=== PATIENT | female | born 1970 | race Caucasian/White ===

== ENCOUNTER 2024-07-13 14:17 | Outpatient (AMB) | payer OTHER, SELFPAY ==
--- OUTSIDE RECORDS SUMMARY | 2024-07-13 14:26 | XMS_ITS | Continuity of Care Document ---
Author Organization [facility] Address [address] [place], [place] [address] [place], [place] Phone [phone] Care Team Providers Care Sustainable Design Coordinator Name Role Phone Gabby Conde MD Care Team Information Receiv er Unavailable YAKOV LATIF M.D. Care Team Information Rec eiver Unavailable Gabby Conde MD Primary Care Physician Unava ilable Social History Type Date Description Comments Sex Unknown
--- NOTE | 2024-07-13 14:37 | A.OFFPC_ITS ---
Vital Signs 07/13/24 14:49 Height 5 ft 7 in Weight 143 lb 2 oz BMI 22.4 BP 138/76 Blood Pressure Location Rt brachial Position Sitting Respiration 13 Pulse 68 Pulse Source Pulse Oximeter Pulse Oximetry (%) 97 Oxygen Delivery Method Room Air Intake Visit Reasons: est/diabetes Intake Note: new patient to establish care, also patient is diabetic Manager Visual Required: No Allergies No Known Allergies Allergy (Verified 07/13/24 14:38) Medication List - Last Reconciled 07/13/24 by Vanessa Banuelos PA-C blood-glucose sensor (Dexcom G6 Sensor device) As directed Tobacco use date assessed: 07/13/24 Dental Screening Dental Screen Date: 07/13/24 Did you have a dental visit in the last 12 months?: Yes Did you have a dental problem in the last 6 months where you did not have access to dental care?: No Was dental information given to patient?: Patient has dentist HPI est/diabetes HPI Details Patient is a 54-year-old female presents today to establish care. She is transferring from [facility]. She states that her PCP's office started to do on awake counselor Medicine. She has a hx of t1dm, anxiety with depression, hx of cold sores. Endo: She follows with [facility] for management for t1dm- she is on a pump. She has had dm for 30 years (dx around 20s). Her a1c today is 7.9. She states this is good for her. She states it was previously 8.1. She has all back up supplies at home. She understands how to treat hypoglycemia. [facility], states no complications does not follow with podiatry- states she gets her own pedicures. Psych: She has a long standing history of anxiety and depression and states that she is very well controlled on 75 mg with sertraline. No SI/HI. She has never been hospitalized before for this. Mammo-overdue Colonoscopy- completed it in 2020 and states she was told it was normal and due to fam hx is due again this year. she is booked for this year at [facility]. 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 -5 years Bone density: never had Tobacco use: 1 ppd x 30 years- maternal aunt and uncle have lung cancer [facility] Medical History (Updated 07/13/24 @ 15:13 by Vanessa Banuelos PA-C) Arthritis Anxiety and depression Diabetes Surgical History (Updated 07/13/24 @ 14:48 by Rick Miranda MA) History of appendectomy Previous section Family History (Updated 07/13/24 @ 14:48 by Rick Miranda MA) Paternal Grandfather Substance abuse Maternal Grandfather Substance abuse Cancer Maternal Grandmother Substance abuse Hypertension High cholesterol Thyroid disorder Brother Hypertension Mother Thyroid disorder Paternal Grandmother Cardiovascular disease Father Cardiovascular disease Agent orange exposure Social History (Updated 07/13/24 @ 14:45 by Rick Miranda MA) Household Members: None Both parents involved: No Caregiver staying overnight: No Housing: Condominium Are you a primary director of healthcare systems to a significant other at home: No Do you presently have visiting nurse or other home services: No 75 years or older and lives alone: No Alcohol intake: current Alcohol intake frequency: a few times a month Patient Tobacco Use Status: Current everyday Tobacco user Tobacco use type: Cigarette Cigarette Packs Per Day: 1 Cigarettes Per Day: 10 Years Smoked: 30 e-Cigarette/Vaping Use: Never Used Second Hand Smoke Exposure: No 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al 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 1. Little interest or pleasure in doing things: not at all 2. Feeling down, depressed, or hopeless: several days 3. Trouble falling or staying asleep, or sleeping too much: several days 4. Feeling tired or having little energy: several days 5. Poor appetite or overeating: not at all 6. Feeling bad about yourself - or that you are a failure or have let yourself or your family down: several days 7. Trouble concentrating on things, such as reading the newspaper or watching television: not at all 8. Moving or speaking so slowly that other people could have noticed. Or the opposite - being so fidgety or restless that you have been moving around a lot more than usual: not at all 9. Thoughts that you would be better off or of hurting yourself in some way: not at all Total score: 4 Depression Screening Interpretation: Positive Depression Screening Follow-up: Existing condition and In treatment Depression Screening Done: Yes 17517 - PHQ-9 Billing: Yes Source: Developed by Drs. Josh Mejia, Rachel Hanks, Enmanuel Crawford and colleagues, with an educational fifi from [employer]. Thrive Questionnaire Date Thrive assessed: 07/13/24 I am a: Patient What is your living situation today?: I have a steady place to live Within the past 12 months, did the food you bought not last and you didn't have the money to get more?: I choose not to answer this question Within the past 12 months, did you worry whether your food would run out before you got money to buy more?: I choose not to answer this question Do you have trouble paying for medicines?: Yes Do you have trouble getting transportation to medical appointments?: No Do you have trouble paying your heating and electricity bill?: Yes Do you have trouble taking care of your child, family member or friend?: I choose not to answer this question Do you have trouble with day-to-day activities such as bathing, preparing meals, shopping, managing finances, etc.?: I choose not to answer this question Are you currently unemployed and looking for a job?: No Are you interested in more education?: I choose not to answer this question Please select the resources that you would like help with: None Currently or been in a relationship where the following occur: I choose not to answer THRIVE Score: 1 AUDIT C Alcohol Use Questionnaire (AUDIT-C) 1. How often do you have a drink containing alcohol?: 2-4 times a month 2. How many drinks containing alcohol do you have on a typical day when you are drinking?: 3 or 4 3. How often do you have six or more drinks on one occasion?: Monthly Total Score: 5 Score Reviewed/Action Taken: Yes ELVIN-7 AMB Questionnaire ELVIN-7 Date ELVIN - 7 assessed: 07/13/24 Feeling nervous, anxious, or on edge: 2 = More than half the days Not being able to stop or control worryin = Several days Worrying too much about different things: 1 = Several days Trouble relaxin = Several days Being so restless that it is hard to sit still: 1 = Several days Becoming easily annoyed or irritable: 1 = Several days Feeling afraid as if something awful might happen: 1 = Several days Total ELVIN-7 score (0-4 normal; 5-9 mild; 10-14 moderate; 15-21 severe): 8 Source: Developed by Drs. Josh Mejia, Rachel Hanks, Enmanuel Crawford and colleagues, with an educational fifi from [employer]. ELVIN-7 Assessment Billing ELVIN-7 Assessment Tool: ELVIN-7 Assessment 10869 Physical exam (Primary Care) Vital Signs: Last Vital Signs Pulse 68 07/13/24 14:49 Resp 13 07/13/24 14:49 BP 138/76 07/13/24 14:49 Pulse Ox 97 07/13/24 14:49 Oxygen Delivery Method Room Air 07/13/24 14:49 BMI result Body Mass Index 22.4 Tobacco/Smoking Status: Tobacco use Status Tobacco use date assessed 07/13/24 07/13/24 14:51 Patient Tobacco Use Status Current everyday Tobacco 07/13/24 14:51 Tobacco use type Cigarette 07/13/24 14:51 e-Cigarette/Vaping Use Never Used 07/13/24 14:51 PHQ-9: PHQ-9 Score PHQ-9: Total score 4 07/13/24 14:51 Depression Screening Interpretation: Positive Depression Screening Follow-up: Existing condition and In treatment Thrive Assessment: Date of Thrive Assessment Date Thrive assessed 07/13/24 07/13/24 14:51 Currently or been in a relationship where the following occur: I choose not to answer Const Orientation/consciousness: patient oriented x3 HENMT Ears: hearing grossly normal bilaterally Neck Thyroid: Thyroid normal Lymphatic: no lymphadenopathy noted Resp Auscultation: clear to auscultation bilaterally Cardio Rate: regular rate Rhythm: regular rhythm Heart sounds: S1 normal heart sound present and S2 normal heart sound present GI Inspection: Yes normal to inspection Palpation (GI): Soft to palpation and Other GI palpation findings present (nontender, no cva tenderness) Auscultation: normoactive bowel sounds Rectal Exam - Female: deferred Skin General skin exam: no rashes or lesions noted Neuro General: patient oriented x3, gait normal and no focal motor deficits Results AMB Hemoglobin A1c AMB Hemoglobin A1c 7.9 % Last Edit by Rick Miranda MA on 07/13/24 15:03 Coding Level of Care Code New Pt Level 4 (21233) Complex EM visit Add On G2211 Diagnoses Anxiety with depression F41.8 Uncontrolled type 1 diabetes mellitus with hyperglycemia, with long-term current use of insulin E10.[address] Z96.41 Additional Codes ELVIN-7 Assessment Billing - ELVIN-7 Assessment Tool: ELVIN-7 Assessment 45207 ([id number]) PHQ-9 - 84301 - PHQ-9 Billing: Yes ([id number]) Assessment & Plan Assessment & Plan (1) Anxiety with depression: Code(s): F41.8 - Other specified anxiety disorders Category: Medical Plan: Currently feels very well managed with the sertraline 75 mg. Continue current regimen. (2) Uncontrolled type 1 diabetes mellitus with hyperglycemia, with long-term current use of insulin: Code(s): E10.65 - Type 1 diabetes mellitus with hyperglycemia Category: Medical Plan: Following with endocrinology. We did discuss that her A1c is not at goal. She reports not having a urine checked in a few years. Microalbumin urine ordered (3) Insulin pump in place: Code(s): Z96.41 - Presence of insulin pump (external) (internal) Category: Medical Plan: As above. Has backup insulin at home along with CGM and additional testing supplies. Understands how to correct hypoglycemic events. Has glucose tabs and nasal spray Advised to continue following up with endocrinology. Plan DEXA ordered. Mammogram ordered. Bone density ordered. She is going to book her own colonoscopy. Referral to thoracic surgery for lung cancer screening. Offered her smoking cessation tips but she does not want to do this. Orders: Orders Complete Blood Count Auto Diff Today E10.65 - Type 1 diabetes mellitus with hyperglycemia, F41.8 - Other specified anxiety disorders, Z96.41 - Presence of insulin pump (external) (internal) Lipid Panel Today E10.65 - Type 1 diabetes mellitus with hyperglycemia, F41.8 - Other specified anxiety disorders, Z96.41 - Presence of insulin pump (external) (internal) Microalbumin, Random (w Creat) Today E10.65 - Type 1 diabetes mellitus with hyperglycemia, F41.8 - Other specified anxiety disorders, Z96.41 - Presence of insulin pump (external) (internal) AMB Hemoglobin A1c Today Z13.9 - Encounter for screening, unspecified XR DEXA axial skeleton Today F41.8 - Other specified anxiety disorders, N95.1 - Menopausal and female climacteric states, Z13.820 - Encounter for screening for osteoporosis Comprehensive [place]. Panel Fast Today E10.65 - Type 1 diabetes mellitus with hyperglycemia, F41.8 - Other specified anxiety disorders, Z96.41 - Presence of insulin pump (external) (internal) TSH reflex Free T4 Today E10.65 - Type 1 diabetes mellitus with hyperglycemia, F41.8 - Other specified anxiety disorders, Z96.41 - Presence of insulin pump (external) (internal) Referrals COAL CONVEYOR OPERATOR Referral Z01.419 - Encounter for gynecological examination (general) (routine) without abnormal findings Thoracic/General Surgery Referral F17.200 - Nicotine dependence, unspecified, uncomplicated Medications: New valacyclovir (Valtrex) 2,000 mg (2 x 1 gram) PO Q12H 1 day PRN 30 tabs 0RF outbreak MDD 4 g sertraline 75 mg (1.5 x 50 mg) PO DAILY 90 days 135 tabs 2RF
[2024-07-13 14:49] VITALS: BP 138/76; PULSE 68; RESP 13; O2SAT 97; BMI 22.4
== END 2024-07-13 15:23 | disposition home or self-care (01) ==
PROVIDERS: PCP Physician Assistant; Visit Provider Physician Assistant
DX: F41.8 Other specified anxiety disorders (principal); E10.65 Type 1 diabetes mellitus with hyperglycemia; Z96.41 Presence of insulin pump (external) (internal); Z13.9 Encounter for screening, unspecified

== ENCOUNTER → 2024-07-13 14:17 | Outpatient (BNVA) | payer OTHER, SELFPAY | PROVIDERS: PCP Physician Assistant; Visit Provider Physician Assistant | DX: F41.8 Other specified anxiety disorders (principal); E10.65 Type 1 diabetes mellitus with hyperglycemia; Z79.899 Other long term (current) drug therapy; Z96.41 Presence of insulin pump (external) (internal) | CPT/HCPCS: 83036; 96127 ==

== ENCOUNTER 2024-09-02 10:05 | Outpatient (AMB) | payer OTHER, SELFPAY ==
--- NOTE | 2024-09-02 07:51 | MHC.OFFVIS ---
Intake Visit Reasons: Current Smoker Allergies No Known Allergies Allergy (Verified 07/13/24 14:38) HPI HPI Current Smoker: Details: Initial visit for this 54yo smoker with a 30PYH. Patient started smoking at age 15 for 39 years at 1/2-1ppd. . Denies marijuana use. Denies second hand smoke exposure. Denies exposure to chemicals or substances like asbestos. . Denies known family history of lung cancer. Maternal aunt and maternal half uncle had lung cancer. Denies personal history of cancers. Denies chest CT in last year. . Denies recent travel outside the [place]. Denies recent respiratory illness or recent hospitalization for respiratory issues. Reports testing positive for COVID. Admits receiving COVID Vaccine. . Denies fever, chills, new/worsening cough, hemoptysis, hoarseness or dysphagia. Denies significant chest pain, significant dyspnea or unintentional weight loss. Patient Lung Cancer Screening Questionnaire reviewed with patient by provider. . Shared Decision Making Completed. Patient meets criteria. Discussed in detail with patient, the risk vs benefit of LDCT screening. Patient consents to proceed with scan. Discussed smoking cessation. [facility] Medical History (Updated 09/02/24 @ 10:28 by Juliane Mann PA-C) Nicotine dependence, cigarettes, uncomplicated Insulin pump in place Uncontrolled type 1 diabetes mellitus with hyperglycemia, with long-term current use of insulin Arthritis Anxiety and depression Surgical History (Updated 08/04/24 @ 14:35 by Juliane Mann PA-C) History of section History of appendectomy Family History (Updated 08/04/24 @ 14:39 by Juliane Mann PA-C) Paternal Grandfather Substance abuse Maternal Grandfather Substance abuse Cancer Maternal Grandmother Substance abuse Hypertension High cholesterol Thyroid disorder Brother Hypertension Mother Thyroid disorder Paternal Grandmother Cardiovascular disease Father Cardiovascular disease Agent orange exposure Maternal Aunt Lung cancer Maternal Uncle Lung cancer Social History (Updated 09/02/24 @ 10:29 by Juliane Mann PA-C) Household Members: None Housing: Condominium Are you a primary critical care paramedic to a significant other at home: No Do you presently have visiting nurse or other home services: No Alcohol intake: current Alcohol intake frequency: a few times a month Patient Tobacco Use Status: Current everyday Tobacco user Tobacco use type: Cigarette Cigarettes Per Day: 10 Years Smoked: (onset 15yo, 1/2-1ppd x 39yrs, 30pyh) e-Cigarette/Vaping Use: Never Used Second Hand Smoke Exposure: No 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 - Patient meets criteria for LDCT for lung cancer screening purposes and is asymptomatic. - Smoking cessation counseling offered. Patients can always call [phone]. - Will arrange for a LDCT scan of the chest for screening purposes at [facility]. - Risks, benefits, and alternatives were discussed in detail and the patient agrees to proceed. - Risks discussed include but are not limited to: radiation exposure, anxiety during testing and while awaiting results, false negatives, false positives and possibility of additional intervention such as further imaging or surgical procedures for benign disease. - Benefits are obviously detection of lung cancer at an early stage which can lead to improved outcomes. - Discussed the importance of screening program compliance with adherence to yearly LDCT scan as scheduled - or sooner interval scans for personalized screening regimen. - Discussed follow up plan. Our office will send a letter discussing results and if needed set up phone call and office visit based on CT findings. - Patient educated on results categorization and the management decisions for suspicious findings potentially found on the screening LDCT scan. Any patient with a Lung RADS score of 3 or 4 will be reviewed by a multidisciplinary team at [facility] to form a plan of action in regards to scan findings. - If further work up is warranted for a suspicious lung finding this will be followed by the Lung Cancer Screening program in conjunction with the Thoracic Surgery Department at [facility]. - A copy of the office note and LDCT will be sent to the patient's PCP - as well as documentation on any associated further plans of care. - Incidental findings on LDCT are the PCP's responsibility. These findings are indicated with an S finding on the LDCT Assessment. A note discussing the findings will be sent to the PCP who is then responsible for further management. - All questions answered.? Coding Level of Care Code Lung Cancer Screening G0296 Diagnoses Nicotine dependence, cigarettes, uncomplicated F17.210
--- OUTSIDE RECORDS SUMMARY | 2024-09-02 11:11 | XMS_ITS | Continuity of Care Document ---
Author Organization [facility] Address [address] [place], [place] [address] [place], [place] Phone [phone] Care Team Providers Care Glaze Handler Name Role Phone Gabby Conde MD Care Team Information Receiv er Unavailable YAKOV LATIF M.D. Care Team Information Rec eiver Unavailable Gabby Conde MD Primary Care Physician Unava ilable Social History Type Date Description Comments Sex Unknown
== END 2024-09-02 10:42 | disposition home or self-care (01) ==
PROVIDERS: PCP Physician Assistant; Visit Provider Physician Assistant Medical
DX: F17.210 Nicotine dependence, cigarettes, uncomplicated (principal)
CPT/HCPCS: G0296

== ENCOUNTER 2024-09-02 10:24 | Outpatient (REF) | payer OTHER, SELFPAY ==
--- NOTE | ~2024-09-02 | CT_ITS ---
CLINICAL HISTORY: F17.210 - Nicotine dependence, cigarettes, uncomplicated CT lung cancer screening (LDCT) Comparison: None Technique: Axial CT images of the chest using low-dose technique. Referring provider counseled the patient on shared decision-making for LDCT screening. Additional counseling was provided on smoking cessation. Effective radiation dose total: DLP 25.5 mGycm, CTDIvol 0.8 mGy. Findings: Lung: There is a questionable ill-defined 2.8 x 2.0 cm right hilar mass with right middle lobe linear consolidation, possible subsegmental atelectasis there are no other solid or semi solid lesions. Coronary artery calcifications: none Limited upper abdomen: Unremarkable Other: None Impression: Category 4B: Suspicious, additional diagnostics and/or tissue sampling recommended. Consider contrast-enhanced study if patient can safely receive intravenous contrast Category 1: Normal; continue annual screening Category 2: Benign appearance or behavior, continue annual screening Category 3: Probably benign, [address] recommended Category 4A: Suspicious, [address] recommended; may consider PET/CT Category 4B: Suspicious, Additional diagnostics and/or tissue sampling recommended Category 4X: Suspicious, Additional diagnostics and/or tissue sampling recommended Category 0: Recalls (incomplete screen due to Incomplete coverage, Noise, Respiratory motion, Expiration, Obscured by acute abnormality) This document has been electronically signed by: Gustavo Montesinos MD on 09/02/2024 17:25:41
--- OUTSIDE RECORDS SUMMARY | 2024-09-02 11:44 | XMS_ITS | Continuity of Care Document ---
Author Organization [facility] Address [address] [place], [place] [address] [place], [place] Phone [phone] Care Team Providers Care Porcelain Enameling Supervisor Name Role Phone Gabby Conde MD Care Team Information Receiv er Unavailable YAKOV LATIF M.D. Care Team Information Rec eiver Unavailable Gabby Conde MD Primary Care Physician Unava ilable Social History Type Date Description Comments Sex Unknown
== END 2024-09-02 10:25 | disposition home or self-care (01) ==
LOC: HO.CT 10:24
PROVIDERS: PCP Physician Assistant; Visit Provider Physician Assistant Medical
DX: Z12.2 Encounter for screening for malignant neoplasm of respiratory organs (principal); F17.210 Nicotine dependence, cigarettes, uncomplicated
CPT/HCPCS: 71271

== ENCOUNTER → 2024-09-02 10:26 | Outpatient (BNV) | payer OTHER, SELFPAY | PROVIDERS: PCP Physician Assistant; Visit Provider Specialist | DX: F17.210 Nicotine dependence, cigarettes, uncomplicated (principal) | CPT/HCPCS: 71271 ==

== ENCOUNTER 2024-09-13 09:37 | Outpatient (AMB) | payer OTHER, SELFPAY ==
--- NOTE | 2024-09-13 09:51 | MHC.OFFVIS ---
Vital Signs 09/13/24 09:52 Height 5 ft 7 in Weight 142 lb 3.17 oz BMI 22.3 BP 124/66 Blood Pressure Location Rt brachial Position Sitting Pulse 67 Pulse Source Pulse Oximeter Pulse Oximetry (%) 99 Oxygen Delivery Method Room Air Intake Visit Reasons: Lung Mass Allergies No Known Allergies Allergy (Verified 09/13/24 09:56) HPI Comments Details: The patient is here for pulmonary evaluation. The patient is a 54-year-old woman who is an active smoker who apparently he has been noticing some increased cough shortness of breath and weight loss. She did follow-up with her primary care doctor who referred her to the lung cancer screening program. She did have her 1st CT scan through the lung cancer screening program which is considered a rods 4. We did personally reviewed together in the room. She has a masslike density in the infrahilar area. It is surrounded by airways. We talked about the concerns that this is likely a malignant process and needs to have a biopsy. The patient will benefit from endobronchial ultrasound bronchoscopy with transbronchial needle aspiration. Also request pulmonary function studies. The patient also needs to quit smoking altogether. She is currently not using any inhalers will hold off at this time. Follow-up with PFTs. [facility] Medical History (Updated 09/09/24 @ 10:26 by Juliane Mann PA-C) Nicotine dependence, cigarettes, uncomplicated Insulin pump in place Uncontrolled type 1 diabetes mellitus with hyperglycemia, with long-term current use of insulin Arthritis Anxiety and depression Surgical History (Updated 08/04/24 @ 14:35 by Juliane Mann PA-C) History of section History of appendectomy Family History (Updated 08/04/24 @ 14:39 by Juliane Mann PA-C) Paternal Grandfather Substance abuse Maternal Grandfather Substance abuse Cancer Maternal Grandmother Substance abuse Hypertension High cholesterol Thyroid disorder Brother Hypertension Mother Thyroid disorder Paternal Grandmother Cardiovascular disease Father Cardiovascular disease Agent orange exposure Maternal Aunt Lung cancer Maternal Uncle Lung cancer Social History (Updated 09/13/24 @ 09:56 by Dania Shell CMA) Household Members: None Housing: Condominium Are you a primary date night caregiver to a significant other at home: No Do you presently have visiting nurse or other home services: No Alcohol intake: current Alcohol intake frequency: a few times a month Patient Tobacco Use Status: Current everyday Tobacco user Tobacco use type: Cigarette Cigarette Packs Per Day: 0.75 Cigarettes Per Day: 15 Years Smoked: (onset 15yo, 1/2-1ppd x 39yrs, 30pyh) e-Cigarette/Vaping Use: Never Used Second Hand Smoke Exposure: No 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al 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 needs: No Hearing needs: No Vision needs: Yes (wear glasses) Review of Systems Const Reports fatigue, Reports poor appetite and Reports weight loss Eyes Reports no additional complaints ENT Reports no additional complaints and Denies dysphagia Card Denies chest pain Resp Reports chest congestion and Reports cough GI Denies dysphagia Musc Reports no additional complaints Skin/Breast Denies rash Neuro Reports no additional complaints Endo Reports fatigue Physical Exam Vital Signs: Last Vital Signs Pulse 67 09/13/24 09:52 BP 124/66 09/13/24 09:52 Pulse Ox 99 09/13/24 09:52 Oxygen Delivery Method Room Air 09/13/24 09:52 BMI result Body Mass Index 22.3 Const General: comfortable HEENT Head: Yes normal to inspection Neck Neck: Yes supple Chest Chest palpation & inspection: normal inspection of the chest Resp Effort & Inspection: normal respiratory effort Auscultation: clear to auscultation bilaterally, no rales, no rhonchi and no wheezes Cardio Rhythm: regular rhythm Heart sounds: S1 normal heart sound present and S2 normal heart sound present GI Palpation (GI): Soft to palpation Skin General skin exam: no rashes or lesions noted Assessment & Plan Assessment & Plan (1) Mass of right lung: Comment: 09/02/24 LDCT = ill-defined 2.8 x 2.0 cm right hilar mass with RML linear consolidation - plan PET/PFTs/EBUS) Code(s): R91.8 - Other nonspecific abnormal finding of lung field Category: Medical (2) Nicotine dependence, cigarettes, uncomplicated: Comment: (onset 15yo, 1/2-1ppd x 39yrs, 30pyh) Code(s): F17.210 - Nicotine dependence, cigarettes, uncomplicated Category: Medical (3) Insulin pump in place: Code(s): Z96.41 - Presence of insulin pump (external) (internal) Category: Medical Plan Plan for EBUS after she is back from [place] in 2 weeks PFTs this week Will need to have PET scan Tobacco cessation F/U 3-4 weeks Coding Level of Care Code New Pt Level 5 (68628) Diagnoses Mass of right lung R91.8 Nicotine dependence, cigarettes, uncomplicated F17.[address] Z96.41 Time Spent (min) 60
[2024-09-13 09:52] VITALS: BP 124/66; PULSE 67; O2SAT 99; BMI 22.3
--- OUTSIDE RECORDS SUMMARY | 2024-09-13 10:51 | XMS_ITS | Continuity of Care Document ---
Author Organization [facility] Address [address] [place], [place] [address] [place], [place] Phone [phone] Care Team Providers Care Daytime Babysitter Name Role Phone Gabby Conde MD Care Team Information Receiv er Unavailable YAKOV LATIF M.D. Care Team Information Rec eiver Unavailable Gabby Conde MD Primary Care Physician Unava ilable Social History Type Date Description Comments Sex Unknown
== END 2024-09-13 10:28 | disposition home or self-care (01) ==
LOC: HO.HPS 09:37
PROVIDERS: PCP Physician Assistant; Referring Provider Physician Assistant Medical; Visit Provider Hospitalist
DX: R91.8 Other nonspecific abnormal finding of lung field (principal); F17.210 Nicotine dependence, cigarettes, uncomplicated; E10.65 Type 1 diabetes mellitus with hyperglycemia; Z96.41 Presence of insulin pump (external) (internal)
CPT/HCPCS: 99205

== ENCOUNTER → 2024-09-13 09:37 | Outpatient (BNVA) | payer OTHER, SELFPAY | PROVIDERS: PCP Physician Assistant; Referring Provider Physician Assistant Medical; Visit Provider Hospitalist ==

== ENCOUNTER 2024-09-14 08:51 | Outpatient (REF) | payer OTHER, SELFPAY ==
--- NOTE | 2024-09-14 08:58 | PFT_ITS ---
Flows: FEV1: 86 % of predicted at 2.49 L FVC: 100 % of predicted at 3.68 L FEV1/FVC: 68 % Bronchodilator response: Absent Volumes: Total lung capacity: 89 % of predicted at 5.11 L Residual volume: 84 % of predicted at 1.50 L Slow vital capacity: 92 % of predicted at 3.61 L Expiratory reserve volume: 95 % of predicted at 1.02 L Diffusion capacity: Normal Impression: Mild obstructive ventilatory defect with no bronchodilator response. MTDD
--- OUTSIDE RECORDS SUMMARY | 2024-09-14 09:25 | XMS_ITS | Continuity of Care Document ---
Author Organization [facility] Address [address] [place], [place] [address] [place], [place] Phone [phone] Care Team Providers Care Postal Sorting Officer Name Role Phone Gabby Conde MD Care Team Information Receiv er Unavailable YAKOV LATIF M.D. Care Team Information Rec eiver Unavailable Gabby Conde MD Primary Care Physician Unava ilable Social History Type Date Description Comments Sex Unknown
[2024-09-14 09:43] VITALS: PULSE 66
== END 2024-09-14 08:52 | disposition home or self-care (01) ==
LOC: HO.RESP 08:51
PROVIDERS: PCP Physician Assistant; Visit Provider Hospitalist
DX: R91.8 Other nonspecific abnormal finding of lung field (principal); F17.210 Nicotine dependence, cigarettes, uncomplicated
CPT/HCPCS: 94010; 94640; 94727; 94729

== ENCOUNTER → 2024-09-14 08:58 | Outpatient (BNV) | payer OTHER, SELFPAY | PROVIDERS: PCP Physician Assistant; Visit Provider Internal Medicine Pulmonary Disease | DX: R91.8 Other nonspecific abnormal finding of lung field (principal); F17.210 Nicotine dependence, cigarettes, uncomplicated | CPT/HCPCS: 94060; 94727; 94729 ==

== ENCOUNTER 2024-09-27 07:41 | Outpatient (REF) | payer OTHER, SELFPAY ==
[2024-09-27 11:22] LABS: MANUAL DIFF FLAG NO
[2024-09-27 11:30] LABS: Basophils Absolute Auto 0.1 X10*3/uL (0.0-0.2); Basophils Percent Auto 0.8 % (0-2); Eosinophils Absolute Auto 0.2 X10*3/uL (0.0-0.4); Eosinophils Percent Auto 2.2 % (0-4); Hematocrit 37.8 % (37.0-47.0); Hemoglobin 12.5 g/dl (12.0-16.0); Imm Gran Abs Auto 0.01 X10*3/uL (0.00-0.03); Imm Gran Pct Auto 0.1 % (0.0-0.4); Lymphocytes Absolute Auto 2.9 X10*3/uL (1.2-4.9); Lymphocytes Percent Auto 37.5 % (20-40); Mean Corpuscular HGB Conc 33.1 g/dl (31.0-35.0); Mean Corpuscular Volume 90.9 fL (80.0-98.0); Mean Platelet Volume 8.6 fL (9.4-12.3); Monocytes Absolute Auto 0.6 X10*3/uL (0.1-1.2); Monocytes Percent Auto 7.6 % (2-11); Neutrophils Absolute Auto 4.1 x10*3/uL (2.0-8.3); Neutrophils Percent Auto 51.8 % (45-73); Platelet Count 433 X10*3/uL (160-400); Red Blood Count 4.16 X10*6/uL (4.20-5.50); Red Cell Distribution Width 13.8 % (11.0-16.0); White Blood Count 7.9 X10*3/uL (4.8-10.8)
[2024-09-27 12:16] LABS: Creatinine Urine 46.43 mg/dL; Microalbumin Urine < 5.0 mg/L
[2024-09-27 12:20] LABS: Alanine Aminotransferase 20 U/L (0-31); Albumin Level 3.8 g/dL (3.5-5.0); Alkaline Phosphatase 130 U/L (39-117); Anion Gap 10 (12-20); Aspartate Amino Transferase 25 U/L (5-31); Bilirubin Total 0.3 mg/dL (0.0-1.0); Blood Urea Nitrogen 10 mg/dL (9-16); Calcium 9.2 mg/dL (8.4-10.2); Carbon Dioxide 27 mmol/L (22-29); Chloride 107 mmol/L (96-108); Cholesterol 181 mg/dL (<200); Estimated Glomerular Filt Rate > 60; Glucose Fasting 146 mg/dL (60-99); HDL Cholesterol 54 mg/dL (>40); LDL Cholesterol Calculated 110 mg/dL (<100); Potassium 4.4 mmol/L (3.3-5.1); Sodium 140 mmol/L (135-145); TSH reflex Free T4 2.84 uIU/mL (0.32-4.0); Total Protein 6.8 g/dL (6.5-8.0); Triglycerides 86 mg/dL (<150)
== END 2024-09-27 07:42 | disposition home or self-care (01) ==
LOC: HO.WFDLDS 07:41
PROVIDERS: Visit Provider Physician Assistant
DX: E10.65 Type 1 diabetes mellitus with hyperglycemia (principal); F41.8 Other specified anxiety disorders; Z96.41 Presence of insulin pump (external) (internal)
CPT/HCPCS: 36415; 80053; 80061; 82043; 82570; 84443; 85025

== ENCOUNTER 2024-09-28 10:34 | Outpatient (AMB) | payer OTHER, SELFPAY ==
--- NOTE | 2024-09-28 09:59 | A.OFFPC_ITS ---
Intake Visit Reasons: Discuss nodule Intake Note: Discuss Ct of lungs. Pesticide Use Medical Coordinator Required: No Allergies No Known Allergies Allergy (Verified 09/28/24 10:25) Medication List - Last Reconciled 09/28/24 by Vanessa Banuelos PA-C blood-glucose sensor (Dexcom G6 Sensor device) As directed insulin aspart U-100 (Novolog FlexPen U-100 Insulin aspart) 1 sliding scale dose subcut USEASDIRECTD loratadine (Claritin) 10 mg PO DAILY multivitamin 1 tab PO DAILY sertraline 75 mg (1.5 x 50 mg) PO DAILY 90 days valacyclovir (Valtrex) 2,000 mg (2 x 1 gram) PO Q12H PRN 1 day MDD 4 g [vitamin e daily] Tobacco use date assessed: 07/13/24 Dental Screening Dental Screen Date: 07/13/24 HPI Discuss nodule HPI Details Patient is a 54-year-old female presents today for a follow up. She has a hx of t1dm, anxiety with depression, hx of cold sores and recent diagnosis of right lung mass PULM: Recently went for a low-dose CT scan screen given her smoking history and family history of lung cancer and found to have a right lung mass. She has followed up with pulmonology and recently had PFTs which showed mild COPD. She is scheduled for a biopsy in 2 days but this is stressing her out. She states that she would just like the mass completely removed. She says that she plans to contact the surgeon today. She has a PET scan scheduled for October. She is still smoking but has cut back. In the past patches have worked well for her. Psych: She has a long standing history of anxiety and depression and states that she she was recently very well-controlled however given her recent lung mass finding she has had an increase in anxiety. She is tearful throughout the day. She says that she is struggling and having some intermittent panic attacks and interrupted sleep. No SI/HI. She does have a good support system of friends in [place] however, most of her family lives in [place]. She states that they are supportive through the phone. She does not want to meet with anyone just yet. Endo: She follows with [facility] for management for t1dm- she is on a pump. She has had dm for 30 years (dx around 20s). Her a1c today is 7.9. She states this is good for her. . She has all back up supplies at home. She understands how to treat hypoglycemia. follows with [facility]-no retinopathy, states no complications does not follow with podiatry- states she gets her own pedicures. [facility] Medical History (Updated 09/28/24 @ 10:52 by Vanessa Banuelos PA-C) Nicotine dependence, cigarettes, uncomplicated Insulin pump in place Uncontrolled type 1 diabetes mellitus with hyperglycemia, with long-term current use of insulin Arthritis Anxiety and depression Surgical History History of section History of appendectomy Family History Paternal Grandfather Substance abuse Maternal Grandfather Substance abuse Cancer Maternal Grandmother Substance abuse Hypertension High cholesterol Thyroid disorder Brother Hypertension Mother Thyroid disorder Paternal Grandmother Cardiovascular disease Father Cardiovascular disease Agent orange exposure Maternal Aunt Lung cancer Maternal Uncle Lung cancer Social History (Updated 09/28/24 @ 10:34 by Francesca Ballesteros CMA) Household Members: None Both parents involved: No Caregiver staying overnight: No Housing: Condominium Are you a primary primary care nurse to a significant other at home: No Do you presently have visiting nurse or other home services: No 75 years or older and lives alone: No Alcohol intake: current Alcohol intake frequency: a few times a month Patient Tobacco Use Status: Current everyday Tobacco user Tobacco use type: Cigarette Cigarette Packs Per Day: 0.75 Cigarettes Per Day: 15 Years Smoked: (onset 15yo, 1/2-1ppd x 39yrs, 30pyh) e-Cigarette/Vaping Use: Never Used Second Hand Smoke Exposure: No Substance Use Type: Marijuana 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al 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 needs: No Hearing needs: No Vision needs: Yes (wear glasses) Questionnaire Thrive Questionnaire Date Thrive assessed: 07/12/24 I am a: Patient What is your living situation today?: I have a steady place to live Within the past 12 months, did the food you bought not last and you didn't have the money to get more?: I choose not to answer this question Within the past 12 months, did you worry whether your food would run out before you got money to buy more?: I choose not to answer this question Do you have trouble paying for medicines?: Yes Do you have trouble getting transportation to medical appointments?: No Do you have trouble paying your heating and electricity bill?: Yes Do you have trouble taking care of your child, family member or friend?: I choose not to answer this question Do you have trouble with day-to-day activities such as bathing, preparing meals, shopping, managing finances, etc.?: I choose not to answer this question Are you currently unemployed and looking for a job?: No Are you interested in more education?: I choose not to answer this question Please select the resources that you would like help with: None Currently or been in a relationship where the following occur: I choose not to answer THRIVE Score: 1 ELVIN-7 AMB Questionnaire ELVIN-7 Date ELVIN - 7 assessed: 07/13/24 Source: Developed by Drs. Josh Mejia, Rachel Hanks, Enmanuel Crawford and colleagues, with an educational fifi from [employer]. Physical exam (Primary Care) Tobacco/Smoking Status: Tobacco use Status Tobacco use date assessed 07/13/24 09/28/24 09:59 Patient Tobacco Use Status Current everyday Tobacco 09/28/24 10:34 Tobacco use type Cigarette 09/28/24 10:34 e-Cigarette/Vaping Use Never Used 09/28/24 10:34 Thrive Assessment: Date of Thrive Assessment Date Thrive assessed 07/12/24 09/28/24 09:59 Currently or been in a relationship where the following occur: I choose not to answer Telehealth Telehealth Telehealth Platform: Telephone Location of provider rendering services: practice address Location of patient: address on file Patient Identification confirmed using: Name, : Yes Telehealth method: voice only Patient verbally consented to treatment: Yes Patient verbally consented to billing insurance company: Yes Patient informed of any privacy concerns related to visit: Yes Minutes spent on Phone/Video with Pt.: 22 Results Reviewed Results Reviewed: Laboratory Tests 09/27/24 07:43 WBC 7.9 RBC 4.16 L Hgb 12.5 Hct 37.8 MCV 90.9 MCH 30.0 MCHC 33.1 RDW 13.8 Plt Count 433 H Sodium 140 Potassium 4.4 Chloride 107 Carbon Dioxide 27 Anion Gap 10 L BUN 10 Creatinine 0.72 Estimated GFR > 60 Fasting Glucose 146 H Calcium 9.2 Total Bilirubin 0.3 AST 25 ALT 20 Alkaline Phosphatase 130 H Total Protein 6.8 Albumin 3.8 Triglycerides 86 Cholesterol 181 LDL Cholesterol, Calc 110 H HDL Cholesterol 54 TSH 2.84 Coding Level of Care Code Tele Est Pt Level 4 (36767) Diagnoses Anxiety with depression F41.8 Panic attacks F41.0 Mass of right lung R91.8 Nicotine dependence, cigarettes, uncomplicated F17.210 Elevated alkaline phosphatase level R74.8 Assessment & Plan Assessment & Plan (1) Anxiety with depression: Code(s): F41.8 - Other specified anxiety disorders Category: Medical Plan: Increase Zoloft to 100 mg. (2) Panic attacks: Code(s): F41.0 - Panic disorder [episodic paroxysmal anxiety] Category: Medical Plan: We will start lorazepam. Discussed risks and benefits and adverse effects of this medication. Advised to use sparingly and only if needed for panic attacks. We did discuss that this medication can be sedating and addicting. (3) Mass of right lung: Comment: 09/02/24 LDCT = ill-defined 2.8 x 2.0 cm right hilar mass with RML linear consolidation - plan PET/PFTs/EBUS) Code(s): R91.8 - Other nonspecific abnormal finding of lung field Category: Medical Plan: Has biopsy scheduled. (4) Nicotine dependence, cigarettes, uncomplicated: Comment: (onset 15yo, 1/2-1ppd x 39yrs, 30pyh) Code(s): F17.210 - Nicotine dependence, cigarettes, uncomplicated Category: Medical Plan: We will start Nicoderm patches (5) Elevated alkaline phosphatase level: Code(s): R74.8 - Abnormal levels of other serum enzymes Plan: Labs ordered. We will follow up pending test results. Orders: Orders Vitamin D 25-OH Total Today R74.8 - Abnormal levels of other serum enzymes Liver Panel Today R74.8 - Abnormal levels of other serum enzymes Alkaline Phosphatase Bone Today R74.8 - Abnormal levels of other serum enzymes Parathyroid Hormone Intact Today R74.8 - Abnormal levels of other serum enzymes Medications: New nicotine (Nicoderm CQ) 1 patch transdermal Q24H 28 ea 0RF lorazepam 0.5 mg PO BID 30 days PRN 30 tabs 0RF anxiety sertraline 100 mg PO DAILY 90 tabs 0RF Discontinued sertraline Discontinued Reason: Doctor's Order 75 mg (1.5 x 50 mg) PO DAILY 90 days 135 tabs 2RF
== END 2024-09-28 15:22 | disposition home or self-care (01) ==
LOC: HO.HMCFM 10:34
PROVIDERS: PCP Physician Assistant; Visit Provider Physician Assistant
DX: F41.8 Other specified anxiety disorders (principal); F41.0 Panic disorder [episodic paroxysmal anxiety]; R91.8 Other nonspecific abnormal finding of lung field; F17.210 Nicotine dependence, cigarettes, uncomplicated; R74.8 Abnormal levels of other serum enzymes

== ENCOUNTER → 2024-09-28 10:34 | Outpatient (BNVA) | payer OTHER, SELFPAY | PROVIDERS: PCP Physician Assistant; Visit Provider Physician Assistant ==

== ENCOUNTER 2024-09-30 12:05 | Day surgery (SDC) | payer OTHER, SELFPAY ==
--- OUTSIDE RECORDS SUMMARY | 2024-09-13 13:02 | XMS_ITS | Continuity of Care Document ---
Author Organization [facility] Address [address] [place], [place] [address] [place], [place] Phone [phone] Care Team Providers Care Structural Technician Name Role Phone Gabby Conde MD Care Team Information Receiv er Unavailable YAKOV LATIF M.D. Care Team Information Rec eiver Unavailable Gabby Conde MD Primary Care Physician Unava ilable Social History Type Date Description Comments Sex Unknown
--- NOTE | 2024-09-29 10:14 | P.CONAN_ITS ---
Documented by User: Natalie Guerra NP 09/29/24 10:15 HPI - Anesthesia Eval Consult details Narrative: 54yo F for ?Endoscopic Bronchial Ultrasound PMFSH Active Problems Active Problems: All Active Problems Panic attacks (Acute) Mass of right lung (Acute) Nicotine dependence, cigarettes, uncomplicated (Acute) Insulin pump in place (Acute) Uncontrolled type 1 diabetes mellitus with hyperglycemia, with long-term current use of insulin (Acute) Anxiety with depression (Acute) Past Medical History Medical History (Updated 09/30/24 @ 12:29 by Leelee Soler RN) Sleep apnea Nicotine dependence, cigarettes, uncomplicated Insulin pump in place Uncontrolled type 1 diabetes mellitus with hyperglycemia, with long-term current use of insulin Arthritis Anxiety and depression Family History Family History Paternal Grandfather Substance abuse Maternal Grandfather Substance abuse Cancer Maternal Grandmother Substance abuse Hypertension High cholesterol Thyroid disorder Brother Hypertension Mother Thyroid disorder Paternal Grandmother Cardiovascular disease Father Cardiovascular disease Agent orange exposure Maternal Aunt Lung cancer Maternal Uncle Lung cancer Surgical History Surgical History History of section History of appendectomy Social History Social History (Updated 09/28/24 @ 10:34 by Francesca Ballesteros CMA) Household Members: None Housing: Condominium Are you a primary healthcare associate to a significant other at home: No Do you presently have visiting nurse or other home services: No Alcohol intake: current Alcohol intake frequency: a few times a month Patient Tobacco Use Status: Current everyday Tobacco user Tobacco use type: Cigarette Cigarette Packs Per Day: 0.75 Cigarettes Per Day: 20 Years Smoked: (onset 15yo, 1/2-1ppd x 39yrs, 30pyh) e-Cigarette/Vaping Use: Never Used Second Hand Smoke Exposure: No Use of substances other than those prescribed or required for medical reasons: Yes Substance Use Type: Marijuana Substance Use Type Other:: edible to sleep Are you DNR?: No Advance Directives: No Advance Directives Information Provided: Yes 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al 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 needs: No Hearing needs: No Vision needs: Yes (wear glasses) Meds Allergies Allergy/AdvReac Type Severity Reaction Status Date / Time No Known Allergies Allergy Verified 09/28/24 10:25 Home Medications ?Medication ?Instructions ?Recorded ?Confirmed ?Last Taken ?Type blood-glucose sensor (Dexcom G6 07/13/24 09/28/24 Unknown History Sensor device) insulin aspart U-100 100 unit/mL 1 sliding scale dose subcut 09/28/24 09/28/24 Unknown History (3 mL) subcutaneous pen (Novolog USEASDIRECTD FlexPen U-100 Insulin aspart) loratadine 10 mg tablet (Claritin) 10 mg PO DAILY 09/28/24 09/28/24 Unknown History multivitamin 1 tab PO DAILY 09/28/24 09/28/24 Unknown History vitamin e .Route 09/28/24 09/28/24 Unknown History Exam Pertinent Lab Results Pertinent Lab Results: Laboratory Tests 09/27/24 07:43 WBC 7.9 Hgb 12.5 Hct 37.8 Plt Count 433 H Sodium 140 Potassium 4.4 Chloride 107 Carbon Dioxide 27 BUN 10 Creatinine 0.72 Assessment and Plan Assessment Anesthesia Assessment: Chart Reviewed Documented by User: Francisco Javier Green MD 09/30/24 12:59 [facility] Past Medical History Medical History (Updated 09/30/24 @ 12:29 by Leelee Soler, RN) Sleep apnea Nicotine dependence, cigarettes, uncomplicated Insulin pump in place Uncontrolled type 1 diabetes mellitus with hyperglycemia, with long-term current use of insulin Arthritis Anxiety and depression Family History Family History Paternal Grandfather Substance abuse Maternal Grandfather Substance abuse Cancer Maternal Grandmother Substance abuse Hypertension High cholesterol Thyroid disorder Brother Hypertension Mother Thyroid disorder Paternal Grandmother Cardiovascular disease Father Cardiovascular disease Agent orange exposure Maternal Aunt Lung cancer Maternal Uncle Lung cancer Family history of problems with anesthesia: No Surgical History Surgical History History of section History of appendectomy History of Problems with Anesthesia: No Social History Social History (Updated 09/28/24 @ 10:34 by Francesca Ballesteros CMA) Household Members: None [facility] Are you a primary healthcare associate to a significant other at home: No Do you presently have visiting nurse or other home services: No Alcohol intake: current Alcohol intake frequency: a few times a month Patient Tobacco Use Status: Current everyday Tobacco user Tobacco use type: Cigarette Cigarette Packs Per Day: 0.75 Cigarettes Per Day: 20 Years Smoked: (onset 15yo, 1/2-1ppd x 39yrs, 30pyh) e-Cigarette/Vaping Use: Never Used Second Hand Smoke Exposure: No Use of substances other than those prescribed or required for medical reasons: Yes Substance Use Type: Marijuana Substance Use Type Other:: edible to sleep Are you DNR?: No Advance Directives: No Advance Directives Information Provided: Yes 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al 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 needs: No Hearing needs: No Vision needs: Yes (wear glasses) Meds Allergies Allergy/AdvReac Type Severity Reaction Status Date / Time No Known Allergies Allergy Verified 09/28/24 10:25 Home Medications ?Medication ?Instructions ?Recorded ?Confirmed ?Last Taken ?Type blood-glucose sensor (Dexcom G6 07/13/24 09/28/24 Unknown History Sensor device) insulin aspart U-100 100 unit/mL 1 sliding scale dose subcut 09/28/24 09/28/24 Unknown History (3 mL) subcutaneous pen (Novolog USEASDIRECTD FlexPen U-100 Insulin aspart) loratadine 10 mg tablet (Claritin) 10 mg PO DAILY 09/28/24 09/28/24 Unknown History multivitamin 1 tab PO DAILY 09/28/24 09/28/24 Unknown History vitamin e .Route 09/28/24 09/28/24 Unknown History Exam Airway Mallampati Class: II TM Dist: >3cm Neck ROM: Full Assessment and Plan Assessment Anesthesia Assessment: Anesthesia Plan Discussed Final Anesthetic Review Family History of Problems with Anesthesia: No History of Problems with Anesthesia: No NPO: Yes ASA Class: III Final Preanesthetic Review: No Changes in Pt Med Stat, Meds/Allgs Chart Reviewed, Consent Obtained/Reviewed and Anes Risks/Benef Reviewed Patient Risk: Intermediate Procedure Risk: Low Anesthetic Plan Anesthetic Plan: GA Disposition: Standard PACU
--- NOTE | ~2024-09-30 | XR_ITS ---
EXAMINATION: XR CHEST 1 VIEW HISTORY: right lung biopsy COMPARISON: Correlation is made with a low-dose chest CT dated 09/02/2024. FINDINGS: A single PA view of the chest is submitted. The lungs are expanded and clear. There is fullness of the right infrahilar region, suspicious for a mass, as noted on CT. There is no pleural effusion, pneumothorax, or pulmonary vascular congestion. The heart is normal in size. The bones are intact. XR/XR chest 1V IMPRESSION: Right infrahilar mass as noted on CT. Electronically signed by: Josh Santana MD 10/03/2024 06:59 AM EDT
[2024-09-30 12:30] VITALS: BMI 20.8
[2024-09-30 12:43] VITALS: BP 101/65; PULSE 78; RESP 15; TEMP 36.6; O2SAT 96
[2024-09-30] MEDS: Lactated Ringers 1,000 ML 100 ML IVCONT (12:53)
--- NOTE | 2024-09-30 12:54 | MHC.SHP ---
Pre-Procedural Eval Section A - 24 Hr Update-Section A only Date of Service: 09/30/24 The patient is an INPATIENT: No Changes since office visit: No Cold of Flu in the past 2 weeks, No New Medical Problems, No Changes in Medication and No Patient answered all questions The patient has been examined within 24 hours of the surgical procedure. The History & Physical has been completed within 30 days and I have reviewed it.: Yes Section B - Complete if H&P > 30 days Chief Complaint: Solitary pulmonary nodule Allergies: Allergies Allergy/AdvReac Type Severity Reaction Status Date / Time No Known Allergies Allergy Verified 09/28/24 10:25 Plan I have reviewed the history and physical and performed a pertinent physical examination on my patient. No changes have occurred unless specified. Time Spent With Patient Time: Total time managing care of this patient today ____ minutes.
[2024-09-30 15:08] VITALS: BP 117/63; PULSE 92; RESP 18; TEMP 36.5; O2SAT 100
[2024-09-30 15:13] VITALS: BP 122/69; PULSE 78; RESP 17; O2SAT 100
[2024-09-30 15:18] VITALS: BP 131/69; PULSE 81; RESP 18; O2SAT 100
[2024-09-30 15:23] VITALS: BP 122/63; PULSE 81; RESP 17; O2SAT 96
[2024-09-30 15:44] VITALS: BP 110/62; PULSE 79; RESP 18; TEMP 36.6; O2SAT 95
--- NOTE | 2024-09-30 16:32 | P.BOP_ITS ---
Brief Operative Note Date of Service: 09/30/24 Pre-op diagnosis: lung mass Post-op diagnosis: same Procedure: EBUS with TBNA station 4R,7,and RLL mass and bronchoscopy with brushings and washings Surgeon: Clifford Franco MD Anesthesia: GETA Was an Field Logistics Coordinator used for this Procedure?: No Estimated blood loss (mL): 0 Pathology: none sent (TBNA station 4R,7,RLL mass) Condition: stable Disposition: same day
--- NOTE | 2024-10-01 02:33 | OP_ITS ---
DATE OF SERVICE: 09/30/2024 SURGEON: Clifford Franco MD PREOPERATIVE DIAGNOSIS: Lung mass. POSTOPERATIVE DIAGNOSIS: Lung mass. PROCEDURE PERFORMED: ESTIMATED BLOOD LOSS: COMPLICATIONS: ANESTHESIA: General endotracheal anesthesia. ASSISTANTS: SPECIMENS: PROCEDURES PERFORMED: Endobronchial ultrasound bronchoscopy with transbronchial needle aspirations of station 4R, 7, and right lower lobe mass. DESCRIPTION OF PROCEDURE: After the patient was adequately sedated and intubated, the flexible digital bronchoscope with endobronchial ultrasound bronchoscopy (EBUS) was introduced into the ET tube to the level of the distal trachea. The tracheal mucosa appeared normal. The main gonzalo was normal. No endobronchial disease appreciated. Using ultrasound guidance, a 1 cm right paratracheal lymph node was identified. Normal in appearance. In addition to that, had 1.5 cm subcarinal lymph node and then a larger 3 to 4 cm mass that was appreciated on ultrasound in the right lower lobe area. Using ultrasound guidance transbronchial aspirations were collected initially station 4R where lymphocytes were present. No malignancy was noted at least from the rapid on-site cytology analysis. Then after that, after 4 passes we went to station 7 where we had 3 additional passes demonstrating lymphocytes and no evidence of any initial cancer. Finally, 5 passes of the right lower lobe mass were provided. Some irregular cells were seen. Also some lymphocytes were also appreciated. The specimen was also sent for flow cytometry. The patient did not have any significant bleeding. Tolerated the procedure well. Regular bronchoscopy was then done and no significant endobronchial disease appreciated. Did have some mucoid secretions mild to moderate, primarily the left lung. Bronchial washings were collected bilaterally, but collected mainly from the right lower lobe. The patient did have some brushings to the right lower lobe. We removed the bronchoscopy. The patient tolerated the procedure well. No evidence of any active bleeding. No complications. Chest x-ray postprocedure was normal. Total endoscopic time approximately an hour. PLASTIC SURGERY MANAGER: None. Clifford Franco MD MR/MODL / [id number] MTDLuis Alberto
== END 2024-09-30 16:06 | disposition home or self-care (01) ==
PROVIDERS: Pathology Anatomic Pathology & Clinical Pathology; PCP Physician Assistant; Visit Provider Hospitalist
PROC: (CPT 31652; principal; 2024-09-30 13:30)
DX: C77.1 Secondary and unspecified malignant neoplasm of intrathoracic lymph nodes (principal); R91.8 Other nonspecific abnormal finding of lung field; E10.65 Type 1 diabetes mellitus with hyperglycemia; Z79.4 Long term (current) use of insulin; Z96.41 Presence of insulin pump (external) (internal); G47.30 Sleep apnea, unspecified; Z79.899 Other long term (current) drug therapy; F17.210 Nicotine dependence, cigarettes, uncomplicated; Z98.890 Other specified postprocedural states
CPT/HCPCS: 31652; 31623; 71045; 87070; 87205; 88112; 88172; 88173; 88177; 88184; 88185; 88305; 88341; 88342; J0171; J1100; J2003; J2250; J2405; J2704; J3010

== ENCOUNTER → 2024-09-30 12:05 | Outpatient (BNV) | payer OTHER, SELFPAY | PROVIDERS: PCP Physician Assistant; Visit Provider Hospitalist | DX: R91.8 Other nonspecific abnormal finding of lung field (principal) | CPT/HCPCS: 31623; 31653 ==

== ENCOUNTER → 2024-09-30 14:57 | Outpatient (BNV) | payer OTHER, SELFPAY | PROVIDERS: PCP Physician Assistant; Visit Provider Radiology Diagnostic Radiology | DX: R91.8 Other nonspecific abnormal finding of lung field (principal) | CPT/HCPCS: 71045 ==

== ENCOUNTER 2024-10-04 14:30 | Outpatient (REF) | payer OTHER, SELFPAY ==
--- OUTSIDE RECORDS SUMMARY | 2024-10-04 17:21 | XMS_ITS | Continuity of Care Document ---
Author Organization [facility] Address [address] [place], [place] [address] [place], [place] Phone [phone] Care Team Providers Care Chassis Driver Name Role Phone Gabby Conde MD Care Team Information Receiv er Unavailable YAKOV LATIF M.D. Care Team Information Rec eiver Unavailable Gabby Conde MD Primary Care Physician Unava ilable Social History Type Date Description Comments Sex Unknown
== END 2024-10-04 14:31 | disposition home or self-care (01) ==
LOC: HO.PET 14:30
PROVIDERS: PCP Physician Assistant; Visit Provider Internal Medicine Pulmonary Disease
DX: Z13.89 Encounter for screening for other disorder (principal)

== ENCOUNTER 2024-10-05 13:41 | Outpatient (AMB) | payer OTHER, SELFPAY ==
--- NOTE | 2024-10-05 13:44 | A.OFFPC_ITS ---
Vital Signs 10/05/24 14:04 Weight 140 lb BP 110/58 L Blood Pressure Location Lt brachial Position Sitting Respiration 12 Pulse 82 Pulse Source Pulse Oximeter Temp 98.4 F Temp Source Oral Pulse Oximetry (%) 98 Oxygen Delivery Method Room Air Intake Visit Reasons: FMLA Intake Note: Discuss [facility] paperwork. Had biopsy 09/30. Archives Technician Required: No Allergies No Known Allergies Allergy (Verified 10/05/24 13:52) Medication List - Last Reconciled 10/05/24 by Vanessa Banuelos PA-C blood-glucose sensor (Dexcom G6 Sensor device) As directed [fish oil .] ibuprofen 200 mg PO Q6H PRN insulin pump cart,auto,BT,G6/7 (Omnipod 5 G6-G7 Pods (Gen 5) subcutaneous cartridge) As directed loratadine (Claritin) 10 mg PO DAILY lorazepam 0.5 mg PO BID PRN 30 days multivitamin 1 tab PO DAILY nicotine (Nicoderm CQ) 1 patch transdermal Q24H sertraline 100 mg PO DAILY valacyclovir (Valtrex) 2,000 mg (2 x 1 gram) PO Q12H PRN 1 day MDD 4 g Tobacco use date assessed: 07/13/24 Dental Screening Dental Screen Date: 10/05/24 Did you have a dental visit in the last 12 months?: Yes Did you have a dental problem in the last 6 months where you did not have access to dental care?: Yes Was dental information given to patient?: Patient has dentist HPI FMLA HPI Details Patient is a 54-year-old female presents today for a follow up. She has a hx of t1dm, anxiety with depression, hx of cold sores and recent diagnosis of right lung mass PULM: Recently went for a low-dose CT scan screen given her smoking history and family history of lung cancer and found to have a right lung mass. She has followed up with pulmonology and recently had PFTs which showed mild COPD. She had a biopsy but does not have the pathology yet. She has a follow up scheduled next week. She was supposed to go for a CT PET however, when she went there her blood sugars were very elevated. She did contact her head bellhop captain and adjusted her insulin. Believes her sugars were elevated due to stress. Still smoking. Has not yet picked up the Nicoderm patches. Psych: She has a long standing history of anxiety and depression and states that she she was recently very well-controlled however given her recent lung mass finding she has had an increase in anxiety. We did increase the sertraline about a week ago and she does feel that this is helpful. She wants to give this more time. No SI/HI. She says that she does have some support from family members and friends. She was also given a prescription of lorazepam which she has not needed to use yet. Toshia: She follows with [facility] for management for t1dm- she is on a pump. She has had dm for 30 years (dx around 20s). Her a1c last A1c was 7.9. She states this is good for her. . She has all back up supplies at home. She understands how to treat hypoglycemia. follows with [facility] retinopathy, states no complications does not follow with podiatry- states she gets her own pedicures. [facility] Medical History (Updated 09/30/24 @ 12:29 by Leelee Soler RN) Sleep apnea Nicotine dependence, cigarettes, uncomplicated Insulin pump in place Uncontrolled type 1 diabetes mellitus with hyperglycemia, with long-term current use of insulin Arthritis Anxiety and depression Surgical History History of lung biopsy History of section History of appendectomy Family History Paternal Grandfather Substance abuse Maternal Grandfather Substance abuse Cancer Maternal Grandmother Substance abuse Hypertension High cholesterol Thyroid disorder Brother Hypertension Mother Thyroid disorder Paternal Grandmother Cardiovascular disease Father Cardiovascular disease Agent orange exposure Maternal Aunt Lung cancer Maternal Uncle Lung cancer Social History (Updated 10/05/24 @ 14:03 by Francesca Ballesteros CMA) Household Members: None Housing: Condominium Are you a primary healthcare consultant to a significant other at home: No Do you presently have visiting nurse or other home services: No Alcohol intake: former Patient Tobacco Use Status: Current everyday Tobacco user Tobacco use type: Cigarette Cigarettes Per Day: 5 Years Smoked: (onset 15yo, 1/2-1ppd x 39yrs, 30pyh) e-Cigarette/Vaping Use: Former Use Second Hand Smoke Exposure: No Substance Use Type: Marijuana service: No 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al status: 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: No Cognitive needs: No Hearing needs: No Vision needs: Yes (wear glasses reading and distance) Questionnaire Thrive Questionnaire Date Thrive assessed: 07/12/24 I am a: Patient What is your living situation today?: I have a steady place to live Within the past 12 months, did the food you bought not last and you didn't have the money to get more?: I choose not to answer this question Within the past 12 months, did you worry whether your food would run out before you got money to buy more?: I choose not to answer this question Do you have trouble paying for medicines?: Yes Do you have trouble getting transportation to medical appointments?: No Do you have trouble paying your heating and electricity bill?: Yes Do you have trouble taking care of your child, family member or friend?: I choose not to answer this question Do you have trouble with day-to-day activities such as bathing, preparing meals, shopping, managing finances, etc.?: I choose not to answer this question Are you currently unemployed and looking for a job?: No Are you interested in more education?: I choose not to answer this question Please select the resources that you would like help with: None Currently or been in a relationship where the following occur: I choose not to answer THRIVE Score: 1 AUDIT C Alcohol Use Questionnaire (AUDIT-C) 1. How often do you have a drink containing alcohol?: Never 3. How often do you have six or more drinks on one occasion?: Never Total Score: 0 ELVIN-7 AMB Questionnaire ELVIN-7 Date ELVIN - 7 assessed: 07/13/24 Source: Developed by Drs. Josh Mejia, Rachel Hanks, Enmanuel Crawford and colleagues, with an educational fifi from [employer]. Physical exam (Primary Care) Vital Signs: Last Vital Signs Temp 98.4 F 10/05/24 14:04 Pulse 82 10/05/24 14:04 Resp 12 10/05/24 14:04 BP 110/58 L 10/05/24 14:04 Pulse Ox 98 10/05/24 14:04 Oxygen Delivery Method Room Air 10/05/24 14:04 Tobacco/Smoking Status: Tobacco use Status Tobacco use date assessed 07/13/24 10/05/24 13:45 Patient Tobacco Use Status Current everyday Tobacco 10/05/24 14:03 Tobacco use type Cigarette 10/05/24 14:03 e-Cigarette/Vaping Use Former Use 10/05/24 14:03 Thrive Assessment: Date of Thrive Assessment Date Thrive assessed 07/12/24 10/05/24 13:45 Currently or been in a relationship where the following occur: I choose not to answer Const Orientation/consciousness: patient oriented x3 HENMT Ears: hearing grossly normal bilaterally Neck Thyroid: Thyroid normal Lymphatic: no lymphadenopathy noted Resp Auscultation: clear to auscultation bilaterally Cardio Rate: regular rate Rhythm: regular rhythm Heart sounds: S1 normal heart sound present and S2 normal heart sound present GI Inspection: Yes normal to inspection Palpation (GI): Soft to palpation and Other GI palpation findings present (nontender, no cva tenderness) Auscultation: normoactive bowel sounds Rectal Exam - Female: deferred Skin General skin exam: no rashes or lesions noted Neuro General: patient oriented x3, gait normal and no focal motor deficits Coding Level of Care Code Est Pt Level 4 (14870) Complex EM visit Add On G2211 Diagnoses Uncontrolled type 1 diabetes mellitus with hyperglycemia, with long-term current use of insulin E10.65 Anxiety with depression F41.8 Mass of right lung R91.8 Assessment & Plan Assessment & Plan (1) Uncontrolled type 1 diabetes mellitus with hyperglycemia, with long-term current use of insulin: Code(s): E10.65 - Type 1 diabetes mellitus with hyperglycemia Category: Medical Plan: Continue following with Endocrine (2) Anxiety with depression: Code(s): F41.8 - Other specified anxiety disorders Category: Medical Plan: Continue with the increased dose of the sertraline. (3) Mass of right lung: Comment: 09/02/24 LDCT = ill-defined 2.8 x 2.0 cm right hilar mass with RML linear consolidation - plan PET/PFTs/EBUS) Code(s): R91.8 - Other nonspecific abnormal finding of lung field Category: Medical Plan: We will fill out [facility] paperwork once available. Advised to continue follow up with pulmonology
[2024-10-05 14:04] VITALS: BP 110/58; PULSE 82; RESP 12; TEMP 36.9; O2SAT 98
--- OUTSIDE RECORDS SUMMARY | 2024-10-05 16:25 | XMS_ITS | Continuity of Care Document ---
Author Organization [facility] Address [address] [place], [place] [address] [place], [place] Phone [phone] Care Team Providers Care Rental Car Deliverer Name Role Phone Gabby Conde MD Care Team Information Receiv er Unavailable YAKOV LATIF M.D. Care Team Information Rec eiver Unavailable Gabby Conde MD Primary Care Physician Unava ilable Social History Type Date Description Comments Sex Unknown
== END 2024-10-05 14:33 | disposition home or self-care (01) ==
LOC: HO.HMCFM 13:42
PROVIDERS: PCP Physician Assistant; Visit Provider Physician Assistant
DX: E10.65 Type 1 diabetes mellitus with hyperglycemia (principal); F41.8 Other specified anxiety disorders; R91.8 Other nonspecific abnormal finding of lung field

== ENCOUNTER 2024-10-05 14:50 | Outpatient (REF) | payer OTHER, SELFPAY ==
--- OUTSIDE RECORDS SUMMARY | 2024-10-05 17:25 | XMS_ITS | Continuity of Care Document ---
Author Organization [facility] Address [address] [place], [place] [address] [place], [place] Phone [phone] Care Team Providers Care Credit Clerk Name Role Phone Gabby Conde MD Care Team Information Receiv er Unavailable YAKOV LATIF M.D. Care Team Information Rec eiver Unavailable Gabby Conde MD Primary Care Physician Unava ilable Social History Type Date Description Comments Sex Unknown
[2024-10-05 18:36] LABS: Parathyroid Hormone Intact 79.9 pg/mL (8.7-77.1)
[2024-10-05 18:40] LABS: Alanine Aminotransferase 19 U/L (0-31); Albumin Level 4.2 g/dL (3.5-5.0); Alkaline Phosphatase 136 U/L (39-117); Aspartate Amino Transferase 18 U/L (5-31); Bilirubin Direct < 0.2 mg/dL (0.0-0.5); Bilirubin Total 0.2 mg/dL (0.0-1.0); Total Protein 7.3 g/dL (6.5-8.0)
[2024-10-05 18:57] LABS: Vitamin D 25-OH Total 29.5 ng/mL (>30)
[2024-10-10 03:39] LABS: Alkaline Phosphatase Bone 13.9 mcg/L (5.6-29.0)
== END 2024-10-05 14:51 | disposition home or self-care (01) ==
LOC: HO.WFDLDS 14:50
PROVIDERS: Visit Provider Physician Assistant
DX: R74.8 Abnormal levels of other serum enzymes (principal)
CPT/HCPCS: 36415; 80076; 82306; 83970; 84075

== ENCOUNTER 2024-10-12 13:02 | Outpatient (AMB) | payer OTHER, SELFPAY ==
--- NOTE | 2024-10-12 12:59 | A.OFFPC_ITS ---
Intake Visit Reasons: Discuss labs Intake Note: Discuss labs Allergies No Known Allergies Allergy (Verified 10/05/24 13:52) Medication List - Last Reconciled 10/12/24 by Vanessa Banuelos PA-C blood-glucose sensor (Dexcom G6 Sensor device) As directed cholecalciferol (vitamin D3) 25 mcg PO DAILY [fish oil .] ibuprofen 200 mg PO Q6H PRN insulin pump cart,auto,BT,G6/7 (Omnipod 5 G6-G7 Pods (Gen 5) subcutaneous cartridge) As directed loratadine (Claritin) 10 mg PO DAILY lorazepam 0.5 mg PO BID PRN 30 days multivitamin 1 tab PO DAILY nicotine (Nicoderm CQ) 1 patch transdermal Q24H sertraline 100 mg PO DAILY valacyclovir (Valtrex) 2,000 mg (2 x 1 gram) PO Q12H PRN 1 day MDD 4 g [Vitamin D and K .] Tobacco use date assessed: 10/12/24 Dental Screening Dental Screen Date: 10/05/24 HPI Discuss labs HPI Details Patient is a 54-year-old female presents today for a follow up. She has a hx of t1dm, anxiety with depression, hx of cold sores and recent diagnosis of lung ca. PULM: Recently went for a low-dose CT scan screen given her smoking history and family history of lung cancer and found to have a right lung mass. She has followed up with pulmonology and recently had PFTs which showed mild COPD. She had a biopsy and states that she just learned the results. Diagnosis A. Lymph node, 7, fine needle aspiration: Negative for malignant cells. B. Lung, right lower lobe mass, fine needle aspiration: Non-small cell carcinoma (see comment). C. Lung, right lower lobe, washing: Negative for malignant cells. D. Lung, right lower lobe, brushing: Negative for malignant cells. E. Lymph node, 4R, fine needle aspiration: Will be addended. COMMENT (B): Although the immunohistochemical stain profile is non-specific, given the clinical history of a lung mass and CK7 immunoreactivity, a lung primary (adenocarcinoma) is favored. Clinical and imaging correlation is advised. She has a follow up scheduled next week. She was supposed to go for a CT PET however, when she went there her blood sugars were very elevated. She did contact her pricing director and states that they did not make in insulin adjustment yet but has an appointment tomorrow with endocrinology.. Believes her sugars were elevated due to stress. Still smoking. Psych: She has a long standing history of anxiety and depression and states that she she was recently very well-controlled however given her recent lung mass finding she has had an increase in anxiety. We did increase the sertraline about 2 weeks ago and she does feel that this is helpful. She wants to give this more time. No SI/HI. She says that she does have some support from family members and friends. She was also given a prescription of lorazepam which she has not needed to use yet. Endo: She follows with [facility] for management for t1dm- she is on a pump. She has had dm for 30 years (dx around 20s). Her a1c last A1c was 7.9. She states this is good for her. . She has all back up supplies at home. She unders tands how to treat hypoglycemia. [facility] Medical History (Updated 10/12/24 @ 13:34 by Vanessa Banuelos PA-C) Sleep apnea Nicotine dependence, cigarettes, uncomplicated Insulin pump in place Uncontrolled type 1 diabetes mellitus with hyperglycemia, with long-term current use of insulin Arthritis Anxiety and depression Surgical History History of lung biopsy History of section History of appendectomy Family History Paternal Grandfather Substance abuse Maternal Grandfather Substance abuse Cancer Maternal Grandmother Substance abuse Hypertension High cholesterol Thyroid disorder Brother Hypertension Mother Thyroid disorder Paternal Grandmother Cardiovascular disease Father Cardiovascular disease Agent orange exposure Maternal Aunt Lung cancer Maternal Uncle Lung cancer Social History (Updated 10/12/24 @ 13:01 by Francesca Ballesteros [facility]) Household Members: None Both parents involved: No Caregiver staying overnight: No Housing: Condominium Are you a primary special needs child caregiver to a significant other at home: No Do you presently have visiting nurse or other home services: No 75 years or older and lives alone: No Alcohol intake: former Patient Tobacco Use Status: Current everyday Tobacco user Tobacco use type: Cigarette Cigarettes Per Day: 5 Years Smoked: (onset 15yo, 1/2-1ppd x 39yrs, 30pyh) e-Cigarette/Vaping Use: Former Use Second Hand Smoke Exposure: No Substance Use Type: Marijuana service: No 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al status: 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: No Cognitive needs: No Hearing needs: No Vision needs: Yes (wear glasses reading and distance) Questionnaire Thrive Questionnaire Date Thrive assessed: 07/12/24 I am a: Patient What is your living situation today?: I have a steady place to live Within the past 12 months, did the food you bought not last and you didn't have the money to get more?: I choose not to answer this question Within the past 12 months, did you worry whether your food would run out before you got money to buy more?: I choose not to answer this question Do you have trouble paying for medicines?: Yes Do you have trouble getting transportation to medical appointments?: No Do you have trouble paying your heating and electricity bill?: Yes Do you have trouble taking care of your child, family member or friend?: I choose not to answer this question Do you have trouble with day-to-day activities such as bathing, preparing meals, shopping, managing finances, etc.?: I choose not to answer this question Are you currently unemployed and looking for a job?: No Are you interested in more education?: I choose not to answer this question Please select the resources that you would like help with: None Currently or been in a relationship where the following occur: I choose not to answer THRIVE Score: 1 ELVIN-7 AMB Questionnaire ELVIN-7 Date ELVIN - 7 assessed: 07/13/24 Source: Developed by Drs. Josh Mejia, Rachel Hanks, Enmanuel Crawford and colleagues, with an educational fifi from [employer]. Physical exam (Primary Care) Tobacco/Smoking Status: Tobacco use Status Tobacco use date assessed 10/12/24 10/12/24 13:01 Patient Tobacco Use Status Current everyday Tobacco 10/12/24 13:01 Tobacco use type Cigarette 10/12/24 13:01 e-Cigarette/Vaping Use Former Use 10/12/24 13:01 Thrive Assessment: Date of Thrive Assessment Date Thrive assessed 07/12/24 10/12/24 13:01 Currently or been in a relationship where the following occur: I choose not to answer Telehealth Telehealth Telehealth Platform: Telephone Location of provider rendering services: practice address Location of patient: address on file Patient Identification confirmed using: Name, : Yes Telehealth method: voice only Patient verbally consented to treatment: Yes Patient verbally consented to billing insurance company: Yes Patient informed of any privacy concerns related to visit: Yes Minutes spent on Phone/Video with Pt.: 15 Coding Level of Care Code Tele Est Pt Level 2 (09703) Diagnoses Uncontrolled type 1 diabetes mellitus with hyperglycemia, with long-term current use of insulin E10.65 Vitamin D deficiency E55.9 Anxiety with depression F41.8 Assessment & Plan Assessment & Plan (1) Uncontrolled type 1 diabetes mellitus with hyperglycemia, with long-term current use of insulin: Code(s): E10.65 - Type 1 diabetes mellitus with hyperglycemia Category: Medical Plan: Following with endocrinology tomorrow. Did discuss that she will need a backup method as she does need the CT PET done. (2) Vitamin D deficiency: Code(s): E55.9 - Vitamin D deficiency, unspecified Category: Medical Plan: Reviewed labs with patient and we will start her on vitamin-D. We will recheck labs in about a month. (3) Anxiety with depression: Code(s): F41.8 - Other specified anxiety disorders Category: Medical Plan: Currently stable. Orders: Orders Liver Panel 10/12/24 E10.65 - Type 1 diabetes mellitus with hyperglycemia, E55.9 - Vitamin D deficiency, unspecified Parathyroid Hormone Intact 10/12/24 E10.65 - Type 1 diabetes mellitus with hyperglycemia, E55.9 - Vitamin D deficiency, unspecified Vitamin D 25-OH Total 10/12/24 E10.65 - Type 1 diabetes mellitus with hyperglycemia, E55.9 - Vitamin D deficiency, unspecified Medications: New cholecalciferol (vitamin D3) 25 mcg PO DAILY 90 tabs 0RF
--- OUTSIDE RECORDS SUMMARY | 2024-10-12 15:07 | XMS_ITS | Continuity of Care Document ---
Author Organization [facility] Address [address] [place], [place] [address] [place], [place] Phone [phone] Care Team Providers Care Closing Manager Name Role Phone Gabby Conde MD Care Team Information Receiv er Unavailable YAKOV LATIF M.D. Care Team Information Rec eiver Unavailable Gabby Conde MD Primary Care Physician Unava ilable Social History Type Date Description Comments Sex Unknown
== END 2024-10-12 17:05 | disposition home or self-care (01) ==
LOC: HO.HMCFM 13:02
PROVIDERS: PCP Physician Assistant; Visit Provider Physician Assistant
DX: E10.65 Type 1 diabetes mellitus with hyperglycemia (principal); E55.9 Vitamin D deficiency, unspecified; F41.8 Other specified anxiety disorders

== ENCOUNTER → 2024-10-12 13:02 | Outpatient (BNVA) | payer OTHER, SELFPAY | PROVIDERS: PCP Physician Assistant; Visit Provider Physician Assistant ==

== ENCOUNTER 2024-10-13 13:27 | Outpatient (AMB) | payer OTHER, SELFPAY ==
[2024-10-13 13:34] VITALS: BP 114/62; PULSE 80; O2SAT 98; BMI 21.8
--- NOTE | 2024-10-13 13:34 | MHC.OFFVIS ---
Vital Signs 10/13/24 13:34 Height 5 ft 7 in Weight 138 lb 14.259 oz BMI 21.8 BP 114/62 Blood Pressure Location Rt brachial Position Sitting Pulse 80 Pulse Source Pulse Oximeter Pulse Oximetry (%) 98 Oxygen Delivery Method Room Air Intake Visit Reasons: Lung Mass/EBUS Follow Up Allergies No Known Allergies Allergy (Verified 10/13/24 13:38) HPI Comments Details: The patient is a 54-year-old woman who is an active smoker who apparently he has been noticing some increased cough shortness of breath and weight loss. She did follow-up with her primary care doctor who referred her to the lung cancer screening program. She did have her 1st CT scan through the lung cancer screening program which is considered a rods 4. We did personally reviewed together in the room. She has a masslike density in the infrahilar area. It is surrounded by airways. We talked about the concerns that this is likely a malignant process and needs to have a biopsy. The patient will benefit from endobronchial ultrasound bronchoscopy with transbronchial needle aspiration. Also request pulmonary function studies. The patient also needs to quit smoking altogether. She is currently not using any inhalers will hold off at this time. Follow-up with PFTs. 10/13/2024 the patient is here for pulmonary follow-up visit. She does have a friend virtually connected. The patient is status post endobronchial ultrasound bronchoscopy. We did sample her 4R station 7 lymph nodes which were negative for any malignancy. 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 Awaiting molecular markers status. The patient did not have any endobronchial disease therefore biopsies were not available. Therefore, we less material to provide. The patient also has type 1 diabetes therefore when she went for her PET scan her triggers were too high and she was rescheduled. Her sugars continued to be elevated above 300 even with an insulin pump making difficult to schedule her PET scan. 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 We did review the images closely. The patient understands that even if the PET scan only shows activity at the site of the mass to require a very life surgery potentially pneumonectomy to remove the mask completely. Definitely involving the minor fissure in very close to the major fissure. It is reassuring that the mediastinal lymph nodes were negative for malignancy. The patient did undergo pulmonary function studies. She appears to have mild COPD. Her lung volumes and diffusing capacity are within normal limits so in theory she should be able to tolerate a pneumonectomy if needed. She continues with the nicotine patch. Will go ahead and refer her to Oncology at this time. She may need tertiary evaluation based on the size and the extent of this mass along with her younger age. [facility] Medical History (Updated 10/13/24 @ 21:11 by Clifford Franco MD) Lung cancer Sleep apnea Nicotine dependence, cigarettes, uncomplicated Insulin pump in place Uncontrolled type 1 diabetes mellitus with hyperglycemia, with long-term current use of insulin Arthritis Anxiety and depression Surgical History History of lung biopsy History of section History of appendectomy Family History Paternal Grandfather Substance abuse Maternal Grandfather Substance abuse Cancer Maternal Grandmother Substance abuse Hypertension High cholesterol Thyroid disorder Brother Hypertension Mother Thyroid disorder Paternal Grandmother Cardiovascular disease Father Cardiovascular disease Agent orange exposure Maternal Aunt Lung cancer Maternal Uncle Lung cancer Social History Household Members: None Both parents involved: No Caregiver staying overnight: No Housing: Condominium Are you a primary direct care specialist to a significant other at home: No Do you presently have visiting nurse or other home services: No 75 years or older and lives alone: No Alcohol intake: former Patient Tobacco Use Status: Current everyday Tobacco user Tobacco use type: Cigarette Cigarettes Per Day: 5 Years Smoked: (onset 15yo, 1/2-1ppd x 39yrs, 30pyh) e-Cigarette/Vaping Use: Former Use Second Hand Smoke Exposure: No Substance Use Type: Marijuana service: No 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al status: 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: No Cognitive needs: No Hearing needs: No Vision needs: Yes (wear glasses reading and distance) Review of Systems Const Reports fatigue, Reports poor appetite and Reports weight loss Eyes Reports no additional complaints ENT Reports no additional complaints and Denies dysphagia Card Denies chest pain Resp Reports chest congestion and Reports cough GI Denies dysphagia Musc Reports no additional complaints Skin/Breast Denies rash Neuro Reports no additional complaints Endo Reports fatigue Physical Exam Vital Signs: Last Vital Signs Pulse 80 10/13/24 13:34 BP 114/62 10/13/24 13:34 Pulse Ox 98 10/13/24 13:34 Oxygen Delivery Method Room Air 10/13/24 13:34 BMI result Body Mass Index 21.8 Const General: comfortable HEENT Head: Yes normal to inspection Neck Neck: Yes supple Chest Chest palpation & inspection: normal inspection of the chest Resp Effort & Inspection: normal respiratory effort Auscultation: clear to auscultation bilaterally, no rales, no rhonchi and no wheezes Cardio Rhythm: regular rhythm Heart sounds: S1 normal heart sound present and S2 normal heart sound present GI Palpation (GI): Soft to palpation Skin General skin exam: no rashes or lesions noted Results Reviewed Results Reviewed: Assessment & Plan Assessment & Plan (1) Mass of right lung: Comment: 09/02/24 LDCT = ill-defined 2.8 x 2.0 cm right hilar mass with RML linear consolidation Code(s): R91.8 - Other nonspecific abnormal finding of lung field Category: Medical (2) Nicotine dependence, cigarettes, uncomplicated: Comment: (onset 15yo, 1/2-1ppd x 39yrs, 30pyh) Code(s): F17.210 - Nicotine dependence, cigarettes, uncomplicated Category: Medical (3) Insulin pump in place: Code(s): Z96.41 - Presence of insulin pump (external) (internal) Category: Medical (4) Lung cancer: Code(s): C34.90 - Malignant neoplasm of unspecified part of unspecified bronchus or lung Category: Medical Qualifiers: Laterality: right Lung location: hilum of lung Qualified Code(s): C34.01 - Malignant neoplasm of right main bronchus Plan The patient has bx proven AdenoCA of the right hilum. Mediastinal LN (station 4R and &) are negative. No endobronchial disease noted on bronchscopy. PET has been delayed due to uncontrolled diabetes. A surgical resection would be complicated based on the location. It is on the minor fissue and possibly involving the major fissure. PFTs suggest that she can handle a larger surgery,although, she is still struggleling with her smoking. I did reach out to pathology to see if they were able to send for molecular markers. Ultimately, based on her age and the aggressive looking cancer will benefit from tertiary center. Will need to have PET scan soon (once BS are below 200) Tobacco cessation Oncology referral Will review case during with Multidisciplinary team F/U 6-8 weeks Coding Level of Care Code New Pt Level 5 (89230) Diagnoses Mass of right lung R91.8 Nicotine dependence, cigarettes, uncomplicated F17.[address] Z96.41 Malignant neoplasm of hilus of right lung C34.01 Laterality: right Lung location: hilum of lung Time Spent (min) 60
--- OUTSIDE RECORDS SUMMARY | 2024-10-13 16:14 | XMS_ITS | Continuity of Care Document ---
Author Organization [facility] Address [address] [place], [place] [address] [place], [place] Phone [phone] Care Team Providers Care Web Press Roll Tender Name Role Phone Gabby Conde MD Care Team Information Receiv er Unavailable YAKOV LATIF M.D. Care Team Information Rec eiver Unavailable Gabby Conde MD Primary Care Physician Unava ilable Social History Type Date Description Comments Sex Unknown
== END 2024-10-13 14:11 | disposition home or self-care (01) ==
LOC: HO.HPS 13:28
PROVIDERS: PCP Physician Assistant; Visit Provider Hospitalist
DX: C34.01 Malignant neoplasm of right main bronchus (principal); R91.8 Other nonspecific abnormal finding of lung field; F17.210 Nicotine dependence, cigarettes, uncomplicated; Z96.41 Presence of insulin pump (external) (internal)
CPT/HCPCS: 99215

== ENCOUNTER → 2024-10-13 13:27 | Outpatient (BNVA) | payer OTHER, SELFPAY | PROVIDERS: PCP Physician Assistant; Visit Provider Hospitalist ==

== ENCOUNTER 2024-11-10 08:21 | Outpatient (AMB) | payer OTHER, SELFPAY ==
--- NOTE | 2024-11-10 08:29 | A.OFFPC_ITS ---
Vital Signs 11/10/24 08:34 Height 5 ft 7 in Weight 135 lb BMI 21.1 BP 102/56 L Blood Pressure Location Lt brachial Position Sitting Respiration 12 Pulse 76 Pulse Source Pulse Oximeter Pulse Oximetry (%) 99 Intake Visit Reasons: 1 mos f/u Intake Note: One month follow. Is going ot [facility] for lung cancer. A1c was 7.[address] Supriya Mckee Area Mechanic Required: No Allergies No Known Allergies Allergy (Verified 11/10/24 08:30) Medication List - Last Reconciled 11/10/24 by Vanessa Banuelos PA-C blood-glucose sensor (Dexcom G6 Sensor device) As directed cholecalciferol (vitamin D3) 25 mcg PO DAILY [fish oil .] ibuprofen 200 mg PO Q6H PRN insulin pump cart,auto,BT,G6/7 (Omnipod 5 G6-G7 Pods (Gen 5) subcutaneous cartridge) As directed loratadine (Claritin) 10 mg PO DAILY lorazepam 0.5 mg PO BID PRN 30 days magnesium gluconate 2,000 mg PO DAILY multivitamin 1 tab PO DAILY nicotine (Nicoderm CQ) 1 patch transdermal Q24H sertraline 100 mg PO DAILY valacyclovir (Valtrex) 2,000 mg (2 x 1 gram) PO Q12H PRN 1 day MDD 4 g Tobacco use date assessed: 11/10/24 Dental Screening Dental Screen Date: 11/10/24 Did you have a dental visit in the last 12 months?: Yes Did you have a dental problem in the last 6 months where you did not have access to dental care?: No Was dental information given to patient?: Patient has dentist HPI 1 mos f/u HPI Details Patient is a 54-year-old female presents today for a follow up. She has a hx of t1dm, anxiety with depression, hx of cold sores and recent diagnosis of lung ca. PULM: Recently went for a low-dose CT scan screen given her smoking history and family history of lung cancer and found to have a right lung mass. She has followed up with pulmonology and recently had PFTs which showed mild COPD. She had a biopsy and states that she just learned the results a lung primary (adenocarcinoma). Had CTPET and has follow up in [place]. -Team: Miguel Maguire- thoracic surgeon Beth Beckford-oncology, has f/u appointment 11/11 to discuss findings of MRI and ct meeting with radiation onc 11.14.24 Plan: Right hilar lung nodule that biopsy-proven adenocarcinoma. The tumor size of the proximally 2.8 cm. The pulmonary function test results were fat satisfa ctory. The standard treatment approach for this condition as surgical resection, which can typically be performed in minimally invasive procedure. However, the final decision on surgical approach will be contingent on the location of the tumor as determined on the CT scan with contrast and discussion of induction of our medical oncology colleagues. A CT scan of the chest with contrast will be ordered to provide more detailed information with the tumors location and any potential lymph node in involvement which. An MRI of the brain will also be ordered to confirm the absence of metastasis. Given the family history of heart disease a stress echo we will be conducted instead of a regular echocardiogram. If the lymph nodes are found to be free of cancer no further treatment will be necessary in surveillance of the CT scan every 4 months will be initiated gradually increasing in by annular scans and eventually annual scans for the rest of life. CV: stress test booked 12/08/24 then will be proceeding with surgery Psych: She has a long standing history of anxiety and depression and states that she she was recently very well-controlled however given her recent lung cancer has had an increase in anxiety. We did increase the sertraline which she finds helpful. Using ativan prn for procedures. No SI/HI. She says that she does have some support from family members and friends. Her MARTHA is going to appointments in [place] wit [facility]. Endo: She follows with [facility]iano for management for t1dm- she is on a pump. She has had dm for 30 years (dx around 20s). Her a1c last A1c was 7.9. She states this is good for her. . She has all back up supplies at home. She understands how to treat hypoglycemia. [facility] Medical History (Updated 10/13/24 @ 21:11 by Clifford Franco MD) Lung cancer Sleep apnea Nicotine dependence, cigarettes, uncomplicated Insulin pump in place Uncontrolled type 1 diabetes mellitus with hyperglycemia, with long-term current use of insulin Arthritis Anxiety and depression Surgical History History of lung biopsy History of section History of appendectomy Family History Paternal Grandfather Substance abuse Maternal Grandfather Substance abuse Cancer Maternal Grandmother Substance abuse Hypertension High cholesterol Thyroid disorder Brother Hypertension Mother Thyroid disorder Paternal Grandmother Cardiovascular disease Father Cardiovascular disease Agent orange exposure Maternal Aunt Lung cancer Maternal Uncle Lung cancer Social History Household Members: None Both parents involved: No Caregiver staying overnight: No Housing: Condominium Are you a primary post acute care nurse to a significant other at home: No Do you presently have visiting nurse or other home services: No 75 years or older and lives alone: No Alcohol intake: former Patient Tobacco Use Status: Current everyday Tobacco user Tobacco use type: Cigarette Cigarettes Per Day: 10 (between 5 and 10) Years Smoked: (onset 15yo, 1/2-1ppd x 39yrs, 30pyh) e-Cigarette/Vaping Use: Former Use Second Hand Smoke Exposure: No Substance Use Type: Marijuana service: No 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al 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: 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: No Cognitive needs: No Hearing needs: No Vision needs: Yes (wear glasses reading and distance) Questionnaire Thrive Questionnaire Date Thrive assessed: 07/12/24 I am a: Patient What is your living situation today?: I have a steady place to live Within the past 12 months, did the food you bought not last and you didn't have the money to get more?: I choose not to answer this question Within the past 12 months, did you worry whether your food would run out before you got money to buy more?: I choose not to answer this question Do you have trouble paying for medicines?: Yes Do you have trouble getting transportation to medical appointments?: No Do you have trouble paying your heating and electricity bill?: Yes Do you have trouble taking care of your child, family member or friend?: I choose not to answer this question Do you have trouble with day-to-day activities such as bathing, preparing meals, shopping, managing finances, etc.?: I choose not to answer this question Are you currently unemployed and looking for a job?: No Are you interested in more education?: I choose not to answer this question Please select the resources that you would like help with: None Currently or been in a relationship where the following occur: I choose not to answer THRIVE Score: 1 AUDIT C Alcohol Use Questionnaire (AUDIT-C) 1. How often do you have a drink containing alcohol?: 2-3 times a week (On weekends) 2. How many drinks containing alcohol do you have on a typical day when you are drinking?: 3 or 4 3. How often do you have six or more drinks on one occasion?: Never Total Score: 4 ELVIN-7 AMB Questionnaire ELVIN-7 Date ELVIN - 7 assessed: 07/13/24 Source: Developed by Drs. Josh Mejia, Rachel Hanks, Enmanuel Crawford and colleagues, with an educational fifi from [employer]. Physical exam (Primary Care) Vital Signs: Last Vital Signs Pulse 76 11/10/24 08:34 Resp 12 11/10/24 08:34 BP 102/56 L 11/10/24 08:34 Pulse Ox 99 11/10/24 08:34 BMI result Body Mass Index 21.1 Tobacco/Smoking Status: Tobacco use Status Tobacco use date assessed 11/10/24 11/10/24 08:36 Patient Tobacco Use Status Current everyday Tobacco 11/10/24 08:31 Tobacco use type Cigarette 11/10/24 08:31 e-Cigarette/Vaping Use Former Use 11/10/24 08:31 Thrive Assessment: Date of Thrive Assessment Date Thrive assessed 07/12/24 11/10/24 08:31 Currently or been in a relationship where the following occur: I choose not to answer Const Orientation/consciousness: patient oriented x3 HENMT Ears: hearing grossly normal bilaterally Neck Thyroid: Thyroid normal Lymphatic: no lymphadenopathy noted Resp Auscultation: clear to auscultation bilaterally Cardio Rate: regular rate Rhythm: regular rhythm Heart sounds: S1 normal heart sound present and S2 normal heart sound present GI Inspection: Yes normal to inspection Palpation (GI): Soft to palpation and Other GI palpation findings present (nontender, no cva tenderness) Auscultation: normoactive bowel sounds Rectal Exam - Female: deferred Skin General skin exam: no rashes or lesions noted Neuro General: patient oriented x3, gait normal and no focal motor deficits Coding Level of Care Code Est Pt Level 4 (55454) Complex EM visit Add On G2211 Diagnoses Malignant neoplasm of hilus of right lung C34.01 Laterality: right Lung location: hilum of lung Anxiety with depression F41.8 Uncontrolled type 1 diabetes mellitus with hyperglycemia, with long-term current use of insulin E10.65 Assessment & Plan Assessment & Plan (1) Lung cancer: Code(s): C34.90 - Malignant neoplasm of unspecified part of unspecified bronchus or lung Category: Medical Qualifiers: Laterality: right Lung location: hilum of lung Qualified Code(s): C34.01 - Malignant neoplasm of right main bronchus Plan: Following with a multidisciplinary approach at [facility] Plan is still to be determined. We will trial Chantix as she is still smoking. We discussed risks and benefits and adverse effects of this medication. (2) Anxiety with depression: Code(s): F41.8 - Other specified anxiety disorders Category: Medical Plan: Stable (3) Uncontrolled type 1 diabetes mellitus with hyperglycemia, with long-term current use of insulin: Code(s): E10.65 - Type 1 diabetes mellitus with hyperglycemia Category: Medical Plan: Currently being managed by endocrinology Medications: New varenicline tartrate (Chantix Starting Month Box) PO PER PKG DIR 53 ea 0RF
[2024-11-10 08:34] VITALS: BP 102/56; PULSE 76; RESP 12; O2SAT 99; BMI 21.1
--- OUTSIDE RECORDS SUMMARY | 2024-11-10 08:39 | XMS_ITS ---
Continuity of Care Document (CCD) Created on: November 10, 2024 Jailene Eid External Reference #: [id number] : [id number] Sex: Female Author Organization [facility] Address [address] [place], [place] [address] [place], [place] Phone [phone] Care Team Providers Care Field Hauler Name Role Phone Gabby Conde MD Care Team Information Receiv er Unavailable YAKOV LATIF M.D. Care Team Information Rec eiver Unavailable Gabby Conde MD Primary Care Physician Unava ilable Social History Type Date Description Comments Sex Unknown
--- OUTSIDE RECORDS SUMMARY | 2024-11-10 08:39 | XMS_ITS | Clinical Summary ---
Author Organization [facility] Address [address] [place] [address] Phone Care Team Providers Care Stagecraft Teacher Name Role Phone Unavailable Primary Care Provider Unavailabl e Encounters Date Type Department Care Team Description 10/21/2024 7:30 AM EDT - 10/21/2024 11:59 PM EDT Hospital Encounter [facility] PET Scan [address] [place] [address] Other nonspecific abnormal finding of lung field Discharge Disposition: Home or Self Care from Last 3 Months Social History Tobacco Use Types Packs/Day Years Used Date Smoking Tobacco: Never Assessed Comments Unknown Sex and Gender Information Value Date Recorded Sex Assigned at Not on file Legal Sex Female 11:30 AM EDT Gender Identity Not on file Sexual Orientation Not on file Plan of Treatment Health Maintenance Due Date Last Done Comments Diabetes: Annual Foot Exam 01/12/1980 Diabetes: Annual Retina Eye Exam 01/12/1980 Cervical Cancer Screening: Pap Smear 1991 Pneumococcal Vaccine: 50+ Years (1 of 1 - PCV) 01/12/2020 Zoster Vaccines (1 of 2) 01/12/2020 COVID-19 Vaccine ( season) 2024 06/26/2021, 09/06/2020, 08/09/2020 Colorectal Cancer Screening: Colonoscopy 10/20/2024 Depression Screening 10/20/2024 HIV Screening 10/20/2024 Lung Cancer Screening (Low Dose CT) 10/20/2024 Social Influencers of Health Screening 10/20/2024 Diabetes: Annual GFR (Glomerular Filtration Rate) 12/10/2024 12/11/2023, 11/17/2022, 10/12/2021, Additional history exists Diabetes: Annual Urine Albumin-Creatinine Ratio (uACR) 12/13/2024 12/14/2023, 11/18/2022, 10/15/2021, Additional history exists Breast Cancer Screening 12/16/2024 12/16/2022 Influenza Vaccine (Season Ended) 2025 07/31/2022, 06/18/2020 Diabetes: Blood Sugar Control Test (HGBA1C) 04/15/2025 10/14/2024 Cholesterol Screening (Lipid Panel) 12/10/2028 12/11/2023 DTaP,Tdap,and Td Vaccines (2 - Td or Tdap) 09/11/2029 09/12/2019 Hepatitis C Screening Completed 09/13/2018 Hepatitis B Vaccines Completed 09/24/2022, 08/27/19 23 MMR Vaccines Aged Out 09/24/2022, 08/27/2022 No lo nger eligible based on patient's age to complete this topic HIB Vaccines Aged Out No longer eligi ble based on patient's age to complete this topic HPV Vaccines Aged Out No longer eligi ble based on patient's age to complete this topic Hepatitis A Vaccines Aged Out No long er eligible based on patient's age to complete this topic IPV Vaccines Aged Out No longer eligi ble based on patient's age to complete this topic Meningococcal ACWY Vaccine Aged Out N o longer eligible based on patient's age to complete this topic Meningococcal B Vaccine Aged Out No l onger eligible based on patient's age to complete this topic Pneumococcal Vaccine: Pediatrics (0 to 5 Years) and At-Risk Patients (6 to 64 Years) Aged Out No longer eligible based on patient's age to complete this topic RSV Immunization Patients Under 20 months Aged Out No longer eligible based on patient's age to complete this topic Varicella Vaccines Aged Out No longer eligible based on patient's age to complete this topic Procedures Procedure Name Priority Date/Time Associated Diagnosis Comments PET CT SKULL TO MID THIGH INITIAL Routine 10/21/2024 9:45 AM EDT Other nonspecific abnormal finding of lung field from Last 3 Months Results * PET CT Skull to Mid Thigh Initial (10/21/2024 9:45 AM EDT) Anatomical Region Laterality Modality Body Radiographic Marcia ging 10/21/2024 10:3 6 AM EDT Impressions 10/21/2024 10:59 AM EDT FDG avid right hilar mass suspicious for underlying malignancy. ??Mediastinal lymph nodes without significant FDG activity in comparison to background. Please note: The CT was acquired at a low radiation dose settings. ??The images are of nondiagnostic quality and used solely for purposes of attenuation correction and slice localization for the PET scan. ??If a diagnostic CT study is desired it must be ordered separately. -------- FINAL REPORT -------- Dictated By: Lavern Culver Dictated Date: 10/21/2024 10:36 ET Assigned Physician: Lavern Culver Reviewed and Electronically Signed By: Lavern Culver Signed Date: 10/21/2024 10:59 ET Workstation ID: [id number] Transcribed By: Self Edit Transcribed Date: 10/21/2024 10:36 ET Narrative 10/21/2024 10:59 AM EDT INDICATION: PULMONARY NODULE TECHNIQUE: FDG PET-CT imaging was performed from the skull bases through the thighs in a single acquisition with data set reconstructed in axial, coronal, and sagittal planes at the computer workstation with fused data from both the PET imaging study and attenuation correction CT. The CT portion of the examination was done strictly for attenuation correction and is not a true diagnostic CT examination. DLP: ??408 mGy-cm Radiopharmaceutical: 12.0 mCi of F-18 FDG IV. Blood glucose: 139 mg/dl. COMPARISON: Prior chest CT August 2024 FINDINGS: HEAD AND NECK: No abnormal FDG activity. THORAX: FDG avid right hilar mass SUV max 6.2. ??Few tree-in-bud opacities in the right middle lobe SUV max 0.4 likely postinfectious or postinflammatory in etiology with linear atelectasis SUV max 1.1. Precarinal lymph node SUV max 1.9. ??Right paratracheal lymph nodes SUV max 1.1. ??AP window SUV Max 1.3. ??Mediastinal blood pool SUV Max 2.2. No significant uptake within nonenlarged bilateral axillary lymph nodes SUV max 1. ABDOMEN/PELVIS: No abnormal FDG activity. MUSCULOSKELETAL: No abnormal FDG activity. ??Asymmetric activity in the right scalene muscle likely physiologic. Procedure Note Lavern Culver MD - 10/21/2024 INDICATION: PULMONARY NODULE TECHNIQUE: FDG PET-CT imaging was performed from the skull bases throughthe thighs in a single acquisition with data set reconstructed in axial,coronal, and sagittal planes at the computer workstation with fused datafrom both the PET imaging study and attenuation correction CT. The CTportion of the examination was done strictly for attenuation correctionand is not a true diagnostic CT examination. DLP: 408 mGy-cm Radiopharmaceutical: 12.0 mCi of F-18 FDG IV. Blood glucose: 139 mg/dl. COMPARISON: Prior chest CT August 2024 FINDINGS: HEAD AND NECK: No abnormal FDG activity. THORAX: FDG avid right hilar mass SUV max 6.2. Few tree-in-bud opacitiesin the right middle lobe SUV max 0.4 likely postinfectious orpostinflammatory in etiology with linear atelectasis SUV max 1.1. Precarinal lymph node SUV max 1.9. Right paratracheal lymph nodes SUV max1.1. AP window SUV Max 1.3. Mediastinal blood pool SUV Max 2.2. No significant uptake within nonenlarged bilateral axillary lymph nodesSUV max 1. ABDOMEN/PELVIS: No abnormal FDG activity. MUSCULOSKELETAL: No abnormal FDG activity. Asymmetric activity in theright scalene muscle likely physiologic. IMPRESSION: FDG avid right hilar mass suspicious for underlying malignancy.Mediastinal lymph nodes without significant FDG activity in comparison tobackground. Please note: The CT was acquired at a low radiation dose settings. The images are ofnondiagnostic quality and used solely for purposes of attenuationcorrection and slice localization for the PET scan. If a diagnostic CTstudy is desired it must be ordered separately. -------- FINAL REPORT -------- Dictated By: Lavern Culver Dictated Date: 10/21/2024 10:36 ET Assigned Physician: Lavern Culver Reviewed and Electronically Signed By: Lavern Culver Signed Date: 10/21/2024 10:59 ET Workstation ID: [id number] Transcribed By: Self Edit Transcribed Date: 10/21/2024 10:36 ET Clifford Franco MD IM NM PROCEDURES Final Re sult from Last 3 Months Insurance [facility]
== END 2024-11-10 08:57 | disposition home or self-care (01) ==
LOC: HO.HMCFM 08:21
PROVIDERS: PCP Physician Assistant; Visit Provider Physician Assistant
DX: C34.01 Malignant neoplasm of right main bronchus (principal); F41.8 Other specified anxiety disorders; E10.65 Type 1 diabetes mellitus with hyperglycemia

== ENCOUNTER → 2024-11-10 08:21 | Outpatient (BNVA) | payer OTHER, SELFPAY | PROVIDERS: PCP Physician Assistant; Visit Provider Physician Assistant | DX: Z13.89 Encounter for screening for other disorder (principal) ==

== ENCOUNTER 2024-12-01 09:31 | Outpatient (AMB) | payer OTHER, SELFPAY ==
--- NOTE | 2024-12-01 09:34 | MHC.OFFVIS ---
Vital Signs 12/01/24 09:35 Height 5 ft 7 in Weight 138 lb 14.259 oz BMI 21.8 BP 100/58 L Blood Pressure Location Lt brachial Position Sitting Pulse 88 Pulse Source Pulse Oximeter Pulse Oximetry (%) 97 Oxygen Delivery Method Room Air Intake Visit Reasons: Lung Mass/PET Scan follow-up Market Development Manager Required: No Accompanied by: Self / Same As Patient Allergies No Known Allergies Allergy (Verified 12/01/24 09:38) HPI Comments Details: The patient is a 54-year-old woman who is an active smoker who apparently he has been noticing some increased cough shortness of breath and weight loss. She did follow-up with her primary care doctor who referred her to the lung cancer screening program. She did have her 1st CT scan through the lung cancer screening program which is considered a rods 4. We did personally reviewed together in the room. She has a masslike density in the infrahilar area. It is surrounded by airways. We talked about the concerns that this is likely a malignant process and needs to have a biopsy. The patient will benefit from endobronchial ultrasound bronchoscopy with transbronchial needle aspiration. Also request pulmonary function studies. The patient also needs to quit smoking altogether. She is currently not using any inhalers will hold off at this time. Follow-up with PFTs. 10/13/2024 the patient is here for pulmonary follow-up visit. She does have a friend virtually connected. The patient is status post endobronchial ultrasound bronchoscopy. We did sample her 4R station 7 lymph nodes which were negative for any malignancy. 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 Awaiting molecular markers status. The patient did not have any endobronchial disease therefore biopsies were not available. Therefore, we less material to provide. The patient also has type 1 diabetes therefore when she went for her PET scan her triggers were too high and she was rescheduled. Her sugars continued to be elevated above 300 even with an insulin pump making difficult to schedule her PET scan. 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 We did review the images closely. The patient understands that even if the PET scan only shows activity at the site of the mass to require a very life surgery potentially pneumonectomy to remove the mask completely. Definitely involving the minor fissure in very close to the major fissure. It is reassuring that the mediastinal lymph nodes were negative for malignancy. The patient did undergo pulmonary function studies. She appears to have mild COPD. Her lung volumes and diffusing capacity are within normal limits so in theory she should be able to tolerate a pneumonectomy if needed. She continues with the nicotine patch. Will go ahead and refer her to Oncology at this time. She may need tertiary evaluation based on the size and the extent of this mass along with her younger age. 12/01/2024 the patient is here for a pulmonary follow-up visit. Overall the patient has been doing okay. She did follow-up with [facility] and they are considering either surgery versus neoadjuvant therapy. She is going to find out today. Based on her PET scan demonstrating no significant FDG activity of the mediastinum I do believe surgery per the best option for her. Either way she will be okay. She does have a mild degree of obstruction her PFTs. She does have chronic bronchitis. In view in the setting of surgery soon will go ahead and start her on inhaler to provide her some anti-inflammatory effect in improvement of her chronic bronchitis. She continues on the Chantix. She has been cutting down on the smoking significantly and she is reassured that she is cutting down will be able to quit. Otherwise patient is doing well she will follow-up in 4 months. If she has any issues prior to that she will call for an earlier assessment. [facility] Medical History (Updated 10/13/24 @ 21:11 by Clifford Franco MD) Lung cancer Sleep apnea Nicotine dependence, cigarettes, uncomplicated Insulin pump in place Uncontrolled type 1 diabetes mellitus with hyperglycemia, with long-term current use of insulin Arthritis Anxiety and depression Surgical History History of lung biopsy History of section History of appendectomy Family History Paternal Grandfather Substance abuse Maternal Grandfather Substance abuse Cancer Maternal Grandmother Substance abuse Hypertension High cholesterol Thyroid disorder Brother Hypertension Mother Thyroid disorder Paternal Grandmother Cardiovascular disease Father Cardiovascular disease Agent orange exposure Maternal Aunt Lung cancer Maternal Uncle Lung cancer Social History Household Members: None Both parents involved: No Caregiver staying overnight: No Housing: Condominium Are you a primary zoo caretaker to a significant other at home: No Do you presently have visiting nurse or other home services: No 75 years or older and lives alone: No Alcohol intake: former Patient Tobacco Use Status: Current everyday Tobacco user Tobacco use type: Cigarette Cigarettes Per Day: 10 (between 5 and 10) Years Smoked: (onset 15yo, 1/2-1ppd x 39yrs, 30pyh) e-Cigarette/Vaping Use: Former Use Second Hand Smoke Exposure: No Substance Use Type: Marijuana service: No 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al status: 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: No Cognitive needs: No Hearing needs: No Vision needs: Yes (wear glasses reading and distance) Review of Systems Eyes Reports no additional complaints ENT Reports no additional complaints and Denies dysphagia Card Denies chest pain Resp Reports chest congestion and Reports cough GI Denies dysphagia Musc Reports no additional complaints Skin/Breast Denies rash Neuro Reports no additional complaints Physical Exam Vital Signs: Last Vital Signs Pulse 88 12/01/24 09:35 BP 100/58 L 12/01/24 09:35 Pulse Ox 97 12/01/24 09:35 Oxygen Delivery Method Room Air 12/01/24 09:35 BMI result Body Mass Index 21.8 Const General: comfortable HEENT Head: Yes normal to inspection Neck Neck: Yes supple Chest Chest palpation & inspection: normal inspection of the chest Resp Effort & Inspection: normal respiratory effort Auscultation: clear to auscultation bilaterally, no rales, no rhonchi and no wheezes Cardio Rhythm: regular rhythm Heart sounds: S1 normal heart sound present and S2 normal heart sound present GI Palpation (GI): Soft to palpation Skin General skin exam: no rashes or lesions noted Assessment & Plan Assessment & Plan (1) Mass of right lung: Comment: 09/02/24 LDCT = ill-defined 2.8 x 2.0 cm right hilar mass with RML linear consolidation Code(s): R91.8 - Other nonspecific abnormal finding of lung field Category: Medical (2) Nicotine dependence, cigarettes, uncomplicated: Comment: (onset 15yo, 1/2-1ppd x 39yrs, 30pyh) Code(s): F17.210 - Nicotine dependence, cigarettes, uncomplicated Category: Medical (3) Insulin pump in place: Code(s): Z96.41 - Presence of insulin pump (external) (internal) Category: Medical (4) Lung cancer: Code(s): C34.90 - Malignant neoplasm of unspecified part of unspecified bronchus or lung Category: Medical Qualifiers: Laterality: right Lung location: hilum of lung Qualified Code(s): C34.01 - Malignant neoplasm of right main bronchus Plan Tobacco cessation Oncology, [facility] Potential surgery soon start [place] F/U 3-4 months Medications: New fluticasone propion-salmeterol 250-50 mcg/dose ([place] Inhub) 1 inh inhalation Q12H 60 ea 11RF 30 days Coding Level of Care Code Est Pt Level 4 (71927) Diagnoses Mass of right lung R91.8 Nicotine dependence, cigarettes, uncomplicated F17.[address] Z96.41 Malignant neoplasm of hilus of right lung C34.01 Laterality: right Lung location: hilum of lung Time Spent (min) 17
[2024-12-01 09:35] VITALS: BP 100/58; PULSE 88; O2SAT 97; BMI 21.8
--- OUTSIDE RECORDS SUMMARY | 2024-12-01 09:49 | XMS_ITS | Continuity of Care Document ---
Author Organization [facility] Address [address] [place], [place] [address] [place], [place] Phone [phone] Care Team Providers Care Wood Handler Name Role Phone Gabby Conde MD Care Team Information Receiv er Unavailable YAKOV LATIF M.D. Care Team Information Rec eiver Unavailable Gabby Conde MD Primary Care Physician Unava ilable Social History Type Date Description Comments Sex Unknown
== END 2024-12-01 10:00 | disposition home or self-care (01) ==
LOC: HO.HPS 09:32
PROVIDERS: PCP Physician Assistant; Visit Provider Hospitalist
DX: R91.8 Other nonspecific abnormal finding of lung field (principal); F17.210 Nicotine dependence, cigarettes, uncomplicated; Z96.41 Presence of insulin pump (external) (internal); C34.01 Malignant neoplasm of right main bronchus
CPT/HCPCS: 99214

== ENCOUNTER → 2024-12-01 09:31 | Outpatient (BNVA) | payer OTHER, SELFPAY | PROVIDERS: PCP Physician Assistant; Visit Provider Hospitalist ==

== ENCOUNTER 2025-04-19 14:59 | Outpatient (AMB) | payer OTHER, SELFPAY ==
--- NOTE | 2025-04-19 15:13 | A.OFFPC_ITS ---
Vital Signs 04/19/25 15:17 Height 5 ft 7 in Weight 121 lb 2 oz BMI 19.0 BP 124/82 Blood Pressure Location Lt brachial Position Sitting Respiration 16 Pulse 131 H Pulse Source Pulse Oximeter Temp 98.1 F Temp Source Oral Pulse Oximetry (%) 94 Oxygen Delivery Method Room Air Intake Visit Reasons: Follow up with Cancer diagnosis Intake Note: Follow after partial lung removal. side effects of chemo drugs. requesting xray of lung. 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 She has a hx of t1dm, anxiety with depression, hx of cold sores and recent diagnosis of lung ca. -when I did walk into the room today wit h her she does appear to be sick. She is uncomfortable and pale. She does have an elevated heart rate and does sound short of breath but does not look in distress. She tells me that she vomited prior to getting here because she tried to have some coffee and it upset her stomach with the chemo that she takes. She says that the chemo is really taking a lot out of her. She had a bilobectomy in January and then needed to have another surgery in February and then ended up with pneumonia. She states that she was hospitalized for over a month. She has lost about 20 lb since I last saw her. She lives alone but does have a support system of family and friends. She is tearful today because she just does not feel well right fully so. She does not have any lower leg pain or swelling. When she walks short distances she feels very winded and generally weak and unwell. She says that she has spoken with her cancer team. She thinks that it is related to the tube she has a in the right lateral chest wall which has been there since February. She says that she just wants it out because she feels discomfort around this area. Her incisions appear to be well healed. She denies any draining from anything. No fevers or chills but sometimes feels hot. She says she can not tell what is related to her chemo or if she is sick. She wonders if she ever got over the pneumonia. She has had a productive cough. Her friend is going to drive her to the ER today. She is going to [facility] as her cancer team we will be able to review the notes easily. PULM: Recently went for a low-dose CT scan screen given her smoking history and family history of lung cancer and found to have a right lung mass. She has followed up with pulmonology and recently had PFTs which showed mild COPD. She has lung primary (adenocarcinoma) and states that the mass was larger than anticipated so she had a right bilobectomy and has been on chemo. She tells me today that she is just not feeling well.. -Team: Miguel Maguire- thoracic surgeon Beth Beckford-oncology, has f/u appointment CV: Blood pressure today in the office is 124/82. She is tachycardic at 01:31. Psych: She is on sertraline 100 mg daily and lorazepam as needed. Endo: She follows with [facility] soriano for management for t1dm- she is on a pump. She has had dm for 30 years (dx around 20s). She has all back up supplies at home. She understands how to treat hypoglycemia [facility] Medical History (Updated 04/20/25 @ 12:37 by Vanessa Banuelos PA-C) Lung cancer Sleep apnea Nicotine dependence, cigarettes, uncomplicated Insulin pump in place Uncontrolled type 1 diabetes mellitus with hyperglycemia, with long-term current use of insulin Arthritis Anxiety and depression Surgical History (Updated 04/19/25 @ 15:21 by Francesca Ballesteros CMA) History of lung surgery History of lung biopsy History of section History of appendectomy Family History Paternal Grandfather Substance abuse Maternal Grandfather Substance abuse Cancer Maternal Grandmother Substance abuse Hypertension High cholesterol Thyroid disorder Brother Hypertension Mother Thyroid disorder Paternal Grandmother Cardiovascular disease Father Cardiovascular disease Agent orange exposure Maternal Aunt Lung cancer Maternal Uncle Lung cancer Social History (Updated 04/19/25 @ 15:22 by Francesca Ballesteros CMA) Household Members: None Both parents involved: No Caregiver staying overnight: No Housing: Condominium Are you a primary director of critical care to a significant other at home: No Do you presently have visiting nurse or other home services: No 75 years or older and lives alone: No Alcohol intake: former Patient Tobacco Use Status: Former Tobacco user (quit 6 months) Tobacco use type: Cigarette Cigarettes Per Day: 10 (between 5 and 10) Years Smoked: (onset 15yo, 1/2-1ppd x 39yrs, 30pyh) e-Cigarette/Vaping Use: Former Use Second Hand Smoke Exposure: No Substance Use Type: Marijuana service: No 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al status: 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: No Cognitive needs: No Hearing needs: No Vision needs: Yes (wear glasses reading and distance) Questionnaire Thrive Questionnaire Date Thrive assessed: 07/12/24 I am a: Patient What is your living situation today?: I have a steady place to live Within the past 12 months, did the food you bought not last and you didn't have the money to get more?: I choose not to answer this question Within the past 12 months, did you worry whether your food would run out before you got money to buy more?: I choose not to answer this question Do you have trouble paying for medicines?: Yes Do you have trouble getting transportation to medical appointments?: No Do you have trouble paying your heating and electricity bill?: Yes Do you have trouble taking care of your child, family member or friend?: I choose not to answer this question Do you have trouble with day-to-day activities such as bathing, preparing meals, shopping, managing finances, etc.?: I choose not to answer this question Are you currently unemployed and looking for a job?: No Are you interested in more education?: I choose not to answer this question Please select the resources that you would like help with: None Currently or been in a relationship where the following occur: I choose not to answer THRIVE Score: 1 ELVIN-7 AMB Questionnaire ELVIN-7 Date ELVIN - 7 assessed: 07/13/24 Source: Developed by Drs. Josh Mejia, Rachel Hanks, Enmanuel Crawford and colleagues, with an educational fifi from Screen. Physical exam (Primary Care) Vital Signs: Last Vital Signs Temp 98.1 F 04/19/25 15:17 Pulse 131 H 04/19/25 15:17 Resp 16 04/19/25 15:17 BP 124/82 04/19/25 15:17 Pulse Ox 94 04/19/25 15:17 Oxygen Delivery Method Room Air 04/19/25 15:17 BMI result Body Mass Index 19.0 Tobacco/Smoking Status: Tobacco use Status Tobacco use date assessed 11/10/24 04/19/25 15:22 Patient Tobacco Use Status Former Tobacco user (quit 6 04/19/25 15:22 months) Tobacco use type Cigarette 04/19/25 15:22 e-Cigarette/Vaping Use Former Use 04/19/25 15:22 Thrive Assessment: Date of Thrive Assessment Date Thrive assessed 07/12/24 04/19/25 15:22 Currently or been in a relationship where the following occur: I choose not to answer Const Orientation/consciousness: patient oriented x3 HENMT Other: Oral mucosa dry Ears: hearing grossly normal bilaterally Face and sinus: Yes sinuses nontender Neck Thyroid: Thyroid normal Lymphatic: no lymphadenopathy noted Resp Other: Does need to take frequent pauses mid sentence for breathing. Cardio Rate: tachycardic GI Inspection: Yes normal to inspection Palpation (GI): Soft to palpation and Other GI palpation findings present (nontender, no cva tenderness) Auscultation: normoactive bowel sounds Rectal Exam - Female: deferred Skin General skin exam: no rashes or lesions noted Neuro General: patient oriented x3, gait normal and no focal motor deficits Extrem General: Yes normal to inspection and Yes capillary refill normal Office Procedures EKG Details: EKG today in the office is sinus tachycardia at a rate of 103 beats per minute with STT wave abnormalities. EKG interpreted myself and Dr. Luo. Patient was sent to the emergency room. Declines ambulance. Prefers to go by private car [id number], Complete Coding Level of Care Code Est Pt Level 4 (27662) Complex EM visit Add On G2211 Diagnoses SINCLAIR (dyspnea on exertion) R06.09 Malignant neoplasm of hilus of right lung C34.01 Laterality: right Lung location: hilum of lung Anxiety with depression F41.8 CPT Codes EKG - CPT: 43639-Eurdhthzrjmayjopt, Complete ([id number]) Assessment & Plan Assessment & Plan (1) SINCLAIR (dyspnea on exertion): Code(s): R06.09 - Other forms of dyspnea Category: Medical Plan: I did discuss with patient today that given her chest pain, tachycardia and persistent shortness on breath with exertion I am concerned that she could have a PE. We did discuss that she has an increased risk of this given her underlying malignancy. I have advised her to go to the emergency room for rule out of this. We also discuss other possibilities such as pneumonia as she does look ill or dehydration etc.. She we will go by private vehicle. She does not want an ambulance. Her friend is going to drive her. (2) Lung cancer: Code(s): C34.90 - Malignant neoplasm of unspecified part of unspecified bronchus or lung Category: Medical Qualifiers: Laterality: right Lung location: hilum of lung Qualified Code(s): C34.01 - Malignant neoplasm of right main bronchus Plan: As above. (3) Anxiety with depression: Code(s): F41.8 - Other specified anxiety disorders Category: Medical Plan: We will continue current regimen
[2025-04-19 15:17] VITALS: BP 124/82; PULSE 131; RESP 16; TEMP 36.7; O2SAT 94; BMI 19.0
--- OUTSIDE RECORDS SUMMARY | 2025-04-19 17:24 | XMS_ITS | Encounter Summary ---
Author Organization [facility] Address [address] [place] [address] [place] [phone] Phone Care Team Providers Care Folder Taper Operator Name Role Phone Amira Faust Unavailable [phone] Smiley Mckee MD Unavailable Vanessa Banuelos Primary Care Provider [phone] Vanessa Banuelos Unavailable Sharmila Miranda GRAVITY MANAGER Unavailable Vanesas Banuelos Unavailable Rebecca Villalta GRAVITY MANAGER Unavailable Reason for Visit * Reason Comments Shortness of Breath Encounter Details Date Type Department Care Team ([facility] st Contact Info) Description 04/19/2025 5:24 PM EDT - Present Emergency [facility] [address] [place], [place] [id number] Tab Landeros MD [address] [place] [address] [email or web address] Social History Tobacco Use Types Packs/Day Years Used Date Smoking Tobacco: Every Day Cigarettes 1 39.4 Started: 07/06/1985; Last attempted to quit: 12/02/2024 Passive Smoke Exposure: Past Smokeless Tobacco: Never Comments:I v e been wearing the patch daily . I have been smoking on amd off . Alcohol Use Standard Drinks/Week Comments Yes 4 (1 standard drink = 0.6 oz pur e alcohol) 3-5 Vodka Spritzers 1x/week Child or Family Care Answer Date Record ed Do you have problems with on e of the following making it difficult for you to work, study, or receive health care? No 10/25/2024 Education Answer Date Recorded Are you interested in help w ith more adult education (for example, completing high school, GED, job training, learning the Occitan language, technical skills, or developing parenting skills)? No 10/25/2024 Are you concerned about learning? Not on file 10/25/2024 No 10/25/2024 Yes 10/25/2024 Food Answer Date Recorded Within the past 6 months we worried whether our food would run out before we got money to buy more. Never True 01/27/2025 Within the past 6 months the food we bought just didn't last and we didn't have enough money to get more. Never True Residential Stability Answer Date Recor ded What is your housing situation today? I have max taylor 01/27/2025 How many times have you move d in the past 12 months? Zero (I did not move) 01/27/2025 Paying for Meds Answer Date Recorded Do you have trouble paying for medicines? No 01/27/2025 Paying Utility Bills Answer Date Record ed Do you have trouble paying your heating or elect ricity bill? No 01/27/2025 Transportation Answer Date Recorded Has the lack of transportati on kept you from medical appointments or from getting medications? No 01/27/2025 Digital Access Answer Date Recorded No 01/27/2025 Yes 01/27/2025 Do you have reliable internet access at home? Ye s 01/27/2025 Do you have a device (e.g., phone, tablet, computer) with a working camera? Yes 01/27/2025 Intimate Partner Violence Answer Date R ecorded Are you denied basic needs s uch as food, clothing, or medical care? No 04/11/2025 In the past 12 months have y ou been in a relationship with a person who hurts, threatens, or tries to control you? No 04/11/2025 Are you denied basic needs s uch as food, clothing, or medical care? No 04/11/2025 In the past 12 months have y ou been in a relationship with a person who hurts, threatens, or tries to control you? No 04/11/2025 Comments No Sex and Gender Information Value Date Recorded Sex Assigned at Female 07/20/2021 6:24 PM EST Legal Sex Female 7:04 PM EST Gender Identity Female 07/20/2021 6:24 PM EST Sexual Orientation Straight 03/16/2025 2: 26 PM EDT documented as of this encounter Last Filed Vital Signs Vital Sign Reading Time Taken Comments Blood Pressure 170/120 04/19/2025 4:41 PM EDT Pulse 136 04/19/2025 4:41 PM EDT Temperature 36.7 C (98.1 F) 04/19/2025 4:41 PM EDT Respiratory Rate 40 04/19/2025 4:41 PM EDT Oxygen Saturation 99% 04/19/2025 4:41 PM EDT Inhaled Oxygen Concentration - - Weight 54.9 kg (121 lb) 04/19/2025 4:41 PM EDT Height 167.6 cm (5' 6 ) 04/19/2025 4:41 PM EDT Body Mass Index 19.53 04/19/2025 4:41 PM EDT documented in this encounter Functional Status * Calculated C-SSRS Risk Score (Lifetime/Recent) Answer Date of Assessment Author No Risk Indicated 04/19/2025 4:43 PM EDT Annalisa Bustillo RN * [place] Suicide Severity Rating Scale (Screener/Recent Self-Report) Question Answer Date of Assessment Author 1. Wish to be (Past 1 Month) No 04/19/2025 4:43 PM EDT Annalisa Bustillo RN 2. Non-Specific Active Suicidal Thoughts (Past 1 Month) No 04/19/2025 4:43 PM EDT Annalisa Bustillo, ALLAN 6. Suicidal Behavior (Lifetime) No 04/19/2025 4:43 PM EDT Annalisa Bustillo RN documented as of this encounter ED Notes * Annalisa Bustillo RN - 04/19/2025 4:44 PM EDT Patient presents reporting shortness of breath, has lung cancer history, drain to right lung that occasionally gets drained, was at PCP office today and pcp was concerned about HR blood clot in lungsand shortness of breath told her to come here. Patient is awake, alert and oriented, speaking in shortened sentences, breathing is rapid and shallow, tachycardic in triage, tearful, reports lots of pain to back and area where drain is. documented in this encounter Plan of Treatment Upcoming Encounters Date Type Department Care Team (Late st Contact Info) Description 04/21/2025 3:00 PM EDT Telemedicine - audio only [facility], [facility] Cancer [address] [place] [address] Addie Michaud PA-C [address] [place] [phone] [email or web address] Beth Beckford MD [address] [place] [phone] [email or web address] 05/01/2025 8:30 AM EDT Office Visit [facility] Hematology [address] [place] [address] Edwardo Jose MD [address] [place] [address] and [facility] [place] [address] [email or web address] 05/05/2025 9:40 AM EDT Office Visit [facility] Diabetes Center [address] [place] [phone] Smiley Mckee MD [address] [place] [address], [address] [place] [phone] 07/11/2025 1:15 PM EST Office Visit [facility] Lung Center-Thoracic Surgical [facility]ties [address] [place] [phone] Miguel Maguire MD, MPH [address] [place] [phone] 08/16/2025 3:00 PM EST Nutrition [facility] Diabetes [address] [address] Tayler Bingham LDN [address] [place] [address], [address] [place] [phone] Pending Results Name Type Priority Associated Diagnoses Date /Time Basic metabolic panel Lab STAT 6:04 PM EDT LFTs (hepatic panel) Lab STAT 04/05 6:04 PM EDT Magnesium Lab STAT 04/19/2025 6:0 4 PM EDT NT-proBNP Lab STAT 04/19/2025 6:0 4 PM EDT Scheduled Orders Name Type Priority Associated Diagnoses Orde r Schedule CT Chest Pulmonary Angiogram Imaging Routine One time imaging One time imaging for 1 Occurrences starting 04/19/2025 until 04/19/2025 Basic metabolic panel Lab STAT Onc e for 1 Occurrences starting 04/19/2025 until 04/19/2025 LFTs (hepatic panel) Lab STAT Once for 1 Occurrences starting 04/19/2025 until 04/19/2025 Magnesium Lab STAT Once for 1 Occ urrences starting 04/19/2025 until 04/19/2025 NT-proBNP Lab STAT Once for 1 Occ urrences starting 04/19/2025 until 04/19/2025 COVID Pandemic Respiratory Viral Order (PRO) Lab STAT Once for 1 Occur rences starting 04/19/2025 until 04/19/2025 Troponin Lab STAT Once for 1 Occ urrences starting 04/19/2025 until 04/19/2025 documented as of this encounter Procedures * The patient is currently admitted. The information in this section might not be complete until the patient is discharged. Procedure Name Priority Date/Time Associated Diagnosis Comments CBC AND DIFFERENTIAL STAT 04/19/2025 6:04 PM EDT TROPONIN STAT 04/19/2025 6:04 PM EDT documented in this encounter Results * (ABNORMAL) Troponin (04/19/2025 6:04 PM EDT) [facility] Troponin-T, HS Gen5 16(H) 0 - 9 ng/L [facility] Blood 04/19/2025 6:04 PM EDT 04/19/2025 6:06 PM EDT us Tab Landeros MD LAB BLOOD ORDERABLES Fin al Result [address] [address] * (ABNORMAL) CBC and differential (04/19/2025 6:04 PM EDT) Pathologist [facility] WBC 5.05 4.00 - 11.00 K/uL [facility] RBC 3.84(L) 4.00 - 5.20 M/uL [facility] HGB 9.8(L) 12.0 - 16.0 g/dL [facility] HCT 31.9(L) 36.0 - 46.0 % [facility] PLT 383 150 - 450 K/uL [facility] MCV 83.1 80.0 - 100.0 fL [facility] MCH 25.5(L) 27.0 - 31.0 pg [facility] MCHC 30.7(L) 32.0 - 36.0 g/dL [facility] RDW 15.5(H) 11.5 - 14.5 % [facility] MPV 7.8(L) 8.4 - 12.0 fL [facility] NRBC 0.00 0.00 /100 WBCs [facility] ABSOLUTE NRBC 0.00 0.00 K/uL [facility] DIFF METHOD Auto [facility] NEUTS 54.6 48.0 - 76.0 % [facility] LYMPHS 32.9 18.0 - 41.0 % [facility] MONOS 9.3 4.0 - 11.0 % [facility] EOS 2.6 0.0 - 5.0 % [facility] BASOS 0.4 0.0 - 1.5 % [facility] Granulocytes, immature (%) 0.2 0.0 - 0.9 % [facility] ABSOLUTE NEUTS 2.76 1.92 - 7.60 K/uL [facility] ABSOLUTE LYMPHS 1.66 0.72 - 4.10 K/uL [facility] ABSOLUTE MONOS 0.47 0.16 - 1.10 K/uL [facility] ABSOLUTE EOS 0.13 0.00 - 0.50 K/uL [facility] ABSOLUTE BASOS 0.02 0.00 - 0.15 K/uL [facility] Granulocytes, immature 0.01 0.00 - 0.09 K/uL [facility] Blood 04/19/2025 6:04 PM EDT 04/19/2025 6:06 PM EDT us Tab Landeros MD LAB BLOOD ORDERABLES Fin al Result Performing Organization Address City/State/[facility] Co de Phone Number [facility] [address] [place] [address] documented in this encounter Visit Diagnoses Not on filedocumented in this encounter Administered Medications Active Administered Medications - up to 3 most recent administrations Medication Order MAR Action Action Date Dose Rate Site HYDROmorphone (PF) (DILAUDID) injection 1 mg 1 mg, Intravenous, Every 30 min PRN, severe pain or 7-10 (on a general 0-10 scale), Starting on Thu04/19/25 at 1755, For 3 doses Inactive Administered Medications - up to 3 most recent administrations Medication Order MAR Action Action Date Dose Rate Site lactated ringers IV Bolus 1,000 mL 1,000 mL, Intravenous, Administer over 30 Minutes, Once, On Thu04/19/25 at 1800, For 1 dose New Bag 04/19/2025 6:38 PM EDT 1,000 mL 2000 mL/hr ondansetron (PF) (ZOFRAN) injection 4 mg 4 mg, Intravenous, Once, On Thu04/19/25 at 1800, For 1 dose Given 04/19/2025 6:39 PM EDT 4 mg documented in this encounter Active and Recently Administered Medications Times are shown in EDT. Scheduled Medication Order 04/17/2025 04/18/2025 04/19/2025 lactated ringers IV Bolus 1,000 mL 1,000 mL, Intravenous, Administer over 30 Minutes, Once, On Thu04/19/25 at 1800, For 1 dose 183 (New Bag - Prov ider: Yojana Ureña RN) ondansetron (PF) (ZOFRAN) injection 4 mg (COMPLETED) 4 mg, Intravenous, Once, On Thu04/19/25 at 1800, For 1 dose 183 (Given - Provid er: Yojana Ureña RN) PRN Medication Order 04/17/2025 04/18/2025 04/19/2025 HYDROmorphone (PF) (DILAUDID) injection 1 mg 1 mg, Intravenous, Every 30 min PRN, severe pain or 7-10 (on a general 0-10 scale), Starting on Thu04/19/25 at 1755, For 3 doses documented in this encounter Additional Health Concerns Infection Onset Date Last Indicated Resolved Time CoV-Risk 04/19/2025 04/19/2025 Assessment Noted Time PHQ-2 Depression Total Score: 0 03/14/20 12:52 PM EDT documented as of this encounter Care Teams Folder Taper Operator Relationship Specialty Start Date End Date Vanessa Banuelos PA [address] [place] [phone] PCP - General Physician Block Saw Operator 10/14/24 Amira Faust PA [address] [place] [address] [email or web address] Historical LMR Provider 04/26/17 Smiley Mckee MD [address] [facility], 1st [place] [address] Historical LMR Provider 04/26/17 Vanessa Banuelos PA [address] [place] [address] Referring Physician Physician Block Saw Operator 10/14/24 Sharmila Miranda, [facility] [address] [place] [address] [email or web address] Heel Coverer Machine Operator Oncology 11/10/24 Vanessa Banuelos PA [address] [place] [address] Referring Physician Physician Block Saw Operator 03/16/25 Rebecca Villalta, [facility] [address] [place] [address] [email or web address] Heel Coverer Machine Operator Oncology 04/05/25 documented as of this encounter Additional Source Comments The information contained in this document represents components of the legal health record. It is not the complete legal health record.[facility]
--- OUTSIDE RECORDS SUMMARY | 2025-04-19 18:40 | XMS_ITS | Encounter Summary ---
Author Organization [facility] Address [address] [place] [address] [address] [place] [address] Phone Care Team Providers Care Machine Filler Shredder Name Role Phone Amira Faust Unavailable [phone] Smiley Mckee MD Unavailable [phone] Vanessa Banuelos Primary Care Provider [phone] Vanessa Banuelos Unavailable Sharmila Miranda ASSISTANT CORPORATE SECRETARY Unavailable Vanessa Banuelos Unavailable Rebecca Villalta ASSISTANT CORPORATE SECRETARY Unavailable [phone] Encounter Details Date Type Department Care Team (Late st Contact Info) Description 03/27/2025 Orders Only [facility] Thoracic Surgery 15 [facility] PP[facility] [address] [place] [address] Blake Winter PA-C, MPH 75 [place] [address] [email or web address] Social History Tobacco Use Types Packs/Day Years Used Date Smoking Tobacco: Former Cigarettes 1 39.4 0 07/06/1985 - 12/02/2024 Passive Smoke Exposure: Past Smokeless Tobacco: Never Comments:Currently smoking 5 cigarettes a day, smoked 1/2-1 ppd x 39 years. Alcohol Use Standard Drinks/Week Comments Yes 0 (1 standard drink = 0.6 oz pur [...] high school, GED, job training, learning the Croatian language, technical skills, or developing parenting skills)? [...] your housing situation today? I have max sing 01/27/2025 How many times have you move [...] as food, clothing, or medical care? No 03/30/2025 In the past 12 months have y ou been in a relationship with a person who hurts, threatens, or tries to control you? No 03/30/2025 Are you denied basic needs s uch as food, clothing, or medical care? No 03/30/2025 In the past 12 months have y ou been in a relationship with a person who hurts, threatens, or tries to control you? No 03/30/2025 Comments No Sex and Gender Information Value Date Recorded Sex Assigned at Female 07/20/2021 6:24 PM EST Legal Sex Female 7:04 PM EST Gender Identity Female 07/20/2021 6:24 PM EST Sexual Orientation Straight 03/16/2025 2: 26 PM EDT documented as of this encounter Functional Status * Calculated C-SSRS Risk Score (Lifetime/Recent) Answer Date of Assessment Author No Risk Indicated 03/30/2025 11:31 AM EDT Abi Chopra RN * [place] Suicide Severity Rating Scale (Screener/Recent Self-Report) Question Answer Date of Assessment Author 1. Wish to be (Past 1 Month) No 025 11:31 AM Abi Sarabia RN 2. Non-Specific Active Suici tania Thoughts (Past 1 Month) No 03/30/2025 11:31 AM JAMILT Lidia Pearce RN 6. Suicidal Behavior (Lifetime) No 11:31 AM JAMILT Abi Pearce RN documented as of this encounter Plan of Treatment Upcoming Encounters Date Type Department Care Team (Late st Contact Info) Description 04/21/2025 3:00 PM EDT Telemedicine - audio only [facility], [facility] Cancer [address], 9th [place] [address] Addie Michaud PA-C [address] [place] [address] [email or web address] Beth Beckford MD [address] [place] [address] Cancer [place] [facility] [address] [place] [address] [email or web address] 05/01/2025 8:30 AM EDT Office Visit [facility] Hematology 70 [place] [address] Edwardo Jose MD 75 [facility] and [facility] - Division [place] [address] [email or web address] 05/05/2025 9:40 AM EDT Office Visit [facility] [address] [place] [address] Smiley Mckee MD [address] [place] [address] 07/11/2025 1:15 PM EST Office Visit [facility] Lung Center-Thoracic Surgical Specialties 15 [place] [address] Miguel Maguire MD, MPH [address] [place] [address] 08/16/2025 3:00 PM EST Nutrition [facility] [address] [place] [address] Tayler Bingham LDN [address] [place] [address] documented as of this encounter Visit Diagnoses Not on filedocumented in this encounter Additional Health Concerns Infection Onset Date Last Indicated Resolved Time CoV-Risk 04/19/2025 04/19/2025 Assessment Noted Time PHQ-2 Depression Total Score: 0 09/09/20 25 12:52 PM EDT documented as of this encounter Care Teams Machine Filler Shredder Relationship Specialty Start Date End Date Vanessa Banuelos PA [address] [place] [address] PCP - General Physician Spinner Hand 10/14/24 Amira Faust PA [address] [place] [address] Historical LMR Provider 04/26/17 Smiley Mckee MD 22 [facility], 1st [place] [address] Historical LMR Provider 04/26/17 Vanessa Banuelos PA [address] [place] [address] Referring Physician Physician Spinner Hand 10/14/24 Sharmila Miranda, [facility] 35 [place] [address] [email or web address] General Matcher Oncology 11/10/24 Vanessa Banuelos PA [address] [place] [address] Referring Physician Physician Spinner Hand 03/16/25 Rebecca Villalta, [facility] [address] [place] [address] [email or web address] General Matcher Oncology 04/05/25 documented as of this encounter Additional Source Comments The information contained in this document represents components of the legal health record. It is not the complete legal health record.[facility]
--- OUTSIDE RECORDS SUMMARY | 2025-04-19 18:40 | XMS_ITS | Encounter Summary ---
Author Organization [facility] Address [address] [place] [address] [address] [place] [address] Phone Care Team Providers Care Service Officer Name Role Phone Amira Faust Unavailable Smiley Mckee MD Unavailable [phone] Vanessa Banuelos Primary Care Provider [phone] Vanessa Banuelos Unavailable hSarmila Miranda BITE BLOCK MAKER Unavailable Vanessa Banuelos Unavailable Rebecca Villalta BITE BLOCK MAKER Unavailable Encounter Details Date Type Department Care Team (Late st Contact Info) Description 02/13/2025 Procedure Pass [facility] Periop [address] [place] [address] Social History Tobacco Use Types Packs/Day Years [...] high school, GED, job training, learning the Turkmen language, technical skills, or developing parenting skills)? [...] as food, clothing, or medical care? No 01/25/2025 In the past 12 months have y ou been in a relationship with a person who hurts, threatens, or tries to control you? No 01/25/2025 Are you denied basic needs s uch as food, clothing, or medical care? No 01/25/2025 In the past 12 months have y ou been in a relationship with a person who hurts, threatens, or tries to control you? No 01/25/2025 Comments No Sex and Gender Information Value Date Recorded Sex Assigned at Female 07/20/2021 6:24 PM EST Legal Sex Female 7:04 PM EST Gender Identity Female 07/20/2021 6:24 PM EST Sexual Orientation Straight 03/16/2025 2: 26 PM EDT documented as of this encounter Plan of Treatment Upcoming Encounters Date Type Department Care Team (Late st Contact Info) Description 04/21/2025 3:00 PM EDT Telemedicine - audio only [facility] for [facility] On[facility], [address], 9th [place] [address] Addie Michaud PA-C [address] [place] [address] [email or web address] Beth Beckford MD [address] [place] [address] [email or web address] 05/01/2025 8:30 AM EDT Office Visit [facility] Hematology [address] [place] [address] Edwardo Jose MD 75 [facility] [place] [address] [email or web address] 05/05/2025 9:40 AM EDT Office Visit [facility] [address] [place] [address] Smiley Mckee MD [address] [place] [address] 07/11/2025 1:15 PM EST Office Visit [facility] Lung Center-Thoracic Surgical Specialties [address] [place] [address] Miguel Maguire MD, MPH 75 [place] [address] 08/16/2025 3:00 PM EST Nutrition [facility] [address] [place] [address] Tayler Bingham LDN [address] [place] [address] documented as of this encounter Visit Diagnoses Not on filedocumented in this encounter Additional Health Concerns Infection Onset Date Last Indicated Resolved Time TB-Risk Comment:Resolved from TB-Risk Infection Status Resolution Note 02/15/2025 02/15/2025 025 10:41 AM EDT CoV-Risk 04/19/2025 04/19/2025 Assessment Noted Time PHQ-2 Depression Total Score: 4 11/02/19 25 2:29 PM EDT documented as of this encounter Care Teams Service Officer Relationship Specialty Start Date End Date Vanessa Banuelos PA [address] [place] [address] PCP - General Physician Clinic Business Manager 10/14/24 Amira Faust PA [address] [place] [address] [email or web address] Historical LMR Provider 04/26/17 Smiley Mckee MD [address] [address] Historical LMR Provider 04/26/17 Vanessa Banuelos PA 140 [place] [address] Referring Physician Physician Clinic Business Manager 10/14/24 Sharmila Miranda, [facility] 35 [place] [address] [email or web address] [employer] Carpets Oncology 11/10/24 Vanessa Banuelos PA 140 [place] [address] Referring Physician Physician Clinic Business Manager 03/16/25 Rebecca Villalta, [facility] [address] [place] [address] [email or web address] Oncology 04/05/25 documented as of this encounter Additional Source Comments The information contained in this document represents components of the legal health record. It is not the complete legal health record.[facility]
--- OUTSIDE RECORDS SUMMARY | 2025-04-19 18:40 | XMS_ITS | Encounter Summary ---
Author Organization [facility] Address [address] [place] [address] [place] [address] Phone Care Team Providers Care Lavatory Attendant Name Role Phone Amira Faust Unavailable [phone] Abi Loya CNM Unavailable [phone] Natalie Hart TERMINAL MAKE UP OPERATOR Unavailable [phone] Tayler Holbrook TERMINAL MAKE UP OPERATOR Unavailable Unavailable Archie Graham MD Unavailable Yulia Luong TERMINAL MAKE UP OPERATOR Unavailable Smiley Mckee MD Unavailable [phone] Maxime Sierra MD Unavailable Marsha De León MD Unavailable [phone] Dona Barrios MD Unavailable Amira Faust Primary Care Provider Vanessa Banuelos Primary Care Provider [phone] Vanessa Banuelos Unavailable [phone] Sharmila Miranda POURER CRANE LADLE Unavailable [phone] Vanessa Banuelos Unavailable [phone] Rebecca Villalta POURER CRANE LADLE Unavailable [phone] Encounter Details Date Type Department Care Team (Late st Contact Info) Description 09/23/2019 Procedure Pass [facility] Endoscopy Admitting Dept Virtual Department [address] [place] [address] Social History Tobacco Use Types Packs/Day Years Used Date Smoking Tobacco: Every Day Cigarettes 1 39.8 Started: 1985 Smokeless Tobacco: Never Alcohol Use Standard Drinks/Week Comments Yes 0 (1 standard drink = 0.6 oz pur e alcohol) socially Comments No Sex and Gender Information Value [...] 3:00 PM EDT Telemedicine - audio only [facility] for Thoracic Oncology, [address], 9th [place] [address] Addie Michaud PA-C [address] [place] [address] [email or web address] Beth Beckford MD [address] [place] [address] [email or web address] 05/01/2025 8:30 AM EDT Office Visit [facility] Hematology [address] [place] [address] Edwardo Jose MD [address] [place] [address] and [facility] - [place] [address] [email or web address] 05/05/2025 9:40 AM EDT Office Visit [facility] [address] [place] [address] Smiley Mckee MD [address] [place] [address] 07/11/2025 1:15 PM EST Office Visit [facility] Lung [place]-[facility] Surgical Specialties [address] [place] [address] Miguel Maguire MD, MPH [address] [place] [address] 08/16/2025 3:00 PM EST Nutrition [facility] Diabetes [address] [address] Tayler Bingham LDN [address] [place] [address] documented as of this encounter Visit Diagnoses Not on filedocumented in this encounter Additional Health Concerns Infection Onset Date Last Indicated Resolved Time CDiff-Risk 02/09/2025 02/09/2025 02/09/2025 8:05 PM EDT CDiff-Risk 02/10/2025 02/11/2025 02/11/2025 10:0 6 AM EDT TB-Risk Comment:Resolved from TB-Risk Infection Status Resolution Note 02/15/2025 02/15/2025 025 10:41 AM EDT CoV-Risk 04/19/2025 04/19/2025 documented as of this encounter Care Teams Lavatory Attendant Relationship Specialty Start Date End Date Amira Faust PA [address] [place] [address] [email or web address] PCP - General Unknown Provider Specialty 05/27/17 10/13/24 Vanessa Banuelos PA [address] [place] [address] PCP - General Physician Location Man 10/14/24 Amira Faust PA [address] [place] [address] [email or web address] Historical LMR Provider 04/26/17 Abi Loya CNM [address] [place] [address] Historical LMR Provider 04/26/17 07/13/21 Natalie Hart NP [address] [place] [address] Historical LMR Provider 04/26/17 2 Tayler Holbrook TERMINAL MAKE UP OPERATOR [address] [place] [address] Historical LMR Provider 04/26/1707/13 Archie Graham MD [address] [place] [address], [address] [address] Historical LMR Provider 04/26/17 07/13/21 Yulia Luong, BATSHEVA [address] [place] [address] Historical LMR Provider 04/26/17 Smiley Mckee MD [address] [place] [address], 1st [place] [address] Historical LMR Provider 04/26/17 Maxime Sierra MD 22 [facility], [address] [place] [address] Historical LMR Provider 04/26/17 07/13/21 Marsha De León MD [address] [place] [phone] Historical LMR Provider 04/26/17 2 Dona Barrios MD [address] [place] [address] Orthopedics & Sports Medicine, [place] [address] [email or web address] Historical LMR Provider 04/26/17 Vanessa Banuelos PA [address] [place] [address] Referring Physician Physician Location Man 10/14/24 Sharmila Miranda, [facility] 35 [place] [address] [email or web address] Fishing Instructor Oncology 11/10/24 Vanessa Banuelos PA [address] [place], [place] [phone] Referring Physician Physician Location Man 03/16/25 Rebecca Villalta, [facility] [address] [place] [address] [email or web address] Fishing Instructor Oncology 04/05/25 documented as of this encounter Additional Source Comments The information contained in this document represents components of the legal health record. It is not the complete legal health record.[facility]
--- OUTSIDE RECORDS SUMMARY | 2025-04-19 18:40 | XMS_ITS | Encounter Summary ---
Author Organization [facility] Address [address] [place] [address] [place] [address] Phone Care Team Providers Care Design Lead Name Role Phone Amira Faust Unavailable [phone] Smiley Mckee MD Unavailable [phone] Vanessa Banuelos Primary Care Provider [phone] Vanessa Banuelos Unavailable Sharmila Miranda OIL INSPECTOR Unavailable Vanessa Banuelos Unavailable Rebecca Villalta OIL INSPECTOR Unavailable [phone] Encounter Details Date Type Department Care Team (Late st Contact Info) Description 01/25/2025 Prep for Surgery [facility] [place] [facility] [address] [address] Miguel Maguire MD, MPH [address] [place] [address] 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 [...] is your housing situation today? I have maxnoy taylor 01/27/2025 How many times have you [...] Date of Assessment Author No Risk Indicated 01/25/2025 7:00 PM EDT Margaret Mandujano RN * [place] Suicide Severity Rating Scale (Screener/Recent Self-Report) Question Answer Date of Assessment Author 1. Wish to be (Past 1 Month) No 01/25/2025 7:00 PM EDT Margaret Mandujano, RN 2. Non-Specific Active Suici tania Thoughts (Past 1 Month) No 01/25/2025 7:00 PM EDT Edgard Mandujano RN 6. Suicidal Behavior (Lifetime) No 7:00 PM EDT Margaret Mandujano RN documented as of this encounter Plan of Treatment Upcoming Encounters Date Type Department Care Team (Late st Contact Info) Description 04/21/2025 3:00 PM EDT Telemedicine - audio only [facility] for Thoracic On[facility], [facility] Cancer [address], 9th [place] [address] Addie Michaud PA-C [address] [place] [address] [email or web address] Beth Beckford MD [address] [place] [address]-[place] [facility] [address] [address] [email or web address] 05/01/2025 8:30 AM EDT Office Visit [facility] Hematology [address] [place] [address] Edwardo Jose MD 75 [facility] and [facility] - [place] [address] [email or web address] 05/05/2025 9:40 AM EDT Office Visit [facility] [address] [place] [address] [place] [address] Smiley Mckee MD [address] [place] [address] 07/11/2025 1:15 PM EST Office Visit [facility] Lung Center-Thoracic Surgical Specialties [address] [place] [address] Miguel Maguire MD, MPH 75 [place] [address] 08/16/2025 3:00 PM EST Nutrition [facility] [address] [place] [address] [place] [address] Tayler Bingham LDN [address] [place] [address] documented as of this encounter Visit Diagnoses Diagnosis Mass in chest- Primary Swelling, mass, or lump in chest S/P lobectomy of lung Other postprocedural status documented in this encounter Additional Health Concerns [...] documented as of this encounter Care Teams Design Lead Relationship Specialty Start Date End Date Vanessa Banuelos PA [address] [place] [address] PCP - General Physician Toddler Guide 10/14/24 Amira Faust PA [address] [place] [address] [email or web address] Historical LMR Provider 04/26/17 Smiley Mckee MD [address] [place] [address], [address] [place] [address] Historical LMR Provider 04/26/17 Vanessa Banuelos PA [address] [place] [address] Referring Physician Physician Toddler Guide 10/14/24 Sharmila Miranda, [address] [address] [email or web address] Communications Station Manager Oncology 11/10/24 Vanessa Banuelos PA [address] [place] [address] Referring Physician Physician Toddler Guide 03/16/25 Rebecca Villalta, [facility] [address] [place] [id number] [email or web address] Communications Station Manager Oncology 04/05/25 documented as of this encounter Additional Source Comments The information contained in this document represents components of the legal health record. It is not the complete legal health record.[facility]
--- OUTSIDE RECORDS SUMMARY | 2025-04-19 18:40 | XMS_ITS | Encounter Summary ---
Author Organization [facility] Address [address] [place] [address] [place] [address] Phone Care Team Providers Care Length Control Tester Name Role Phone Amira Faust Unavailable [phone] Abi Loya CNM Unavailable [phone] Natalie Hart UNIX MANAGER Unavailable [phone] Tayler Holbrook UNIX MANAGER Unavailable Unavailable Archie Graham MD Unavailable Yulia Luong UNIX MANAGER Unavailable Smiley Mckee MD Unavailable [phone] Maxime Sierra MD Unavailable Marsha De León MD Unavailable [phone] Dona Barrios MD Unavailable Amira Faust Primary Care Provider Vanessa Banuelos Primary Care Provider [phone] Vanessa Banuelos Unavailable [phone] Sharmila Miranda DEPARTMENT TRAFFIC FREIGHT ROUTER Unavailable [phone] Vanessa Banuelos Unavailable [phone] Rebecca Villalta DEPARTMENT TRAFFIC FREIGHT ROUTER Unavailable Encounter Details Date Type Department Care Team (Late st Contact Info) Description 06/16/2018 Ancillary Orders [facility] [place], X-Ray - [address] [address] Amira Faust PA [address] [place] [address] [email or web address] in both thighs Social History Tobacco Use Types Packs/Day Years Used Date Smoking Tobacco: Every Day Cigarettes 1 39.8 Started: 1985 Smokeless Tobacco: Never Comments Unknown Sex and Gender Information Value [...] 3:00 PM EDT Telemedicine - audio only [facility] Center for Thoracic Oncology, [facility] Cancer [address], 9th [place] [address] Addie Michaud PA-C [address] [place] [address] [email or web address] Beth Beckford MD [address] [place] [address] [email or web address] 05/01/2025 8:30 AM EDT Office Visit [facility] Hematology [address] [place] [address] Edwardo Jose MD [address] [place] [address] and Women's [facility] - [place] [address] [email or web address] 05/05/2025 9:40 AM EDT Office Visit [facility] [address] [place] [address] Smiley Mckee MD [address] [place] [address] 07/11/2025 1:15 PM EST Office Visit [facility] Lung [place]ties [address] [place] [address] Miguel Maguire MD, MPH [address] [place] [address] 08/16/2025 3:00 PM EST Nutrition [address] [address] Tayler Bingham LDN [address] [place] [address] documented as of this encounter Results * XR PELVIS 1 VIEW (06/16/2018 12:12 PM EST) Anatomical Region Laterality Modality Pelvis Radiographic Marcia ging 06/16/2018 12:4 0 PM EST Impressions 06/16/2018 12:40 PM EST No significant bony abnormality. POS [id number] Narrative 06/16/2018 12:40 PM EST A single frontal view reveals no fracture, subluxation, or other significant abnormality involving the visualized regional skeletal structures. No discrete soft tissue mass is apparent. No aberrant soft tissue calcifications are seen in the regions of the greater trochanters. Procedure Note Marlene Parmar MD - 06/16/2018 A single frontal view reveals no fracture, subluxation, or othersignificant abnormality involving the visualized regional skeletalstructures. No discrete soft tissue mass is apparent. No aberrant softtissue calcifications are seen in the regions of the greatertrochanters. IMPRESSION: No significant bony abnormality. POS [id number] Amira STILES IMG XR PELVIS Final Result documented in this encounter Visit Diagnoses Diagnosis Pain in both thighs Pain in both thighs documented in this encounter Additional Health Concerns Infection Onset Date Last Indicated Resolved Time CDiff-Risk 02/09/2025 02/09/2025 02/09/2025 8:05 PM EDT CDiff-Risk 02/10/2025 02/11/2025 02/11/2025 10:0 6 AM EDT TB-Risk Comment:Resolved from TB-Risk Infection Status Resolution Note 02/15/2025 02/15/2025 025 10:41 AM EDT CoV-Risk 04/19/2025 04/19/2025 documented as of this encounter Care Teams Length Control Tester Relationship Specialty Start Date End Date Amira Faust PA [address] [place] [address] [email or web address] PCP - General Unknown Provider Specialty 05/27/17 10/13/24 Vanessa Banuelos PA [address] [place] [address] PCP - General Physician Hole Puncher Strap 10/14/24 Amira Faust PA [address] [place] [address] Historical LMR Provider 04/26/17 Abi Loya CNM [address] [place] [address] Historical LMR Provider 04/26/17 07/13/21 Natalie Hart NP [address] [place] [address] Historical LMR Provider 04/26/17 2 Tayler Holbrook NP [address] [place] [address] Historical LMR Provider 04/26/1707/13 Archie Graham MD [address] [place] [address] Historical LMR Provider 04/26/17 07/13/21 Yulia Luong NP [address] [place] [address] Historical LMR Provider 04/26/17 Smiley Mckee MD [address] [place] [address], 1st [place] [address] Historical LMR Provider 04/26/17 Maxime Sierra MD [address] [place] [address] Historical LMR Provider 04/26/17 07/13/21 Marsha De León MD [address] [place] [phone] Historical LMR Provider 04/26/17 2 Dona Barrios MD [address] [place] [address] Orthopedics [facility] Sports Medicine, [place] [address] [email or web address] Historical LMR Provider 04/26/17 Vanessa Banuelos PA [address] [place] [address] Referring Physician Physician Hole Puncher Strap 10/14/24 Sharmila Miranda, [facility] [address] [place] [address] [email or web address] Vp Product Marketing Oncology 11/10/24 Vanessa Banuelos PA [address] [place] [address] Referring Physician Physician Hole Puncher Strap 03/16/25 Rebecca Villalta, [facility] [address] [place] [address] [email or web address] Vp Product Marketing Oncology 04/05/25 documented as of this encounter Additional Source Comments The information contained in this document represents components of the legal health record. It is not the complete legal health record.[facility]
--- OUTSIDE RECORDS SUMMARY | 2025-04-19 18:40 | XMS_ITS | Encounter Summary ---
Author Organization [facility] Address [address] [place] [address] [place] [address] Phone Care Team Providers Care Gastroenterologist Name Role Phone Amira Faust Unavailable [phone] Smiley Mckee MD Unavailable [phone] Amira Faust Primary Care Provider Vanessa Banuelos Primary Care Provider [phone] Vanessa Banuelos Unavailable Sharmila Miranda GAME ARTIST Unavailable Vanessa Banuelos Unavailable Rebecca Villalta GAME ARTIST Unavailable Encounter Details Date Type Department Care Team (Late st Contact Info) Description 11/26/2022 Procedure Pass [facility], Ct Scan - [address] [address] Social History Tobacco Use Types Packs/Day Years Used Date Smoking Tobacco: Every Day Cigarettes 1 39.8 Started: 1985 Smokeless Tobacco: Never Alcohol Use Standard Drinks/Week Comments Yes 0 (1 standard drink = 0.6 oz pur e alcohol) socially Education Answer Date Recorded Are you interested in more education? Not on kirstie e 10/30/2022 Are you concerned about learning? Not on file 10/30/2022 No 10/30/2022 No 10/30/2022 Digital Access Answer Date Recorded No 11/27/2022 No 11/27/2022 Reliable internet access at home? Not on file 11/27/2022 Device with a working camera? Not on file Intimate Partner Violence Answer Date R ecorded Are you denied basic needs s uch as food, clothing, or medical care? No 11/26/2022 In the past 12 months have y ou been in a relationship with a person who hurts, threatens, or tries to control you? No 11/26/2022 Are you denied basic needs s uch as food, clothing, or medical care? No 11/26/2022 In the past 12 months have y ou been in a relationship with a person who hurts, threatens, or tries to control you? No 11/26/2022 Comments No Sex and Gender Information Value [...] 3:00 PM EDT Telemedicine - audio only [facility] Center for Thoracic Oncology, [address], [address]th [place] [address] Addie Michaud PA-C [address] [place] [address] [email or web address] Beth Beckford MD [address] [place] [address] Cancer [place] - Sarah [address] [place] [address] [email or web address] 05/01/2025 8:30 AM EDT Office Visit [facility] Hematology [address] [place] [address] Edwardo Jose MD 75 [facility] [place] [address] [email or web address] 05/05/2025 9:40 AM EDT Office Visit [facility] Diabetes [address] [address] Smiley Mckee MD [address] [place] [address] 07/11/2025 1:15 PM EST Office Visit [facility] Lung Center-Thoracic Surgical Specialties 15 [place] [address] Miguel Maguire MD, MPH [address] [place] [address] 08/16/2025 3:00 PM EST Nutrition [facility] Diabetes [address] [place] [address] Tayler Bingham LDN [address] [place] [address] documented as of this encounter Visit Diagnoses Not on filedocumented in this encounter Additional Health Concerns Infection Onset Date Last Indicated Resolved Time CDiff-Risk 02/09/2025 02/09/2025 02/09/2025 8:05 PM EDT CDiff-Risk 02/10/2025 02/11/2025 02/11/2025 10:0 6 AM EDT TB-Risk Comment:Resolved from TB-Risk Infection Status Resolution Note 02/15/2025 02/15/2025 025 10:41 AM EDT CoV-Risk 04/19/2025 04/19/2025 documented as of this encounter Care Teams Gastroenterologist Relationship Specialty Start Date End Date Amira Faust PA [address] [place] [address] [email or web address] PCP - General Unknown Provider Specialty 05/27/17 10/13/24 Vanessa Banuelos PA [address] [place] [address] PCP - General Physician Social Insurance Specialist 10/14/24 Amira Faust PA [address] [place] [address] [email or web address] Historical LMR Provider 04/26/17 Smiley Mckee MD 22 [facility], 1st [place] [address] [email or web address] Historical LMR Provider 04/26/17 Vanessa Banuelos PA [address] [place] [address] Referring Physician Physician Social Insurance Specialist 10/14/24 Sharmila Miranda, [facility] [address] [place] [address] [email or web address] Demonstrator Sales Oncology 11/10/24 Vanessa Banuelos PA [address] [place] [address] Referring Physician Physician Social Insurance Specialist 03/16/25 Rebecca Villalta, [facility] [address] [place] [address] [email or web address] Demonstrator Sales Oncology 04/05/25 documented as of this encounter Additional Source Comments The information contained in this document represents components of the legal health record. It is not the complete legal health record.[facility]
--- OUTSIDE RECORDS SUMMARY | 2025-04-19 18:40 | XMS_ITS | Encounter Summary ---
Author Organization [facility] Address [address] [place] [address] [address] [place] [address] Phone Care Team Providers Care Lehr Stripper Name Role Phone Amira Faust Unavailable [phone] Smiley Mckee MD Unavailable [phone] Vanessa Banuelos Primary Care Provider [phone] Vanessa Banuelos Unavailable Sharmila Miranda COREMAKING SUPERVISOR Unavailable Vanessa Banuelos Unavailable Rebecca Villalta COREMAKING SUPERVISOR Unavailable [phone] Encounter Details Date Type Department Care Team (Late st Contact Info) Description 03/30/2025 Procedure Pass [facility], Ct Scan - [address] [id number] Social History Tobacco Use Types Packs/Day Years [...] high school, GED, job training, learning the [place]i language, technical skills, or developing parenting skills)? [...] 11:31 AM EDT Abi Chopra RN * [place] Suicide Severity Rating Scale (Screener/Recent Self-Report) Question Answer Date of Assessment Author 1. Wish to be (Past 1 Month) No 025 11:31 AM EDT Abi Pearce RN 2. Non-Specific Active Suici tania Thoughts (Past 1 Month) No 03/30/2025 11:31 AM EDT Lidia Pearce RN 6. Suicidal Behavior (Lifetime) No 11:31 AM EDT Abi Pearce, RN documented as of this encounter Plan of Treatment Upcoming Encounters Date Type Department Care Team (Late st Contact Info) Description 04/21/2025 3:00 PM EDT Telemedicine - audio only [facility] Center for Thoracic Oncology, [address], 9th [place] [address] Addie Michaud PA-C [address] [place] [address] [email or web address] Beth Beckford MD [address] [place] [address] [email or web address] 05/01/2025 8:30 AM EDT Office Visit [facility] Hematology [address] [place] [address] Edwardo Jose MD [address] [place] [address] and [facility] [place] [address] [email or web address] 05/05/2025 9:40 AM EDT Office Visit [facility] Diabetes [address] [address] Smiley Mckee MD [address] [place] [address] 07/11/2025 1:15 PM EST Office Visit [facility] Lung Center-Thoracic Surgical Specialties [address] [place] [address] Miguel Maguire MD, MPH [address] [place] [address] 08/16/2025 3:00 PM EST Nutrition [address] [address] Tayler Bingham LDN [address] [place] [address] documented as of this encounter Visit Diagnoses Not on filedocumented in this encounter Additional Health Concerns Infection Onset Date Last Indicated Resolved Time CoV-Risk 04/19/2025 04/19/2025 Assessment Noted Time PHQ-2 Depression Total Score: 0 03/14/20 25 12:52 PM EDT documented as of this encounter Care Teams Lehr Stripper Relationship Specialty Start Date End Date Vanessa Banuelos PA [address] [place] [address] PCP - General Physician Tester Operator Helper 10/14/24 Amira Faust PA [address] [place] [address] Historical LMR Provider 04/26/17 Smiley Mckee MD 22 [facility], 1st [place] [address] Historical LMR Provider 04/26/17 Vanessa Banuelos PA [address] [place] [address] Referring Physician Physician Tester Operator Helper 10/14/24 Sharmila Miranda, [facility] [address] [place] [address] [email or web address] Cigar Head Stringer Oncology 11/10/24 Vanessa Banuelos PA [address] [place] [address] Referring Physician Physician Tester Operator Helper 03/16/25 Rebecca Villalta, [facility] [address] [place] [address] [email or web address] Cigar Head Stringer Oncology 04/05/25 documented as of this encounter Additional Source Comments The information contained in this document represents components of the legal health record. It is not the complete legal health record.[facility]
--- OUTSIDE RECORDS SUMMARY | 2025-04-19 18:40 | XMS_ITS | Encounter Summary ---
Author Organization [facility] Address [address] [place] [address] [place] [address] Phone Care Team Providers Care Cupola Repairer Name Role Phone Amira Faust Unavailable [phone] Smiley Mckee MD Unavailable Amira Faust Primary Care Provider Vanessa Banuelos Primary Care Provider [phone] Vanessa Banuelos Unavailable Sharmila Miranda ROPER OPERATOR Unavailable Vanessa Banuelos Unavailable Rebecca Villalta ROPER OPERATOR Unavailable Encounter Details Date Type Department Care Team (Latest Contact Info) Description 09/12/2021 Transcribe Orders [facility] Department [address] [place] [address] Amira Faust PA [address] [place] [address] [email or web address] Bilateral hand pain (Primary Dx); Pain in finger of both hands Social History Tobacco Use Types Packs/Day Years [...] 3:00 PM EDT Telemedicine - audio only [facility] Center for Thoracic Oncology, [address], 9th [place] [address] Addie Michaud PA-C [address] [place] [address] [email or web address] Beth Beckford MD [address] [place] [address] [email or web address] 05/01/2025 8:30 AM EDT Office Visit [facility] Hematology [address] [place] [address] Edwardo Jose MD [facility] - [place] [address] [email or web address] 05/05/2025 9:40 AM EDT Office Visit [facility] [address] [place] [address] Smiley Mckee MD 22 [facility], [address] [place] [address] 07/11/2025 1:15 PM EST Office Visit [facility] [address] [place] [address] Miguel Maguire MD, MPH [address] [place] [address] 08/16/2025 3:00 PM EST Nutrition [facility] Diabetes [address] [place] [address] Tayler Bingham LDN [address] [place] [address], [address] [place] [address] documented as of this encounter Results * XR HAND 3 OR MORE VIEWS (BILATERAL) (11/14/2021 10:55 AM EDT) Anatomical Region Laterality Modality Hand Left Computed Radiogr aphy 11/14/2021 1:58 PM EDT Impressions 11/14/2021 3:05 PM EDT Small localized left third middle phalanx cortical lucency versus erosion which may reflect a degenerative cyst or inflammatory arthritis. Narrative 11/14/2021 3:05 PM EDT COMPARISON: Right hand radiograph 07/20/2021. BILATERAL HAND RADIOGRAPH FINDINGS: 3 images obtained of each hand. Mineralization is within normal limits. No acute fracture or malalignment. Joint spaces are preserved. Small cortical lucency in the lateral left third middle phalanx at the DIP joint. No destructive or suspicious bone lesions. No soft tissue swelling or calcifications. Procedure Note Te Brock MD - 11/14/2021 COMPARISON: Right hand radiograph 07/20/2021. BILATERAL HAND RADIOGRAPH FINDINGS: 3 images obtained of each hand. Mineralization is within normal limits. No acute fracture or malalignment.Joint spaces are preserved. Small cortical lucency in the lateral leftthird middle phalanx at the DIP joint. No destructive or suspicious bonelesions. No soft tissue swelling or calcifications. IMPRESSION: Small localized left third middle phalanx cortical lucency versus erosionwhich may reflect a degenerative cyst or inflammatory arthritis. Amira STILES IMG XR UPPER EXTREMITY Final Re sult documented in this encounter Visit Diagnoses Diagnosis Bilateral hand pain- Primary Pain in finger of both hands Bilateral hand pain Pain in finger of both hands documented in this encounter Additional Health Concerns Infection Onset Date Last Indicated Resolved Time CDiff-Risk 02/09/2025 02/09/2025 02/09/2025 8:05 PM EDT CDiff-Risk 02/10/2025 02/11/2025 02/11/2025 10:0 6 AM EDT TB-Risk Comment:Resolved from TB-Risk Infection Status Resolution Note 02/15/2025 02/15/2025 025 10:41 AM EDT CoV-Risk 04/19/2025 04/19/2025 documented as of this encounter Care Teams Cupola Repairer Relationship Specialty Start Date End Date Amira Faust PA 15 [facility] [place] [address] PCP - General Unknown Provider Specialty 05/27/17 10/13/24 Vanessa Banuelos PA [address] [place] [address] PCP - General Physician Teacher Of The Sight Impaired 10/14/24 Amira Faust PA [address] [place] [address] Historical LMR Provider 04/26/17 Smiley Mckee MD 22 [facility], 1st [place] [address] [email or web address] Historical LMR Provider 04/26/17 Vanessa Banuelos PA [address] [place] [address] Referring Physician Physician Teacher Of The Sight Impaired 10/14/24 Sharmila Miranda, [facility] 35 [place] [address] [email or web address] Sizer Hand Oncology 11/10/24 Vanessa Banuelos PA [address] [place] [address] Referring Physician Physician Teacher Of The Sight Impaired 03/16/25 Rebecca Villalta, [facility] [address] [place] [address] [email or web address] Sizer Hand Oncology 04/05/25 documented as of this encounter Additional Source Comments The information contained in this document represents components of the legal health record. It is not the complete legal health record.[facility]
--- OUTSIDE RECORDS SUMMARY | 2025-04-19 18:40 | XMS_ITS | Encounter Summary ---
Author Organization [facility] Address [address] [place] [address] [place] [address] Phone Care Team Providers Care It Infrastructure Architect Name Role Phone Amira Faust Unavailable Smiley Mckee MD Unavailable [phone] Amira Faust Primary Care Provider Vanessa Banuelos Primary Care Provider [phone] Vanessa Banuelos Unavailable Sharmila Miranda ESCROW PROCESSOR Unavailable Vanessa Banuelos Unavailable Rebecca Villalta ESCROW PROCESSOR Unavailable Encounter Details Date Type Department Care Team (Late st Contact Info) Description 11/24/2022 Procedure Pass [address] [id number] Social History Tobacco Use Types Packs/Day Years Used Date Smoking Tobacco: Every Day Cigarettes 1 39.8 Started: 07/06/1985 Smokeless Tobacco: Never Alcohol Use Standard Drinks/Week [...] 3:00 PM EDT Telemedicine - audio only [facility], [facility] Cancer [address]th [place] [address] Addie Michaud PA-C [address] [place] [address] [email or web address] Beth Beckford MD [address] [place] [address]-[facility] [place] - [address] [place] [address] [email or web address] 05/01/2025 8:30 AM EDT Office Visit [facility] Hematology 70 [place] [address] Edwardo Jose MD 75 [facility] - Division [place] [address] [email or web address] 05/05/2025 9:40 AM EDT Office Visit [facility] Diabetes [address] [address] Smiley Mckee MD [address] [place] [address] 07/11/2025 1:15 PM EST Office Visit [facility] Lung Center-Thoracic Surgical Specialties 15 [place] [address] Miguel Maguire MD, MPH [address] [place] [address] 08/16/2025 3:00 PM EST Nutrition [facility] Diabetes [address] [place] [address] Tayler Bingham LDN [address] [place] [address] documented as of this encounter Visit Diagnoses Not on filedocumented in this encounter Additional Health Concerns Infection Onset Date Last Indicated Resolved Time CDiff-Risk 02/09/2025 02/09/2025 02/09/2025 8:05 PM EDT CDiff-Risk 02/10/2025 02/11/2025 02/11/2025 10:0 6 AM EDT TB-Risk Comment:Resolved from TB-Risk Infection Status Resolution Note 02/15/2025 02/15/2025 025 10:41 AM EDT CoV-Risk 04/19/2025 04/19/2025 documented as of this encounter Care Teams It Infrastructure Architect Relationship Specialty Start Date End Date Amira Faust PA [address] [place] [address] [email or web address] PCP - General Unknown Provider Specialty 05/27/17 10/13/24 Vanessa Banuelos PA 140 [place] [address] PCP - General Physician Control Clerk Subassembly 10/14/24 Amira Faust PA [address] [place] [address] [email or web address] Historical LMR Provider 04/26/17 Smiley Mckee MD 22 [facility], [address] [place] [address] [email or web address] Historical LMR Provider 04/26/17 Vanessa Banuelos PA 140 [place] [address] Referring Physician Physician Control Clerk Subassembly 10/14/24 Sharmila Miranda, [address] [address] [email or web address] Family Consultant Oncology 11/10/24 Vanessa Banuelos PA 140 [place], [place] [id number] Referring Physician Physician Control Clerk Subassembly 03/16/25 Rebecca Villalta, [facility] [address] [place] [address] [email or web address] Family Consultant Oncology 04/05/25 documented as of this encounter Additional Source Comments The information contained in this document represents components of the legal health record. It is not the complete legal health record.[facility]
--- OUTSIDE RECORDS SUMMARY | 2025-04-19 18:40 | XMS_ITS | Encounter Summary ---
Author Organization [facility] Address [address] [place] [address] [address] [place] [address] Phone Care Team Providers Care Knurling Machine Tender Name Role Phone Amira Faust Unavailable [phone] Smiley Mckee MD Unavailable [phone] Vanessa Banuelos Primary Care Provider [phone] Vanessa Banuelos Unavailable Sharmila Miranda MACHINIST OUTSIDE Unavailable Vanessa Banuelos Unavailable Rebecca Villalta MACHINIST OUTSIDE Unavailable Encounter Details Date Type Department Care Team (Late st Contact Info) Description 02/09/2025 Procedure Pass [facility] Periop 75 [place] [address] Social History Tobacco Use Types Packs/Day Years [...] high school, GED, job training, learning the Czech language, technical skills, or developing parenting skills)? [...] EDT Telemedicine - audio only [facility], [address], 9th [place] [address] Addie Michaud PA-C [address] [place] [address] [email or web address] Beth Beckford MD [address] [place] [address] [email or web address] 05/01/2025 8:30 AM EDT Office Visit [facility] Hematology 70 [place] [address] Edwardo Jose MD 75 [facility] [place] [address] [email or web address] 05/05/2025 9:40 AM EDT Office Visit [facility] [address] [place] [address] Smiley Mckee MD [address] [address] 07/11/2025 1:15 PM EST Office Visit [facility] Lung Center-Thoracic Surgical Specialties [address] [place] [address] Miguel Maguire MD, MPH 75 [place] [address] 08/16/2025 3:00 PM EST Nutrition [facility] [address] [place] [address] Tayler Bingham LDN [address] [place] [address] documented as of this encounter Visit Diagnoses [...] documented as of this encounter Care Teams Knurling Machine Tender Relationship Specialty Start Date End Date Vanessa Banuelos PA [address] [place] [address] PCP - General Physician Physical Science Aide 10/14/24 Amira Faust PA [address] [place] [address] [email or web address] Historical LMR Provider 04/26/17 Smiley Mckee MD 22 [facility], 1st [place] [address] [email or web address] Historical LMR Provider 04/26/17 Vanessa Banuelos PA 140 [place] [address] Referring Physician Physician Physical Science Aide 10/14/24 Sharmila Miranda, [facility] 35 [place] [address] [email or web address] Elevator Dispatcher Oncology 11/10/24 Vanessa Banuelos PA 140 [place] [address] Referring Physician Physician Physical Science Aide 03/16/25 Rebecca Villalta, [facility] 300 [place] [address] [email or web address] Elevator Dispatcher Oncology 04/05/25 documented as of this encounter Additional Source Comments The information contained in this document represents components of the legal health record. It is not the complete legal health record.[facility]
--- OUTSIDE RECORDS SUMMARY | 2025-04-19 18:40 | XMS_ITS | Encounter Summary ---
Author Organization [facility] Address [address] [place] [address] [place] [address] Phone Care Team Providers Care Day Care Assistant Name Role Phone Amira Faust Unavailable Abi Loya CNM Unavailable [phone] Natalie Hart BODY DIE MAKER Unavailable [phone] Tayler Holbrook BODY DIE MAKER Unavailable Unavailable Archie Graham MD Unavailable Yulia Luong BODY DIE MAKER Unavailable Smiley Mckee MD Unavailable [phone] Maxime Sierra MD Unavailable Marsha De León MD Unavailable [phone] Dona Barrios MD Unavailable Amira Faust Primary Care Provider Vanessa Banuelos Primary Care Provider [phone] Vanessa Banuelos Unavailable [phone] Sharmila Miranda PROCEDURES ANALYST Unavailable [phone] Vanessa Banuelos Unavailable [phone] Rebecca Villalta PROCEDURES ANALYST Unavailable Encounter Details Date Type Department Care Team (Late Contact Info) Description 05/19/2019 Ancillary Orders Virtual Department 30 [place] [address] Amira Faust PA [address] [place] [address] [email or web address] Breast [email or web address] Social History Tobacco Use Types Packs/Day Years Used Date Smoking Tobacco: Every Day Cigarettes 1 39.8 Started: 1985 Smokeless Tobacco: Never Comments No Sex and Gender Information Value [...] EDT Telemedicine - audio only [facility], [address], 9th [place] [address] Addie Michaud PA-C 44 [place] [address] [email or web address] Beth Beckford MD [address] [place] [address] [email or web address] 05/01/2025 8:30 AM EDT Office Visit [facility] Hematology 70 [place] [address] Edwardo Jose MD 75 [facility] - [place] [address] [email or web address] 05/05/2025 9:40 AM EDT Office Visit [facility] Diabetes [address] [address] Smiley Mckee MD [address] [place] [address], [address] [place] [address] 07/11/2025 1:15 PM EST Office Visit [facility] Lung Center-Thoracic Surgical Specialties 15 [place] [address] Miguel Maguire MD, MPH [address] [place] [address] 08/16/2025 3:00 PM EST Nutrition [address] [address] Tayler Bingham LDN [address] [place] [address], [address] [place] [address] documented as of this encounter Results * BI MAMMOGRAM SCREENING WITH TOMOSYNTHESIS WITH CAD (BILATERAL) (07/14/2019 10:03 AM EST) Anatomical Region Laterality Modality Breast Left, Breast Right, Breast Bilateral Bila teral Mammography 07/14/2019 8:09 PM EST Impressions 07/14/2019 8:09 PM EST RIGHT breast: No mammographic evidence of malignancy. LEFT breast: No mammographic evidence of malignancy. RECOMMENDED FOLLOWUP: Routine screening mammography is recommended, as clinically appropriate. The results will be sent by mail to the patient. BI-RADS CATEGORY: 1 - Negative. BREAST COMPOSITION: There are scattered fibroglandular densities. POS - CDHMAMA Narrative 07/14/2019 8:09 PM EST EXAM: BI MAMMOGRAM SCREENING WITH TOMOSYNTHESIS WITH CAD (BILATERAL) HISTORY: Screening. * Annual Breast screening COMPARISON: Prior mammograms, most recent 07/13/2018 dating back to 2007. TECHNIQUE: Digital breast tomosynthesis was performed in CC and MLO projections. Reconstructed 2-D C-views generated from the tomosynthesis images. Images interpreted in conjunction with R-2 Image Die Casting Machine Maintainer computer-aided detection (CAD). FINDINGS: BREAST COMPOSITION: There are scattered areas of fibroglandular density. RIGHT breast: No suspicious masses, suspicious areas of architectural distortion or suspicious microcalcifications. LEFT breast: No suspicious masses, suspicious areas of architectural distortion or suspicious microcalcifications. Procedure Note Larisa Alejandra MD - 07/15/2019 EXAM: BI MAMMOGRAM SCREENING WITH TOMOSYNTHESIS WITH CAD (BILATERAL) HISTORY: Screening. * Annual Breast screening COMPARISON: Prior mammograms, most recent 07/13/2018 dating back [id number]. TECHNIQUE: Digital breast tomosynthesis was performed in CC and MLOprojections. Reconstructed 2-D C-views generated from the tomosynthesisimages. Images interpreted in conjunction with R-2 Image Checkercomputer-aided detection (CAD). FINDINGS: BREAST COMPOSITION: There are scattered areas of fibroglandular density. RIGHT breast: No suspicious masses, suspicious areas of architecturaldistortion or suspicious microcalcifications. LEFT breast: No suspicious masses, suspicious areas of architecturaldistortion or suspicious microcalcifications. IMPRESSION: RIGHT breast: No mammographic evidence of malignancy. LEFT breast: No mammographic evidence of malignancy. RECOMMENDED FOLLOWUP: Routine screening mammography is recommended, asclinically appropriate. The results will be sent by mail to the patient. BI-RADS CATEGORY: 1 - Negative. BREAST COMPOSITION: There are scattered fibroglandular densities. POS - CDHMAMA Amira STILES IMG MG EXAMS Final Result documented in this encounter Visit Diagnoses Diagnosis Breast screening Breast screening, unspecified Breast screening Breast screening, unspecified documented in this encounter Additional Health Concerns Infection Onset Date Last Indicated Resolved Time CDiff-Risk 02/09/2025 02/09/2025 02/09/2025 8:05 PM EDT CDiff-Risk 02/10/2025 02/11/2025 02/11/2025 10:0 6 AM EDT TB-Risk Comment:Resolved from TB-Risk Infection Status Resolution Note 02/15/2025 02/15/2025 025 10:41 AM EDT CoV-Risk 04/19/2025 04/19/2025 documented as of this encounter Care Teams Day Care Assistant Relationship Specialty Start Date End Date Amira Faust PA [address] [place] [address] [email or web address] PCP - General Unknown Provider Specialty 05/27/17 10/13/24 Vanessa Banuelos PA [address] [place] [address] PCP - General Physician Clinical Team Lead 10/14/24 Amira Faust PA [address] [place] [address] [email or web address] Historical LMR Provider 04/26/17 Abi Loya CNM [address] [place] [address] 102 [place] [address] Historical LMR Provider 04/26/17 07/13/21 Natalie Hart NP [address] [place] [address] Historical LMR Provider 04/26/17 2 Tayler Holbrook BODY DIE MAKER [address] [place] [address] Historical LMR Provider 04/26/1707/13 Archie Graham MD [address] [place] [address] Historical LMR Provider 04/26/17 07/13/21 Yulia Luong NP [address] [place] [address] Historical LMR Provider 04/26/17 Smiley Mckee MD [address] [place] [address], 1st [place] [address] Historical LMR Provider 04/26/17 Maxime Sierra MD [address] [place] [address] Historical LMR Provider 04/26/17 07/13/21 Marsha De León MD [address] [place] [address] Historical LMR Provider 04/26/17 2 Dona Barrios MD [address] [place] [address] [facility] [place] [address] Historical LMR Provider 04/26/17 Vanessa Banuelos PA [address] [place] [address] Referring Physician Physician Clinical Team Lead 10/14/24 Sharmila Miranda, PROCEDURES ANALYST 35 [place] [address] [email or web address] Pump Tester Oncology 11/10/24 Vanessa Banuelos PA [address] [place] [address] Referring Physician Physician Clinical Team Lead 03/16/25 Rebecca Villalta, [facility] [address] [place] [address] [email or web address] Pump Tester Oncology 04/05/25 documented as of this encounter Additional Source Comments The information contained in this document represents components of the legal health record. It is not the complete legal health record.[facility]
--- OUTSIDE RECORDS SUMMARY | 2025-04-19 18:40 | XMS_ITS | Encounter Summary ---
Author Organization [facility] Address [address] [place] [address] [address] [place] [address] Phone Care Team Providers Care Director Of Casework Department Name Role Phone Amira Faust Unavailable [phone] Smiley Mckee MD Unavailable Vanessa Banuelos Primary Care Provider [phone] Vanessa Banuelos Unavailable Sharmila Miranda SALVAGER Unavailable Vanessa Banuelos Unavailable Rebecca Villalta SALVAGER Unavailable Encounter Details Date Type Department Care Team (Late st Contact Info) Description 01/25/2025 Procedure Pass [facility] Periop 75 [place] [address] Social History Tobacco Use Types Packs/Day Years [...] high school, GED, job training, learning the Kiswahili language, technical skills, or developing parenting skills)? [...] 7:00 PM EDT Margaret Mandujano RN * [place] Suicide Severity Rating Scale (Screener/Recent Self-Report) Question Answer Date of Assessment Author 1. Wish to be (Past 1 Month) No 01/25/2025 7:00 PM EDT Margaret Mandujano RN 2. Non-Specific Active Suici tania Thoughts (Past 1 Month) No 01/25/2025 7:00 PM EDT Edgard Mandujano RN 6. Suicidal Behavior (Lifetime) No 7:00 PM EDT Margaret Mandujano RN documented as of this encounter Plan of Treatment Upcoming Encounters Date Type Department Care Team (Late st Contact Info) Description 04/21/2025 3:00 PM EDT Telemedicine - audio only [facility] Center for Thoracic Oncology, [facility] Cancer [address], 9th [place] [address] Addie Michaud PA-C 44 [place] [address] [email or web address] Beth Beckford MD [address] [place] [address] [email or web address] 05/01/2025 8:30 AM EDT Office Visit [facility] Hematology 70 [place] [address] Edwardo Jose MD [address] [place] [address] and Women[facility] - [place] [address] [email or web address] 05/05/2025 9:40 AM EDT Office Visit [facility] [address] [place] [address] Smiley Mckee MD [address] [place] [address] 07/11/2025 1:15 PM EST Office Visit [facility] Lung Center-Thoracic Surgical Specialties 15 [place] [address] Miguel Maguire MD, MPH [address] [place] [address] 08/16/2025 3:00 PM EST Nutrition [address] [address] Tayler Bingham LDN [address] [place] [address] documented as of this encounter Visit Diagnoses Not on filedocumented in this encounter Additional Health Concerns Infection Onset Date Last Indicated Resolved Time CDiff-Risk 02/09/2025 02/09/2025 02/09/2025 8:05 PM EDT CDiff-Risk 02/10/2025 02/11/2025 02/11/2025 10:0 6 AM EDT TB-Risk Comment:Resolved from TB-Risk Infection Status Resolution Note 02/15/2025 02/15/202502/23/2 025 10:41 AM EDT CoV-Risk 04/19/2025 04/19/2025 Assessment Noted Time PHQ-2 Depression Total Score: 4 11/02/19 25 2:29 PM EDT documented as of this encounter Care Teams Director Of Casework Department Relationship Specialty Start Date End Date Vanessa Banuelos PA [address] [place] [address] PCP - General Physician Calender Let Off Helper 10/14/24 Amira Faust PA 15 [place] [address] [email or web address] Historical LMR Provider 04/26/17 Smiley Mckee MD 22 [facility], 1st [place] [address] Historical LMR Provider 04/26/17 Vanessa Banuelos PA 140 [place] [address] Referring Physician Physician Calender Let Off Helper 10/14/24 Sharmila Miranda, [facility] 35 [place] [address] [email or web address] Tar Pot Worker Oncology 11/10/24 Vanessa Banuelos PA [address] [place] [address] Referring Physician Physician Calender Let Off Helper 03/16/25 Rebecca Villalta, [facility] [address] [place] [address] [email or web address] Pot Worker Oncology 04/05/25 documented as of this encounter Additional Source Comments The information contained in this document represents components of the legal health record. It is not the complete legal health record.[facility]
--- OUTSIDE RECORDS SUMMARY | 2025-04-19 18:40 | XMS_ITS | Encounter Summary ---
Author Organization [facility] Address [address] [place] [address] [address] [place] [address] Phone Care Team Providers Care Business Risk Analyst Name Role Phone Amira Faust Unavailable [phone] Smiley Mckee MD Unavailable [phone] Vanessa Banuelos Primary Care Provider [phone] Vanessa Banuelos Unavailable Sharmila Miranda MANAGER DOCUMENT Unavailable Vanessa Banuelos Unavailable Rebecca Villalta MANAGER DOCUMENT Unavailable [phone] Encounter Details Date Type Department Care Team (Late st Contact Info) Description 01/23/2025 Procedure Pass [facility] 75 [place] [address] Social History Tobacco Use Types Packs/Day Years [...] high school, GED, job training, learning the Portuguese language, technical skills, or developing parenting skills)? [...] 7:00 PM EDT Margaret Mandujano RN * [place] Suicide Severity Rating Scale (Screener/Recent Self-Report) Question Answer Date of Assessment Author 1. Wish to be (Past 1 Month) No 01/25/2025 7:00 PM EDT Margaret Mandujano RN 2. Non-Specific Active Suici tania Thoughts (Past 1 Month) No 01/25/2025 7:00 PM EDT Edgard Mandujano RN 6. Suicidal Behavior (Lifetime) No 7:00 PM EDT Margaret Mandujnao RN documented as of this encounter Plan of Treatment Upcoming Encounters Date Type Department Care Team (Late st Contact Info) Description 04/21/2025 3:00 PM EDT Telemedicine - audio only [facility] Center for Thoracic Oncology, [facility] Cancer [address], [address]th [place] [address] Addie Michaud PA-C [address] [place] [address] [email or web address] Beth Beckford MD [address] [place] [address] [email or web address] 05/01/2025 8:30 AM EDT Office Visit [facility] Hematology 70 [place] [address] Edwardo Jose MD [address] [place] [address] and [facility] - [place] [address] [email or web address] 05/05/2025 9:40 AM EDT Office Visit [facility] [address] [place] [address] Smiley Mckee MD [address] [place] [address] 07/11/2025 1:15 PM EST Office Visit [facility] Lung Center-Thoracic Surgical Specialties 15 [place] [address] Miguel Maguire MD, MPH [address] [place] [address] 08/16/2025 3:00 PM EST Nutrition [facility] [address] [place] [address] Tayler Bingham LDN [address] [place] [address] documented as of this encounter Visit Diagnoses [...] documented as of this encounter Care Teams Business Risk Analyst Relationship Specialty Start Date End Date Vanessa Banuelos PA 140 [place] [address] PCP - General Physician Machine Accountant 10/14/24 Amira Faust PA [address] [place] [address] [email or web address] Historical LMR Provider 04/26/17 Smiley Mckee MD 22 [facility] [place], 1st [place] [address] Historical LMR Provider 04/26/17 Vanessa Banuelos PA [address] [place] [address] Referring Physician Physician Machine Accountant 10/14/24 Sharmila Miranda, [facility] 35 [place] [address] [email or web address] Shuttle Repairer Oncology 11/10/24 Vanessa Banuelos PA 140 [place] [address] Referring Physician Physician Machine Accountant 03/16/25 Rebecca Villalta, [facility] [address] [place] [address] [email or web address] Repairer Oncology 04/05/25 documented as of this encounter Additional Source Comments The information contained in this document represents components of the legal health record. It is not the complete legal health record.[facility]
--- OUTSIDE RECORDS SUMMARY | 2025-04-19 18:40 | XMS_ITS | Encounter Summary ---
Author Organization [facility] Address [address] [place] [address] [address] [place] [address] Phone Care Team Providers Care Boat Rental Clerk Name Role Phone Amira Faust Unavailable [phone] Smiley Mckee MD Unavailable [phone] Vanessa Banuelos Primary Care Provider [phone] Vanessa Banuelos Unavailable Sharmila Miranda COMMISSIONER PUBLIC WORKS Unavailable Vanessa Banuelos Unavailable Rebecca Villalta COMMISSIONER PUBLIC WORKS Unavailable Encounter Details Date Type Department Care Team (Late st Contact Info) Description 11/01/2024 Procedure Pass [facility] Cancer [facility] MRI [address] [address] Social History Tobacco Use Types Packs/Day Years Used Date Smoking Tobacco: Every Day Cigarettes 1 39.8 Started: 07/06/1985 Passive Smoke Exposure: Current Smokeless Tobacco: Never Comments:Currently smoking 5 cigarettes a day, smoked 1/2-1 ppd x 39 years. Alcohol Use Standard Drinks/Week Comments Yes 0 (1 standard drink = 0.6 oz pur e alcohol) socially Child or Family Care Answer Date Record ed Do you have problems with on e of the following making it difficult for you to work, study, or receive health care? No 10/25/2024 Education Answer Date Recorded Are you interested in help w ith more adult education (for example, completing high school, GED, job training, learning the Cameroonian language, technical skills, or developing parenting skills)? No 10/25/2024 Are you concerned about learning? Not on file 10/25/2024 No 10/25/2024 Yes 10/25/2024 Food Answer Date Recorded Within the past 6 months we worried whether our food would run out before we got money to buy more. Never True 025 Within the past 6 months the food we bought just didn't last and we didn't have enough money to get more. Sometimes True 10/05 Residential Stability Answer Date Recor ded What is your housing situation today? I have max sing 10/25/2024 How many times have you move d in the past 12 months? Zero (I did not move) 10/25/2024 Paying for Meds Answer Date Recorded Do you have trouble paying for medicines? Yes 10/25/2024 Paying Utility Bills Answer Date Record ed Do you have trouble paying your heating or elect ricity bill? Yes 10/25/2024 Transportation Answer Date Recorded Has the lack of transportati on kept you from medical appointments or from getting medications? Yes 10/25/2024 Digital Access Answer Date Recorded No 11/27/2022 [...] Sign Reading Time Taken Comments Blood Pressure - - Pulse - - Temperature - - Respiratory Rate - - Oxygen Saturation - - Inhaled Oxygen Concentration - - Weight 64.4 kg (142 lb) 11/02/2024 1:42 PM EDT Height - - Body Mass Index 22.92 11/01/2024 2:28 PM EDT documented in this encounter Plan of Treatment Upcoming Encounters Date Type Department Care Team (Late st Contact Info) Description 04/21/2025 3:00 PM EDT Telemedicine - audio only [facility], [address], 9th [place] [address] Addie Michaud PA-C [address] [place] [address] [email or web address] Beth Beckford MD [address] [place] [address] [email or web address] 05/01/2025 8:30 AM EDT Office Visit [facility] Hematology 70 [place] [address] Edwardo Jose MD 75 [facility] - [place] [address] [email or web address] 05/05/2025 9:40 AM EDT Office Visit [facility] Diabetes [address] [place] [address] Smiley Mckee MD 22 [facility], [address] [place] [address] 07/11/2025 1:15 PM EST Office Visit [facility] Lung [facility] Surgical Specialties [address] [place] [address] Miguel Maguire MD, MPH [address] [place] [address] 08/16/2025 3:00 PM EST Nutrition [facility] Diabetes [address] [address] Tayler Bingham LDN 22 [facility], [address] [place] [address] documented as of this encounter Visit Diagnoses [...] documented as of this encounter Care Teams Boat Rental Clerk Relationship Specialty Start Date End Date Vanessa Banuelos PA [address] [place] [address] PCP - General Physician Residential Mental Health Worker 10/14/24 Amira Faust PA 15 [facility] [place] [address] [email or web address] Historical LMR Provider 04/26/17 Smiley Mckee MD 22 [facility], 1st [place] [address] Historical LMR Provider 04/26/17 Vanessa Banuelos PA 140 [place] [address] Referring Physician Physician Residential Mental Health Worker 10/14/24 Sharmila Miranda, [facility] 35 [place] [address] [email or web address] Clinical Laboratory Assistant Oncology 11/10/24 Vanessa Banuelos PA 140 [place] [address] Referring Physician Physician Residential Mental Health Worker 03/16/25 Rebecca Villalta, [facility] 300 [place] [address] [email or web address] Clinical Laboratory Assistant Oncology 04/05/25 documented as of this encounter Additional Source Comments The information contained in this document represents components of the legal health record. It is not the complete legal health record.[facility]
--- OUTSIDE RECORDS SUMMARY | 2025-04-19 18:40 | XMS_ITS | Encounter Summary ---
Author Organization [facility] Address [address] [place] [address] [address] [place] [address] Phone Care Team Providers Care Recycler Forklift Driver Truck Driver Name Role Phone Amira Faust Unavailable [phone] Smiley Mckee MD Unavailable [phone] Vanessa Banuelos Primary Care Provider [phone] Vanessa Banuelos Unavailable Sharmila Miranda SATELLITE TV TECHNICIAN INSTALLER Unavailable Vanessa Banuelos Unavailable Rebecca Villalta SATELLITE TV TECHNICIAN INSTALLER Unavailable [phone] Encounter Details Date Type Department Care Team (Late st Contact Info) Description 11/01/2024 Procedure Pass [facility] [place] [place] [address] [address] Social History Tobacco Use Types [...] high school, GED, job training, learning the Armenian language, technical skills, or developing parenting skills)? [...] 3:00 PM EDT Telemedicine - audio only [facility], [address], 9th [place] [address] Addie Michaud PA-C [address] [place] [address] [email or web address] Beth Beckford MD [address] [place] [address] [email or web address] 05/01/2025 8:30 AM EDT Office Visit [facility] Hematology 70 [place] [address] Edwardo Jose MD [address] [facility] - Division [place] [address] [email or web address] 05/05/2025 9:40 AM EDT Office Visit [facility] Diabetes Center [address] [place] [address] Smiley Mckee MD [address] [place] [address], 1st [place] [address] 07/11/2025 1:15 PM EST Office Visit [facility] Lung [facility] Surgical Specialties 15 [place] [address] Miguel Maguire MD, MPH 75 [place] [address] [email or web address] 08/16/2025 3:00 PM EST Nutrition [facility] Diabetes Center 22 [place] [address] Tayler Bingham LDN 22 [facility], 1st [place] [address] [email or web address] documented as of this encounter Visit Diagnoses [...] documented as of this encounter Care Teams Recycler Forklift Driver Truck Driver Relationship Specialty Start Date End Date Vanessa Banuelos PA 140 [place] [address] PCP - General Physician Child Care Coordinator 10/14/24 Amira Faust PA [address] [place] [address] [email or web address] Historical LMR Provider 04/26/17 Smiley Mckee MD 22 [facility], 1st [place] [address] [email or web address] Historical LMR Provider 04/26/17 Vanessa aBnuelos PA 140 [place] [address] Referring Physician Physician Child Care Coordinator 10/14/24 Sharmila Miranda, [facility] 35 [place] [address] [email or web address] Supervisor Pyrotechnic Loading Oncology 11/10/24 Vanessa Banuelos PA 140 [place] [address] Referring Physician Physician Child Care Coordinator 03/16/25 Rebecca Villalta, [facility] 300 [place] [address] [email or web address] Supervisor Pyrotechnic Loading Oncology 04/05/25 documented as of this encounter Additional Source Comments The information contained in this document represents components of the legal health record. It is not the complete legal health record.[facility]
--- OUTSIDE RECORDS SUMMARY | 2025-04-19 18:40 | XMS_ITS | Encounter Summary ---
Author Organization [facility] Address [address] [place] [address] [place] [address] Phone Care Team Providers Care Knuckle Strap Sewer Name Role Phone Amira Faust Unavailable [phone] Smiley Mckee MD Unavailable Amira Faust Primary Care Provider Vanessa Banuelos Primary Care Provider [phone] Vanessa Banuelos Unavailable Sharmila Miranda BARREL RIFLER Unavailable Vanessa Banuelos Unavailable Rebecca Villalta BARREL RIFLER Unavailable [phone] Encounter Details Date Type Department Care Team (Latest Contact Info) Description 09/12/2021 Transcribe Orders [facility] Department 30 [place] [address] Amira Faust PA [address] [place] [address] [email or web address] Breast screening (Primary Dx) Social History Tobacco Use Types Packs/Day Years [...] 3:00 PM EDT Telemedicine - audio only [facility], [address], 9th [place] [address] Addie Michaud PA-C [address] [place] [address] [email or web address] Beth Beckford MD [address] [place] [address] [email or web address] 05/01/2025 8:30 AM EDT Office Visit [facility] Hematology 70 [place] [address] Edwardo Jose MD 75 [facility] - [facility] [place] [address] [email or web address] 05/05/2025 9:40 AM EDT Office Visit [facility] [address] [place] [address] Smiley Mckee MD 22 [facility], [address] [place] [address] 07/11/2025 1:15 PM EST Office Visit [facility] [address] [place] [address] Miguel Maguire MD, MPH [address] [place] [address] 08/16/2025 3:00 PM EST Nutrition [facility] [address] [place] [address] [place] [address] Tayler Bingham LDN [address] [place] [address], [address] [place] [address] documented as of this encounter Results * BI MAMMOGRAM SCREENING WITH TOMOSYNTHESIS WITH CAD (BILATERAL) (11/14/2021 11:15 AM EDT) Anatomical Region Laterality Modality Breast Left, Breast Right, Breast Bilateral Bila teral Mammography 11/14/2021 12:1 5 PM EDT Impressions 11/14/2021 12:19 PM EDT No findings suspicious for malignancy. In the absence of a worrisome palpable abnormality, annual screening mammography is recommended. BI-RADS CATEGORY: 2 - Benign finding. DENSITY: There are scattered fibroglandular densities. Narrative 11/14/2021 12:19 PM EDT COMPARISON: 10/14/2006 through 07/14/2019. Bilateral 3-D tomosynthesis with 2-D reconstructions in the CC and MLO projection. Computer-aided detection system also utilized. No new mass, asymmetry, architectural distortion or suspicious calcifications have become apparent on either side. Stable 3 x 5 mm circumscribed mass lateral left breast, likely a lymph node. Procedure Note Teodoro Gannon MD - 11/14/2021 COMPARISON: 10/14/2006 through 07/14/2019. Bilateral 3-D tomosynthesis with 2-D reconstructions in the CC and MLOprojection. Computer-aided detection system also utilized. No new mass, asymmetry, architectural distortion or suspiciouscalcifications have become apparent on either side. Stable 3 x 5 mm circumscribed mass lateral left breast, likely a lymphnode. IMPRESSION: No findings suspicious for malignancy. In the absence of a worrisomepalpable abnormality, annual screening mammography is recommended. BI-RADS CATEGORY: 2 - Benign finding. DENSITY: There are scattered fibroglandular densities. Amira STILES IMG MG EXAMS Final Result documented in this encounter Visit Diagnoses Diagnosis Breast screening- Primary Breast screening, unspecified Breast screening Breast screening, unspecified documented in this encounter Additional Health Concerns Infection Onset Date Last Indicated Resolved Time CDiff-Risk 02/09/2025 02/09/2025 02/09/2025 8:05 PM EDT CDiff-Risk 02/10/2025 02/11/2025 02/11/2025 10:0 6 AM EDT TB-Risk Comment:Resolved from TB-Risk Infection Status Resolution Note 02/15/2025 02/15/2025 08/ 025 10:41 AM EDT CoV-Risk 04/19/2025 04/19/2025 documented as of this encounter Care Teams Knuckle Strap Sewer Relationship Specialty Start Date End Date Amira Faust PA [address] [place] [address] PCP - General Unknown Provider Specialty 05/27/17 10/13/24 Vanessa Banuelos PA 140 [place] [address] PCP - General Physician Electrocardiograph Operator 10/14/24 Amira Faust PA [address] [place] [address] [email or web address] Historical LMR Provider 04/26/17 Smiley Mckee MD 22 [facility], 1st [place] [address] Historical LMR Provider 04/26/17 Vanessa Banuelos PA 140 [place] [address] Referring Physician Physician Electrocardiograph Operator 10/14/24 Sharmila Miranda, [facility] 35 [place] [address] [email or web address] Water Softener Servicer And Installer Oncology 11/10/24 Vanessa Banuelos PA 140 [place] [address] Referring Physician Physician Electrocardiograph Operator 03/16/25 Rebecca Villalta, [facility] 300 [place] [address] [email or web address] Water Softener Servicer And Installer Oncology 04/05/25 documented as of this encounter Additional Source Comments The information contained in this document represents components of the legal health record. It is not the complete legal health record.[facility]
--- OUTSIDE RECORDS SUMMARY | 2025-04-19 18:40 | XMS_ITS | Encounter Summary ---
Author Organization [facility] Address [address] [place] [address] [place] [address] Phone Care Team Providers Care Automotive Hardware Engineer Name Role Phone Amira Faust Unavailable [phone] Smiley Mckee MD Unavailable [phone] Vanessa Banuelos Primary Care Provider [phone] Vanessa Banuelos Unavailable Sharmila Miranda DIAMOND MERCHANT Unavailable Vanessa Banuelos Unavailable Rebecca Villalta DIAMOND MERCHANT Unavailable [phone] Encounter Details Date Type Department Care Team (Late st Contact Info) Description 12/05/2024 Prep for Surgery [facility] Thoracic Surgery 15 [facility] 204 [place] [address] Miguel Maguire MD, MPH 75 [place] [address] Primary lung adenocarcinoma, left (Primary Dx) Social History Tobacco Use Types [...] high school, GED, job training, learning the South Sudan[place] language, technical skills, or developing parenting skills)? [...] 3:00 PM EDT Telemedicine - audio only [facility], [address], 9th [place] [address] Addie Michaud PA-C [address] [place] [address] [email or web address] Beth Beckford MD [address] [place] [address] [email or web address] 05/01/2025 8:30 AM EDT Office Visit [facility] Hematology 70 [place] [address] Edwardo Jose MD 75 [facility] [place] [facility] - Division [place] [address] [email or web address] 05/05/2025 9:40 AM EDT Office Visit [facility] Diabetes Center [address] [place] [address] Smiley Mckee MD 22 [facility], [address] [place] [address] 07/11/2025 1:15 PM EST Office Visit [facility] Lung Center-Thoracic Surgical Specialties [address] [place] [address] Miguel Maguire MD, MPH [address] [place] [address] [email or web address] 08/16/2025 3:00 PM EST Nutrition [facility] Diabetes [address] [address] Tayler Bingham LDN [address] [place] [address] [email or web address] documented as of this encounter Visit Diagnoses Diagnosis Primary lung adenocarcinoma, left- Primary documented in this encounter Additional Health Concerns [...] documented as of this encounter Care Teams Automotive Hardware Engineer Relationship Specialty Start Date End Date Vanessa Banuelos PA [address] [place] [address] PCP - General Physician Access Specialist 10/14/24 Amira Faust PA [address] [place] [address] [email or web address] Historical LMR Provider 04/26/17 Smiley Mckee MD 22 [facility], 1st [place] [address] Historical LMR Provider 04/26/17 Vanessa Banuelos PA 140 [place] [address] Referring Physician Physician Access Specialist 10/14/24 Sharmila Miranda, [facility] 35 [place] [address] [email or web address] Insurance Rater Oncology 11/10/24 Vanessa Banuelos PA 140 [place] [address] Referring Physician Physician Access Specialist 03/16/25 Rebecca Villalta, [facility] 300 [place] [address] [email or web address] Insurance Rater Oncology 04/05/25 documented as of this encounter Additional Source Comments The information contained in this document represents components of the legal health record. It is not the complete legal health record.[facility]
--- OUTSIDE RECORDS SUMMARY | 2025-04-19 18:40 | XMS_ITS | Encounter Summary ---
Author Organization [facility] Address [address] [place] [address] [place] [address] Phone Care Team Providers Care Retail Sales Representative Name Role Phone Amira Faust Unavailable [phone] Smiley Mckee MD Unavailable [phone] Amira Faust Primary Care Provider Vanessa Banuelos Primary Care Provider [phone] Vanessa Banuelos Unavailable Sharmila Miranda SKEINER Unavailable Vanessa Banuelos Unavailable Rebecca Villalta SKEINER Unavailable [phone] Encounter Details Date Type Department Care Team (Late st Contact Info) Description 11/27/2022 Procedure Pass OR Admitting Dept - Virtual Department 30 [place], [place] [id number] Social History Tobacco Use Types Packs/Day Years [...] 3:00 PM EDT Telemedicine - audio only [facility] Center for Thoracic Oncology, [facility] Cancer [address], 9th [place] [address] Addie Michaud PA-C [address] [place] [address] [email or web address] Beth Beckford MD [address] [place] [address] - Sarah [address] [place] [address] [email or web address] 05/01/2025 8:30 AM EDT Office Visit [facility] Hematology 70 [place] [address] Edwardo Jose MD 75 [facility] and [facility]'s [facility] - [place] [address] [email or web address] 05/05/2025 9:40 AM EDT Office Visit [facility] Diabetes [address] [address] Smiley Mckee MD [address] [place] [address] 07/11/2025 1:15 PM EST Office Visit [facility] Lung Center-Thor[facility] Surgical Specialties 15 [place] [address] Miguel Maguire MD, MPH [address] [place] [address] 08/16/2025 3:00 PM EST Nutrition [facility] Diabetes [address] [place] [address] Tayler Bingham LDN [address] [place] [address] documented as of this encounter Visit Diagnoses Not on filedocumented in this encounter Additional Health Concerns Infection Onset Date Last Indicated Resolved Time CDiff-Risk 02/09/2025 02/09/2025 02/09/2025 8:05 PM EDT CDiff-Risk 02/10/2025 02/11/2025 02/11/2025 10:0 6 AM EDT TB-Risk Comment:Resolved from TB-Risk Infection Status Resolution Note 02/15/2025 02/15/2025 025 10:41 AM EDT CoV-Risk 04/19/2025 04/19/2025 documented as of this encounter Care Teams Retail Sales Representative Relationship Specialty Start Date End Date Amira Faust PA [address] [place] [address] [email or web address] PCP - General Unknown Provider Specialty 05/27/17 10/13/24 Vanessa Banuelos PA 140 [place] [address] PCP - General Physician Community Resource Officer 10/14/24 Amira Faust PA [address] [place] [address] [email or web address] Historical LMR Provider 04/26/17 Smiley Mckee MD 22 [facility], 1st [place] [address] [email or web address] Historical LMR Provider 04/26/17 Vanessa Banuelos PA 140 [place] [address] Referring Physician Physician Community Resource Officer 10/14/24 Sharmila Miranda, [facility] 35 [place] [address] [email or web address] Baseball Glove Shaper Oncology 11/10/24 Vanessa Banuelos PA 140 [place] [address] Referring Physician Physician Community Resource Officer 03/16/25 Rebecca Villalta, [facility] 300 [place] [address] [email or web address] Baseball Glove Shaper Oncology 04/05/25 documented as of this encounter Additional Source Comments The information contained in this document represents components of the legal health record. It is not the complete legal health record.[facility]
--- OUTSIDE RECORDS SUMMARY | 2025-04-19 18:40 | XMS_ITS ---
Author Organization [facility] Address [address] [place] [address] [place] [id number] Phone Care Team Providers Care Geodetic Advisor Name Role Phone Amira Faust Unavailable [phone] Smiley Mckee MD Unavailable [phone] Vanessa Banuelos Primary Care Provider [phone] Vanessa Banuelos Unavailable Sharmila Miranda COMEDIAN Unavailable Vanessa Banuelos Unavailable Rebecca Villalta COMEDIAN Unavailable Active Problems Problem Noted Date Diagnosed Date Lung mass 01/25/2025 Non-small cell cancer of right lung 11/01/2024 Cancer Staging:Clinical stage from 11/02/2024:Stage IB(cT2a, cN0, cM0) - Unsigned Pathologic stage from 01/25/2025:Stage IIB(pT2b, pN1, cM0) - Signed by Beth Beckford MD on 04/03/2025 S/P laparoscopic appendectomy 12/05/2022 Anxiety disorder 07/31/2020 Assessment & Plan (10/14/2024 11:42 AM EDT): Currently situational exacerbations of anxiety symptoms due to recent cancer diagnosis, advised to use Ativan as prescribed for anxiety and to also dose this prior to upcoming PET scan as it will be likely to reduce stress related rise in glucose prior to the test Ovarian cyst 07/31/2020 Insulin pump fitting or adjustment 08/15/2019 Overview (01/18/2025): Wireless system : Insulin Pump : Omni Pod 5 & CGM: Dexcom 6 Type 1 diabetes mellitus 05/27/2017 Overview (09/04/2017): DIABETES HISTORY Diagnosis - type 1 diabetes, dx December 1989 Treatment history - was tried on oral meds at first, insulin pump since age 25, also uses CGM Assessment & Plan (10/14/2024 11:48 AM EDT): Jailene has had a challenging time due to recent health related stressors, she is reassured that she has been successfully managing her glucose despite this, we reviewed CGM patterns, A1c is stable We discussed no changes to current infusion settings due to the variability in data, advised to continue to monitor glucose patterns and to contact me with any questions or concerns about this Doing well on Omnipod 5, feels it's working well for her Up to date on routine eye exam Jailene will return to meet with Tayler Bingham in 3 months and we will meet again in 3-4 months, she is encouraged to contact us with any questions or concerns as needed Assessment & Plan (02/12/2024 1:33 PM EDT): Jailene has had a challenging time due to some work related stressors, she is reassured that she has been successfully managing her glucose despite this, we reviewed CGM patterns, A1c is improved We discussed no changes to current infusion settings however an adjustment to her correction threshold should help with optimizing control by allowing for correction dose at a lower threshold which is also her glucose target Doing well on Omnipod 5, feels it's working well for her Up to date on routine eye exam Jailene will return to meet with Tayler Bingham in 4 months and we will meet again in 8 months she is encouraged to contact us with any questions or concerns as needed Assessment & Plan (08/07/2023 1:46 PM EST): Jailene has had a challenging time due to dayshift work which has been more stressful, she is more accustomed to being up at night and still tends to when has led to significant fatigue Glucose management has been challenging, we discussed some considerations related to dosing insulin for heaviest meals of the day which tend to be late in the night Despite these challenges, Jailene has been managing glucose reasonably well despite, we did not adjust insulin pump settings Doing well on Omnipod 5, feels it's working well for her Up to date on routine eye exam Jailene will return to meet with Davida Rosas in 3 months and we will meet again in 6 months she is encouraged to contact us with any questions or concerns as needed Assessment & Plan (12/29/2022 4:24 PM EDT): Training provided today on Omnipod 5 with Dexcom G6 Reviewed insulin pump therapy specifics Jailene uses CGM consistently, switched to the Dexcom G6 today Encouraged to stay active and to continue efforts at eating a healthy diet We will follow up in the office in 4 weeks for an insulin pump start follow up CGM Dexcom G6 start Type of Diabetes: Diabetes mellitus Type 1 Assessment/HPI: Jailene is here today for CGM start Procedures: Glucose Monitoring: Type of Sensor: Dexcom G6 Instruction: Patient Instructed on:, Calibrations, When to test BS, Troubleshooting, What to expect with the sensor, Patient instructed to remove sensor if redness, pain or bleeding occurs. . Insertion Site Selected: right thigh Site Prep: Insertion site wiped with alcohol. Insertion: completed, area looks good, no redness, mild bleeding. Assessment & Plan (12/15/2022 11:19 AM EDT): Jailene has had a challenging few weeks with steroid therapy for bursitis followed by a bout of appendicitis requiring appendectomy Jailene has been managing glucose reasonably well despite challenges, we did not adjust insulin pump settings Jailene's usual challenge is that her lifestyle cannot be consistent due to her work schedule however she is out of work currently recovering from surgery and able to self manage her diabetes more consistently We discussed change to Omnipod 5, we will attempt this again as it was denied at time of our last visit Jailene had to miss her appt with Davida Rosas in September due to work issues, she would like to reschedule this now Up to date on routine eye exam and foot exam Jailene will return to meet with Davida Rosas in 3 months and we will meet again in 6 months, she is aware that if her Omnipod 5 and Dexcom G6 devices are covered then she should contact us for training when she receives this, Jailene is encouraged to contact us with any questions or concerns as needed Assessment & Plan (06/09/2022 9:54 PM EST): Jailene continues to have a challenging work schedule, most shifts are overnight, now also longer/double shifts due to continues issues with short staffing Still interested in considering insulin pump options other than Medtronic, we discussed warranty period and options while in warranty, it appears that Omnipod 5 is now covered, prescriptions sent, Jailene will contact us once she receives her supplies so that training can be scheduled Jailene's challenge is that her lifestyle cannot be consistent and therefore she can't take full advantage of the Medtronic algorithm Most recent labs reviewed Up to date on routine eye exam Jailene will return to meet with our perinatal educator staff in 3 months and we will meet again in 6 months, she is encouraged to contact us with any questions or concerns as needed Assessment & Plan (12/10/2021 2:14 PM EDT): Jailene continues to have a challenging work schedule, most shifts are overnight, now also longer/double shifts due to short staffing due to COVID Would like to consider options other than Medtronic, we discussed warranty period and options while in warranty, will look into eligibility for Omnipod 5 We discussed that being consistent with lifestyle is best to fully take advantage of Medtronic algorithm, however recent travel with change in usual routines and now variable work schedule is proving quite difficult in maintaining stability in glucose patterns Most recent labs reviewed Up to date on routine eye exam Jailene will return to meet with our perinatal educator staff in 2 months and we will meet again in 6 months, she is encouraged to contact us with any questions or concerns as needed Assessment & Plan (06/01/2020 2:58 PM EST): Jailene continues to have a challenging work schedule, most shifts are overnight Doing well on new Medtronic insulin pump, upgraded earlier this year, overall control has improved We discussed importance of being consistent with lifestyle to fully take advantage of Medtronic algorithm Encouraged to get back to basics with carb counting, utilizing measuring cups to eventually get better at guesstimating serving sizes and carb counts for foods that do not have nutrition label or homecooked meals Most recent labs reviewed Up to date on routine eye exam Jailene will return to meet with our perinatal educator staff in 3 months and we will meet again in 6 months, she is encouraged to contact us with any questions or concerns as needed Assessment & Plan (04/11/2019 2:26 PM EDT): Continues with challenging work schedule, blood sugar continues to be inconsistent/variable due to varying sleep and eating schedules We discussed importance of consistent blood sugar monitoring Encouraged to continue to eat a healthy balanced diet as consistently as possible and to stay active Isolated right index finger PIP joint swelling tenderness is likely due to injury and reinjury, we discussed ice, NSAIDs, taping as needed, and to follow up with PCP if not improving Up to date on routine eye exam Declined flu vaccine Assessment & Plan (04/15/2018 1:12 PM EDT): Continues with challenging work schedule, blood sugar inconsistencies as a result Control is fair but stable with respect to A1c, glycemic variability is wide but blood sugar date indicates infrequent monitoring Advised to monitor blood sugars more consistently/use CGM to better evaluate blood sugar patterns, this may lead to adjustments in insulin pump settings Encouraged to try to be more consistent with exercise, this should help overall diabetes management as well as stress management and may also improve sleep quality Encouraged to call with any questions or concerns Assessment & Plan (09/04/2017 1:45 PM EST): More variable blood sugars since starting night shifts, having more hypoglycemia than before Erratic and inconsistent meals and sleep are likely playing a role in more variable blood sugars, physically and emotionally stressed which will also affect blood sugar control and overall diabetes self management I recommended to Jailene to speak to her supervisors regarding her work schedule, I'm happy to document my recommendations for them Insulin pump in place 05/27/2017 Overview (10/14/2024): Pump last upgraded to Omnipod 5 in 2022, Dexcom G6 Assessment & Plan (10/14/2024 11:59 AM EDT): Images from the original note were not included. We did not make changes to current insulin pump delivery settings Continues on Omnipod 5 with Dexcom CGMS, she has continued do do well on this despite recent health related stressors We discussed pump/insulin management prior to PET scan, Jailene is advised not to suspend insulin therapy for 4 hours prior to testing as this would put her at risk for DKA, if needed a basal insulin dose can be used for a 24hr period if needs to be off pump therapy prior to PET scan Jailene is advised to continue her management of infusion set placement, she should remain vigilant for areas which may not be absorbing insulin well and change pod when needed We will follow up in 3-4 months, Jailene has appt with Tayler Bingham in 3 months as well Assessment & Plan (02/12/2024 1:25 PM EDT): Current insulin pump setting Time Basal Rates? Time ICR Time ISF Time Target IOB 12am 0.65u/hr 12am 13 12am 60 12am 100mg/dl 4hrs 330am 0.55 7am 0.65 1pm 0.55 7pm 0.55 OR AutoMode We did not make changes to current insulin pump delivery settings except to optimize the glucose correction threshold from 150 to 120, this will allow for more impactful correction Continues on Omnipod 5, she has been doing well on this, we discussed that this pump system does not force her to be in a warranty period so if she would like to trial another insulin pump she can at any time, Jailene is happy with OP5 overall and plans to continue for now We discussed the transition from current pods to G6/G7 pods and Jailene is advised to check with her pharmacy when they will have these available at which time we can change sensor prescription to the G7, otherwise she can get this filled at [facility] Assessment & Plan (08/07/2023 1:57 PM EST): Current insulin pump setting Time Basal Rates? Time ICR Time ISF Time Target IOB 12am 0.65u/hr 12am 13 12am 60 12am 100mg/dl 4hrs 330am 0.55 7am 0.65 1pm 0.55 7pm 0.55 OR AutoMode We did not make changes to current insulin pump settings today, Jailene is doing well in managing her glucose patterns which have been more stable in the very recent We discussed end of warranty on current pump is in 2023 We revisited Omnipod 5, Jailene would like to pursue this again in case coverage has changed, this was denied last June, would like an less complicated integrated system than her current Medtronic system We discussed the new Medtronic 780G which she would still be eligible for next year at end of her Medtronic warranty since she will not be entering into a warranty situation with Omnipod Assessment & Plan (12/29/2022 4:36 PM EDT): Current insulin pump setting Time Basal Rates? Time ICR Time ISF Time Target IOB 12am 0.65u/hr 12am 13 12am 60 12am 120mg/dl 4hrs 330am 0.55 7am 0.65 1pm 0.55 7pm 0.55 TOTAL 14.15 OR AutoMode Reviewed modifications for improved diabetes management. Jailene agrees to the treatment plan outlined below. Please see scanned training checklist for more in depth topics covered during out training today Pump settings were transferred from Medtronic pump Jailene will continue with previous glucose alerts as set on Medtronic pump, these were transferred to [employer] G6 shimon Automated Mode started today, though we reviewed that automated mode will only start after the first pod change and first 48 hours of wear Reviewed differences between automated vs limited vs manual modes Encouraged Jailene to bolus for food before the meal. Reviewed insulin pump troubleshooting and back up plan I will check in with Jailene later this week to follow up on first 48-72 hours of using the pump We will follow up in 4 weeks for review use of Auto basal, pump/CGM, advanced features and glucose control, calling sooner as needed. Assessment & Plan (12/15/2022 11:15 AM EDT): Current insulin pump setting Time Basal Rates? Time ICR Time ISF Time Target IOB 12am 0.65u/hr 12am 13 12am 60 12am 100mg/dl 4hrs 330am 0.55 7am 0.65 1pm 0.55 7pm 0.55 OR AutoMode We did not make changes to current insulin pump settings today, Jailene is doing well in managing her glucose patterns which have been more stable in the very recent We discussed end of warranty on current pump is in 2023 We revisited Omnipod 5, Jailene would like to pursue this again in case coverage has changed, this was denied last June, would like an less complicated integrated system than her current Medtronic system We discussed the new Medtronic 780G which she would still be eligible for next year at end of her Medtronic warranty since she will not be entering into a warranty situation with Omnipod Assessment & Plan (06/09/2022 9:48 PM EST): Current insulin pump setting Time Basal Rates? Time ICR Time ISF Time Target IOB 12am 0.65u/hr 12am 13 12am 60 12am 100mg/dl 4hrs 330am 0.55 7am 0.65 1pm 0.55 7pm 0.55 OR AutoMode No changes made to current insulin pump settings today, much of Jailene's glucose variability stems from her challenging work schedule We discussed end of warranty on current pump is in 2023 We revisited Omnipod 5, no need to be out of warranty if would like to try this system, Jailene would like to pursue this, would like an less complicated integrated system than her current Medtronic system Assessment & Plan (12/10/2021 2:11 PM EDT): Current insulin pump setting Time Basal Rates? Time ICR Time ISF Time Target IOB 12am 0.65u/hr 12am 13 12am 60 12am 100mg/dl 4hrs 330am 0.55 7am 0.65 1pm 0.55 7pm 0.55 OR AutoMode No changes made to current insulin pump settings today We discussed end of warranty on current pump is in 2023 We discussed upcoming AID technology with integrated Omnipod 5 and Dexcom G6, no need to be out of warranty if would like to try this system, Jailene will look into this Assessment & Plan (06/01/2020 2:51 PM EST): Current insulin pump setting Time Basal Rates? Time ICR Time ISF Time Target IOB 12am 0.65u/hr 12am 14 12am 60 12am 100mg/dl 4hrs 330am 0.55 7am 0.65 1pm 0.55 7pm 0.55 OR AutoMode Encouraged to reach out to [employer] to discuss recent sensor issues Encouraged to wear CGM as consistently as possible to increase duration of time spent in Automode, this makes the automode algorithm more useful over time Encouraged to continue to work on accurate carb counts and premeal bolusing as consisntently as possible Assessment & Plan (04/11/2019 2:23 PM EDT): We did not make changes to insulin pump settings today due to variability in readings CGM use would be helpful for evaluating blood sugar patterns day to day and particularly on days following night shifts Due for insulin pump upgrade, current insulin pump has cracked body Assessment & Plan (04/15/2018 1:08 PM EDT): We did not make insulin pump setting adjustments today Advised to return to CGM use, encouraged to call [employer]tr[employer] regarding issues with new transmitter Assessment & Plan (09/04/2017 1:45 PM EST): We did not make any changes in insulin pump settings today, but advised to use temp basal rates during more active shifts to reduce risk of hypoglycemia Advised to contact [employer] regarding Enlite sensor inconsistency, she may need a replacement of this Advised continued rotation of insulin pump infusion sets Hypertensive disorder 07/06/2001 Overview (01/18/2025): pre-eclampsia ( , 2001) No current meds Genital herpes simplex Overview (01/18/2025): oral herpes Pneumonia Depression Overview (01/18/2025): managed with sertraline No SI or HI Sleep apnea Overview (01/18/2025): uses oral appliance - unable to tolerate CPAP Current Treatment and Therapy Plans PEMETREXED/CISPLATIN* Plan Start Date:04/11/2025 Plan Provider:Beth Beckford MD Linked Problems Non-small cell cancer of rig ht lung Treatment Medications Current Day (Day 1 , Cycle 2 - Planned for 05/02/2025) Next Day (Day 1, Cycle 3 - Planned for 05/23/2025) CISplatin (PLATINOL)CISplatin (PLATINOL) IVPB 270 mLPEMEtrexed (ALIMTA)PEMEtrexed (ALIMTA) in NS IVPB CISplatin (PLATINOL) 125 mg in sodium chloride 0.9% 395 mL IVPBPEMEtrexed disodium (ALIMTA) 825 mg in sodium chloride 0.9% 143 mL IVPB CISplatin (PLATINOL) 125 mg in sodium chloride 0.9% 395 mL IVPBPEMEtrexed disodium (ALIMTA) 825 mg in sodium chloride 0.9% 143 mL IVPB VITAMIN B-12 (CYANOCOBALAMIN)* Plan Start Date:04/11/2025 Plan Provider:Addie Michaud PA-C Linked Problems Non-small cell cancer of rig ht lung Treatment Medications No medications scheduled. Past Treatment and Therapy Plans TREATMENT PLAN Plan Name Start Date Discontinue Date Treatment Medications Discontinue Reason Plan Provider Cycles PEMETREXED/CAR BOPLATIN-THORA CIC 5 04/04/2025 CARBOplatin (PARAPLATIN)PE MEtrexed (ALIMTA) m. Entered in error Beth Beckford MD Treatment not started CARBOPLATIN AUC=5 +PEMETREXED 500MG/M2 + NIVOLUMAB 360MG 5 04/04/2025 CARBOplatin (PARAPLATIN)ni volumab (OPDIVO)PEMEtr exed (ALIMTA) m. Entered in error Beth Beckford MD Treatment not started Resolved Problems Problem Noted Date Diagnosed Date Resolved Date Acute appendicitis 11/26/2022 3 Insulin pump fitting or adjustment 08/15/2019 07/31/2020
--- OUTSIDE RECORDS SUMMARY | 2025-04-19 18:40 | XMS_ITS | Encounter Summary ---
Author Organization [facility] Address [address] [place] [address] [address] [place] [address] Phone Care Team Providers Care Instrument Panel Assembler Name Role Phone Amira Faust Unavailable [phone] Smiley Mckee MD Unavailable [phone] Vanessa Banuelos Primary Care Provider [phone] Vanessa Banuelos Unavailable Sharmila Miranda MARKET RESEARCHER Unavailable Vanessa Banuelos Unavailable Rebecca Villalta MARKET RESEARCHER Unavailable [phone] Encounter Details Date Type Department Care Team (Late st Contact Info) Description 04/18/2025 Telephone [facility] Thoracic Surgery 15 [facility] 204 [place] [address] Ary Bowling PA-C [address] [place] [address] [email or web address] Social History Tobacco Use Types Packs/Day Years [...] high school, GED, job training, learning the Turkish language, technical skills, or developing parenting skills)? 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 S/p Flexible bronchoscopy + Rt VATS decortication, wedge resection, PleurX insertion (02/13). Pt and VNA nurse, Dane, called because pt has been having increased SOB and pleurX pain over the past several weeks. Vitals this morning are as follows: BP 104/76, HR 103, O2 sat 98% on RA. Pt notes that her pulse has been slightly elevated since having pneumonia a few weeks ago (now finished w/ abx), and starting chemo 04/11. Pt is draining her pleurX twice weekly and got 5ml each time last week and nothing today. Pt denies fever or chills but reports excessive sweating since starting chemo. CTPE 03/30 negative for PE. Decreased right-sided hydropneumothorax with trace gas component. I recommended that she discuss her new symptoms with oncology as they may be side effects from chemo. Will also have the senior front end engineer schedule a telemed visit with Dr. Maguire. Pt states she lives 2 hrs away and does not want to drive into [place]. Plans on having a CXR with PCP tomorrow. Discussed that if symptoms significantly worsen she needs to present to the ED, pt agreeable. Will send a refill of oxycodone for her pain. Pt was very appreciative of the call and had no further questions/concerns. MANUELA Valladares, MACEY Thoracic Surgery p: [phone] documented in this encounter Plan of Treatment Upcoming Encounters Date Type Department Care Team (Late st Contact Info) Description 04/21/2025 3:00 PM EDT Telemedicine - audio only [facility], [facility] [address], 9th [place] [address] Addie Michaud PA-C [address] [place] [address] [email or web address] Beth Beckford MD [address] [place] [address] - Sarah [address] [place] [address] [email or web address] 05/01/2025 8:30 AM EDT Office Visit [facility] Hematology 70 [place] [address] Edwardo Jose MD 75 [facility] - Division [place] [address] [email or web address] 05/05/2025 9:40 AM EDT Office Visit [facility] [address] [place] [address] [place] [address] Smiley Mckee MD [address] [place] [address] 07/11/2025 1:15 PM EST Office Visit [facility] [address] [place] [address] Miguel Maguire MD, MPH [address] [place] [address] 08/16/2025 3:00 PM EST Nutrition [facility] [address] [place] [address] Tayler Bingham LDN [address] [place] [address] documented as of this encounter Visit Diagnoses Not on filedocumented in this encounter Additional Health Concerns Assessment Noted Time PHQ-2 Depression Total Score: 0 03/14/20 25 12:52 PM EDT documented as of this encounter Care Teams Instrument Panel Assembler Relationship Specialty Start Date End Date Vanessa Banuelos PA [address] [place] [address] PCP - General Physician Store Clerk 10/14/24 Amira Faust PA [address] [place] [address] [place] [address] [email or web address] Historical LMR Provider 04/26/17 Smiley Mckee MD [address] [place] [address] Historical LMR Provider 04/26/17 Vanessa Banuelos PA 140 [place] [address] Referring Physician Physician Store Clerk 10/14/24 Sharmila Miranda, [facility] 35 [place] [address] [email or web address] Reconsignment Clerk Oncology 11/10/24 Vanessa Banuelos PA 140 [place] [address] Referring Physician Physician Store Clerk 03/16/25 Rebecca Villalta, [facility] 300 [place] [address] [email or web address] Reconsignment Clerk Oncology 04/05/25 documented as of this encounter Additional Source Comments The information contained in this document represents components of the legal health record. It is not the complete legal health record.[facility]
--- OUTSIDE RECORDS SUMMARY | 2025-04-19 18:40 | XMS_ITS | Encounter Summary ---
Author Organization [facility] Address [address] [place] [address] [place] [address] Phone Care Team Providers Care English Division Chair Name Role Phone Amira Faust Unavailable [phone] Smiley Mckee MD Unavailable [phone] Amira Faust Primary Care Provider Vanessa Banuelos Primary Care Provider [phone] Vanessa Banuelos Unavailable Sharmila Miranda FURNACE INSTALLER HELPER Unavailable Vanessa Banuelos Unavailable Rebecca Villalta FURNACE INSTALLER HELPER Unavailable [phone] Encounter Details Date Type Department Care Team (Late st Contact Info) Description 09/12/2021 Procedure Pass [address] [id number] Social History Tobacco Use Types Packs/Day Years [...] 3:00 PM EDT Telemedicine - audio only [facility], [address], [address]th [place] [address] Addie Michaud PA-C [address] [place] [address] [email or web address] Beth Beckford MD [address] [place] [address] [email or web address] 05/01/2025 8:30 AM EDT Office Visit [facility] Hematology 70 [place] [address] Edwardo Jose MD 75 [facility] - [place] [address] [email or web address] 05/05/2025 9:40 AM EDT Office Visit [facility] [address] [place] [address] [place] [address] Smiley Mckee MD [address] [place] [address], 1st [place] [address] 07/11/2025 1:15 PM EST Office Visit [facility]-Thoracic Surgical Specialties 15 [place] [address] Miguel Maguire MD, MPH 75 [place] [address] 08/16/2025 3:00 PM EST Nutrition [facility] 22 [place] [address] Tayler Bingham, VIKTORIAN 22 [facility], 1st [place] [address] [email or web address] documented as of this encounter [...] documented as of this encounter Care Teams English Division Chair Relationship Specialty Start Date End Date Amira Faust PA [address] [place] [address] [email or web address] PCP - General Unknown Provider Specialty 05/27/17 10/13/24 Vanessa Banuelos PA 140 [place] [address] PCP - General Physician Retail Support Manager 10/14/24 Amira Faust PA [address] [place] [address] [email or web address] Historical LMR Provider 04/26/17 Smiley Mckee MD 22 [facility], 1st [place] [address] Historical LMR Provider 04/26/17 Vanessa Banuelos PA 140 [place] [address] Referring Physician Physician Retail Support Manager 10/14/24 Sharmila Miranda, [facility] 35 [place] [address] [email or web address] Clinical Review Specialist Oncology 11/10/24 Vanessa Banuelos PA 140 [place] [address] Referring Physician Physician Retail Support Manager 03/16/25 Rebecca Villalta, [facility] [address] [place] [address] [email or web address] Clinical Review Specialist Oncology 04/05/25 documented as of this encounter Additional Source Comments The information contained in this document represents components of the legal health record. It is not the complete legal health record.[facility]
--- OUTSIDE RECORDS SUMMARY | 2025-04-19 18:40 | XMS_ITS | Encounter Summary ---
Author Organization [facility] Address [address] [place] [address] [address] [place] [address] Phone Care Team Providers Care Corporate Responsibility Officer Name Role Phone Amira Faust Unavailable [phone] Smiley Mckee MD Unavailable [phone] Vanessa Banuelos Primary Care Provider [phone] Vanessa Banuelos Unavailable Sharmila Miranda STRAW HAT MACHINE OPERATOR Unavailable [phone] Vanessa Banuelos Unavailable Rebecca Villalta STRAW HAT MACHINE OPERATOR Unavailable Encounter Details Date Type Department Care Team (Late st Contact Info) Description 02/04/2025 Procedure Pass [facility] 75 [place] [address] Social History Tobacco Use Types Packs/Day Years [...] PM EDT Telemedicine - audio only [facility] Thoracic On[facility], [address], 9th [place] [address] Addie Michaud PA-C [address] [place] [address] [email or web address] Beth Beckford MD [address] [place] [address] [email or web address] 05/01/2025 8:30 AM EDT Office Visit [facility] Hematology 70 [place] [address] Edwardo Jose MD 75 [facility] [place] [address] [email or web address] 05/05/2025 9:40 AM EDT Office Visit [facility] [address] [place] [address] Smiley Mckee MD 22 [facility], [address] [place] [address] 07/11/2025 1:15 PM EST Office Visit [facility] Lung Center-Thoracic Surgical Specialties 15 [place] [address] Miguel Maguire MD, MPH 75 [place] [address] 08/16/2025 3:00 PM EST Nutrition [facility] 22 [place] [address] Tayler Bingham LDN 22 [facility], [address] [place] [address] documented as of this encounter Visit Diagnoses [...] documented as of this encounter Care Teams Corporate Responsibility Officer Relationship Specialty Start Date End Date Vanessa Banuelos PA 140 [place] [address] PCP - General Physician Budget Examiner 10/14/24 Amira Faust PA [address] [place] [address] [email or web address] Historical LMR Provider 04/26/17 Smiley Mckee MD 22 [facility], 1st [place] [address] [email or web address] Historical LMR Provider 04/26/17 Vanessa Banuelos PA [address] [place] [address] Referring Physician Physician Budget Examiner 10/14/24 Sharmila Miranda, [facility] 35 [place] [address] [email or web address] Smooth Plater Oncology 11/10/24 Vanessa Banuelos PA 140 [place] [address] Referring Physician Physician Budget Examiner 03/16/25 Rebecca Villalta, [facility] 300 [place] [address] [email or web address] Smooth Plater Oncology 04/05/25 documented as of this encounter Additional Source Comments The information contained in this document represents components of the legal health record. It is not the complete legal health record.[facility]
--- OUTSIDE RECORDS SUMMARY | 2025-04-19 18:40 | XMS_ITS | Encounter Summary ---
Author Organization [facility] Address [address] [place] [address] [place] [address] Phone Care Team Providers Care Cage/Vault Supervisor Name Role Phone Amira Faust Unavailable [phone] Abi Loya CNM Unavailable [phone] Natalie Hart ELASTIC ATTACHER ZIGZAG Unavailable Tayler Holbrook ELASTIC ATTACHER ZIGZAG Unavailable Unavailable Archie Graham MD Unavailable Yulia Luong ELASTIC ATTACHER ZIGZAG Unavailable Smiley Mckee MD Unavailable [phone] Maxime Sierra MD Unavailable Marsha De León MD Unavailable [phone] Dona Barrios MD Unavailable Amira Faust Primary Care Provider Vanessa Banuelos Primary Care Provider [phone] Vanessa Banuelos Unavailable [phone] Sharmila Miranda BIOINFORMATICS ASSISTANT Unavailable [phone] Vanessa Banuelos Unavailable [phone] Rebecca Villalta BIOINFORMATICS ASSISTANT Unavailable [phone] Encounter Details Date Type Department Care Team (Late st Contact Info) Description 06/16/2018 Ancillary Orders [facility] [address] [place] [address] Saúl Villalta MD 234 [facility]. [address] [place] [id number] [email or web address] Social History Tobacco Use Types Packs/Day Years [...] 3:00 PM EDT Telemedicine - audio only [facility] for [facility] On[facility], [facility] Cancer [address], 9th [place] [address] Addie Michaud PA-C [address] [place] [address] [email or web address] Beth Beckford MD [address] [place] [address] [email or web address] 05/01/2025 8:30 AM EDT Office Visit [facility] Hematology 70 [place] [address] Edwardo Jose MD [address] [place] [address] and [facility] - [place] [address] [email or web address] 05/05/2025 9:40 AM EDT Office Visit [facility] [address] [place] [address] Smiley Mckee MD [address] [place] [address], [address] [place] [address] 07/11/2025 1:15 PM EST Office Visit [facility] Center-Thoracic Surgical Specialties 15 [place] [address] Miguel Maguire MD, MPH [address] [place] [address] 08/16/2025 3:00 PM EST Nutrition [address] [address] Tayler Bingham LDN [address] [place] [address] documented as of this encounter Visit Diagnoses Not on filedocumented in this encounter Additional Health Concerns Infection Onset Date Last Indicated Resolved Time CDiff-Risk 02/09/2025 02/09/2025 02/09/2025 8:05 PM EDT CDiff-Risk 02/10/2025 02/11/2025 02/11/2025 10:0 6 AM EDT TB-Risk Comment:Resolved from TB-Risk Infection Status Resolution Note 02/15/2025 02/15/2025 025 10:41 AM EDT CoV-Risk 04/19/2025 04/19/2025 documented as of this encounter Care Teams Cage/Vault Supervisor Relationship Specialty Start Date End Date Amira Faust PA [address] [place] [address] [email or web address] PCP - General Unknown Provider Specialty 05/27/17 10/13/24 Vanessa Banuelos PA [address] [place] [address] PCP - General Physician Mail Superintendent 10/14/24 Amira Faust PA [address] [place] [address] [email or web address] Historical LMR Provider 04/26/17 Abi Loya CNM [address] [place] [address] Historical LMR Provider 04/26/17 07/13/21 Natalie Hart, BATSHEVA [address] [place] [address] Historical LMR Provider 04/26/17 Tayler Short ELASTIC ATTACHER ZIGZAG [address] [place] [address] Historical LMR Provider 04/26/1707/13 Archie Graham MD [address] [place] [address] Historical LMR Provider 04/26/17 07/13/21 Yulia Luong NP [address] [place] [address] Historical LMR Provider 04/26/17 Smiley Mckee MD 22 [facility], 1st [place] [address] Historical LMR Provider 04/26/17 Maxime Sierra MD [address] [place] [address], [address] [place] [address] Historical LMR Provider 04/26/17 07/13/21 Marsha De León MD [address] [place] [phone] Historical LMR Provider 04/26/17 2 Dona Barrios MD [address] [place] [address] Orthopedics & Sports Medicine, [facility] [place] [address] [email or web address] Historical LMR Provider 04/26/17 Vanessa Banuelos PA 140 [place] [address] Referring Physician Physician Mail Superintendent 10/14/24 Sharmila Miranda, [facility] 35 [place] [address] [email or web address] Supplies [employer] [facility] 11/10/24 Vanessa Banuelos PA 140 [place] [address] Referring Physician Physician Mail Superintendent 03/16/25 Rebecca Villalta, [facility] 300 [place] [address] [email or web address] Supplies [employer] [facility] 04/05/25 documented as of this encounter Additional Source Comments The information contained in this document represents components of the legal health record. It is not the complete legal health record.[facility]
--- OUTSIDE RECORDS SUMMARY | 2025-04-19 18:41 | XMS_ITS | Encounter Summary ---
Author Organization [facility] Address [address] [place] [address] [place] [address] Phone Care Team Providers Care Cart Attendant Name Role Phone Amira Faust Unavailable [phone] Abi Loya CNM Unavailable Natalie Hart POLITICAL SCIENCE PROFESSOR Unavailable Tayler Holbrook POLITICAL SCIENCE PROFESSOR Unavailable Unavailable Archie Graham MD Unavailable Yulia Luong POLITICAL SCIENCE PROFESSOR Unavailable Smiley Mckee MD Unavailable [phone] Maxime Sierra MD Unavailable Marsha De León MD Unavailable [phone] Dona Barrios MD Unavailable Amira Faust Primary Care Provider Vanessa Banuelos Primary Care Provider [phone] Vanessa Banuelos Unavailable [phone] Sharmila Miranda BLOCK CABLEMAN Unavailable [phone] Vanessa Banuelos Unavailable [phone] Rebecca Villalta BLOCK CABLEMAN Unavailable Encounter Details Date Type Department Care Team (Late st Contact Info) Description 08/14/2017 Ancillary Orders Virtual Department [address] [place] [address] Amira Faust PA [address] [place] [address] .[employer] et Breast screening Social History Tobacco Use [...] 3:00 PM EDT Telemedicine - audio only [facility], [facility] [address], 9th [place] [address] Addie Michaud PA-C [address] [place] [address] [email or web address] Beth Beckford MD [address] [place] [address] [email or web address] 05/01/2025 8:30 AM EDT Office Visit [facility] Hematology [address] [place] [address] Edwardo Jose MD [address] [place], [place] [address]am and [facility] - Division [place] [address] [email or web address] 05/05/2025 9:40 AM EDT Office Visit [facility] [address] [place] [address] Smiley Mckee MD [address] [place] [address], [address] [place] [address] 07/11/2025 1:15 PM EST Office Visit [facility] [address] [place] [address] Miguel Maguire MD, MPH [address] [place] [address] 08/16/2025 3:00 PM EST Nutrition [address] [address] Tayler Bingham LDN [address] [place] [address], [address] [place] [address] documented as of this encounter Results * BI MAMMOGRAM SCREENING WITH TOMOSYNTHESIS WITH CAD (BILATERAL) (07/13/2018 9:41 AM EST) Anatomical Region Laterality Modality Breast Left, Breast Right, Breast Bilateral Bila teral Mammography 07/13/2018 8:17 PM EST Impressions 07/13/2018 8:21 PM EST BILATERAL BREASTS: Negative, no evidence of malignancy. Normal interval follow- up is recommended in 12 months. Bi-RADS: BI-RADS CATEGORY: 1 - Negative. DENSITY: There are scattered fibroglandular densities. POS - [id number] Narrative 07/13/2018 8:21 PM EST STUDY: Bilateral screening mammography with tomosynthesis and CAD TECHNIQUE: Bilateral full-field digital screening mammography is obtained and read in conjunction with computer-aided detection. Tomosynthesis as well as 2-D C view imaging were obtained. COMPARISON: Comparison made to multiple prior, most recent August 17, 2015, and most remote 2010. BREAST COMPOSITION: There are scattered areas of fibroglandular density BILATERAL BREASTS: No significant masses, calcifications or other abnormalities are seen. Procedure Note Jarrell Flores MD - 07/13/2018 STUDY: Bilateral screening mammography with tomosynthesis and CAD TECHNIQUE: Bilateral full-field digital screening mammography is obtainedand read in conjunction with computer-aided detection. Tomosynthesis aswell as 2-D C view imaging were obtained. COMPARISON: Comparison made to multiple prior, most recent August, and most remote 2010. BREAST COMPOSITION: There are scattered areas of fibroglandulardensity BILATERAL BREASTS: No significant masses, calcifications or otherabnormalities are seen. IMPRESSION: BILATERAL BREASTS: Negative, no evidence of malignancy. Normal intervalfollow-up is recommended in 12 months. Bi-RADS: BI-RADS CATEGORY: 1 - Negative. DENSITY: There are scattered fibroglandular densities. POS - [id number] mAira STILES IMG MG EXAMS Final Result documented [...] documented as of this encounter Care Teams Cart Attendant Relationship Specialty Start Date End Date Amira Faust PA [address] [place] [address] PCP - General Unknown Provider Specialty 05/27/17 10/13/24 Vanessa Banuelos PA [address] [place] [address] PCP - General Physician Barrel Brander 10/14/24 Amira Faust PA [address] [place] [address] Historical LMR Provider 04/26/17 Abi Loya CNM [address] [place] [address] Historical LMR Provider 04/26/17 07/13/21 Natalie Hart NP [address] [place] [address] Historical LMR Provider 04/26/17 Tayler Short POLITICAL SCIENCE PROFESSOR [address] [place] [address] Historical LMR Provider 04/26/1707/13 Archie Graham MD [address] [place] [address] Historical LMR Provider 04/26/17 07/13/21 Yulia Luong NP [address] [place] [address] [place] [address] Historical LMR Provider 04/26/17 Smiley Mckee MD [address] [facility], 1st [place] [address] Historical LMR Provider 04/26/17 Maxime Sierra MD [address] [place] [address], [address] [place] [address] Historical LMR Provider 04/26/17 07/13/21 Marhsa De León MD [address] [place] [phone] Historical LMR Provider 04/26/17 2 Dona Barrios MD [address] [place] [address] Orthopedics & Sports Medicine, [place] [address] [email or web address] Historical LMR Provider 04/26/17 Vanessa Banuelos PA [address] [place] [address] Referring Physician Physician Barrel Brander 10/14/24 Sharmila Miranda, [facility] [address] [place] [address] [email or web address], [facility] Oncology 11/10/24 Vanessa Banuelos PA [address] [place] [address] Referring Physician Physician Barrel Brander 03/16/25 Rebecca Villalta, [facility] [address] [place] [address] [email or web address] 04/05/25 documented as of this encounter Additional Source Comments The information contained in this document represents components of the legal health record. It is not the complete legal health record.[facility]
--- OUTSIDE RECORDS SUMMARY | 2025-04-19 18:41 | XMS_ITS | Encounter Summary ---
Author Organization [facility] Address [address] [place] [address] [place] [address] Phone Care Team Providers Care Mulling Machine Operator Name Role Phone Amira Faust Unavailable Abi Loya CNM Unavailable [phone] Natalie Hart FLEET SERVICE MANAGER Unavailable Tayler Holbrook FLEET SERVICE MANAGER Unavailable Unavailable Archie Graham MD Unavailable Yulia Luong FLEET SERVICE MANAGER Unavailable [phone] Smiley Mckee MD Unavailable [phone] Maxime Sierra MD Unavailable Marsha De León MD Unavailable [phone] Dona Barrios MD Unavailable Amira Faust Primary Care Provider Vanessa Banuelos Primary Care Provider [phone] Vanessa Banuelos Unavailable [phone] Sharmila Miranda SALES AND MARKETING ADMINISTRATOR Unavailable [phone] Vanessa Banuelos Unavailable [phone] Rebecca Villalta SALES AND MARKETING ADMINISTRATOR Unavailable [phone] Encounter Details Date Type Department Care Team (Late st Contact Info) Description 08/13/2017 Ancillary Orders [facility], X-Ray - [address] [address] Amira Faust PA [address] [place] [address] [email or web address]; Wheezing Social History Tobacco Use Types Packs/Day Years [...] 3:00 PM EDT Telemedicine - audio only [facility], [address]th [place] [address] Addie Michaud PA-C [address] [place] [address] [email or web address] Beth Beckford MD [address] [place] [address] [email or web address] 05/01/2025 8:30 AM EDT Office Visit [facility] Hematology [address] [place] [address] Edwardo Jose MD [address] [facility] [place] [address] [email or web address] 05/05/2025 9:40 AM EDT Office Visit [facility] Diabetes [address] [address] Smiley Mckee MD [address] [place] [address], [address] [place] [address] 07/11/2025 1:15 PM EST Office Visit [facility] Lung [facility] [address] [place] [address] Miguel Maguire MD, MPH [address] [place] [address] 08/16/2025 3:00 PM EST Nutrition [address] [address] Tayler Bingham LDN [address] [place] [address], [address] [place] [address] documented as of this encounter Results * XR CHEST PA AND LATERAL 2 VIEWS (08/13/2017 3:36 PM EST) Anatomical Region Laterality Modality Chest Radiographic Marcia ging 08/13/2017 3:41 PM EST Impressions 08/13/2017 3:42 PM EST Negative chest radiographs. POS - [id number] Narrative 08/13/2017 3:42 PM EST HISTORY: Cough and wheezing. COMPARISON: Chest x-ray 06/08/2015 FINDINGS: PA and lateral views of the chest obtained. The lungs are clear. No evidence of pleural effusions or pneumothorax. Great vessel and cardiomediastinal contours are stable and remain within normal limits. Procedure Note Jj Pavon MD - 08/13/2017 HISTORY: Cough and wheezing. COMPARISON: Chest x-ray 06/08/2015 FINDINGS: PA and lateral views of the chest obtained. The lungs are clear. No evidence of pleural effusions or pneumothorax.Great vessel and cardiomediastinal contours are stable and remain withinnormal limits. IMPRESSION: Negative chest radiographs. POS - [id number] Amira STILES IMG XR CHEST Final Result documented in this encounter Visit Diagnoses Diagnosis Cough Wheezing Cough Wheezing documented in this encounter Additional Health Concerns Infection Onset Date Last Indicated Resolved Time CDiff-Risk 02/09/2025 02/09/2025 02/09/2025 8:05 PM EDT CDiff-Risk 02/10/2025 02/11/2025 02/11/2025 10:0 6 AM EDT TB-Risk Comment:Resolved from TB-Risk Infection Status Resolution Note 02/15/2025 02/15/2025 025 10:41 AM EDT CoV-Risk 04/19/2025 04/19/2025 documented as of this encounter Care Teams Mulling Machine Operator Relationship Specialty Start Date End Date Amira Faust PA [address] [place] [address] PCP - General Unknown Provider Specialty 05/27/17 10/13/24 Vanessa Banuelos PA [address] [place] [address] PCP - General Physician Wildlife Biostation Research Ecologist 10/14/24 Amira Faust PA [address] [place] [address] Historical LMR Provider 04/26/17 Abi Loya CNM [address] [place] [address] Historical LMR Provider 04/26/17 07/13/21 Natalie Hart NP [address] [place] [address] Historical LMR Provider 04/26/17 2 Tayler Holbrook NP [address] [place] [address] Historical LMR Provider 04/26/1707/13 Archie Graham MD [address] [place] [address] Historical LMR Provider 04/26/17 07/13/21 Yulia Luong NP [address] [place] [address] Historical LMR Provider 04/26/17 Smiley Mckee MD [address] [place] [address], 1[address] [place] [address] Historical LMR Provider 04/26/17 Maxime Sierra MD [address] [place] [address] Historical LMR Provider 04/26/17 07/13/21 Marsha De León MD [address] [place] [phone] Historical LMR Provider 04/26/17 2 Dona Barrios MD [address] [place] [address] Orthopedics & Sports Medicine, [place] [address] [email or web address] Historical LMR Provider 04/26/17 Vanessa Banuelos PA [address] [place] [address] Referring Physician Physician Wildlife Biostation Research Ecologist 10/14/24 Sharmila Miranda, [facility] [address] [place] [address] [email or web address] Financial Aids Officer Oncology 11/10/24 Vanessa Banuelos PA [address] [place] [address] Referring Physician Physician Wildlife Biostation Research Ecologist 03/16/25 Rebecca Villalta, [facility] [address] [place] [address] [email or web address] Financial Aids Officer Oncology 04/05/25 documented as of this encounter Additional Source Comments The information contained in this document represents components of the legal health record. It is not the complete legal health record.[facility]
--- OUTSIDE RECORDS SUMMARY | 2025-04-19 18:41 | XMS_ITS | Clinical Summary ---
Author Organization [facility] Address [address] [place] [id number] Phone Care Team Providers Care Certified Pediatric Nurse Practitioner Name Role Phone Amira Faust Unavailable [phone] Smiley Mckee MD Unavailable [phone] Vanessa Banuelos Primary Care Provider [phone] Vanessa Banuelos Unavailable Sharmila Miranda [facility] Unavailable Vanessa Banuelos Unavailable Rebecca Villalta [facility] Unavailable [phone] Allergies No known active allergies Medications subcutaneous insulin pump Misc as directed 015 Active infusion set for insulin pump ISet as directed Active valACYclovir (VALTREX) 1000 MG tablet as needed. 020 Active multivitamins capsule Take 1 capsule by mouth daily. Active OMNIPOD 5 G6 INTRO KIT, GEN 5, CrtgIndications:T ype 1 diabetes mellitus without complication,Insu james pump in place Inject 1 each under the skin daily. 1 each 023 Active OMNIPOD 5 G6 PODS, GEN 5, CrtgIndications:T ype 1 diabetes mellitus without complication,Insu james pump in place INJECT 1 EACH UNDER THE SKIN EVERY OTHER DAY. 45 each 3 024 Active glucagon (BAQSIMI) 3 mg/actuation SpryIndications:T ype 1 diabetes mellitus without complication 1 spray by Nasal route as needed. 2 each 1 024 Active DEXCOM G6 SENSOR DeviIndications:T ype 1 diabetes mellitus without complication,Insu james pump in place APPLY SENSOR DIRECTED EVERY 10 DAYS 9 each 3 025 Active NOVOLOG U-100 INSULIN ASPART 100 unit/mL injection vialIndications:T ype 1 diabetes mellitus without complication Inject 130 Units under the skin daily via insulin pump 120 mL 3 025 Active DEXCOM G6 TRANSMITTER DeviIndications:T ype 1 diabetes mellitus without complication,Insu james pump in place 1 each by Miscellaneous route every 3 (three) months. 1 each 3 025 Active ONETOUCH VERIO Strp stripsIndications :Type 1 diabetes mellitus without complication 1 each by Miscellaneous route 3 (three) times a day before meals. E10.9 300 strip 3 025 Active ONETOUCH VERIO FLEX METER Misc meterIndications: Type 1 diabetes mellitus without complication by Miscellaneous route 3 (three) times a day before meals. 1 each 025 Active insulin glargine (LANTUS SOLOSTAR U-100 INSULIN) 100 unit/mL (3 mL) InPn injection penIndications:Ty pe 1 diabetes mellitus without complication,Insu james pump in place Inject 16 Units under the skin daily. Administer once daily in case of insulin pump failure E10.9 Z96.41 15 mL 1 025 Active sertraline (ZOLOFT) 100 MG tablet Take 100 mg by mouth daily. Active CHOLECALCIFEROL 25 mcg (1,000 unit) tablet Take 1 tablet by mouth every morning. 025 Active WIXELA INHUB 250-50 mcg/dose DISKUS Inhale 250 mcg/actuation of fluticasone into the lungs every morning. Active varenicline tartrate (CHANTIX) 1 mg tablet Take 1 mg by mouth daily. Active acetaminophen (TYLENOL) 325 mg tablet Take 3 tablets (975 mg total) by mouth every 6 (six) hours. 60 tablet Active gabapentin (NEURONTIN) 300 MG capsule Take 2 capsules (600 mg total) by mouth every 8 (eight) hours. 180 capsule Active polyethylene glycol (MIRALAX) 17 gram packet Take 17 g by mouth daily. 14 packet Active senna (SENOKOT) 8.6 mg tablet Take 2 tablets by mouth nightly at bedtime. 14 tablet Active Additional Information Patient not taking.Reported on 03/14/2025 melatonin 3 mg Tab Take 1 tablet (3 mg total) by mouth nightly at bedtime. Active Additional Information Patient not taking.Reported on 03/14/2025 docusate sodium (COLACE) 100 MG capsule Take 1 capsule (100 mg total) by mouth 2 (two) times a day. 14 capsule Active Additional Information Patient not taking.Reported on 03/14/2025 OMNIPOD 5 G6-G7 PODS, GEN 5, CrtgIndications:T ype 1 diabetes mellitus without complications,Pre sence of insulin pump (external) (internal) Inject 1 each under the skin every other day. E10.9 45 each 3 Active aspirin 81 MG EC tablet TAKE 1 TABLET BY MOUTH EVERY DAY 90 tablet 1 Active esomeprazole (NEXIUM) 20 MG capsule TAKE 1 CAPSULE BY MOUTH EVERY DAY 90 capsule 1 Active folic acid (FOLVITE) 1 MG tabletIndications :Non-small cell cancer of right lung Take 1 tablet (1 mg total) by mouth daily. 30 tablet 3 Active dexAMETHasone (DECADRON) 4 MG tabletIndications :Non-small cell cancer of right lung Take 1 tablet (4 mg total) by mouth as directed. Take twice daily on the day before, the day of, and the day following chemotherapy. 30 tablet Active prochlorperazine (COMPAZINE) 5 MG tabletIndications :Non-small cell carcinoma of left lung, stage 4 Take 1 tablet (5 mg total) by mouth every 6 (six) hours as needed for nausea (to be taken if nausea/vomiting not improving with zofran). 120 tablet 025 2024 Active ondansetron (ZOFRAN) 8 MG tabletIndications :Non-small cell carcinoma of left lung, stage 4 Take 1 tablet (8 mg total) by mouth every 8 (eight) hours as needed for nausea. 90 tablet 1 2024 Active OLANZapine (ZYPREXA) 2.5 MG tablet Take 1 tablet (2.5 mg total) by mouth nightly at bedtime. 30 tablet Active ferrous sulfate 325 mg (65 mg penobscot iron) tablet Take 1 tablet (325 mg total) by mouth daily with breakfast. 30 tablet 1 Active LORazepam (ATIVAN) 0.5 MG tablet Take 1 tablet (0.5 mg total) by mouth 2 (two) times a day as needed for anxiety. 30 tablet Active oxyCODONE 5 MG immediate release tablet Take 1 tablet (5 mg total) by mouth every 4 (four) hours as needed for pain (specific location in comments). Partial fill ok. Do not drink alcohol, operate heavy machinery, or drive while taking this medication. 30 tablet Active LORazepam (ATIVAN) 0.5 MG tablet Take 0.5 mg by mouth 2 (two) times a day as needed for anxiety. 2024 Discontinued(R eorder) esomeprazole (NEXIUM) 20 MG capsule Take 1 capsule (20 mg total) by mouth daily. 30 capsule 2024 Discontinued aspirin 81 MG EC tablet Take 1 tablet (81 mg total) by mouth daily. 30 tablet 2024 Discontinued oxyCODONE 5 MG immediate release tablet Take 1-3 tablets (5-15 mg total) by mouth every 3 (three) hours as needed for pain (specific location in comments). Partial fill ok. Do not drink alcohol, operate heavy machinery, or drive while taking this medication. 80 tablet 025 2024 Discontinued(R eorder) oxyCODONE 5 MG immediate release tablet Take 1 tablet (5 mg total) by mouth every 4 (four) hours as needed for pain (specific location in comments). Partial fill ok. Do not drink alcohol, operate heavy machinery, or drive while taking this medication. 20 tablet 025 2024 Discontinued(R eorder) doxycycline monohydrate (MONODOX) 100 MG capsule Take 1 capsule (100 mg total) by mouth 2 (two) times a day for 5 days. 10 capsule 025 2024 Discontinued ondansetron (ZOFRAN-ODT) 4 MG disintegrating tablet Take 1 tablet (4 mg total) by mouth every 8 (eight) hours for 4 days. 12 tablet 025 2024 doxycycline monohydrate (MONODOX) 100 MG capsule Take 1 capsule (100 mg total) by mouth 2 (two) times a day for 7 days. 14 capsule 025 2024 cefpodoxime (VANTIN) 200 MG tablet Take 1 tablet (200 mg total) by mouth 2 (two) times a day for 5 days. 10 tablet 025 2024 Active Problems Problem Noted Date Diagnosed Date [...] Jailene will return to meet with our prosthodontist/educator staff in 3 months and we will [...] Jailene will return to meet with our prosthodontist/educator staff in 2 months and we will [...] Jailene will return to meet with our prosthodontist/educator staff in 3 months and we will [...] otherwise she can get this filled at [facility] Assessment & Plan (08/07/2023 1:57 PM [...] on Medtronic pump, these were transferred to [employer] G6 shimon Automated Mode started today, though [...] OR AutoMode Encouraged to reach out to [employer] to discuss recent sensor issues Encouraged to [...] reduce risk of hypoglycemia Advised to contact [employer] regarding Enlite sensor inconsistency, she may need a replacement of this Advised continued rotation of insulin pump infusion sets Hypertensive disorder 07/06/2001 Overview (01/18/2025): pre-eclampsia ( , 2001) No current meds Genital herpes simplex Overview (01/18/2025): oral herpes Pneumonia Depression Overview (01/18/2025): managed with sertraline No SI or HI Sleep apnea Overview (01/18/2025): uses oral appliance - unable to tolerate CPAP Resolved Problems Problem Noted Date Diagnosed Date Resolved Date Acute appendicitis 11/26/2022 Insulin pump fitting or adjustment 08/15/2019 07/31/2020 Encounters Date Type Department Care Team Description 04/19/2025 5:24 PM EDT - Present Emergency [facility] [address] [place] [address] Tab Landeros MD 04/18/2025 Telephone [facility] Thoracic Surgery [address] [address] Ary Bowling PA-C 04/12/2025 Orders Only [facility] Thoracic Oncology, [facility] [address] [facility], [address] [place] [address] Dania Angeles NP 04/11/2025 11:00 AM EDT Infusion Infusion Therapy Services [facility] at [address] [address] Beth Beckford MD Berns, Morgan Samuel, RN Non-small cell cancer of right lung (Primary Dx) 04/11/2025 10:00 AM EDT Office Visit [facility] Thoracic Oncology, [facility] at [place] [address] [address] Addie Michaud PA-C Non-small cell cancer of right lung (Primary Dx); Iron deficiency anemia, unspecified iron deficiency anemia type; Post-op pain; Type 1 diabetes mellitus without complications; Thrombocytosis; Other constipation; Encounter for antineoplastic chemotherapy 04/10/2025 Orders Only Adult Survivorship Program, [facility] [address] [facility], 6th [place] [address] Susy Tsai MD Non-small cell cancer of right lung (Primary Dx) 04/07/2025 3:00 PM EDT Telemedicine [facility] Thoracic Oncology, [facility] [address] [facility], [address] [place] [address] Addie Michaud PA-C Marks, Jennifer Aline, MD Non-small cell cancer of right lung (Primary Dx); Anemia, unspecified type; Type 1 diabetes mellitus without complications; Post-op pain; Encounter for education 04/04/2025 10:00 AM EDT Office Visit [facility], [facility] [place] [facility] [place] [address] 4th [place] [address] Beth Beckford MD Non-small cell cancer of right lung (Primary Dx); Non-small cell carcinoma of left lung, stage 4 03/30/2025 11:56 AM EDT - 03/30/2025 6:41 PM EDT Emergency [facility] [address] [place] [address] Mary Stokes MD Discharge Disposition: Home or Self Care 03/30/2025 Procedure Pass [facility], Ct Scan - [facility] [address] [place] [address] 03/27/2025 Orders Only [facility] Thoracic Surgery [address] [address] Blake Winter PA-C, MPH 03/24/2025 Telephone [facility] Thoracic Surgery [address] [address] Nara Cruz PA-C 03/23/2025 Telephone [facility] Thoracic Surgery [address] [address] Mariangel Ash PA-C 03/23/2025 Refill [facility] [address] [place] [address] Celio Torres PA-C Med Change Request 03/20/2025 Telephone [facility] Thoracic Surgery [address] [address] Ann Tavera PA-C 03/14/2025 12:45 PM EDT Office Visit [facility] [address] [place] [address] Miguel Harris MD, MPH S/P lobectomy of lung (Primary Dx) 03/14/2025 12:01 PM EDT - 03/14/2025 11:59 PM EDT Hospital Encounter [facility] [address] [place] [address] Miguel Harris MD, MPH Discharge Disposition: Home or Self Care 03/14/2025 Orders Only [facility] 15 [place] [address] Miguel Harris MD, MPH Non-small cell cancer of right lung (Primary Dx) 03/05/2025 Refill [facility] [address] [place] [address] Smiley Mckee MD Medication Refill 03/01/2025 Orders Only [facility] Thoracic Surgery [address] [address] Yoli Whaley Lung nodules (Primary Dx) 02/24/[address] [address] Crissy De La Cruz PA-C Medication Refill 02/16/2025 4:25 PM EDT Ancillary Procedure [facility] Radiology [address] [place] [address] Annie Galeano PA-C Hasson, Rian M, MD, MPH 02/13/2025 7:42 AM EDT Anesthesia Event [address] [address] Melani Brizuela MD Yousef, Ahmed, MD 02/13/2025 7:30 AM EDT - 02/13/2025 11:48 AM EDT Surgery [address] [address] Miguel Harris MD, MPH THORACOSCOPY VIDEO ASSISTED DECORTICATION 02/13/2025 Procedure Pass [address] [address] 02/09/2025 4:15 PM EDT Anesthesia Event [address] [address] Armando Myers MD Billings, Felicity S, MD 02/09/2025 2:58 PM EDT - 02/09/2025 4:33 PM EDT Surgery [facility] [address] [address] Miguel Harris MD, MPH BRONCHOSCOPY FLEXIBLE 02/09/2025 Procedure Pass [facility] Peri [address] [place] [address] 02/04/2025 Procedure Pass [facility] Radiology [address] [place] [address] 01/26/2025 Documentation Social Work Department, [facility] [place] [address] [place] [address] Lita Vasquez 01/26/2025 Orders Only [facility] [address] [place] [id number] Homehealth, Interface ProviderMD 01/25/2025 12:07 PM EDT Anesthesia Event [address] [address] Andres Be DO Boughan, Amy Louise, KVNG 01/25/2025 11:15 AM EDT - 01/25/2025 5:13 PM EDT Surgery [address] [address] Miguel Harris MD, MPH ERAS THORACOSCOPY VIDEO ASSISTED BILOBECTOMY 01/25/2025 9:36 AM EDT - 03/01/2025 2:04 PM EDT Hospital Encounter [facility] SH [address] [place] [address] Miguel Harris MD, MPH Discharge Disposition: Home or Self Care 01/25/2025 9:24 AM EDT - 01/25/2025 9:35 AM EDT Hospital Encounter [facility] Phlebotomy Admitting [address] [place] [address] Discharge Disposition: Home or Self Care 01/25/2025 Prep for Surgery [address] [address] Miguel Harris MD, MPH Mass in chest (Primary Dx); S/P lobectomy of lung 01/25/2025 Procedure Pass [facility] [address] [address] 01/24/2025 Orders Only [facility] Thoracic Surgery [address] [address] Meir English MD 01/23/2025 3:24 PM EDT - 01/23/2025 11:59 PM EDT Hospital Encounter [facility] Radiology [address] [place] [address] Miguel Harris MD, MPH Discharge Disposition: Home or Self Care 01/23/2025 3:11 PM EDT - 01/23/2025 3:23 PM EDT Hospital Encounter [facility] Phlebotomy [facility] [place] [address] [place] [address] Miguel Harris MD, MPH Discharge Disposition: Home or Self Care 01/23/2025 Procedure Pass [facility] Radiology [address] [place] [address] 01/23/2025 Orders Only [facility] Thoracic Surgery 15 [facility] [address] [place] [address] Brenna Russell Primary lung adenocarcinoma, left (Primary Dx) 01/18/2025 12:30 PM EDT Pre-Admission Testing [facility] 45 [facility] 2nd [place] [address] Miguel Harris MD, MPH Hypertensive disorder (Primary Dx); Genital herpes simplex; Pneumonia; Depression; Insulin pump fitting or adjustment; Sleep apnea; Type 1 diabetes mellitus without complication; Pre-op evaluation; NSCLC of right lung 01/18/2025 Telephone [facility] [address] [place] [address] [place] [address] Smiley Mckee MD from Last 3 Months Immunizations Immunization Administration Dates Next Due Influenza Quadrivalent Preservative Free IM 06/05 Tdap 09/12/2019 Family History Medical History Relation Comments Diabetes Father He had type 2 di abetes Heart disease Father He had 5 way byp ass in 2009 Lung cancer Maternal Aunt 1 2 types of lung cancer Cancer Maternal Aunt 2 She had 2 differ ent types of lung cancer Cancer Maternal Uncle He i n 2009 of lung cancer Lung cancer Maternal Uncle Breast cancer Neg Hx Relation Status Comments Father Alive Maternal Aunt 1 Maternal Aunt 2 Alive Maternal Uncle Social History Tobacco Use Types Packs/Day Years Used Date Smoking Tobacco: Every Day Cigarettes 1 39.4 Started: 07/06/1985; Last attempted to quit: 12/02/2024 Passive Smoke Exposure: Past Smokeless Tobacco: Never Tobacco Cessation:Ready to Q uit: Not Asked; Counseling Given: Not Answered Comments:I v e been wearing the patch [...] high school, GED, job training, learning the American language, technical skills, or developing parenting skills)? [...] Orientation Straight 03/16/2025 2: 26 PM EDT Last Filed Vital Signs Vital Sign Reading Time Taken Comments Blood Pressure 170/120 04/19/2025 4:41 PM EDT Pulse 136 04/19/2025 4:41 PM EDT Temperature 36.7 C (98.1 F) 04/19/2025 4:41 PM EDT Respiratory Rate 40 04/19/2025 4:41 PM EDT Oxygen Saturation 99% 04/19/2025 4:41 PM EDT Inhaled Oxygen Concentration 100% 02/13/2025 3 :01 PM EDT Weight 54.9 kg (121 lb) 04/19/2025 4:41 PM EDT Height 167.6 cm (5' 6 ) 04/19/2025 4:41 PM EDT Body Mass Index 19.53 04/19/2025 4:41 PM EDT Plan of Treatment Upcoming Encounters Date Type Department Care Team (Late st Contact Info) Description 04/21/2025 3:00 PM EDT Telemedicine - audio only [facility] for Thor[facility] Oncology, [address], 9th [place] [address] Addie Michaud PA-C [address] [place] [address] [email or web address] Beth Beckford MD [address] [place], [place] [address] [place] [address] [email or web address] 05/01/2025 8:30 AM EDT Office Visit [facility] Hematology [address] [place] [address] Edwardo Jose MD 75 [facility] [place] [address] [email or web address] 05/05/2025 9:40 AM EDT Office Visit [facility] [address] [place] [address] Smiley Mckee MD [address] [place] [address] 07/11/2025 1:15 PM EST Office Visit [facility] [address] [place] [address] Miguel Harris MD, MPH [address] [place] [address] 08/16/2025 3:00 PM EST Nutrition [facility] [address] [place] [address] Tayler Bingham LDN [address] [place] [address] Health Maintenance Due Date Last Done Comments PNEUMOCOCCAL VACCINES (50+ years) (1 of 2 - PCV) 1989 ZOSTER VACCINES (1 of 2) 1989 COLOGUARD 2015 FIT TEST 2015 FOBT 2015 SIGMOIDOSCOPY 2015 VIRTUAL COLONOSCOPY 2015 DIABETIC EYE EXAM 05/27/2017 RSV VACCINE (1 - Risk 50-74 years 1-dose series) 01/12/2020 LIPID PANEL 12/10/2024 12/11/2023, 11/03, 10/12/2021, Additional history exists URINE MICROALBUMIN/CREATININE RATIO 12/13/2024 12/14/2023, 11/18/2022, 10/15/2021, Additional history exists MAMMOGRAM 12/16/2024 12/16/2022, 11/03, 07/14/2019, Additional history exists INFLUENZA VACCINE (#1) 2025 07/31/2022, 2019 COVID-19 VACCINE ( season) 2025 06/26/2021, 09/06/2020, 08/09/2020 HEMOGLOBIN A1C 04/27/2025 01/25/2025, 01/04, 10/14/2024, Additional history exists PAP SMEAR 08/27/2025 08/27/2020, 03/06, 03/20/2016 BLOOD PRESSURE 10/10/2025 04/11/2025 DEPRESSION SCREENING 03/14/2026 03/14/2025 SMOKING Hx and SMOKELESS TOBACCO SCREENING 04/04/2026 04/04/2025 Adult Td,Tdap Booster 09/11/2029 09/12/2019 COLONOSCOPY 09/22/2029 09/23/2019 COLORECTAL CANCER SCREENING 09/22/2029 HEPATITIS C SCREENING Completed 09/13/2018 HIV ONE-TIME SCREENING (18-65 YEARS) Completed 09/13/2018 HEPATITIS A VACCINES Aged Out No long er eligible based on patient's age to complete this topic HIB VACCINES Aged Out No longer eligi ble based on patient's age to complete this topic MENINGOCOCCAL VACCINES (ACWY) Aged Out No longer eligible based on patient's age to complete this topic MENINGOCOCCAL VACCINES (B) Aged Out N o longer eligible based on patient's age to complete this topic Medical Devices Not on file Procedures * The patient is currently admitted. The information in this section might not be complete until the patient is discharged. Procedure Name Priority Date/Time Associated Diagnosis Comments TROPONIN STAT 04/19/2025 6:04 PM EDT CBC AND DIFFERENTIAL STAT 04/19/2025 6:04 PM EDT X-LABEL/STUDY Routine 04/11/2025 10:26 AM EDT Non-small cell cancer of right lung FOLATE Routine 04/11/2025 10:26 AM EDT Anemia, unspecified type VITAMIN B12 Routine 04/11/2025 10:26 AM EDT Anemia, unspecified type FERRITIN Routine 04/11/2025 10:26 AM EDT Anemia, unspecified type IRON AND IRON BINDING CAPACITY Routine 04/11/2025 10:26 AM EDT Anemia, unspecified type COMPREHENSIVE METABOLIC PANEL Routine 04/11/2025 10:26 AM EDT Non-small cell cancer of right lung HC BLOOD COUNT COMPLETE AUTO&AUTO DIFRNTL WBC Routine 04/11/2025 10:26 AM EDT Non-small cell cancer of right lung CT CHEST PULMONARY ANGIOGRAM (ACUTE) Routine 03/30/2025 3:33 PM EDT MAGNESIUM STAT 03/30/2025 1:07 PM EDT LFTS (HEPATIC PANEL) STAT 03/30/2025 1:07 PM EDT BASIC METABOLIC PANEL STAT 03/30/2025 1:07 PM EDT CBC AND DIFFERENTIAL STAT 03/30/2025 1:07 PM EDT XR CHEST PA AND LATERAL 2 VIEWS Routine 03/30/2025 11:51 AM EDT XR CHEST PA AND LATERAL 2 VIEWS Routine 03/14/2025 12:19 PM EDT Lung nodules POCT GLUCOSE Routine 03/01/2025 12:12 PM EDT XR CHEST PA AND LATERAL 2 VIEWS Routine 03/01/2025 9:53 AM EDT POCT GLUCOSE Routine 03/01/2025 7:58 AM EDT POCT GLUCOSE Routine 02/28/2025 9:18 PM EDT POCT GLUCOSE Routine 02/28/2025 5:51 PM EDT POCT GLUCOSE Routine 02/28/2025 4:09 PM EDT POCT GLUCOSE Routine 02/28/2025 3:20 PM EDT POCT GLUCOSE Routine 02/28/2025 2:27 PM EDT POCT GLUCOSE Routine 02/28/2025 11:25 AM EDT POCT GLUCOSE Routine 02/28/2025 11:03 AM EDT POCT GLUCOSE Routine 02/28/2025 10:56 AM EDT XR CHEST PA AND LATERAL 2 VIEWS Routine 02/28/2025 10:16 AM EDT XR CHEST PA AND LATERAL 2 VIEWS Routine 02/28/2025 8:15 AM EDT POCT GLUCOSE Routine 02/28/2025 8:07 AM EDT CBC Routine 02/28/2025 5:34 AM EDT MAGNESIUM Routine 02/28/2025 5:34 AM EDT BASIC METABOLIC PANEL Routine 02/28/2025 5:34 AM EDT POCT GLUCOSE Routine 02/27/2025 10:37 PM EDT POCT GLUCOSE Routine 02/27/2025 10:34 PM EDT POCT GLUCOSE Routine 02/27/2025 9:57 PM EDT POCT GLUCOSE Routine 02/27/2025 9:50 PM EDT POCT GLUCOSE Routine 02/27/2025 4:47 PM EDT XR CHEST PA AND LATERAL 2 VIEWS Routine 02/27/2025 12:18 PM EDT POCT GLUCOSE Routine 02/27/2025 12:10 PM EDT POCT GLUCOSE Routine 02/27/2025 8:18 AM EDT CBC Routine 02/27/2025 6:03 AM EDT MAGNESIUM Routine 02/27/2025 6:03 AM EDT BASIC METABOLIC PANEL Routine 02/27/2025 6:03 AM EDT POCT GLUCOSE Routine 02/26/2025 11:21 PM EDT POCT GLUCOSE Routine 02/26/2025 10:52 PM EDT POCT GLUCOSE Routine 02/26/2025 9:06 PM EDT POCT GLUCOSE Routine 02/26/2025 4:49 PM EDT POCT GLUCOSE Routine 02/26/2025 12:53 PM EDT XR CHEST PA AND LATERAL 2 VIEWS Imaging in AM 02/26/2025 10:22 AM EDT POCT GLUCOSE Routine 02/26/2025 8:06 AM EDT CBC Routine 02/26/2025 5:14 AM EDT MAGNESIUM Routine 02/26/2025 5:14 AM EDT BASIC METABOLIC PANEL Routine 02/26/2025 5:14 AM EDT POCT GLUCOSE Routine 02/25/2025 11:23 PM EDT POCT GLUCOSE Routine 02/25/2025 11:11 PM EDT POCT GLUCOSE Routine 02/25/2025 10:25 PM EDT POCT GLUCOSE Routine 02/25/2025 8:14 PM EDT POCT GLUCOSE Routine 02/25/2025 7:28 PM EDT POCT GLUCOSE Routine 02/25/2025 5:27 PM EDT POCT GLUCOSE Routine 02/25/2025 11:41 AM EDT XR CHEST PA AND LATERAL 2 VIEWS Routine 02/25/2025 10:04 AM EDT POCT GLUCOSE Routine 02/25/2025 7:48 AM EDT CBC Routine 02/25/2025 5:15 AM EDT MAGNESIUM Routine 02/25/2025 5:15 AM EDT BASIC METABOLIC PANEL Routine 02/25/2025 5:15 AM EDT PREPARE RBC STAT 02/25/2025 12:08 AM EDT POCT GLUCOSE Routine 02/24/2025 9:18 PM EDT POCT GLUCOSE Routine 02/24/2025 7:40 PM EDT COMPREHENSIVE METABOLIC PANEL STAT 02/24/2025 5:29 PM EDT KETONE BODIES, SERUM STAT 02/24/2025 5:29 PM EDT POCT GLUCOSE Routine 02/24/2025 5:15 PM EDT POCT GLUCOSE Routine 02/24/2025 4:45 PM EDT XR CHEST PA AND LATERAL 2 VIEWS Routine 02/24/2025 2:30 PM EDT POCT GLUCOSE Routine 02/24/2025 12:19 PM EDT XR CHEST PA AND LATERAL 2 VIEWS Routine 02/24/2025 10:04 AM EDT POCT GLUCOSE Routine 02/24/2025 7:48 AM EDT CBC AND DIFFERENTIAL Routine 02/24/2025 5:28 AM EDT MAGNESIUM Routine 02/24/2025 5:28 AM EDT BASIC METABOLIC PANEL Routine 02/24/2025 5:28 AM EDT CBC Routine 02/24/2025 12:01 AM EDT POCT GLUCOSE Routine 02/23/2025 8:45 PM EDT TRANSFUSE RED BLOOD CELLS STAT 02/23/2025 8:29 PM EDT POCT GLUCOSE Routine 02/23/2025 6:58 PM EDT TYPE AND SCREEN (ABO,RH,ANTIBODY SCREEN) STAT 02/23/2025 5:23 PM EDT CBC STAT 02/23/2025 1:39 PM EDT POCT GLUCOSE Routine 02/23/2025 12:19 PM EDT XR CHEST PORTABLE Routine 02/23/2025 9:1 5 AM EDT POCT GLUCOSE Routine 02/23/2025 7:45 AM EDT CBC Routine 02/23/2025 5:10 AM EDT MAGNESIUM Routine 02/23/2025 5:10 AM EDT BASIC METABOLIC PANEL Routine 02/23/2025 5:10 AM EDT POCT GLUCOSE Routine 02/22/2025 10:28 PM EDT POCT GLUCOSE Routine 02/22/2025 5:29 PM EDT XR CHEST PORTABLE Routine 02/22/2025 2:3 6 PM EDT POCT GLUCOSE Routine 02/22/2025 11:44 AM EDT XR CHEST PORTABLE Routine 02/22/2025 11:26 AM EDT POCT GLUCOSE Routine 02/22/2025 7:56 AM EDT CBC Routine 02/22/2025 6:17 AM EDT MAGNESIUM Routine 02/22/2025 6:17 AM EDT BASIC METABOLIC PANEL Routine 02/22/2025 6:17 AM EDT POCT GLUCOSE Routine 02/21/2025 9:36 PM EDT POCT GLUCOSE Routine 02/21/2025 5:44 PM EDT LAB ADD ON Routine 02/21/2025 4:30 PM EDT POCT GLUCOSE Routine 02/21/2025 1:58 PM EDT ALBUMIN Routine 02/21/2025 11:56 AM EDT C-REACTIVE PROTEIN, HIGH SENSITIVITY Timed 02/21/2025 11:56 AM EDT SEDIMENTATION RATE (ESR) Timed 02/21/2025 11:56 AM EDT FERRITIN Timed 02/21/2025 11:56 AM EDT IRON AND IRON BINDING CAPACITY Timed 02/21/2025 11:56 AM EDT CBC AND DIFFERENTIAL Timed 02/21/2025 11:47 AM EDT XR CHEST PORTABLE Routine 02/21/2025 9:4 1 AM EDT POCT GLUCOSE Routine 02/21/2025 8:08 AM EDT CBC Routine 02/21/2025 6:09 AM EDT MAGNESIUM Routine 02/21/2025 6:09 AM EDT BASIC METABOLIC PANEL Routine 02/21/2025 6:09 AM EDT POCT GLUCOSE Routine 02/20/2025 9:47 PM EDT POCT GLUCOSE Routine 02/20/2025 9:26 PM EDT POCT GLUCOSE Routine 02/20/2025 9:06 PM EDT POCT GLUCOSE Routine 02/20/2025 8:50 PM EDT POCT GLUCOSE Routine 02/20/2025 8:37 PM EDT POCT GLUCOSE Routine 02/20/2025 5:04 PM EDT XR CHEST PORTABLE Routine 02/20/2025 3:2 2 PM EDT POCT GLUCOSE Routine 02/20/2025 12:11 PM EDT XR CHEST PORTABLE Routine 02/20/2025 9:1 7 AM EDT POCT GLUCOSE Routine 02/20/2025 7:32 AM EDT CBC Routine 02/20/2025 4:48 AM EDT MAGNESIUM Routine 02/20/2025 4:48 AM EDT BASIC METABOLIC PANEL Routine 02/20/2025 4:48 AM EDT POCT GLUCOSE Routine 02/19/2025 9:18 PM EDT POCT GLUCOSE Routine 02/19/2025 4:49 PM EDT POCT GLUCOSE Routine 02/19/2025 11:47 AM EDT XR CHEST PORTABLE Imaging in AM 02/19/2025 9:3 7 AM EDT POCT GLUCOSE Routine 02/19/2025 8:25 AM EDT CBC Routine 02/19/2025 4:26 AM EDT MAGNESIUM Routine 02/19/2025 4:26 AM EDT BASIC METABOLIC PANEL Routine 02/19/2025 4:26 AM EDT POCT GLUCOSE Routine 02/18/2025 9:13 PM EDT POCT GLUCOSE Routine 02/18/2025 5:22 PM EDT POCT GLUCOSE Routine 02/18/2025 12:26 PM EDT POCT GLUCOSE Routine 02/18/2025 11:34 AM EDT XR CHEST PORTABLE Imaging in AM 02/18/2025 9:3 6 AM EDT POCT GLUCOSE Routine 02/18/2025 7:19 AM EDT CBC Routine 02/18/2025 6:20 AM EDT MAGNESIUM Routine 02/18/2025 6:20 AM EDT BASIC METABOLIC PANEL Routine 02/18/2025 6:20 AM EDT POCT GLUCOSE Routine 02/17/2025 9:03 PM EDT POCT GLUCOSE Routine 02/17/2025 4:53 PM EDT POCT GLUCOSE Routine 02/17/2025 11:07 AM EDT XR CHEST PORTABLE Routine 02/17/2025 9:2 4 AM EDT POCT GLUCOSE Routine 02/17/2025 7:26 AM EDT CBC Routine 02/17/2025 6:03 AM EDT MAGNESIUM Routine 02/17/2025 6:03 AM EDT BASIC METABOLIC PANEL Routine 02/17/2025 6:03 AM EDT LIDOCAINE LEVEL Routine 02/16/2025 11:40 PM EDT MYCOBACTERIAL CULTURE/SMEAR Routine 02/16/2025 11:19 PM EDT POCT GLUCOSE Routine 02/16/2025 9:13 PM EDT POCT GLUCOSE Routine 02/16/2025 5:39 PM EDT INSERT PICC LINE Routine 02/16/2025 4:38 PM EDT POINT OF CARE IMAGE CAPTURE Routine 02/16/2025 4:22 PM EDT MYCOBACTERIAL CULTURE/SMEAR Routine 02/16/2025 12:51 PM EDT XR CHEST PORTABLE Routine 02/16/2025 10:54 AM EDT LIDOCAINE LEVEL Routine 02/16/2025 8:39 AM EDT CBC Routine 02/16/2025 8:39 AM EDT MAGNESIUM Routine 02/16/2025 8:39 AM EDT BASIC METABOLIC PANEL Routine 02/16/2025 8:39 AM EDT POCT GLUCOSE Routine 02/16/2025 8:08 AM EDT POCT GLUCOSE Routine 02/15/2025 10:20 PM EDT LIDOCAINE LEVEL STAT 02/15/2025 7:16 PM EDT POCT GLUCOSE Routine 02/15/2025 5:41 PM EDT LIDOCAINE LEVEL Timed 02/15/2025 3:19 PM EDT LIDOCAINE LEVEL STAT 02/15/2025 2:17 PM EDT POCT GLUCOSE Routine 02/15/2025 1:58 PM EDT CBC Routine 02/15/2025 11:18 AM EDT XR CHEST PA AND LATERAL 2 VIEWS Routine 02/15/2025 10:32 AM EDT LAB ADD ON Routine 02/15/2025 10:10 AM EDT LIDOCAINE LEVEL Routine 02/15/2025 8:16 AM EDT CBC Routine 02/15/2025 8:16 AM EDT MAGNESIUM Routine 02/15/2025 8:16 AM EDT BASIC METABOLIC PANEL Routine 02/15/2025 8:16 AM EDT POCT GLUCOSE Routine 02/15/2025 8:12 AM EDT POCT GLUCOSE Routine 02/14/2025 9:33 PM EDT ECG 12-LEAD Routine 02/14/2025 7:59 PM EDT ECG 12-LEAD Routine 02/14/2025 7:53 PM EDT POCT GLUCOSE Routine 02/14/2025 5:53 PM EDT POCT GLUCOSE Routine 02/14/2025 11:41 AM EDT XR CHEST PA AND LATERAL 2 VIEWS Imaging in AM 02/14/2025 11:36 AM EDT VANCOMYCIN, TROUGH Timed 02/14/2025 9: 25 AM EDT POCT GLUCOSE Routine 02/14/2025 8:06 AM EDT CBC Routine 02/14/2025 6:30 AM EDT MAGNESIUM Routine 02/14/2025 6:30 AM EDT BASIC METABOLIC PANEL Routine 02/14/2025 6:30 AM EDT POCT GLUCOSE Routine 02/13/2025 9:21 PM EDT POCT GLUCOSE Routine 02/13/2025 8:27 PM EDT ARTERIAL BLOOD GAS PLUS Routine 02/13/2025 3:50 PM EDT XR CHEST PORTABLE Routine 02/13/2025 3:4 7 PM EDT POCT GLUCOSE Routine 02/13/2025 3:26 PM EDT CBC Routine 02/13/2025 3:26 PM EDT BASIC METABOLIC PANEL Routine 02/13/2025 3:26 PM EDT MAGNESIUM Routine 02/13/2025 3:26 PM EDT IONIZED CALCIUM Routine 02/13/2025 3:26 PM EDT ARTERIAL BLOOD GAS Routine 02/13/2025 3: 26 PM EDT ARTERIAL BLOOD GAS PLUS STAT 02/13/2025 2:05 PM EDT PREPARE RBC STAT 02/13/2025 2:00 PM EDT ARTERIAL BLOOD GAS PLUS STAT 02/13/2025 1:05 PM EDT ARTERIAL BLOOD GAS PLUS STAT 02/13/2025 11:56 AM EDT TISSUE CULTURE/SMEAR Routine 02/13/2025 11:45 AM EDT FUNGAL CULTURE Routine 02/13/2025 11:45 AM EDT MYCOBACTERIAL CULTURE/SMEAR Routine 02/13/2025 11:45 AM EDT ANAEROBIC CULTURE Routine 02/13/2025 11:45 AM EDT ARTERIAL BLOOD GAS PLUS STAT 02/13/2025 10:57 AM EDT ARTERIAL BLOOD GAS PLUS STAT 02/13/2025 9:29 AM EDT AIRWAY PLACEMENT Routine 02/13/2025 7:59 AM EDT RI INSERT CATH ART PERCUT SHORTTERM PERF Routine 02/13/2025 7:17 AM EDT RI THORACOSCOPY SURG TOT PULM DECORT 02/13/2025 7:00 AM EDT Non-small cell cancer of right lung RI INSERTION INDWELLING TUNNELED PLEURAL CATHETER 02/13/2025 7:00 AM EDT Non-small cell cancer of right lung RI THORACOSCOPY W/THERA WEDGE RESEXN INITIAL UNILAT 02/13/2025 7:00 AM EDT Non-small cell cancer of right lung RI BRONCHOSCOPY,RX ASPIR PULM TREE 02/13/2025 7:00 AM EDT Non-small cell cancer of right lung MAGNESIUM Routine 02/13/2025 6:24 AM EDT CBC Routine 02/13/2025 6:24 AM EDT BASIC METABOLIC PANEL Routine 02/13/2025 6:24 AM EDT ANATOMIC PATHOLOGY Routine 02/13/2025 12:00 AM EDT POCT GLUCOSE Routine 02/12/2025 9:45 PM EDT POCT GLUCOSE Routine 02/12/2025 5:11 PM EDT POCT GLUCOSE Routine 02/12/2025 12:30 PM EDT POCT GLUCOSE Routine 02/12/2025 11:54 AM EDT XR CHEST PA AND LATERAL 2 VIEWS Routine 02/12/2025 9:28 AM EDT POCT GLUCOSE Routine 02/12/2025 7:07 AM EDT MAGNESIUM Routine 02/12/2025 6:33 AM EDT CBC Routine 02/12/2025 6:33 AM EDT BASIC METABOLIC PANEL Routine 02/12/2025 6:33 AM EDT URINALYSIS W/REFLEX URINE CULTURE Routine 02/11/2025 11:38 PM EDT POCT GLUCOSE Routine 02/11/2025 9:57 PM EDT POCT GLUCOSE Routine 02/11/2025 6:09 PM EDT XR CHEST PA AND LATERAL 2 VIEWS Routine 02/11/2025 2:01 PM EDT POCT GLUCOSE Routine 02/11/2025 12:27 PM EDT POCT GLUCOSE Routine 02/11/2025 10:17 AM EDT POCT GLUCOSE Routine 02/11/2025 7:48 AM EDT MAGNESIUM Routine 02/11/2025 6:31 AM EDT CBC Routine 02/11/2025 6:31 AM EDT BASIC METABOLIC PANEL Routine 02/11/2025 6:31 AM EDT C. DIFFICILE PCR Routine 02/11/2025 2:00 AM EDT POCT GLUCOSE Routine 02/10/2025 9:44 PM EDT POCT GLUCOSE Routine 02/10/2025 4:32 PM EDT MRSA NASAL SCREEN Routine 02/10/2025 2:2 2 PM EDT POCT GLUCOSE Routine 02/10/2025 12:32 PM EDT XR CHEST PA AND LATERAL 2 VIEWS Routine 02/10/2025 9:22 AM EDT VANCOMYCIN, TROUGH Timed 02/10/2025 9: 09 AM EDT POCT GLUCOSE Routine 02/10/2025 7:41 AM EDT MAGNESIUM Routine 02/10/2025 6:24 AM EDT CBC Routine 02/10/2025 6:24 AM EDT BASIC METABOLIC PANEL Routine 02/10/2025 6:24 AM EDT POCT GLUCOSE Routine 02/09/2025 9:50 PM EDT XR CHEST PORTABLE Routine 02/09/2025 5:4 8 PM EDT POCT GLUCOSE Routine 02/09/2025 5:16 PM EDT COVID-19 RT-PCR Routine 02/09/2025 4:45 PM EDT COVID-19 RT-PCR/INFLUENZA A & B/RSV Routine 02/09/2025 4:45 PM EDT ADENOVIRUS, HMPV, RHINOVIRUS (PCR) Routine 02/09/2025 4:45 PM EDT INFLUENZA A & B & RSV (PCR) Routine 02/09/2025 4:45 PM EDT PNEUMOCYSTIS BY PCR Routine 02/09/2025 4 :45 PM EDT PARAINFLUENZA PCR Routine 02/09/2025 4:4 5 PM EDT RESPIRATORY CULTURE/SMEAR Routine 02/09/2025 4:45 PM EDT NOCARDIA CULTURE Routine 02/09/2025 4:45 PM EDT LEGIONELLA CULTURE Routine 02/09/2025 4: 45 PM EDT FUNGAL CULTURE Routine 02/09/2025 4:45 PM EDT MYCOBACTERIAL CULTURE/SMEAR Routine 02/09/2025 4:45 PM EDT ANAEROBIC CULTURE Routine 02/09/2025 4:4 5 PM EDT AIRWAY PLACEMENT Routine 02/09/2025 4:26 PM EDT POCT GLUCOSE Routine 02/09/2025 3:51 PM EDT RI BRNCHSC INCL FLUOR GDNCE DX W/CELL WASHG SPX 02/09/2025 3:49 PM EDT S/P lobectomy of lung Special Needs OR 11.0 HRINPATIENT HSV PCR Routine 02/09/2025 2:45 PM EDT CYTOMEGALOVIRUS, PCR, LOWER RESPIRATORY Routine 02/09/2025 2:45 PM EDT GALACTOMANNAN, BAL FLUID Routine 02/09/2025 2:45 PM EDT POCT GLUCOSE Routine 02/09/2025 12:19 PM EDT XR CHEST PA AND LATERAL 2 VIEWS Routine 02/09/2025 10:48 AM EDT POCT GLUCOSE Routine 02/09/2025 8:44 AM EDT MAGNESIUM Routine 02/09/2025 8:21 AM EDT CBC Routine 02/09/2025 8:21 AM EDT BASIC METABOLIC PANEL Routine 02/09/2025 8:21 AM EDT POCT GLUCOSE Routine 02/09/2025 4:22 AM EDT XR CHEST PORTABLE STAT 02/09/2025 1:1 7 AM EDT POCT GLUCOSE Routine 02/08/2025 9:15 PM EDT POCT GLUCOSE Routine 02/08/2025 5:47 PM EDT POCT GLUCOSE Routine 02/08/2025 4:47 PM EDT POCT GLUCOSE Routine 02/08/2025 2:29 PM EDT XR CHEST PA AND LATERAL 2 VIEWS Routine 02/08/2025 11:33 AM EDT POCT GLUCOSE Routine 02/08/2025 8:12 AM EDT 25-OH VITAMIN D Routine 02/08/2025 6:23 AM EDT MAGNESIUM Routine 02/08/2025 6:23 AM EDT CBC Routine 02/08/2025 6:23 AM EDT BASIC METABOLIC PANEL Routine 02/08/2025 6:23 AM EDT POCT GLUCOSE Routine 02/07/2025 9:22 PM EDT VANCOMYCIN, TROUGH Timed 02/07/2025 7: 47 PM EDT POCT GLUCOSE Routine 02/07/2025 5:54 PM EDT POCT GLUCOSE Routine 02/07/2025 12:05 PM EDT XR CHEST PA AND LATERAL 2 VIEWS Routine 02/07/2025 11:40 AM EDT POCT GLUCOSE Routine 02/07/2025 8:06 AM EDT MAGNESIUM Routine 02/07/2025 7:36 AM EDT CBC Routine 02/07/2025 7:36 AM EDT BASIC METABOLIC PANEL Routine 02/07/2025 7:36 AM EDT POCT GLUCOSE Routine 02/06/2025 10:17 PM EDT POCT GLUCOSE Routine 02/06/2025 9:58 PM EDT URINALYSIS W/REFLEX URINE CULTURE Routine 02/06/2025 8:25 PM EDT POCT GLUCOSE Routine 02/06/2025 5:10 PM EDT CBC Routine 02/06/2025 4:09 PM EDT MAGNESIUM Routine 02/06/2025 4:09 PM EDT BASIC METABOLIC PANEL Routine 02/06/2025 4:09 PM EDT FLUID CULTURE/SMEAR (NOT CSF) Routine 02/06/2025 10:05 AM EDT XR CHEST PA AND LATERAL 2 VIEWS Routine 02/06/2025 9:36 AM EDT POCT GLUCOSE Routine 02/06/2025 8:16 AM EDT MAGNESIUM Routine 02/06/2025 7:26 AM EDT CBC Routine 02/06/2025 7:26 AM EDT BASIC METABOLIC PANEL Routine 02/06/2025 7:26 AM EDT POCT GLUCOSE Routine 02/05/2025 9:18 PM EDT POCT GLUCOSE Routine 02/05/2025 4:51 PM EDT BASIC METABOLIC PANEL Routine 02/05/2025 2:16 PM EDT XR CHEST PORTABLE Routine 02/05/2025 10:41 AM EDT BASIC METABOLIC PANEL Routine 02/05/2025 9:48 AM EDT ECG 12-LEAD Routine 02/05/2025 9:41 AM EDT POCT GLUCOSE Routine 02/05/2025 9:29 AM EDT POCT GLUCOSE Routine 02/05/2025 7:49 AM EDT ECG 12-LEAD Routine 02/05/2025 7:03 AM EDT ECG 12-LEAD Routine 02/05/2025 7:02 AM EDT MAGNESIUM Routine 02/05/2025 3:47 AM EDT CBC Routine 02/05/2025 3:47 AM EDT BASIC METABOLIC PANEL Routine 02/05/2025 3:[address] CHEST WITH CONTRAST STAT 02/04/2025 10:27 PM EDT POCT GLUCOSE Routine 02/04/2025 5:13 PM EDT POCT GLUCOSE Routine 02/04/2025 12:20 PM EDT XR CHEST PA AND LATERAL 2 VIEWS Routine 02/04/2025 11:00 AM EDT POCT GLUCOSE Routine 02/04/2025 8:28 AM EDT MAGNESIUM Routine 02/04/2025 3:56 AM EDT CBC Routine 02/04/2025 3:56 AM EDT BASIC METABOLIC PANEL Routine 02/04/2025 3:56 AM EDT POCT GLUCOSE Routine 02/03/2025 9:05 PM EDT POCT GLUCOSE Routine 02/03/2025 5:49 PM EDT POCT GLUCOSE Routine 02/03/2025 11:41 AM EDT XR CHEST PA AND LATERAL 2 VIEWS Routine 02/03/2025 9:48 AM EDT POCT GLUCOSE Routine 02/03/2025 7:38 AM EDT MAGNESIUM Routine 02/03/2025 4:32 AM EDT CBC Routine 02/03/2025 4:32 AM EDT BASIC METABOLIC PANEL Routine 02/03/2025 4:32 AM EDT POCT GLUCOSE Routine 02/02/2025 9:05 PM EDT XR CHEST PA AND LATERAL 2 VIEWS Routine 02/02/2025 12:56 PM EDT POCT GLUCOSE Routine 02/02/2025 12:01 PM EDT XR CHEST PA AND LATERAL 2 VIEWS Routine 02/02/2025 10:17 AM EDT POCT GLUCOSE Routine 02/02/2025 8:03 AM EDT MAGNESIUM Routine 02/02/2025 5:04 AM EDT CBC Routine 02/02/2025 5:04 AM EDT BASIC METABOLIC PANEL Routine 02/02/2025 5:04 AM EDT POCT GLUCOSE Routine 02/01/2025 9:38 PM EDT XR CHEST PA AND LATERAL 2 VIEWS Routine 02/01/2025 7:03 PM EDT MAGNESIUM STAT 02/01/2025 5:21 PM EDT BASIC METABOLIC PANEL STAT 02/01/2025 5:21 PM EDT POCT GLUCOSE Routine 02/01/2025 2:57 PM EDT XR CHEST PA AND LATERAL 2 VIEWS Routine 02/01/2025 10:47 AM EDT POCT GLUCOSE Routine 02/01/2025 8:45 AM EDT MAGNESIUM Routine 02/01/2025 5:27 AM EDT CBC Routine 02/01/2025 5:27 AM EDT BASIC METABOLIC PANEL Routine 02/01/2025 5:27 AM EDT POCT GLUCOSE Routine 01/31/2025 10:54 PM EDT POCT GLUCOSE Routine 01/31/2025 5:01 PM EDT MAGNESIUM STAT 01/31/2025 2:19 PM EDT BASIC METABOLIC PANEL STAT 01/31/2025 2:19 PM EDT POCT GLUCOSE Routine 01/31/2025 1:37 PM EDT XR CHEST PA AND LATERAL 2 VIEWS Routine 01/31/2025 11:42 AM EDT MAGNESIUM Timed 01/31/2025 8:22 AM EDT BASIC METABOLIC PANEL Timed 01/31/2025 8:22 AM EDT POCT GLUCOSE Routine 01/31/2025 7:32 AM EDT SODIUM, RANDOM URINE Routine 01/31/2025 4:24 AM EDT OSMOLALITY (URINE, RANDOM) Routine 01/31/2025 4:24 AM EDT OSMOLALITY, SERUM Routine 01/31/2025 3:3 6 AM EDT MAGNESIUM Routine 01/31/2025 3:36 AM EDT CBC Routine 01/31/2025 3:36 AM EDT BASIC METABOLIC PANEL Routine 01/31/2025 3:36 AM EDT BASIC METABOLIC PANEL STAT 01/31/2025 12:16 AM EDT POCT GLUCOSE Routine 01/30/2025 9:32 PM EDT MAGNESIUM Routine 01/30/2025 9:08 PM EDT COMPREHENSIVE METABOLIC PANEL Routine 01/30/2025 9:08 PM EDT XR CHEST PORTABLE STAT 01/30/2025 7:3 7 PM EDT POCT GLUCOSE Routine 01/30/2025 5:05 PM EDT XR CHEST PA AND LATERAL 2 VIEWS Routine 01/30/2025 3:01 PM EDT POCT GLUCOSE Routine 01/30/2025 11:25 AM EDT XR CHEST PA AND LATERAL 2 VIEWS Routine 01/30/2025 9:58 AM EDT POCT GLUCOSE Routine 01/30/2025 7:37 AM EDT BASIC METABOLIC PANEL Routine 01/30/2025 6:23 AM EDT PHOSPHORUS Routine 01/30/2025 6:23 AM EDT MAGNESIUM Routine 01/30/2025 6:23 AM EDT CBC Routine 01/30/2025 6:23 AM EDT POCT GLUCOSE Routine 01/29/2025 9:29 PM EDT POCT GLUCOSE Routine 01/29/2025 4:56 PM EDT XR CHEST PA AND LATERAL 2 VIEWS Routine 01/29/2025 2:49 PM EDT POCT GLUCOSE Routine 01/29/2025 11:32 AM EDT XR CHEST PA AND LATERAL 2 VIEWS Routine 01/29/2025 10:18 AM EDT BASIC METABOLIC PANEL Routine 01/29/2025 8:32 AM EDT PHOSPHORUS Routine 01/29/2025 8:32 AM EDT MAGNESIUM Routine 01/29/2025 8:32 AM EDT CBC Routine 01/29/2025 8:32 AM EDT POCT GLUCOSE Routine 01/29/2025 8:11 AM EDT POCT GLUCOSE Routine 01/28/2025 9:16 PM EDT POCT GLUCOSE Routine 01/28/2025 5:06 PM EDT POCT GLUCOSE Routine 01/28/2025 12:37 PM EDT XR CHEST PA AND LATERAL 2 VIEWS Routine 01/28/2025 10:07 AM EDT BASIC METABOLIC PANEL Routine 01/28/2025 8:35 AM EDT PHOSPHORUS Routine 01/28/2025 8:35 AM EDT MAGNESIUM Routine 01/28/2025 8:35 AM EDT CBC Routine 01/28/2025 8:35 AM EDT POCT GLUCOSE Routine 01/28/2025 7:47 AM EDT POCT GLUCOSE Routine 01/28/2025 2:00 AM EDT POCT GLUCOSE Routine 01/27/2025 8:47 PM EDT POCT GLUCOSE Routine 01/27/2025 5:29 PM EDT POCT GLUCOSE Routine 01/27/2025 2:23 PM EDT POCT GLUCOSE Routine 01/27/2025 12:03 PM EDT POCT GLUCOSE Routine 01/27/2025 10:34 AM EDT POCT GLUCOSE Routine 01/27/2025 9:07 AM EDT XR CHEST PORTABLE Imaging in AM 01/27/2025 6:5 2 AM EDT PHOSPHORUS Routine 01/27/2025 5:40 AM EDT MAGNESIUM Routine 01/27/2025 5:40 AM EDT BASIC METABOLIC PANEL Routine 01/27/2025 5:40 AM EDT CBC Routine 01/27/2025 5:40 AM EDT ECG 12-LEAD Routine 01/27/2025 3:36 AM EDT POCT GLUCOSE Routine 01/26/2025 9:16 PM EDT POCT GLUCOSE Routine 01/26/2025 5:59 PM EDT POCT GLUCOSE Routine 01/26/2025 11:48 AM EDT POCT GLUCOSE Routine 01/26/2025 9:20 AM EDT POCT GLUCOSE Routine 01/26/2025 8:12 AM EDT XR CHEST PORTABLE Routine 01/26/2025 6:3 9 AM EDT POCT GLUCOSE Routine 01/26/2025 5:48 AM EDT CBC Routine 01/26/2025 4:07 AM EDT MAGNESIUM Routine 01/26/2025 4:07 AM EDT BASIC METABOLIC PANEL Routine 01/26/2025 4:07 AM EDT POCT GLUCOSE Routine 01/26/2025 4:05 AM EDT POCT GLUCOSE Routine 01/26/2025 1:53 AM EDT POCT GLUCOSE Routine 01/26/2025 12:01 AM EDT POCT GLUCOSE Routine 01/25/2025 10:14 PM EDT ECG 12-LEAD Routine 01/25/2025 10:12 PM EDT ECG 12-LEAD Routine 01/25/2025 10:12 PM EDT POCT GLUCOSE Routine 01/25/2025 9:05 PM EDT MAGNESIUM Routine 01/25/2025 7:11 PM EDT CBC Routine 01/25/2025 7:11 PM EDT BASIC METABOLIC PANEL Routine 01/25/2025 7:11 PM EDT ARTERIAL BLOOD GAS Routine 01/25/2025 7: 11 PM EDT HEMOGLOBIN A1C Routine 01/25/2025 7:11 PM EDT XR CHEST PORTABLE STAT 01/25/2025 7:0 5 PM EDT PREPARE RBC Routine 01/25/2025 7:05 PM EDT POCT GLUCOSE Routine 01/25/2025 6:59 PM EDT ECG 12-LEAD Routine 01/25/2025 6:53 PM EDT ARTERIAL BLOOD GAS PLUS STAT 01/25/2025 5:29 PM EDT ANATOMIC PATHOLOGY Routine 01/25/2025 4: 46 PM EDT ARTERIAL BLOOD GAS PLUS STAT 01/25/2025 4:20 PM EDT ARTERIAL BLOOD GAS PLUS STAT 01/25/2025 3:27 PM EDT ARTERIAL BLOOD GAS PLUS STAT 01/25/2025 2:30 PM EDT ARTERIAL BLOOD GAS PLUS STAT 01/25/2025 1:41 PM EDT ARTERIAL BLOOD GAS PLUS STAT 01/25/2025 12:43 PM EDT AIRWAY PLACEMENT Routine 01/25/2025 12:15 PM EDT ANES EPIDURAL LDA Routine 01/25/2025 11:42 AM EDT RI INJ INFUS CERV THORAC W/CATH [id number] WITHOUT IMG PERF Routine 01/25/2025 11:42 AM EDT RI INSERT CATH ART PERCUT SHORTTERM PERF Routine 01/25/2025 11:41 AM EDT RI MUSCLE-SKIN FLAP,TRUNK 01/25/2025 10:59 AM EDT Primary lung adenocarcinoma, left Special Needs OR 153.0 HRS TICU BED RI BIOPSY/EXCISION, LYMPH NODE(S) 01/25/2025 10:59 AM EDT Primary lung adenocarcinoma, left Special Needs OR 153.0 HRS TICU BED RI BRNCHSC INCL FLUOR GDNCE DX W/CELL WASHG SPX 01/25/2025 10:59 AM EDT Primary lung adenocarcinoma, left Special Needs OR 153.0 HRS TICU BED RI THORACOTOMY,MAJOR,E XPLOR/BIOPSY 01/25/2025 10:59 AM EDT Primary lung adenocarcinoma, left Special Needs OR 153.0 HRS TICU BED RI THORACOSCOPY SURG LOBECTOMY 01/25/2025 10:59 AM EDT Primary lung adenocarcinoma, left Special Needs OR 153.0 HRS TICU BED POCT GLUCOSE Routine 01/25/2025 10:31 AM EDT URINE HCG STAT 01/25/2025 9:[address] CHEST WITH CONTRAST Routine 01/23/2025 3:53 PM EDT Primary lung adenocarcinoma, left TYPE AND SCREEN (ABO,RH,ANTIBODY SCREEN) Routine 01/23/2025 3:18 PM EDT Pre-op evaluation NSCLC of right lung CBC Routine 01/23/2025 3:18 PM EDT Pre-op evaluation NSCLC of right lung COMPREHENSIVE METABOLIC PANEL Routine 01/23/2025 3:18 PM EDT Type 1 diabetes mellitus without complication Pre-op evaluation NSCLC of right lung HEMOGLOBIN A1C Routine 01/23/2025 3:18 PM EDT Type 1 diabetes mellitus without complication PT-INR Routine 01/23/2025 3:18 PM EDT Pre-op evaluation NSCLC of right lung PTT Routine 01/23/2025 3:18 PM EDT Pre-op evaluation NSCLC of right lung URINALYSIS Routine 01/23/2025 3:18 PM EDT Pre-op evaluation NSCLC of right lung URINE CULTURE Routine 01/23/2025 3:18 PM EDT Pre-op evaluation NSCLC of right lung MICROALBUMIN/CREATI NINE RATIO, RANDOM URINE Routine 12/14/2023 8:25 AM EDT Type 1 diabetes mellitus without complication LIPID PANEL Routine 12/11/2023 8:14 AM EDT Type 1 diabetes mellitus without complication BI MAMMOGRAM SCREENING WITH TOMOSYNTHESIS WITH CAD (BILATERAL) Routine 12/16/2022 9:35 AM EDT Breast screening PAP TEST Routine 08/27/2020 12:00 AM EST ENDOSCOPY, COLON 09/23/2019 11:25 AM EDT HEPATITIS C VIRAL LOAD (PCR) Routine 09/13/2018 12:26 PM EDT Examination from Last 3 Months or Most Recently Relevant to Health Maintenance Results * (ABNORMAL) CBC and differential (04/19/2025 6:04 PM EDT) Only the most recent of5 resultswithin the time period is included. WBC 5.05 4.00 - 11.00 K/uL [facility] RBC 3.84(L) 4.00 - 5.20 M/uL [facility] HGB 9.8(L) 12.0 - 16.0 g/dL [facility] HCT 31.9(L) 36.0 - 46.0 % [facility] PLT 383 150 - 450 K/uL [facility] MCV 83.1 80.0 - 100.0 fL [facility] MCH 25.5(L) 27.0 - 31.0 pg [facility] MCHC 30.7(L) 32.0 - 36.0 g/dL [facility] RDW 15.5(H) 11.5 - 14.5 % [facility] MPV 7.8(L) 8.4 - 12.0 fL [facility] NRBC 0.00 0.00 /100 WBCs [facility] ABSOLUTE NRBC 0.00 0.00 K/uL [facility] DIFF METHOD Auto [facility] NEUTS 54.6 48.0 - 76.0 % [facility] LYMPHS 32.9 18.0 - 41.0 % [facility] MONOS 9.3 4.0 - 11.0 % [facility] EOS 2.6 0.0 - 5.0 % [facility] BASOS 0.4 0.0 - 1.5 % [facility] Granulocytes, immature (%) 0.2 0.0 - 0.9 % [facility] ABSOLUTE NEUTS 2.76 1.92 - 7.60 K/uL [facility] ABSOLUTE LYMPHS 1.66 0.72 - 4.10 K/uL [facility] ABSOLUTE MONOS 0.47 0.16 - 1.10 K/uL [facility] ABSOLUTE EOS 0.13 0.00 - 0.50 K/uL [facility] ABSOLUTE BASOS 0.02 0.00 - 0.15 K/uL [facility] Granulocytes, immature 0.01 0.00 - 0.09 K/uL [facility] Blood 04/19/2025 6:04 PM EDT 04/19/2025 6:06 PM EDT us Tab Landeros MD LAB BLOOD ORDERABLES Fin al Result [address] [id number] * (ABNORMAL) Troponin (04/19/2025 6:04 PM EDT) Troponin-T, HS Gen5 16(H) 0 - 9 ng/L [facility] Blood 04/19/2025 6:04 PM EDT 04/19/2025 6:06 PM EDT Tab Landeros MD LAB BLOOD ORDERABLES Fin al Result [address] [id number] * X-Label/study (04/11/2025 10:26 AM EDT) EXTRA TUBES NEEDED FOR RESEARCH STUDY [facility] Resulting [facility] Blood 04/11/2025 10:2 6 AM EDT 04/11/2025 10:32 AM EDT us Susy Tsai MD LAB BLOOD ORDERABLES Final Resul t [facility] [address] [id number], [facility] * (ABNORMAL) Comprehensive metabolic panel (04/11/2025 10:26 AM EDT) Only the most recent of4 resultswithin the time period is included. SODIUM 131(L) 136 - 145 mmol/L [facility] POTASSIUM 5.0 3.4 - 5.1 mmol/L [facility] CHLORIDE 93(L) 98 - 107 mmol/L [facility] CO2 25 22 - 31 mmol/L [facility] BUN 11 6 - 23 mg/dL [facility] CREATININE 0.68 0.50 - 1.20 mg/dL [facility] GLUCOSE 284(H) 70 - 100 mg/dL [facility] ALBUMIN 3.8 3.5 - 5.2 g/dL [facility] TOTAL PROTEIN 7.1 6.4 - 8.3 g/dL [facility] CALCIUM 9.3 8.8 - 10.7 mg/dL [facility] ALKALINE PHOSPHATASE 149(H) 35 - 104 U/L [facility] TOTAL BILIRUBIN <0.2(L) 0.2 - 1.2 mg/dL [facility] AST 9 <33 U/L [facility] ALT 10 <34 U/L [facility] GLOBULIN 3.3 2.3 - 4.2 g/dL [facility] EGFR 103 >59 mL/min/1.7 3m2 [facility] Comment:Estimated glomerular filtration rate calculated using the CKD-EPI refit equation. ANION GAP 13 7 - 17 mmol/L [facility] Blood 04/11/2025 10:2 6 AM EDT 04/11/2025 10:29 AM EDT us Beth Beckford MD LAB BLOOD ORDERABLES Fin al Result Performing Organization Address [facility] Co de Phone Number [facility] [address] * (ABNORMAL) Iron and iron binding capacity (04/11/2025 10:26 AM EDT) Only the most recent of2 resultswithin the time period is included. IRON 30(L) 37 - 145 ug/dL [facility] IRON BINDING CAPACITY 278 220 - 460 ug/dL [facility] TRANSFERRIN SATURAT. 11(L) 14 - 50 % [facility] Blood 04/11/2025 10:2 6 AM EDT 04/11/2025 10:29 AM EDT us Addie Michaud PA-C LAB BLOOD ORDERABLES Final R esult Performing Organization Address [facility] Co de Phone Number [address] * Folate (04/11/2025 10:26 AM EDT) FOLIC ACID 6.9 >4.7 ng/mL [facility] Blood 04/11/2025 10:2 6 AM EDT 04/11/2025 10:29 AM EDT us Addie Michaud PA-C LAB BLOOD ORDERABLES Final R esult Performing Organization Address City/[facility]/ZIP Co de Phone Number [facility] [address] [place] [address] * Ferritin (04/11/2025 10:26 AM EDT) Only the most recent of2 resultswithin the time period is included. FERRITIN 73 13 - 150 ug/L [facility] Blood 04/11/2025 10:2 6 AM EDT 04/11/2025 10:29 AM EDT us Addie Keily STILES-Marichuy LAB BLOOD ORDERABLES Final R esult Performing Organization Address City/[facility]/ZIP Co de Phone Number [facility] [address] [place] [address], [facility] * Vitamin B12 (04/11/2025 10:26 AM EDT) VITAMIN B12 374 232 - 1,245 pg/mL [facility] Blood 04/11/2025 10:2 6 AM EDT 04/11/2025 10:29 AM EDT Addie Keily STILES-C LAB BLOOD ORDERABLES Final R esult Performing Organization Address City/[facility]/ZIP Co de Phone Number [facility] [address] [place] [address] * CT CHEST PULMONARY ANGIOGRAM (ACUTE) (03/30/2025 3:33 PM EDT) Anatomical Region Laterality Modality Chest, Thoracic Vasculature Comp uted Tomography 03/30/2025 4:19 PM EDT Impressions 03/30/2025 4:57 PM EDT 1. No pulmonary embolism. 2. Patchy peribronchial groundglass and nodular opacities in the right upper lobe and left lung base, likely infectious/inflammatory. 3. Decreased right-sided hydropneumothorax with trace gas component. Right pleural pigtail drainage catheter in place draining the loculated fluid collection measuring 7.6 x 6.4 x 5 cm. Diffuse right basilar pleural thickening may be present superimposed infection (empyema) versus malignancy. 4. Decreased extensive right chest wall subcutaneous emphysema. ATTESTATION: I, Pawel Rodrigues as teaching physician, have reviewed the images for this case and if necessary edited the report originally created by Constanza Forrest. Narrative 03/30/2025 4:[address] CHEST PULMONARY ANGIOGRAM (ACUTE) Referring clinician's provided indication for this examination in [facility]: *Abnormal imaging; r/o PE, better visualization of lungs Review of the Electronic Medical Record reveals an additional history of: history of lung cancer, status post lobectomy, TECHNIQUE: Multidetector CT pulmonary angiography was performed after administration of intravenous contrast using tailored dose modulation techniques. 3D angiographic postprocessing techniques were acquired in the form of axial maximum intensity projection images (MIPS). COMPARISON: CT CHEST WITH CONTRAST ; CT CHEST WITH CONTRAST FINDINGS: Pulmonary Angiogram: The pulmonary arteries are well opacified. There is no pulmonary embolus. Devices/Tubes/Lines: Interval placement of the right-sided pleural drainage catheter. Lungs: Status post right middle and lower lobectomy. Patchy peribronchial groundglass and nodular opacities in the right upper lobe and left lung base. Mild interlobular septal thickening in right upper lobe likely representing mild pulmonary edema. Curvilinear consolidative opacity in the dependent right upper lobe adjacent to the loculated pleural effusion likely representing round atelectasis. Central airways are patent. Pleura: Decreased right-sided hydropneumothorax with trace gas component. Loculated fluid component associated with pleural thickening measuring approximately 7.6 x 6.4 x 5 cm. Mild diffuse pleural thickening at the right lung base. Mediastinum: Normal heart size. No pericardial effusion. Mild amount of coronary calcifications. Lymph Nodes: Slightly enlarged 1.1 cm short axis right lower paratracheal node (5:64), previously 0.7 cm, likely reactive node. Upper Abdomen: No abnormality in the visualized upper abdomen. Chest Wall: Decrease in the extensive predominantly right chest wall subcutaneous emphysema, residual small gas component in the right lower lateral chest wall, with associated bulky right lower lateral chest wall muscles. Bones: Status post right thoracotomy with healing multiple right rib fractures. No acute osseous findings. Procedure Note Pawel Rodrigues MBBS - 03/30/2025 CT CHEST PULMONARY ANGIOGRAM (ACUTE) Referring clinician's provided indication for this examination in [facility]:*Abnormal imaging; r/o PE, better visualization of lungs Review of the Electronic Medical Record reveals an additional history of:history of lung cancer, status post lobectomy, TECHNIQUE: Multidetector CT pulmonary angiography was performed afteradministration of intravenous contrast using tailored dose modulationtechniques. 3D angiographic postprocessing techniques were acquired in theform of axial maximum intensity projection images (MIPS). COMPARISON: CT CHEST WITH CONTRAST ; CT CHEST WITH [id number] FINDINGS: Pulmonary Angiogram: The pulmonary arteries are well opacified. There is no pulmonaryembolus. Devices/Tubes/Lines: Interval placement of the right-sided pleuraldrainage catheter. Lungs: Status post right middle and lower lobectomy. Patchy peribronchialgroundglass and nodular opacities in the right upper lobe and left lungbase. Mild interlobular septal thickening in right upper lobe likelyrepresenting mild pulmonary edema. Curvilinear consolidative opacity inthe dependent right upper lobe adjacent to the loculated pleural effusionlikely representing round atelectasis. Central airways are patent. Pleura: Decreased right-sided hydropneumothorax with trace gas component.Loculated fluid component associated with pleural thickening measuringapproximately 7.6 x 6.4 x 5 cm. Mild diffuse pleural thickening at theright lung base. Mediastinum: Normal heart size. No pericardial effusion. Mild amount ofcoronary calcifications. Lymph Nodes: Slightly enlarged 1.1 cm short axis right lower paratrachealnode (5:64), previously 0.7 cm, likely reactive node. Upper Abdomen: No abnormality in the visualized upper abdomen. Chest Wall: Decrease in the extensive predominantly right chest wallsubcutaneous emphysema, residual small gas component in the right lowerlateral chest wall, with associated bulky right lower lateral chest wallmuscles. Bones: Status post right thoracotomy with healing multiple right ribfractures. No acute osseous findings. IMPRESSION: 1. No pulmonary embolism. 2. Patchy peribronchial groundglass and nodular opacities in the rightupper lobe and left lung base, likely infectious/inflammatory. 3. Decreased right-sided hydropneumothorax with trace gas component.Right pleural pigtail drainage catheter in place draining the loculatedfluid collection measuring 7.6 x 6.4 x 5 cm. Diffuse right basilar pleuralthickening may be present superimposed infection (empyema) versusmalignancy. 4. Decreased extensive right chest wall subcutaneous emphysema. ATTESTATION: Pawel Johnson as teaching physician, have reviewed theimages for this case and if necessary edited the report originally createdby Constanza Forrest. us Mary Stokes MD IMG CT CHEST Final Res ult * (ABNORMAL) LFTs (hepatic panel) (03/30/2025 1:07 PM EDT) ALKALINE PHOSPHATASE 143(H) 39 - 117 U/L [facility] TOTAL BILIRUBIN 0.3 0.0 - 1.2 mg/dL [facility] DIRECT BILIRUBIN <0.1 0.0 - 0.2 mg/dL [facility] Bilirubin (Indirect) NOT CALCULATED 0 - 1.5 mg/dL [facility] AST 6 0 - 37 U/L [facility] ALT 6 0 - 40 U/L [facility] TOTAL PROTEIN 6.8 6.5 - 8.0 g/dL [facility] ALBUMIN 3.3(L) 3.9 - 4.8 g/dL [facility] GLOBULIN 3.5 1 - 4.8 g/dL [facility] A/G Ratio 0.94(L) 1.00 - 4.80 RATIO [facility] Blood 03/30/2025 1:07 PM EDT 03/30/2025 1:14 PM EDT us Mary Stokes MD LAB BLOOD ORDERABLES [place] l Result [address] [address] * Magnesium (03/30/2025 1:07 PM EDT) Only the most recent of42 resultswithin the time period is included. MAGNESIUM 1.8 1.6 - 2.6 mg/dL [facility] Blood 03/30/2025 1:07 PM EDT 03/30/2025 1:14 PM EDT us Mary Stokes MD LAB BLOOD ORDERABLES [place] l Result [address] [address] * (ABNORMAL) Basic metabolic panel (03/30/2025 1:07 PM EDT) Only the most recent of44 resultswithin the time period is included. SODIUM 138 133 - 146 mmol/L [facility] CHLORIDE 97 96 - 108 mmol/L [facility] POTASSIUM 3.7 3.3 - 5.1 mmol/L [facility] CO2 28 21 - 35 mmol/L [facility] BUN 7 6 - 19 mg/dL [facility] CREATININE 0.60 0.5 - 1.5 mg/dL [facility] GLUCOSE 162(H) 70 - 99 mg/dL [facility] CALCIUM 9.3 8.4 - 10.3 mg/dL [facility] EGFR 106 >59 mL/min/1.7 3m2 [facility] Comment:Estimated glomerular filtration rate calculated using the CKD-EPI refit equation. ANION GAP 17 10 - 20 mmol/L [facility] Blood 03/30/2025 1:07 PM EDT 03/30/2025 1:14 PM EDT Mary Stokes MD LAB BLOOD ORDERABLES [place] l Result [address] [address] * XR CHEST PA AND LATERAL 2 VIEWS (03/30/2025 11:51 AM EDT) Anatomical Region Laterality Modality Chest Computed Radiogr aphy 03/30/2025 12:3 4 PM EDT Impressions 03/30/2025 12:41 PM EDT Status post recent right lobectomy with patchy opacities in the right lower lung and moderate right pleural effusion. Narrative 03/30/2025 12:41 PM EDT XR CHEST PA AND LATERAL 2 VIEWS Referring clinician's provided indication for this examination in [facility]: Cough; Dyspnea (Shortness of Breath) COMPARISON: XR CHEST PA AND LATERAL 2 VIEWS FINDINGS: Devices/Tubes/Lines: Right basilar chest tube again seen. Lungs an pleura: Status post recent right lobectomy with patchy opacities in the right lower lung and moderate right pleural effusion. Left lung is clear. Heart/Mediastinum: Similar in appearance. Bones/Soft Tissues: Post right thoracotomy changes. Procedure Note Marlin Lew MD - 03/30/2025 XR CHEST PA AND LATERAL 2 VIEWS Referring clinician's provided indication for this examination in [facility]:Cough; Dyspnea (Shortness of Breath) COMPARISON: XR CHEST PA AND LATERAL 2 VIEWS FINDINGS: Devices/Tubes/Lines: Right basilar chest tube again seen. Lungs an pleura: Status post recent right lobectomy with patchy opacitiesin the right lower lung and moderate right pleural effusion. Left lung isclear. Heart/Mediastinum: Similar in appearance. Bones/Soft Tissues: Post right thoracotomy changes. IMPRESSION: Status post recent right lobectomy with patchy opacities in the rightlower lung and moderate right pleural effusion. us Mary Stokes MD IMG XR CHEST Final Res ult * XR CHEST PA AND LATERAL 2 VIEWS (03/14/2025 12:19 PM EDT) Anatomical Region Laterality Modality Chest Radiographic Marcia ging 03/14/2025 2:04 PM EDT Impressions 03/14/2025 2:05 PM EDT Per narrative Narrative 03/14/2025 2:05 PM EDT XR CHEST PA AND LATERAL 2 VIEWS Referring clinician's provided indication for this examination in [facility]: Post-Op COMPARISON: 03/01/25 FINDINGS: Support Devices / Implants / Lines and Tubes: None. Lungs: Similar right mid and lower lung atelectasis. Normally aerated and expanded left lung Pleura: Slight decrease in overall size and more so the gaseous component to the right hydropneumothorax. Cardiomediastinal Silhouette: Unchanged Bones/Soft Tissues: Slight worsening of right chest wall subcutaneous emphysema Procedure Note Tam Gonzalez MD - 03/14/2025 XR CHEST PA AND LATERAL 2 VIEWS Referring clinician's provided indication for this examination in [facility]:Post-Op COMPARISON: 03/01/25 FINDINGS: Support Devices / Implants / Lines and Tubes: None. Lungs: Similar right mid and lower lung atelectasis. Normally aerated andexpanded left lung Pleura: Slight decrease in overall size and more so the gaseous componentto the right hydropneumothorax. Cardiomediastinal Silhouette: Unchanged Bones/Soft Tissues: Slight worsening of right chest wall subcutaneousemphysema IMPRESSION: Per narrative us Miguel Harris MD, MPH IMG XR CHEST Final Resu lt * (ABNORMAL) POCT Glucose (03/01/2025 12:12 PM EDT) Only the most recent of171 resultswithin the time period is included. [facility] Glucose, POCT 122(H) 70 - 100 mg/dL [facility] 03/01/2025 12:1 2 PM EDT 03/01/2025 12:14 PM EDT us Miguel Harris MD, MPH POINT OF CARE TEST ORDERAB LES Final Result Performing Organization Address City/State/[facility] Co de Phone Number [facility] [address] [place] [id number] * XR CHEST PA AND LATERAL 2 VIEWS (03/01/2025 9:53 AM EDT) Anatomical Region Laterality Modality Chest Computed Radiogr aphy 03/01/2025 9:56 AM EDT Impressions 03/01/2025 9:59 AM EDT No interval change in radiographic appearance of the chest with loculated right hydropneumothorax. Narrative 03/01/2025 9:59 AM EDT XR CHEST PA AND LATERAL 2 VIEWS Referring clinician's provided indication for this examination in [facility]: Post-Op COMPARISON: XR CHEST PA AND LATERAL 2 VIEWS FINDINGS: Devices/Tubes/Lines: Right PICC and right basilar thoracostomy tube unchanged. Lungs: Postsurgical changes and atelectasis right lung. Pleura: Similar moderate loculated right hydropneumothorax. Heart/Mediastinum: Unchanged in appearance. Bones/Soft Tissues: Right thoracotomy. Procedure Note Safia Fung MD - 03/01/2025 XR CHEST PA AND LATERAL 2 VIEWS Referring clinician's provided indication for this examination in [facility]:Post-Op COMPARISON: XR CHEST PA AND LATERAL 2 VIEWS FINDINGS: Devices/Tubes/Lines: Right PICC and right basilar thoracostomy tubeunchanged. Lungs: Postsurgical changes and atelectasis right lung. Pleura: Similar moderate loculated right hydropneumothorax. Heart/Mediastinum: Unchanged in appearance. Bones/Soft Tissues: Right thoracotomy. IMPRESSION: No interval change in radiographic appearance of the chest with loculatedright hydropneumothorax. Mariangel Ash PA-C IMG XR CHEST Final Result * XR CHEST PA AND LATERAL 2 VIEWS (02/28/2025 10:16 AM EDT) Anatomical Region Laterality Modality Chest Computed Radiogr aphy 02/28/2025 11:0 8 AM EDT Impressions 02/28/2025 11:20 AM EDT Similar loculated right hydropneumothorax, with single remaining right basilar chest tube. Minimally decreased size of fluid component. Narrative 02/28/2025 11:20 AM EDT XR CHEST PA AND LATERAL 2 VIEWS Referring clinician's provided indication for this examination in [facility]: Post-Op COMPARISON: XR CHEST PA AND LATERAL 2 VIEWS 08:28:39.000 FINDINGS: Devices/Tubes/Lines: Right PICC unchanged. Single remaining right basilar chest tube. Lungs: Similar postsurgical changes in the right lung, with atelectatic changes in the right lung following surgery and postsurgical interventions. Left lung is essentially clear. Pleura: Unchanged loculated right hydropneumothorax, largest component in right base extending into the thoracotomy site compared to the most recent prior study. Right pleural effusion appears slightly decreased compared to most recent prior. Heart/Mediastinum: Unchanged in appearance. Bones/Soft Tissues: Status post right thoracotomy. Procedure Note Tessa Ramirez MD - 02/28/2025 XR CHEST PA AND LATERAL 2 VIEWS Referring clinician's provided indication for this examination in [facility]:Post-Op COMPARISON: XR CHEST PA AND LATERAL 2 VIEWS 08:28:39.000 FINDINGS: Devices/Tubes/Lines: Right PICC unchanged. Single remaining right basilarchest tube. Lungs: Similar postsurgical changes in the right lung, with atelectaticchanges in the right lung following surgery and postsurgicalinterventions. Left lung is essentially clear. Pleura: Unchanged loculated right hydropneumothorax, largest component inright base extending into the thoracotomy site compared to the most recentprior study. Right pleural effusion appears slightly decreased compared tomost recent prior. Heart/Mediastinum: Unchanged in appearance. Bones/Soft Tissues: Status post right thoracotomy. IMPRESSION: Similar loculated right hydropneumothorax, with single remaining rightbasilar chest tube. Minimally decreased size of fluid component. Mariangel Ash PA-C IMG XR CHEST Final Result * XR CHEST PA AND LATERAL 2 VIEWS (02/28/2025 8:15 AM EDT) Anatomical Region Laterality Modality Chest Computed Radiogr aphy 02/28/2025 8:38 AM EDT Impressions 02/28/2025 9:25 AM EDT Similar appearance of the right hemithorax with hydropneumothorax following surgery, with apparent gradual increase of right pleural effusion over the course of past 5 days. ATTESTATION: Frandy Johnson, as teaching physician have reviewed the images, if any, for this patient's exam, and if necessary, have edited the report originally created by Manuel Irvin. Narrative 02/28/2025 9:25 AM EDT XR CHEST PA AND LATERAL 2 VIEWS Referring clinician's provided indication for this examination in [facility]: Post-Op COMPARISON: XR CHEST PA AND LATERAL 2 VIEWS FINDINGS: Devices/Tubes/Lines: Right thoracostomy tubes and right PICC are unchanged. Lungs: Similar postsurgical changes in the right lung, with atelectatic changes in the right lung following surgery and postsurgical interventions. Left lung is essentially clear. Pleura: Unchanged loculated right hydropneumothorax, largest component in right base extending into the thoracotomy site compared to the most recent prior study. Right pleural effusion appears slightly but gradually increasing over time in the past few days since February 23, 2025. Heart/Mediastinum: Unchanged in appearance. Bones/Soft Tissues: Status post right thoracotomy. Procedure Note Frandy Mccann MD, MPH - 02/28/2025 XR CHEST PA AND LATERAL 2 VIEWS Referring clinician's provided indication for this examination in Epic:Post-Op COMPARISON: XR CHEST PA AND LATERAL 2 VIEWS 2024- FINDINGS: Devices/Tubes/Lines: Right thoracostomy tubes and right PICC areunchanged. Lungs: Similar postsurgical changes in the right lung, with atelectaticchanges in the right lung following surgery and postsurgicalinterventions. Left lung is essentially clear. Pleura: Unchanged loculated right hydropneumothorax, largest component inright base extending into the thoracotomy site compared to the most recentprior study. Right pleural effusion appears slightly but graduallyincreasing over time in the past few days since February 23, 2025. Heart/Mediastinum: Unchanged in appearance. Bones/Soft Tissues: Status post right thoracotomy. IMPRESSION: Similar appearance of the right hemithorax with hydropneumothoraxfollowing surgery, with apparent gradual increase of right pleuraleffusion over the course of past 5 days. ATTESTATION: Frandy Johnson, as teaching physician have reviewedthe images, if any, for this patient's exam, and if necessary, have editedthe report originally created by Manuel Irvin. Mariangel Ash PA-C IMG XR CHEST Final Result * (ABNORMAL) CBC (02/28/2025 5:34 AM EDT) Only the most recent of40 resultswithin the time period is included. WBC 8.56 4.00 - 11.00 K/uL [facility] RBC 2.76(L) 4.00 - 5.20 M/uL [facility] HGB 7.9(L) 12.0 - 16.0 g/dL [facility] HCT 24.8(L) 36.0 - 46.0 % [facility] PLT 1,283(HH) 150 - 450 K/uL [facility] Comment:This result [place] [id number] on 02/28/2025 05:58:19, and has been read back. MCV 89.9 80.0 - 100.0 fL [facility] MCH 28.6 27.0 - 31.0 pg [facility] MCHC 31.9(L) 32.0 - 36.0 g/dL [facility] RDW 14.6(H) 11.5 - 14.5 % [facility] MPV 8.0(L) 8.4 - 12.0 fL [facility] NRBC 0.00 0.00 /100 WBCs [facility] ABSOLUTE NRBC 0.00 0.00 K/uL [facility] Blood 02/28/2025 5:34 AM EDT 02/28/2025 5:39 AM EDT us Miguel Harris MD, MPH LAB BLOOD ORDERABLES Final Result Performing Organization Address City/State/[facility] Co de Phone Number [facility] [address] [place] [id number] * XR CHEST PA AND LATERAL 2 VIEWS (02/27/2025 12:18 PM EDT) Anatomical Region Laterality Modality Chest Computed Radiogr aphy 02/27/2025 2:23 PM EDT Impressions 02/27/2025 2:24 PM EDT No interval change in radiographic appearance of the chest. Narrative 02/27/2025 2:24 PM EDT XR CHEST PA AND LATERAL 2 VIEWS Referring clinician's provided indication for this examination in Epic: S/P Chest Surgery COMPARISON: XR CHEST PA AND LATERAL 2 VIEWS FINDINGS: Devices/Tubes/Lines: Right thoracostomy tubes and right PICC are unchanged Lungs: Post surgical changes in the right lung Pleura: Unchanged moderate loculated right hydropneumothorax, with largest component in the right base extending into the right thoracotomy site Heart/Mediastinum: Normal heart size Bones/Soft Tissues: Status post right thoracotomy Procedure Note Luis Randall MD - 02/27/2025 XR CHEST PA AND LATERAL 2 VIEWS Referring clinician's provided indication for this examination in [facility]:S/P Chest Surgery COMPARISON: XR CHEST PA AND LATERAL 2 VIEWS FINDINGS: Devices/Tubes/Lines: Right thoracostomy tubes and right PICC areunchanged Lungs: Post surgical changes in the right lung Pleura: Unchanged moderate loculated right hydropneumothorax, with largestcomponent in the right base extending into the right thoracotomy site Heart/Mediastinum: Normal heart size Bones/Soft Tissues: Status post right thoracotomy IMPRESSION: No interval change in radiographic appearance of the chest. us Nara Cruz PA-C IMG XR CHEST Final Result * XR CHEST PA AND LATERAL 2 VIEWS (02/26/2025 10:22 AM EDT) Anatomical Region Laterality Modality Chest Computed Radiogr aphy 02/26/2025 11:5 8 AM EDT Impressions 02/26/2025 12:31 PM EDT Decreased moderate loculated right hydropneumothorax. ATTESTATION: Kenia Johnson, as teaching physician have reviewed the images, if any, for this patient's exam, and if necessary, have edited the report originally created by Jose Salmon. Narrative 02/26/2025 12:31 PM EDT XR CHEST PA AND LATERAL 2 VIEWS Referring clinician's provided indication for this examination in [facility]: Pneumothorax COMPARISON: XR CHEST PA AND LATERAL 2 VIEWS FINDINGS: Devices/Tubes/Lines: Unchanged right PICC and right thoracostomy tubes. Lungs: Postsurgical changes and atelectasis in the right lung. Mild left basilar atelectasis. Pleura: Decreased moderate loculated right hydropneumothorax. Elevated right hemidiaphragm. Heart/Mediastinum: Partially obscured. Bones/Soft Tissues: No significant skeletal abnormality. Status post right thoracotomy. Procedure Note Kenia Tavares MD, MPH - 02/26/2025 XR CHEST PA AND LATERAL 2 VIEWS Referring clinician's provided indication for this examination in [facility]:Pneumothorax COMPARISON: XR CHEST PA AND LATERAL 2 VIEWS FINDINGS: Devices/Tubes/Lines: Unchanged right PICC and right thoracostomy tubes. Lungs: Postsurgical changes and atelectasis in the right lung. Mild leftbasilar atelectasis. Pleura: Decreased moderate loculated right hydropneumothorax. Elevatedright hemidiaphragm. Heart/Mediastinum: Partially obscured. Bones/Soft Tissues: No significant skeletal abnormality. Status post rightthoracotomy. IMPRESSION: Decreased moderate loculated right hydropneumothorax. ATTESTATION: Kenia Johnson, as teaching physician have reviewed theimages, if any, for this patient's exam, and if necessary, have edited thereport originally created by Jose Salmon. us Miguel Harris MD, MPH IMG XR CHEST Final Resu lt * XR CHEST PA AND LATERAL 2 VIEWS (02/25/2025 10:04 AM EDT) Anatomical Region Laterality Modality Chest Computed Radiogr aphy 02/25/2025 10:2 0 AM EDT Impressions 02/25/2025 1:31 PM EDT Interval removal of one of the right apical thoracostomy tubes. Unchanged moderate loculated right hydropneumothorax. ATTESTATION: Kenia Johnson, as teaching physician have reviewed the images, if any, for this patient's exam, and if necessary, have edited the report originally created by Jose Salmon. Narrative 02/25/2025 1:31 PM EDT XR CHEST PA AND LATERAL 2 VIEWS Referring clinician's provided indication for this examination in [facility]: Post-Op COMPARISON: XR CHEST PA AND LATERAL 2 VIEWS FINDINGS: Devices/Tubes/Lines: Interval removal of one of the right apical thoracostomy tubes. Unchanged right PICC and other right thoracostomy tubes. Lungs: Postsurgical changes and atelectasis in the right lung. Pleura: Unchanged moderate loculated right hydropneumothorax. Elevated right hemidiaphragm. Heart/Mediastinum: Partially obscured. Bones/Soft Tissues: No significant skeletal abnormality. Status post right thoracotomy. Procedure Note Kenia Tavares MD, MPH - 02/25/2025 XR CHEST PA AND LATERAL 2 VIEWS Referring clinician's provided indication for this examination in Epic:Post-Op COMPARISON: XR CHEST PA AND LATERAL 2 VIEWS FINDINGS: Devices/Tubes/Lines: Interval removal of one of the right apicalthoracostomy tubes. Unchanged right PICC and other right thoracostomytubes. Lungs: Postsurgical changes and atelectasis in the right lung. Pleura: Unchanged moderate loculated right hydropneumothorax. Elevatedright hemidiaphragm. Heart/Mediastinum: Partially obscured. Bones/Soft Tissues: No significant skeletal abnormality. Status post rightthoracotomy. IMPRESSION: Interval removal of one of the right apical thoracostomy tubes. Unchanged moderate loculated right hydropneumothorax. ATTESTATION: Kenia Johnson, as teaching physician have reviewed theimages, if any, for this patient's exam, and if necessary, have edited thereport originally created by Jose Salmon. us Crissy De La Cruz PA-C IMG XR CHEST Final Resu lt * Prepare RBC, 1 Units (02/25/2025 12:08 AM EDT) Only the most recent of3 resultswithin the time period is included. Product Code [id number] 02/25/2025 12:08 AM EDT [facility] Unit Number [id number] 02/26/20 25 12:08 AM EDT [facility] ABO of Unit AB 02/25/2025 12:08 AM EDT [facility] Rh of Unit NEG 02/25/2025 12:08 AM EDT [facility] Crossmatch Interpretation Compatible 02/23/2025 7:34 PM EDT [facility] Product Status Issued, Final 025 12:08 AM EDT [facility] Expiration Date/Time [id number] 02/25/2025 12:08 AM EDT [facility] Blood Type Barcode 2800 02/25/2025 12:08 AM EDT [facility] Unit Volume 300 mL 02/25/2025 12:08 AM EDT [facility] Nara Cruz PA-C BLOOD BANK PRODUCT ORDERABLES Fi nal Result Performing Organization Address City/[facility]/ZIP Co de Phone Number [facility] [address] [place] [phone] * Ketone bodies, serum (02/24/2025 5:29 PM EDT) BETA HYDROXYBUTYRATE 0.1 0.0 - 0.3 mmol/L [facility] Comment: Blood 02/24/2025 5:29 PM EDT 02/24/2025 5:36 PM EDT Crissy De La Cruz PA-C LAB BLOOD ORDERABLES Final Result Performing Organization Address [facility] Co de Phone Number [facility] [address] [place] [phone] * XR CHEST PA AND LATERAL 2 VIEWS (02/24/2025 2:30 PM EDT) Anatomical Region Laterality Modality Chest Computed Radiogr aphy 02/24/2025 2:43 PM EDT Impressions 02/24/2025 3:07 PM EDT No interval change in radiographic appearance of the chest. Similar right-sided loculated hydropneumothorax Narrative 02/24/2025 3:07 PM EDT XR CHEST PA AND LATERAL 2 VIEWS Referring clinician's provided indication for this examination in Epic: Pneumothorax; clamp cxr COMPARISON: XR CHEST PA AND LATERAL 2 VIEWS 10:18:51.000 FINDINGS: Devices/Tubes/Lines: Lines and tubes are unchanged in position. Lungs: Postsurgical changes in the right. Clear left lung. Pleura: Small to moderate loculated hydropneumothorax with apical fluid and basilar air and fluid gas collection. Heart/Mediastinum: Normal heart and mediastinum. Bones/Soft Tissues: Right thoracotomy changes. No significant skeletal abnormality. Procedure Note Tsesa Ramirez MD - 02/24/2025 XR CHEST PA AND LATERAL 2 VIEWS Referring clinician's provided indication for this examination in [facility]:Pneumothorax; clamp cxr COMPARISON: XR CHEST PA AND LATERAL 2 VIEWS 10:18:51.000 FINDINGS: Devices/Tubes/Lines: Lines and tubes are unchanged in position. Lungs: Postsurgical changes in the right. Clear left lung. Pleura: Small to moderate loculated hydropneumothorax with apical fluidand basilar air and fluid gas collection. Heart/Mediastinum: Normal heart and mediastinum. Bones/Soft Tissues: Right thoracotomy changes. No significant skeletalabnormality. IMPRESSION: No interval change in radiographic appearance of the chest. Similarright-sided loculated hydropneumothorax us Crissy De La Cruz PA-C IMG XR CHEST Final Resu lt * XR CHEST PA AND LATERAL 2 VIEWS (02/24/2025 10:04 AM EDT) Anatomical Region Laterality Modality Chest Computed Radiogr aphy 02/24/2025 10:1 5 AM EDT Impressions 02/24/2025 10:16 AM EDT No interval change in radiographic appearance of the chest. Similar right-sided loculated hydropneumothorax Narrative 02/24/2025 10:16 AM EDT XR CHEST PA AND LATERAL 2 VIEWS Referring clinician's provided indication for this examination in [facility]: S/P Chest Surgery COMPARISON: XR CHEST PORTABLE FINDINGS: Devices/Tubes/Lines: Lines and tubes are unchanged in position. Lungs: Postsurgical changes in the right. Clear left lung. Pleura: Small to moderate loculated hydropneumothorax with apical fluid and basilar air and fluid gas collection. Heart/Mediastinum: Normal heart and mediastinum. Bones/Soft Tissues: Right thoracotomy changes. No significant skeletal abnormality. Procedure Note Tessa Ramirez MD - 02/24/2025 XR CHEST PA AND LATERAL 2 VIEWS Referring clinician's provided indication for this examination in [facility]:S/P Chest Surgery COMPARISON: XR CHEST PORTABLE FINDINGS: Devices/Tubes/Lines: Lines and tubes are unchanged in position. Lungs: Postsurgical changes in the right. Clear left lung. Pleura: Small to moderate loculated hydropneumothorax with apical fluidand basilar air and fluid gas collection. Heart/Mediastinum: Normal heart and mediastinum. Bones/Soft Tissues: Right thoracotomy changes. No significant skeletalabnormality. IMPRESSION: No interval change in radiographic appearance of the chest. Similarright-sided loculated hydropneumothorax Nara Cruz PA-C IMG XR CHEST Final Result * Transfuse RBC (02/23/2025 11:31 PM EDT) Nara Cruz PA-C NURSING TREATMENT ORDERABLES - B LOOD ADMIN Final Result Performing Organization Address [facility] Co de Phone Number [id number] * Type and Screen (ABO,Rh,Antibody Screen) (02/23/2025 5:23 PM EDT) Only the most recent of2 resultswithin the time period is included. Expiration Date of Sample 02/26/2025 11:59 PM 02/23/2025 7:31 PM EDT [facility] Resulting Agency [facility] ABO Type AB 02/23/2025 7:31 PM EDT [facility] Rh Type Positive 02/23/2025 7:31 PM EDT [facility] Antibody Screen Negative 02/23/2025 7:31 PM EDT [facility] Blood 02/23/2025 5:23 PM EDT 02/23/2025 5:44 PM EDT Nara Cruz PA-C BLOOD BANK TEST ORDERABLES Final Result Performing Organization Address [facility]/ZIP Co de Phone Number [facility] [address] [place] [phone] * XR Chest Portable (02/23/2025 9:15 AM EDT) Anatomical Region Laterality Modality Chest Computed Radiogr aphy 02/23/2025 9:19 AM EDT Impressions 02/23/2025 12:39 PM EDT See findings. Narrative 02/23/2025 12:39 PM EDT XR CHEST PORTABLE Referring clinician's provided indication for this examination in [facility]: S/P Chest Surgery COMPARISON: XR CHEST PORTABLE FINDINGS: Devices/Tubes/Lines: Right PICC and right thoracostomy tubes as previous. Lungs/pleura: Postsurgical changes and atelectasis on the right. Similar small right hydropneumothorax. Heart/Mediastinum: Unchanged in appearance. Bones/Soft Tissues: Right thoracotomy. Procedure Note Safia Fung MD - 02/23/2025 XR CHEST PORTABLE Referring clinician's provided indication for this examination in [facility]:S/P Chest Surgery COMPARISON: XR CHEST PORTABLE FINDINGS: Devices/Tubes/Lines: Right PICC and right thoracostomy tubes asprevious. Lungs/pleura: Postsurgical changes and atelectasis on the right. Similarsmall right hydropneumothorax. Heart/Mediastinum: Unchanged in appearance. Bones/Soft Tissues: Right thoracotomy. IMPRESSION: See findings. Nara Cruz PA-C IMG XR CHEST Final Result * XR Chest Portable (02/22/2025 2:36 PM EDT) Anatomical Region Laterality Modality Chest Computed Radiogr aphy 02/22/2025 3:19 PM EDT Impressions 02/22/2025 3:47 PM EDT See findings. ATTESTATION: Catrina Johnson, as teaching physician have reviewed the images, if any, for this patient's exam, and if necessary, have edited the report originally created by Gregory Herzog. Narrative 02/22/2025 3:47 PM EDT XR CHEST PORTABLE Referring clinician's provided indication for this examination in [facility]: S/P Chest Surgery COMPARISON: XR CHEST PORTABLE 11:21:31.000 FINDINGS: Devices/Tubes/Lines: Right PICC and right-sided thoracostomy tubes are unchanged. Lungs: Postsurgical changes in the right hemithorax. Similar dense bandlike opacity in the right lower lung, likely atelectasis. Pleura: Unchanged small right hydropneumothorax. Heart/Mediastinum: Unchanged in appearance. Bones/Soft Tissues: Unchanged minimal subcutaneous emphysema in the right lower chest. Right thoracotomy. Procedure Note Catrina Rosales MD - 02/22/2025 XR CHEST PORTABLE Referring clinician's provided indication for this examination in [facility]:S/P Chest Surgery COMPARISON: XR CHEST PORTABLE 11:21:31.000 FINDINGS: Devices/Tubes/Lines: Right PICC and right-sided thoracostomy tubes areunchanged. Lungs: Postsurgical changes in the right hemithorax. Similar densebandlike opacity in the right lower lung, likely atelectasis. Pleura: Unchanged small right hydropneumothorax. Heart/Mediastinum: Unchanged in appearance. Bones/Soft Tissues: Unchanged minimal subcutaneous emphysema in the rightlower chest. Right thoracotomy. IMPRESSION: See findings. ATTESTATION: Catrina Johnson, as teaching physician have reviewed theimages, if any, for this patient's exam, and if necessary, have edited thereport originally created by Gregory Herzog. Nara Cruz PA-C IMG XR CHEST Final Result * XR Chest Portable (02/22/2025 11:26 AM EDT) Anatomical Region Laterality Modality Chest Computed Radiogr aphy 02/22/2025 11:3 4 AM EDT Impressions 02/22/2025 11:35 AM EDT See findings. Narrative 02/22/2025 11:35 AM EDT XR CHEST PORTABLE Referring clinician's provided indication for this examination in [facility]: S/P Chest Surgery COMPARISON: XR CHEST PORTABLE FINDINGS: Devices/Tubes/Lines: Lines and tubes are unchanged in position. Lungs: Postsurgical change in the right hemithorax. Similar opacity in the right lung, likely atelectasis. Pleura: Similar right hydropneumothorax. Heart/Mediastinum: Unchanged in appearance. Bones/Soft Tissues: Minimal subcutaneous emphysema right lower chest. Procedure Note Catrina Rosales MD - 02/22/2025 XR CHEST PORTABLE Referring clinician's provided indication for this examination in Epic:S/P Chest Surgery COMPARISON: XR CHEST PORTABLE FINDINGS: Devices/Tubes/Lines: Lines and tubes are unchanged in position. Lungs: Postsurgical change in the right hemithorax. Similar opacity in theright lung, likely atelectasis. Pleura: Similar right hydropneumothorax. Heart/Mediastinum: Unchanged in appearance. Bones/Soft Tissues: Minimal subcutaneous emphysema right lower chest. IMPRESSION: See findings. Nara Cruz PA-C IMG XR CHEST Final Result * Lab Add On: albumin (02/21/2025 4:30 PM EDT) Only the most recent of2 resultswithin the time period is included. TEST REQUESTED ALBUMIN [facility] Comments (Chemistry) Request received [facility] 02/21/2025 4:30 PM EDT 02/21/2025 4:44 PM EDT us Kirsten Escobedo PA-C LAB BLOOD ORDERABLES Final R esult Performing Organization Address City/State/[facility] Co de Phone Number [facility] [address] [place] [address] * (ABNORMAL) C-reactive protein, high sensitivity (02/21/2025 11:56 AM EDT) CRP, HIGH SENSITIVITY 215.2(H) 0.0 - 3.0 mg/L [facility] Comment: For cardiac risk assessment, reference range is <3.0mg/L. For inflammation assessment, reference range is <10.0mg/L. Blood 02/21/2025 11:5 6 AM EDT 02/21/2025 12:19 PM EDT us Kirsten Escobedo PA-C LAB BLOOD ORDERABLES Final R esult Performing Organization Address City/State/[facility] Co de Phone Number [facility] [address] [place] [phone] * (ABNORMAL) Sedimentation rate (ESR) (02/21/2025 11:56 AM EDT) ESR 52(H) 0 - 30 mm/h [facility] Comment:Erythrocyte Sediment ation Rate (ESR) reference range change effective 05/16/2019. Blood 02/21/2025 11:5 6 AM EDT 02/21/2025 12:19 PM EDT us Kirsten E Brochu PA-C LAB BLOOD ORDERABLES Final R esult Performing Organization Address [facility] de Phone Number [facility] [address] [place] [phone] * (ABNORMAL) Albumin (02/21/2025 11:56 AM EDT) ALBUMIN 2.3(L) 3.5 - 5.2 g/dL [facility] 02/21/2025 11:5 6 AM EDT 02/21/2025 12:19 PM EDT Comment:#ALBUMIN ADDEDD PER [id number] @[id number] us Kirsten E Brochu PA-C LAB BLOOD ORDERABLES Final R esult Performing Organization Address [facility] de Phone Number [facility] [address] [place] [phone] * XR Chest Portable (02/21/2025 9:41 AM EDT) Anatomical Region Laterality Modality Chest Computed Radiogr aphy 02/21/2025 2:39 PM EDT Impressions 02/21/2025 3:28 PM EDT No interval change. ATTESTATION: Tessa Johnson, as teaching physician have reviewed the images, if any, for this patient's exam, and if necessary, have edited the report originally created by Bill Seaman. Narrative 02/21/2025 3:28 PM EDT XR CHEST PORTABLE Referring clinician's provided indication for this examination in Epic: Pneumothorax; s/p RML, RLL bilobectomy, then decortication COMPARISON: XR CHEST PORTABLE FINDINGS: Devices/Tubes/Lines: Right-sided PICC line terminating in the cavoatrial junction. Two right-sided thoracostomy catheters. Lungs: Similar opacity in the right lung, likely due to atelectasis. The left lung is clear. Pleura: Right-sided hydropneumothorax is stable. Heart/Mediastinum: Unchanged in appearance. Bones/Soft Tissues: No significant skeletal abnormality. Procedure Note Tessa Ramirez MD - 02/21/2025 XR CHEST PORTABLE Referring clinician's provided indication for this examination in [facility]:Pneumothorax; s/p RML, RLL bilobectomy, then decortication COMPARISON: XR CHEST PORTABLE FINDINGS: Devices/Tubes/Lines: Right-sided PICC line terminating in the cavoatrialjunction. Two right-sided thoracostomy catheters. Lungs: Similar opacity in the right lung, likely due to atelectasis. Theleft lung is clear. Pleura: Right-sided hydropneumothorax is stable. Heart/Mediastinum: Unchanged in appearance. Bones/Soft Tissues: No significant skeletal abnormality. IMPRESSION: No interval change. ATTESTATION: Tessa Johnson, as teaching physician have reviewed theimages, if any, for this patient's exam, and if necessary, have edited thereport originally created by Bill Seaman. us Kirsten Escobedo PA-C IMG XR CHEST Final Result * XR Chest Portable (02/20/2025 3:22 PM EDT) Anatomical Region Laterality Modality Chest Computed Radiogr aphy 02/20/2025 3:40 PM EDT Impressions 02/20/2025 3:41 PM EDT No interval change in radiographic appearance of the chest. Narrative 02/20/2025 3:41 PM EDT XR CHEST PORTABLE Referring clinician's provided indication for this examination in [facility]: S/P Chest Surgery COMPARISON: XR CHEST PORTABLE 09:11:55.000 FINDINGS: Devices/Tubes/Lines: Right sided drainage catheters are in standard positions. Lungs: The left lung is clear. Opacity in the right lower lobe is likely due to atelectasis. Pleura: Right-sided circumferential hydropneumothorax is stable. Heart/Mediastinum: Normal heart and mediastinum. Bones/Soft Tissues: Normal. No significant skeletal abnormality. Procedure Note Idalia Issa MD - 02/20/2025 XR CHEST PORTABLE Referring clinician's provided indication for this examination in [facility]:S/P Chest Surgery COMPARISON: XR CHEST PORTABLE 09:11:55.000 FINDINGS: Devices/Tubes/Lines: Right sided drainage catheters are in standardpositions. Lungs: The left lung is clear. Opacity in the right lower lobe is likelydue to atelectasis. Pleura: Right-sided circumferential hydropneumothorax is stable. Heart/Mediastinum: Normal heart and mediastinum. Bones/Soft Tissues: Normal. No significant skeletal abnormality. IMPRESSION: No interval change in radiographic appearance of the chest. Nara Cruz PA-C IMG XR CHEST Final Result * XR Chest Portable (02/20/2025 9:17 AM EDT) Anatomical Region Laterality Modality Chest Computed Radiogr aphy 02/20/2025 9:58 AM EDT Impressions 02/20/2025 9:59 AM EDT Increase in size of circumferential right sided pneumothorax. Narrative 02/20/2025 9:59 AM EDT XR CHEST PORTABLE Referring clinician's provided indication for this examination in [facility]: S/P Chest Surgery COMPARISON: XR CHEST PORTABLE FINDINGS: Devices/Tubes/Lines: Lines and tubes are unchanged in position. Lungs: Consolidative opacification within the right lung can be due to atelectasis. Pleura: Interval increase in size of circumferential right sided pneumothorax. Heart/Mediastinum: The heart and mediastinum are normal. Bones/Soft Tissues: Normal. No significant skeletal abnormality. Procedure Note Idalia Issa MD - 02/20/2025 XR CHEST PORTABLE Referring clinician's provided indication for this examination in [facility]:S/P Chest Surgery COMPARISON: XR CHEST PORTABLE FINDINGS: Devices/Tubes/Lines: Lines and tubes are unchanged in position. Lungs: Consolidative opacification within the right lung can be due toatelectasis. Pleura: Interval increase in size of circumferential right sidedpneumothorax. Heart/Mediastinum: The heart and mediastinum are normal. Bones/Soft Tissues: Normal. No significant skeletal abnormality. IMPRESSION: Increase in size of circumferential right sided pneumothorax. Nara Cruz PA-C IMG XR CHEST Final Result * XR Chest Portable (02/19/2025 9:37 AM EDT) Anatomical Region Laterality Modality Chest Computed Radiogr aphy 02/19/2025 1:04 PM EDT Impressions 02/19/2025 1:06 PM EDT No interval change in radiographic appearance of the chest. Narrative 02/19/2025 1:06 PM EDT XR CHEST PORTABLE Referring clinician's provided indication for this examination in [facility]: S/P Chest Surgery COMPARISON: XR CHEST PORTABLE FINDINGS: Devices/Tubes/Lines: Lines and tubes are unchanged in position. Lungs: Consolidative opacification within the right lower lobe is likely due to atelectasis. Pleura: Circumferential right sided pneumothorax is stable, greatest in the place. Heart/Mediastinum: Normal heart and mediastinum. Bones/Soft Tissues: Evidence is seen for right-sided thoracotomy. Subcutaneous emphysema on the right has increased. Procedure Note Idalia Issa MD - 02/19/2025 XR CHEST PORTABLE Referring clinician's provided indication for this examination in [facility]:S/P Chest Surgery COMPARISON: XR CHEST PORTABLE FINDINGS: Devices/Tubes/Lines: Lines and tubes are unchanged in position. Lungs: Consolidative opacification within the right lower lobe is likelydue to atelectasis. Pleura: Circumferential right sided pneumothorax is stable, greatest inthe place. Heart/Mediastinum: Normal heart and mediastinum. Bones/Soft Tissues: Evidence is seen for right-sided thoracotomy.Subcutaneous emphysema on the right has increased. IMPRESSION: No interval change in radiographic appearance of the chest. us Mauri Ferguson PA-C IMG XR CHEST Final Resul t * XR Chest Portable (02/18/2025 9:36 AM EDT) Anatomical Region Laterality Modality Chest Computed Radiogr aphy 02/18/2025 1:00 PM EDT Impressions 02/18/2025 1:02 PM EDT Decreased size of right-sided pneumothorax. Narrative 02/18/2025 1:02 PM EDT XR CHEST PORTABLE Referring clinician's provided indication for this examination in Epic: S/P Chest Surgery COMPARISON: XR CHEST PORTABLE FINDINGS: Devices/Tubes/Lines: Right-sided chest drainage catheters are unchanged. Right- sided PICC line projects over the superior vena cava. Lungs: The right lung is is better expanded. Consolidative opacification within the right lung is likely due to atelectasis. Pleura: Right-sided pneumothorax is decreased since the previous study. Heart/Mediastinum: Normal heart and mediastinum. Bones/Soft Tissues: Normal. No significant skeletal abnormality. Procedure Note Idalia Issa MD - 02/18/2025 XR CHEST PORTABLE Referring clinician's provided indication for this examination in [facility]:S/P Chest Surgery COMPARISON: XR CHEST PORTABLE FINDINGS: Devices/Tubes/Lines: Right-sided chest drainage catheters are unchanged.Right- sided PICC line projects over the superior vena cava. Lungs: The right lung is is better expanded. Consolidative opacificationwithin the right lung is likely due to atelectasis. Pleura: Right-sided pneumothorax is decreased since the previous study. Heart/Mediastinum: Normal heart and mediastinum. Bones/Soft Tissues: Normal. No significant skeletal abnormality. IMPRESSION: Decreased size of right-sided pneumothorax. us Mauri Ferguson PA-C IMG XR CHEST Final Resul t * XR Chest Portable (02/17/2025 9:24 AM EDT) Anatomical Region Laterality Modality Chest Computed Radiogr aphy 02/17/2025 1:40 PM EDT Impressions 02/17/2025 2:35 PM EDT Unchanged small right pneumothorax with apical and basilar components. Slightly increased trace right chest wall subcutaneous emphysema. ATTESTATION: Tessa Johnson, as teaching physician have reviewed the images, if any, for this patient's exam, and if necessary, have edited the report originally created by Isma Elizondo. Narrative 02/17/2025 2:35 PM EDT XR CHEST PORTABLE Referring clinician's provided indication for this examination in [facility]: S/P Chest Surgery COMPARISON: XR CHEST PORTABLE FINDINGS: Devices/Tubes/Lines: Unchanged right thoracostomy tubes and right PICC line catheter. Lungs: Postsurgical changes in the right lung. Unchanged right lower lung opacification, likely atelectasis. Pleura: Unchanged small right apical and basilar pneumothorax. Similar diffuse mild right pleural thickening versus fluid. Heart/Mediastinum: Unchanged in appearance. Bones/Soft Tissues: No significant skeletal abnormality. Slightly increased trace subcutaneous emphysema in the right lateral chest wall. Procedure Note Tessa Ramirez MD - 02/17/2025 XR CHEST PORTABLE Referring clinician's provided indication for this examination in [facility]:S/P Chest Surgery COMPARISON: XR CHEST PORTABLE 2024- FINDINGS: Devices/Tubes/Lines: Unchanged right thoracostomy tubes and right PICCline catheter. Lungs: Postsurgical changes in the right lung. Unchanged right lower lungopacification, likely atelectasis. Pleura: Unchanged small right apical and basilar pneumothorax. Similardiffuse mild right pleural thickening versus fluid. Heart/Mediastinum: Unchanged in appearance. Bones/Soft Tissues: No significant skeletal abnormality. Slightlyincreased trace subcutaneous emphysema in the right lateral chest wall. IMPRESSION: Unchanged small right pneumothorax with apical and basilar components.Slightly increased trace right chest wall subcutaneous emphysema. ATTESTATION: Tessa Johnson, as teaching physician have reviewed theimages, if any, for this patient's exam, and if necessary, have edited thereport originally created by Isma Elizondo. us Susan Galeano PA-C IMG XR CHEST Final Resul t * Lidocaine level (02/16/2025 11:40 PM EDT) Only the most recent of6 resultswithin the time period is included. LIDOCAINE 3.2 1.5 - 5.0 ug/mL [facility] 02/16/2025 11:4 0 PM EDT 02/16/2025 11:51 PM EDT Miguel Harris MD, MPH LAB BLOOD ORDERABLES Final Result Performing Organization Address [facility] de Phone Number [address] [address] * Mycobacterial culture/smear (02/16/2025 11:19 PM EDT) Only the most recent of3 resultswithin the time period is included. Special Requests NAAT TO STATE 02/17 8:02 AM EDT [facility] SMEAR NO ACID FAST BACILLI OBSERVED 02/22/2025 12:07 PM EDT [facility] SMEAR (NOTE) Method: Fluorochrome (250x): Acid-fast bacilli not found. 02/22/2025 12:07 PM EDT [facility] Mycobacterial Culture NEGATIVE FOR MYCOBACTERIA AFTER 60 DAYS 04/13/2025 5:05 PM EDT [facility] Mycobacterial Culture (NOTE) Culture negative after 60 days incubation. DRUG SUSCEPTIBILITY TESTING WILL NOT BE DONE ON THIS CULTURE. 04/13/2025 5:05 PM EDT [facility] Other (Sputum) 02/16/2025 11 :19 PM EDT 02/17/2025 12:30 AM EDT Susan Galeano PA-C MICROBIOLOGY - GENERAL ORDE RABNINO Final Result Performing Organization Address [facility] de Phone Number [address] [address] * Insert PICC line (02/16/2025 4:38 PM EDT) Narrative Almita Conner RN - 02/16/2025 4:38 PM EDT Almita Conner RN 02/16/2025 5:18 PM Insert PICC line Date/Time: 02/16/2025 4:38 PM Performed by: Almita Conner RN Authorized by: Miguel Harris MD, MPH [place] Protocol: Consent obtained: Yes Time out: Immediately prior to the procedure a time-out was called A time out verifies correct patient, procedure, equipment and site/side marked as required: Indications: Indications: Vascular access Procedure details: Skin Prep agent dried: Skin prep agent completely dried prior to procedure Sterile barriers: All five maximal sterile barriers used - gloves, gown, cap, mask and large sterile sheet Hand hygiene: Hand hygiene performed prior to insertion Patient position: Flat Ultrasound guidance: Yes Successful placement: Yes Post-procedure: Post-procedure: Dressing applied Assessment: Blood return through all ports, free fluid flow and Placement verification ekg Patient tolerance: Patient tolerated the procedure well with no immediate complications us Miguel Harris MD, MPH PROCEDURE/MINOR SURGICAL O RDERABLES Final Result * Point of Care Image Capture (02/16/2025 4:22 PM EDT) Annie Galeano PA-C IMG POINT OF CARE EXA MS Final Result * XR Chest Portable (02/16/2025 10:54 AM EDT) Anatomical Region Laterality Modality Chest Computed Radiogr aphy 02/16/2025 2:50 PM EDT Impressions 02/16/2025 2:58 PM EDT Unchanged radiographic appearance of the chest. Narrative 02/16/2025 2:58 PM EDT XR CHEST PORTABLE Referring clinician's provided indication for this examination in [facility]: S/P Chest Surgery COMPARISON: XR CHEST PA AND LATERAL 2 VIEWS FINDINGS: Devices/Tubes/Lines: Right thoracostomy catheters, unchanged in position. Lungs: Postsurgical changes in the right lung. Similar right lower lung opacification, which may represent atelectasis, aspiration, or pneumonia. Pleura: Similar small loculated basilar right pneumothorax. Similar diffuse mild right pleural thickening versus fluid. Heart/Mediastinum: Cardiac silhouette is within normal limits in size. Bones/Soft Tissues: No acute skeletal abnormality. Similar trace subcutaneous emphysema in the right chest wall. Procedure Note Cristiana Michaels MD - 02/16/2025 XR CHEST PORTABLE Referring clinician's provided indication for this examination in [facility]:S/P Chest Surgery COMPARISON: XR CHEST PA AND LATERAL 2 VIEWS FINDINGS: Devices/Tubes/Lines: Right thoracostomy catheters, unchanged inposition. Lungs: Postsurgical changes in the right lung. Similar right lower lungopacification, which may represent atelectasis, aspiration, orpneumonia. Pleura: Similar small loculated basilar right pneumothorax. Similardiffuse mild right pleural thickening versus fluid. Heart/Mediastinum: Cardiac silhouette is within normal limits in size. Bones/Soft Tissues: No acute skeletal abnormality. Similar tracesubcutaneous emphysema in the right chest wall. IMPRESSION: Unchanged radiographic appearance of the chest. Asmeda Fannin PA-C IMG XR CHEST Final Resul t * XR CHEST PA AND LATERAL 2 VIEWS (02/15/2025 10:32 AM EDT) Anatomical Region Laterality Modality Chest Computed Radiogr aphy 02/15/2025 12:3 0 PM EDT Impressions 02/15/2025 12:31 PM EDT Decreased right pneumothorax Narrative 02/15/2025 12:31 PM EDT XR CHEST PA AND LATERAL 2 VIEWS Referring clinician's provided indication for this examination in [facility]: S/P Chest Surgery COMPARISON: XR CHEST PA AND LATERAL 2 VIEWS FINDINGS: Devices/Tubes/Lines: Right thoracostomy tubes remain in place Lungs: Postsurgical changes in the right lung Pleura: Decreased small loculated right pneumothorax. Minimal right pleural fluid/thickening Heart/Mediastinum: Normal heart size Bones/Soft Tissues: Small amount gas in the right chest wall. Status post right thoracotomy Procedure Note Luis Randall MD - 02/15/2025 XR CHEST PA AND LATERAL 2 VIEWS Referring clinician's provided indication for this examination in [facility]:S/P Chest Surgery COMPARISON: XR CHEST PA AND LATERAL 2 VIEWS FINDINGS: Devices/Tubes/Lines: Right thoracostomy tubes remain in place Lungs: Postsurgical changes in the right lung Pleura: Decreased small loculated right pneumothorax. Minimal rightpleural fluid/thickening Heart/Mediastinum: Normal heart size Bones/Soft Tissues: Small amount gas in the right chest wall. Status postright thoracotomy IMPRESSION: Decreased right pneumothorax us Asmeda Fannin PA-C IMG XR CHEST Final Resul t * ECG 12-LEAD (02/14/2025 7:59 PM EDT) Only the most recent of9 resultswithin the time period is included. Systolic Blood Pressure 117 mmHg [facility] Diastolic Blood Pressure 59 mmHg [facility] Ventricular Rate EKG/MIN 101 BPM [facility] Atrial Rate 101 BPM [facility] RI Interval 130 ms [facility] QRS Duration 86 ms [facility] QT Interval 332 ms [facility] QTC Interval 430 ms [facility] P Wayside 58 degrees [facility] R Wave Wayside 60 degrees [facility] T Wave Wayside 67 degrees [facility] 02/14/2025 7:59 PM EDT Narrative [facility] - 02/18/2025 1:19 PM EDT Sinus tachycardia Possible Left atrial enlargement Borderline ECG When compared with ECG of 14-Feb-2025 19:53, (unconfirmed) No significant change was found Electronically signed by NOT CONFIRMED BY, CARDIOLOGY ([id number]), supervising editor trailer Jaswant Calle ([id number]) on 02/18/2025 1:19:01 PM us Provider [employer] ECG ORDERABLES Final Result [facility] * XR CHEST PA AND LATERAL 2 VIEWS (02/14/2025 11:36 AM EDT) Anatomical Region Laterality Modality Chest Computed Radiogr aphy 02/14/2025 1:24 PM EDT Impressions 02/14/2025 3:33 PM EDT Slightly increased moderate right pneumothorax. Trace left pleural effusion. ATTESTATION: Tessa Johnson, as teaching physician have reviewed the images, if any, for this patient's exam, and if necessary, have edited the report originally created by Isma Elizondo. Narrative 02/14/2025 3:33 PM EDT XR CHEST PA AND LATERAL 2 VIEWS Referring clinician's provided indication for this examination in [facility]: S/P Chest Surgery COMPARISON: XR CHEST PORTABLE FINDINGS: Devices/Tubes/Lines: Unchanged right chest tubes. Lungs: Postsurgical changes in the right lung. Unchanged right perihilar atelectasis. Pleura: Slightly increased moderate right pneumothorax. Trace left pleural effusion. Heart/Mediastinum: Unchanged in appearance. Bones/Soft Tissues: Similar subcutaneous emphysema along the right chest wall. Procedure Note Tessa Ramirez MD - 02/14/2025 XR CHEST PA AND LATERAL 2 VIEWS Referring clinician's provided indication for this examination in [facility]:S/P Chest Surgery COMPARISON: XR CHEST PORTABLE 2024- FINDINGS: Devices/Tubes/Lines: Unchanged right chest tubes. Lungs: Postsurgical changes in the right lung. Unchanged right perihilaratelectasis. Pleura: Slightly increased moderate right pneumothorax. Trace left pleuraleffusion. Heart/Mediastinum: Unchanged in appearance. Bones/Soft Tissues: Similar subcutaneous emphysema along the right chestwall. IMPRESSION: Slightly increased moderate right pneumothorax. Trace left pleuraleffusion. ATTESTATION: Tessa Johnson, as teaching physician have reviewed theimages, if any, for this patient's exam, and if necessary, have edited thereport originally created by Isma Elizondo. Susan Galeano PA-C IMG XR CHEST Final Resul t * (ABNORMAL) Vancomycin, trough (02/14/2025 9:25 AM EDT) Only the most recent of3 resultswithin the time period is included. VANCOMYCIN,TROU GH <4.0(L) 10.0 - 20.0 ug/mL [facility] Comment: INTERFERING SUBSTANCES MAY RARELY CAUSE FALSELY LOW RESULTS. CONTACT PHARMACY WITH ANY QUESTIONS. PLEASE VERIFY VANCOMYCIN TROUGH COLLECTION TIME BEFORE ADJUSTING DOSES. CONTACT PHARMACY FOR ASSISTANCE. Blood 02/14/2025 9:25 AM EDT 02/14/2025 9:43 AM EDT Blake Winter PA-C, MPH LAB BLOOD ORDERABLES Final Result Performing Organization Address City/State/[facility] Co de Phone Number [facility] [address] [place] [phone] * (ABNORMAL) Arterial blood gas PLUS (02/13/2025 3:50 PM EDT) Only the most recent of12 resultswithin the time period is included. TEMP 97.7 DEGREES [facility] O2 Liters/Min 2 L/Min [facility] HEMATOCRIT 29(L) 36.0 - 46.0 % [facility] HGB 9.4(L) 12.0 - 16.0 g/dL [facility] PCO2 48(H) 36 - 47 mm[Hg] [facility] PH 7.37 7.35 - 7.45 [facility] PO2 115(H) 65 - 95 mm[Hg] [facility] Base Excess, unspecified 2.0 0.0 - 3.0 mmol/L [facility] BASE DEFICIT SEE BASE EXCESS 0.0 - 3.0 mmol/L [facility] SO2, unspecified 98.5(H) 93.0 - 97.5 % [facility] TCO2 29 22 - 30 mmol/L [facility] Glucose, whole bld 189(H) 70 - 100 mg/dl [facility] IOCA 1.14 1.13 - 1.32 mmol/L [facility] K-WB 3.9 3.4 - 5.1 mmol/L [facility] NA-WB 137 136 - 145 mmol/L [facility] Chloride, whole bld/plasma 107 98 - 107 mmol/L [facility] ANION GAP 1(L) 7 - 17 mmol/L [facility] Blood 02/13/2025 3:50 PM EDT 02/13/2025 3:53 PM EDT us Miguel Harris MD, MPH LAB BLOOD ORDERABLES Final Result [facility] [address] [place] [id number] * XR Chest Portable (02/13/2025 3:47 PM EDT) Anatomical Region Laterality Modality Chest Computed Radiogr aphy 02/13/2025 3:48 PM EDT Impressions 02/13/2025 4:28 PM EDT Interval placement of 2 additional right chest tubes. Decreased fluid component of right hydropneumothorax with similar moderate air component. ATTESTATION: Nevaeh Johnson, as teaching physician have reviewed the images, if any, for this patient's exam, and if necessary, have edited the report originally created by Rodrick Zhong. Narrative 02/13/2025 4:28 PM EDT XR CHEST PORTABLE Referring clinician's provided indication for this examination in [facility]: Post-Op COMPARISON: XR CHEST PA AND LATERAL 2 VIEWS FINDINGS: Devices/Tubes/Lines: Interval placement of two additional right chest tubes. Unchanged previously noted apically directed right chest tube. Lungs: Postsurgical changes in the right lung with decreased hazy airspace opacity and atelectasis in the right lower lung. No consolidation of the left lung. Pleura: Decreased fluid component of the right hydropneumothorax and a similar moderate air component. No left pleural effusion or pneumothorax. Heart/Mediastinum: Partially obscured right heart border. Bones/Soft Tissues: Decreased subcutaneous emphysema along the right chest wall. Procedure Note Nevaeh Rogers MBBS - 02/13/2025 XR CHEST PORTABLE Referring clinician's provided indication for this examination in [facility]:Post-Op COMPARISON: XR CHEST PA AND LATERAL 2 VIEWS FINDINGS: Devices/Tubes/Lines: Interval placement of two additional right chesttubes. Unchanged previously noted apically directed right chest tube. Lungs: Postsurgical changes in the right lung with decreased hazy airspaceopacity and atelectasis in the right lower lung. No consolidation of theleft lung. Pleura: Decreased fluid component of the right hydropneumothorax and asimilar moderate air component. No left pleural effusion orpneumothorax. Heart/Mediastinum: Partially obscured right heart border. Bones/Soft Tissues: Decreased subcutaneous emphysema along the right chestwall. IMPRESSION: Interval placement of 2 additional right chest tubes. Decreased fluidcomponent of right hydropneumothorax with similar moderate aircomponent. ATTESTATION: Nevaeh Johnson, as teaching physician have reviewed theimages, if any, for this patient's exam, and if necessary, have edited thereport originally created by Rodrick Zhong. us Miguel Harris MD, MPH IMG XR CHEST Final Resu lt * Arterial blood gas (02/13/2025 3:26 PM EDT) Only the most recent of2 resultswithin the time period is included. TEMP CREDITED: BROKEN IN TRANSIT. DEGREES [facility] Comment:NOTIFIED AJI0 AT 3:3 9PM FIO2 % CREDITED: BROKEN IN TRANSIT. % [facility] Comment:NOTIFIED AJI0 AT 3:3 9PM O2 Liters/Min CREDITED: BROKEN IN TRANSIT. L/Min [facility] Comment: NOTIFIED AJI0 AT 3:39PM Corrected on 02/13 AT 1540: previously reported as 6 HEMATOCRIT CREDITED: BROKEN IN TRANSIT. 36.0 - 46.0 % [facility] Comment:NOTIFIED AJI0 AT 3:3 9PM HGB CREDITED: BROKEN IN TRANSIT. 12.0 - 16.0 g/dL [facility] Comment:NOTIFIED AJI0 AT 3:3 9PM PCO2 CREDITED: BROKEN IN TRANSIT. mm[Hg] [facility] Comment:NOTIFIED AJI0 AT 3:3 9PM PH CREDITED: BROKEN IN TRANSIT. 7.32 - 7.45 [facility] Comment:NOTIFIED AJI0 AT 3:3 9PM PO2 CREDITED: BROKEN IN TRANSIT. mm[Hg] [facility] Comment:NOTIFIED AJI0 AT 3:3 9PM Base Excess, unspecified CREDITED: BROKEN IN TRANSIT. 0.0 - 3.0 mmol/L [facility] Comment:NOTIFIED AJI0 AT 3:3 9PM BASE DEFICIT CREDITED: BROKEN IN TRANSIT. 0.0 - 3.0 mmol/L [facility] Comment:NOTIFIED AJI0 AT 3:3 9PM SO2, unspecified CREDITED: BROKEN IN TRANSIT. 93.0 - 97.5 % [facility] Comment:NOTIFIED AJI0 AT 3:3 9PM TCO2 CREDITED: BROKEN IN TRANSIT. 22 - 30 mmol/L [facility] Comment:NOTIFIED AJI0 AT 3:3 9PM Blood 02/13/2025 3:26 PM EDT 02/13/2025 3:31 PM EDT us Miguel Harris MD, MPH LAB BLOOD ORDERABLES Edite d Result - Final Performing Organization Address City/[facility]/ZIP Co de Phone Number [facility] [address] [place] [phone] * Ionized calcium (02/13/2025 3:26 PM EDT) IOCA 1.15 1.13 - 1.32 mmol/L [facility] Blood 02/13/2025 3:26 PM EDT 02/13/2025 3:31 PM EDT Miguel Harris MD, MPH LAB BLOOD ORDERABLES Final Result Performing Organization Address [facility] Co de Phone Number [address] [phone] * TISSUE CULTURE/SMEAR (02/13/2025 11:45 AM EDT) Special Requests Specimen received from OR 02/13/2025 4:23 PM EDT [facility] GRAM STAIN NO POLYS 02/13/2025 8:04 PM EDT [facility] GRAM STAIN NO EPITHELIAL CELLS 02/13/2025 8:04 PM EDT [facility] GRAM STAIN NO ORGANISMS SEEN 02/13/2025 8:04 PM EDT [facility] Tissue Culture/Smear NO GROWTH 5 DAYS 02/18/2025 8:14 AM EDT [facility] Tissue 02/13/2025 11:4 5 AM EDT 02/13/2025 4:21 PM EDT Comment:RIGHT CHEST PLEURAL RIND Miguel Harris MD, MPH MICROBIOLOGY - GENERAL ORD ERABLES Final Result Performing Organization Address [facility] Co de Phone Number [facility] [address] [place] [phone] JACQUES * Fungal culture (02/13/2025 11:45 AM EDT) Only the most recent of2 resultswithin the time period is included. Special Requests Specimen received from OR 02/13/2025 4:23 PM EDT JACQUES Fungal Culture Only NO FUNGUS ISOLATED AFTER 28 DAYS 03/13/2025 8:15 AM EDT [facility] Tissue 02/13/2025 11:4 5 AM EDT 02/13/2025 4:21 PM EDT Comment:RIGHT CHEST PLEURAL RIND us Miguel Harris MD, MPH MICROBIOLOGY - GENERAL ORD ERABLES Final Result Performing Organization Address [facility] de Phone Number [facility] [address] * Anaerobic Culture (02/13/2025 11:45 AM EDT) Only the most recent of2 resultswithin the time period is included. Special Requests Specimen received from OR 02/13/2025 4:23 PM EDT [facility] Anaerobic Culture NO ANAEROBES ISOLATED AFTER 7 DAYS 02/20/2025 7:50 AM EDT [facility] Tissue 02/13/2025 11:4 5 AM EDT 02/13/2025 4:21 PM EDT Comment:RIGHT CHEST PLEURAL RIND us Miguel Harris MD, MPH MICROBIOLOGY - GENERAL ORD ERABLES Final Result Performing Organization Address [facility] de Phone Number [facility] [address] * ANES ETT DOUBLE LUMEN - AIRWAY LDA (02/13/2025 7:59 AM EDT) Only the most recent of3 resultswithin the time period is included. Narrative Carroll Carson MD - 02/13/2025 7:59 AM EDT Carroll Carson MD 02/13/2025 8:07 AM Airway Placement Procedure Note: Patient was not difficult to intubate. Procedure performed by: fellow/resident/PROSTHETIC AIDES TEACHER Anesthesiologist: Melani Brizuela MD Fellow/Resident/PROSTHETIC AIDES TEACHER: Carroll Carson MD Airway procedure initiated at:02/13/2025 7:59 AM and ended at. Personal Protective Equipment: Mask: surgical mask Eye Protection: eye shield Gloves: gloves Gown: no gown Mask Ventilation: Quality: not attempted Airway Placement: Technique: video laryngoscopy Rapid sequence induction: yes Details: Blade type: Glidescope Blade size: Mac S3 Video view: grade 1 Video Laryngoscopy was: elective Number of attempts: 1 ETT type: double lumen Double lumen tube size: 37. Tube position confirmed by: EtCO2 and bronchoscopy Bite Block: soft Outcomes: Evidence of dental injury? no Complications observed? no Notes: GER placed in the trachea, guided into LMB fiberoptically and left lung isolated Melani Brizuela MD RI ANESTHESIA Final Result * RI INSERT CATH ART PERCUT SHORTTERM PERF (02/13/2025 7:17 AM EDT) Only the most recent of2 resultswithin the time period is included. Narrative Carroll Carson MD - 02/13/2025 7:17 AM EDT Carroll Carson MD 02/13/2025 7:17 AM Arterial Line Placement Procedure Note: Start Time 02/13/2025 7:05 AM: Location: pre-op Procedure performed by: fellow/resident/PROSTHETIC AIDES TEACHER Anesthesiologist: Melani Brizuela MD Fellow/Resident/PROSTHETIC AIDES TEACHER: Carroll Carson MD Indication(s): hemodynamic monitoring and arterial blood gas [place] Protocol performed: consent obtained, patient identified with 2 identifiers, correct procedure verified, correct site and laterality confirmed, verified equipment, coagulation status reviewed and implant history reviewed. Procedure details: Skin prep: chlorhexidine gluconate Skin prep agent completely dried prior to procedure. Insertion site scrubbed for 30 seconds. Sterile barriers: hands washed, cap, mask, prep and drape and sterile gloves used Laterality: left Location: radial artery Catheter type: angio Catheter size: 20 G Technique: Technique: Seldinger technique Number of attempts: 1 Post Procedure: Post procedure: dressing applied and fixation device Complications: none Patient tolerance: patient tolerated the procedure well with no immediate complications Transducer type: regular Name band removed? No Melani Brizuela MD RI ANESTHESIA Final Result * Anatomic Pathology (02/13/2025 12:00 AM EDT) Only the most recent of2 resultswithin the time period is included. Final Diagnosis LUNG, RIGHT UPPER LOBE, WEDGE BIOPSY: Neutrophilic lung abscess with surrounding acute fibrinopurulent pneumonia. Organizing fibrinopurulent pleuritis. No tumor seen. See Note. NOTE: Histologic sections show a neutrophilic lung abscess with surrounding acute fibrinopurulent pneumonia and pleuritis. ELLYN and Warthin-Starry stains highlight large susan-shaped forms with squared-off ends, not well visualized on Gram stain. In a patient with a history of recent BAL culture growing B. cereus (not anthracis), the findings are suspicious for infection by B. cereus, which can be gram-variable in tissue sections and may be altered in the setting of antibiotic therapy. Additionally, a modified acid-fast (Nocardia) stain highlights a single slender bacilliform structure suspicious for a mycobacterium. A PAS stain highlights a single branching hyphal fungal form associated with necrotic tissue; it is difficult to exclude laboratory artifact, particularly given that no fungal forms are identified on ELLYN stain. Slides are also reviewed by Ector Kaye M.D. (Infectious Disease Pathology Service), who notes the following: The structures identified on ELLYN do not correlate with PAS or Gram and may represent artifact. The structures appear fibril-like on WSS, further supporting that these may be artifact. Preliminary results were communicated by Dr. Jamal Parker to Dr. Miguel Harris via email at 1:55 PM on 02/17/2025. 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 BAL on 02/09/25 showed AFB and grew 3+ B. cereus group, not B. anthracis; treated with antibiotics. [facility] Operation Bronchoscopy flexible. Thoracoscopy video-assisted wedge resection lung (right). Insertion chest tube (right). [facility] Tissue Submitted A/. Lung, right upper lobe-right upper lobe wedge [facility] Gross Description Received fresh in 1 part, labeled with the patient's name, medical record number, and Lung, right upper lobe-right upper lobe wedge, is a previously disrupted pulmonary wedge resection specimen (3.0 x 1.5 x 1.2 cm) with a stapled resection margin (3.2 cm in length) and with a disrupted end (1.5 x 1.2 cm, inked blue). The pleura is pink-purple, and focally hemorrhagic. The staple line is removed, and the underlying parenchymal margin is inked black. The lung parenchyma is borges-pink and unremarkable. The specimen is entirely submitted as follows: A1-A3: Lung wedge, to include area disruption in cassette A1, 7 fragments total Dictated by: Kamran Goldman By his/her signature below, the senior physician certifies that he/she personally conducted a microscopic examination ( gross only exam if so stated) of the described specimen(s) and rendered or confirmed the diagnosis(es) related thereto. [facility] Procedure Comments ProcGram stain - [facility] Gram stain - [facility] (order for accession only, not for recut) H&E Stain - [facility] (order for accession only, not for recut) H&E Stain - [facility] (order for accession only, not for recut) H&E Stain - [facility] Create a paraffin block - [facility] Nocardia - [facility] Warthin Starry stain for microorganisms - [facility] Methenamine Silver stain for Fungus - [facility] PAS with diastase digestion for fungi - [facility] Report Accession No: [id number] Date: 1970 Sex: Female [facility] Department of Pathology [address] [place], [place] [address]IA License No.: [id number] Frame Coverer: Dr. Howard Delgadillo M.D., Ph.D. Physician: MIGUEL HARRIS MD, MPH Procedure Date: 02/13/2025 Resident: Jamal Parker MD, PhD; Kerri Chiu M.D., Ph.D. Pathologist: Sneha Cabrera M.D. PATHOLOGIC DIAGNOSIS: LUNG, RIGHT UPPER LOBE, WEDGE BIOPSY: Neutrophilic lung abscess with surrounding acute fibrinopurulent pneumonia. Organizing fibrinopurulent pleuritis. No tumor seen. See Note. NOTE: Histologic sections show a neutrophilic lung abscess with surrounding acute fibrinopurulent pneumonia and pleuritis. ELLYN and Warthin-Starry stains highlight large susan-shaped forms with squared-off ends, not well visualized on Gram stain. In a patient with a history of recent BAL culture growing B. cereus (not anthracis), the findings are suspicious for infection by B. cereus, which can be gram-variable in tissue sections and may be altered in the setting of antibiotic therapy. Additionally, a modified acid-fast (Nocardia) stain highlights a single slender bacilliform structure suspicious for a mycobacterium. A PAS stain highlights a single branching hyphal fungal form associated with necrotic tissue; it is difficult to exclude laboratory artifact, particularly given that no fungal forms are identified on ELLYN stain. Slides are also reviewed by Ector Kaye M.D. (Infectious Disease Pathology Service), who notes the following: The structures identified on ELLYN do not correlate with PAS or Gram and may represent artifact. The structures appear fibril-like on WSS, further supporting that these may be artifact. Preliminary results were communicated by Dr. Jamal Parker to Dr. Miguel Harris via email at 1:55 PM on 02/17/2025. 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 BAL on 02/09/25 showed AFB and grew 3+ B. cereus group, not B. anthracis; treated with antibiotics. Operation: Bronchoscopy flexible. Thoracoscopy video-assisted wedge resection lung (right). Insertion chest tube (right). TISSUE SUBMITTED: A/. Lung, right upper lobe-right upper lobe wedge GROSS DESCRIPTION: Received fresh in 1 part, labeled with the patient's name, medical record number, and Lung, right upper lobe-right upper lobe wedge, is a previously disrupted pulmonary wedge resection specimen (3.0 x 1.5 x 1.2 cm) with a stapled resection margin (3.2 cm in length) and with a disrupted end (1.5 x 1.2 cm, inked blue). The pleura is pink-purple, and focally hemorrhagic. The staple line is removed, and the underlying parenchymal margin is inked black. The lung parenchyma is borges-pink and unremarkable. The specimen is entirely submitted as follows: A1-A3: Lung wedge, to include area disruption in cassette A1, 7 fragments total Dictated by: Kamran Goldman By his/her signature below, the senior physician certifies that he/she personally conducted a microscopic examination ( gross only exam if so stated) of the described specimen(s) and rendered or confirmed the diagnosis(es) related thereto. Final Diagnosis by Sneha Cabrera M.D., Electronically signed on Monday March 10, 2025 at 09:14:22PM [facility] Conversion Type (Conversion Source) 02/13/2025 02/13/2025 Miguel Harris MD, MPH PATHOLOGY ORDERABLES Edite d Result - Final [facility] * XR CHEST PA AND LATERAL 2 VIEWS (02/12/2025 9:28 AM EDT) Anatomical Region Laterality Modality Chest Computed Radiogr aphy 02/12/2025 9:51 AM EDT Impressions 02/12/2025 9:52 AM EDT Similar to minimally decreased moderate right hydropneumothorax. Narrative 02/12/2025 9:52 AM EDT XR CHEST PA AND LATERAL 2 VIEWS Referring clinician's provided indication for this examination in [facility]: Pneumothorax COMPARISON: XR CHEST PA AND LATERAL 2 VIEWS FINDINGS: Devices/Tubes/Lines: Unchanged right apically directed chest tube. Lungs: Postsurgical change in the right lung with similar hazy airspace opacity and atelectasis in the right lower lung. Pleura: Similar to minimally decreased moderate right hydropneumothorax. Heart/Mediastinum: Unchanged in appearance. Bones/Soft Tissues: Right chest wall and lower neck subcutaneous emphysema. Status post right thoracotomy. Procedure Note Arvin Watson MD - 02/12/2025 XR CHEST PA AND LATERAL 2 VIEWS Referring clinician's provided indication for this examination in [facility]:Pneumothorax COMPARISON: XR CHEST PA AND LATERAL 2 VIEWS FINDINGS: Devices/Tubes/Lines: Unchanged right apically directed chest tube. Lungs: Postsurgical change in the right lung with similar hazy airspaceopacity and atelectasis in the right lower lung. Pleura: Similar to minimally decreased moderate right hydropneumothorax. Heart/Mediastinum: Unchanged in appearance. Bones/Soft Tissues: Right chest wall and lower neck subcutaneousemphysema. Status post right thoracotomy. IMPRESSION: Similar to minimally decreased moderate right hydropneumothorax. us Miguel Harris MD, MPH IMG XR CHEST Final Resu lt * (ABNORMAL) Urinalysis w/reflex Urine Culture (02/11/2025 11:38 PM EDT) Only the most recent of2 resultswithin the time period is included. Urine Culture Reflex NO [facility] COLOR COLORLESS(A ) Yellow [facility] CLARITY Clear Clear [facility] GLUCOSE Negative Negative [facility] BILI Negative Negative [facility] KETONES Negative Negative [facility] SPECIFIC GRAVITY 1.005 1.003 - 1.035 [facility] BLOOD Negative Negative [facility] PH 5.5 4.5 - 8.0 [facility] Protein-UA Negative Negative [facility] UROBILINOGEN Negative Negative [facility] NITRITE Negative Negative [facility] Leukocyte esterase, ur Negative Negative [facility] Urine (Urine) 02/11/2025 11: 38 PM EDT 02/11/2025 11:46 PM EDT Amy Herrera PA-C URINE ORDERABLES Final Re sult Performing Organization Address City/State/[facility] Co de Phone Number [facility] [address] [place] [phone] * XR CHEST PA AND LATERAL 2 VIEWS (02/11/2025 2:01 PM EDT) Anatomical Region Laterality Modality Chest Computed Radiogr aphy 02/11/2025 2:06 PM EDT Impressions 02/11/2025 2:07 PM EDT No interval change in radiographic appearance of the chest. Narrative 02/11/2025 2:07 PM EDT XR CHEST PA AND LATERAL 2 VIEWS Referring clinician's provided indication for this examination in Epic: Pneumothorax COMPARISON: XR CHEST PA AND LATERAL 2 VIEWS FINDINGS: Devices/Tubes/Lines: Unchanged right apically directed chest tube. Lungs: Postsurgical change in the right lung with similar hazy airspace opacity and atelectasis in the right lower lung. Pleura: No significant change in the moderate right hydropneumothorax. Heart/Mediastinum: Unchanged in appearance. Bones/Soft Tissues: Right chest wall and lower neck subcutaneous emphysema. Status post right thoracotomy. Procedure Note Arvin Watson MD - 02/11/2025 XR CHEST PA AND LATERAL 2 VIEWS Referring clinician's provided indication for this examination in Epic:Pneumothorax COMPARISON: XR CHEST PA AND LATERAL 2 VIEWS FINDINGS: Devices/Tubes/Lines: Unchanged right apically directed chest tube. Lungs: Postsurgical change in the right lung with similar hazy airspaceopacity and atelectasis in the right lower lung. Pleura: No significant change in the moderate right hydropneumothorax. Heart/Mediastinum: Unchanged in appearance. Bones/Soft Tissues: Right chest wall and lower neck subcutaneousemphysema. Status post right thoracotomy. IMPRESSION: No interval change in radiographic appearance of the chest. Blake Winter PA-C, MPH IMG XR CHEST Final Result * C. DIFFICILE PCR (02/11/2025 2:00 AM EDT) C.DIFFICILE PCR NEGATIVE for C.difficile NEGATIVE for C.difficile [facility] Stool (Stool) 02/11/2025 2:0 0 AM EDT 02/11/2025 2:06 AM EDT Miguel Harris MD, MPH MICROBIOLOGY - GENERAL ORD ERABLES Final Result Performing Organization Address City/[facility]/ZIP Co de Phone Number [facility] [address] [place] [phone] * MRSA Nasal Screen (02/10/2025 2:22 PM EDT) Special Requests None 02/10/2025 1:39 PM EDT [facility] MRSA Nasal Culture NO METHICILLIN RESISTANT STAPHYLOCOCCUS AUREUS ISOLATED 02/12/2025 6:52 AM EDT [facility] Other (Nasal) 02/10/2025 2:2 2 PM EDT 02/10/2025 3:55 PM EDT Blake Winter PA-C, MPH MICROBIOLOGY - GENERA L ORDERABLES Final Result Performing Organization Address [facility] Co de Phone Number [facility] [address] [place] [phone] * XR CHEST PA AND LATERAL 2 VIEWS (02/10/2025 9:22 AM EDT) Anatomical Region Laterality Modality Chest Computed Radiogr aphy 02/10/2025 10:0 8 AM EDT Impressions 02/10/2025 12:03 PM EDT See findings. ATTESTATION: Catrina Johnson, as teaching physician have reviewed the images, if any, for this patient's exam, and if necessary, have edited the report originally created by Rodrick Zhong. Narrative 02/10/2025 12:03 PM EDT XR CHEST PA AND LATERAL 2 VIEWS Referring clinician's provided indication for this examination in [facility]: Post-Op COMPARISON: XR CHEST PORTABLE FINDINGS: Devices/Tubes/Lines: Unchanged right apically directed chest tube. Lungs: Postsurgical change in the right lung with similar hazy airspace opacity and atelectasis in the right lower lung. Pleura: No significant change in the moderate right hydropneumothorax. Heart/Mediastinum: Unchanged in appearance. Bones/Soft Tissues: Slightly decreased right chest wall and neck subcutaneous emphysema. Status post right thoracotomy. Procedure Note Catrina Rosales MD - 02/10/2025 XR CHEST PA AND LATERAL 2 VIEWS Referring clinician's provided indication for this examination in [facility]:Post-Op COMPARISON: XR CHEST PORTABLE FINDINGS: Devices/Tubes/Lines: Unchanged right apically directed chest tube. Lungs: Postsurgical change in the right lung with similar hazy airspaceopacity and atelectasis in the right lower lung. Pleura: No significant change in the moderate right hydropneumothorax. Heart/Mediastinum: Unchanged in appearance. Bones/Soft Tissues: Slightly decreased right chest wall and necksubcutaneous emphysema. Status post right thoracotomy. IMPRESSION: See findings. ATTESTATION: Catrina Johnson, as teaching physician have reviewed theimages, if any, for this patient's exam, and if necessary, have edited thereport originally created by Rodrick Zhong. us Miguel Harris MD, MPH IMG XR CHEST Final Resu lt * XR Chest Portable (02/09/2025 5:48 PM EDT) Anatomical Region Laterality Modality Chest Computed Radiogr aphy 02/09/2025 5:38 PM EDT Impressions 02/10/2025 8:22 AM EDT No interval change in radiographic appearance of the chest. ATTESTATION: Idalia Johnson, as teaching physician have reviewed the images, if any, for this patient's exam, and if necessary, have edited the report originally created by Isma Elizondo. Narrative 02/10/2025 8:22 AM EDT XR CHEST PORTABLE Referring clinician's provided indication for this examination in [facility]: Post-Op; s/p bronchoscopy and chest tube on waterseal COMPARISON: XR CHEST PA AND LATERAL 2 VIEWS 10:57:36.000 FINDINGS: Devices/Tubes/Lines: Unchanged right thoracostomy tube. Lungs: Similar postsurgical changes and atelectasis in the right lung. Pleura: Unchanged moderate circumferential right hydropneumothorax. Heart/Mediastinum: Partially obscured. Bones/Soft Tissues: Overall unchanged right chest wall and neck subcutaneous gas. Unchanged small amount of left lower chest wall subcutaneous gas. Right thoracotomy. Procedure Note Idalia Issa MD - 02/10/2025 XR CHEST PORTABLE Referring clinician's provided indication for this examination in [facility]:Post-Op; s/p bronchoscopy and chest tube on waterseal COMPARISON: XR CHEST PA AND LATERAL 2 VIEWS 10:57:36.000 FINDINGS: Devices/Tubes/Lines: Unchanged right thoracostomy tube. Lungs: Similar postsurgical changes and atelectasis in the right lung. Pleura: Unchanged moderate circumferential right hydropneumothorax. Heart/Mediastinum: Partially obscured. Bones/Soft Tissues: Overall unchanged right chest wall and necksubcutaneous gas. Unchanged small amount of left lower chest wallsubcutaneous gas. Right thoracotomy. IMPRESSION: No interval change in radiographic appearance of the chest. ATTESTATION: Idalia Johnson, as teaching physician have reviewed theimages, if any, for this patient's exam, and if necessary, have edited thereport originally created by Isma Elizondo. us Miguel Harris MD, MPH IMG XR CHEST Final Resu lt * COVID-19 RT-PCR (02/09/2025 4:45 PM EDT) Specimen Source/Descriptio n BRONCHIAL ALVEOLAR [place]AV[place] [facility] Comment:Corrected on 02/09 A T 2044: previously reported as NASOPHARYNGEAL SWAB SARS-CoV 2 (COVID-19) PCR SARS-CoV-2 not detected SARS-CoV-2 not detected [facility] 02/09/2025 4:45 PM EDT 02/09/2025 6:22 PM EDT Miguel Harris MD, MPH BODY FLUIDS AND STOOLS ORD ERABLES Edited Result - Final Performing Organization Address [facility] Co de Phone Number [address] * ADENOVIRUS, hMPV, RHINOVIRUS (PCR) (02/09/2025 4:45 PM EDT) Pathologist [facility] [place] SPECIMEN TYPE BRONCHIAL ALVEOLAR LAVAGE [facility] Adenovirus DNA NEGATIVE for ADENOVIRUS NEGATIVE for ADENOVIRUS [facility] HUMAN METAPNEUMOVIRUS PCR NEGATIVE for HUMAN METAPNEUMOVIRU S NEGATIVE for HUMAN METAPNEUMOVIRU S [facility] RHINOVIRUS PCR NEGATIVE for RHINOVIRUS NEGATIVE for RHINOVIRUS [facility] 02/09/2025 4:45 PM EDT 02/09/2025 6:22 PM EDT Miguel Harris MD, MPH NON CULTURE MICROBIOLOGY F inal Result Performing Organization Address [facility] Co de Phone Number [address] * Legionella culture (02/09/2025 4:45 PM EDT) Special Requests Specimen received from OR 02/09/2025 5:13 PM EDT [facility] Legionella Culture NO LEGIONELLA ISOLATED 02/11/2025 9:39 AM EDT [facility] Bronchial alveolar lavage 02/09/2025 4:45 PM EDT 02/09/2025 5:12 PM EDT Comment:RIGHT UPPER LOBE BAL Miguel Harris MD, MPH MICROBIOLOGY - GENERAL ORD ERABLES Final Result Performing Organization Address [facility] [place] [address] JACQUES * Parainfluenza PCR (02/09/2025 4:45 PM EDT) SPECIMEN TYPE BRONCHIAL ALVEOLAR [place]AVAGE [facility] Parainfluenza 1-3 RNA NEGATIVE for PARAINFLUENZA 1,2,3,4 NEGATIVE for PARAINFLUENZA 1,2,3,4 [facility] 02/09/2025 4:45 PM EDT 02/09/2025 6:22 PM EDT Miguel Harris MD, MPH NON CULTURE MICROBIOLOGY F inal Result Performing Organization Address [facility] [place] [address] JACQUES * Nocardia culture (02/09/2025 4:45 PM EDT) Special Requests Specimen received from OR 02/09/2025 5:13 PM EDT [facility] Nocardia Culture NO NOCARDIA ISOLATED AFTER 14 DAYS 02/23/2025 8:53 AM EDT [facility] Bronchial alveolar lavage 02/09/2025 4:45 PM EDT 02/09/2025 5:12 PM EDT Comment:RIGHT UPPER LOBE BAL Miguel Harris MD, MPH MICROBIOLOGY - GENERAL ORD ERABLES Final Result Performing Organization Address [facility] Co de Phone Number [address] [address] JACQUES * (ABNORMAL) Respiratory Culture/Gram Stain (02/09/2025 4:45 PM EDT) Special Requests Specimen received from OR 02/09/2025 5:13 PM EDT [facility] GRAM STAIN NO POLYS 02/09/2025 10:46 PM EDT [facility] GRAM STAIN NO EPITHELIAL CELLS 02/09/2025 10:46 PM EDT [facility] GRAM STAIN 1+ GRAM POSITIVE RODS 02/09/2025 10:46 PM EDT [facility] GRAM STAIN CALLED TO [employer] VIA PAGER [phone] @ 22:46 ON 02/09/25 02/09/2025 10:46 PM EDT [facility] Respiratory Cult/Smear 3+ BACILLUS CEREUS GROUP, NOT B ANTHRACIS(A) 02/10/2025 2:02 PM EDT [facility] Bronchial alveolar lavage 02/09/2025 4:45 PM EDT 02/09/2025 5:12 PM EDT Comment:RIGHT UPPER LOBE BAL us Miguel Harris MD, MPH MICROBIOLOGY - GENERAL ORD ERABLES Final Result Performing Organization Address [facility] Co de Phone Number [facility] [address] [place] [phone] [facility] * Pneumocystis by PCR (02/09/2025 4:45 PM EDT) SPECIMEN SOURCE BAL RULL [facility] OF LAB MED AND PAT+ RESULT Negative Not Applicable [facility] LAB MED AND PAT+ Comment: (NOTE) ADDITIONAL INFORMATION This test was developed and its performance characteristics determined by [facility] in a manner consistent with CLIA requirements. This test has not been cleared or approved by the U.S. Food and Drug Administration. 02/09/2025 4:45 PM EDT 02/09/2025 5:18 PM EDT us Miguel Harris MD, MPH MICROBIOLOGY - GENERAL ORD ERABLES Final Result Performing Organization Address City/[facility]/ZIP Co de Phone Number [facility] OF LAB MED AND PAT+ [address] [place] [address] * Influenza A/B, RSV, PCR (02/09/2025 4:45 PM EDT) Specimen Type BRONCHIAL ALVEOLAR LAVAGE [facility] Influenza A PCR NEGATIVE for INFLUENZA A NEGATIVE for INFLUENZA A [facility] Influenza B PCR NEGATIVE for INFLUENZA B NEGATIVE for INFLUENZA B [facility] RSV PCR NEGATIVE for RSV NEGATIVE for RSV [facility] 02/09/2025 4:45 PM EDT 02/09/2025 6:22 PM EDT Miguel Harris MD, MPH MICROBIOLOGY - GENERAL ORD ERABLES Final Result Performing Organization Address [facility] Co de Phone Number [facility] [address] [place] [phone] JACQUES * COVID-19 RT-PCR/Influenza A & B/RSV (02/09/2025 4:45 PM EDT) SPECIMEN SOURCE/DESCRIP TION CREDITED: WRONG ORDER CODE USED. [facility] Comment:Corrected on 02/09 A T 1821: previously reported as BRONCHIAL ALVEOLAR [place]AVAGE SARS-CoV 2 (COVID-19 PCR CREDITED: WRONG ORDER CODE USED. SARS-CoV-2 not detected [facility] Influenza A PCR CREDITED: WRONG ORDER CODE USED. NEGATIVE for INFLUENZA A [facility] Influenza B PCR CREDITED: WRONG ORDER CODE USED. NEGATIVE for INFLUENZA B [facility] RSV PCR CREDITED: WRONG ORDER CODE USED. NEGATIVE for RSV [facility] 02/09/2025 4:45 PM EDT 02/09/2025 5:15 PM EDT Miguel Harris MD, MPH BODY FLUIDS AND STOOLS ORD ERABLES Edited Result - Final Performing Organization Address [facility] Co de Phone Number JACQUES * HSV PCR (02/09/2025 2:45 PM EDT) HSV 1, PCR Negative Negative [facility] AND PAT+ HSV 2, PCR Negative Negative [facility]+ Comment: (NOTE) ADDITIONAL INFORMATION This test was developed and its performance characteristics determined by [facility] in a manner consistent with CLIA requirements. This test has not been cleared or approved by the U.S. Food and Drug Administration. SPECIMEN SOURCE HSV BRONCHIAL ALVEOLAR LAVAGE [facility] LAB MED AND PAT+ Comment:Corrected on 02/14 A T 1551: previously reported as BAL 02/09/2025 2:45 PM EDT 02/09/2025 6:08 PM EDT us Miguel Harris MD, MPH BODY FLUIDS AND STOOLS ORD ERABLES Edited Result - Final Performing Organization Address City/[facility]/ZIP Co de Phone Number [facility] MED AND PAT+ [address] [place] [address] * Galactomannan, BAL fluid (02/09/2025 2:45 PM EDT) Galactomannan Ag, fluid 0.12 0 - 0.49 INDEX [facility] 02/09/2025 2:45 PM EDT 02/09/2025 6:08 PM EDT us Miguel Harris MD, MPH BODY FLUIDS AND STOOLS ORD ERABLES Final Result Performing Organization Address [facility] Co de Phone Number [facility] [address] [place] [address] * Cytomegalovirus, PCR, Lower Respiratory (02/09/2025 2:45 PM EDT) Specimen Source BRONCHIAL ALVEOLAR LAVAGE [facility] DPT OF LAB MED AND PAT+ CMV PCR, Lower Respiratory Negative Negative [facility] DPT OF LAB MED AND PAT+ Comment: (NOTE) ADDITIONAL INFORMATION This test was developed and its performance characteristics determined by [facility] in a manner consistent with CLIA requirements. This test has not been cleared or approved by the U.S. Food and Drug Administration. 02/09/2025 2:45 PM EDT 02/09/2025 6:08 PM EDT us Miguel Harris MD, MPH MICROBIOLOGY - GENERAL ORD ERABLES Final Result [facility] DPT OF LAB MED AND PAT+ [address] [place] [address] * XR CHEST PA AND LATERAL 2 VIEWS (02/09/2025 10:48 AM EDT) Anatomical Region Laterality Modality Chest Computed Radiogr aphy 02/09/2025 10:5 0 AM EDT Impressions 02/09/2025 12:00 PM EDT No interval change in radiographic appearance of the chest. Narrative 02/09/2025 12:00 PM EDT XR CHEST PA AND LATERAL 2 VIEWS Referring clinician's provided indication for this examination in [facility]: Post-Op COMPARISON: XR CHEST PORTABLE 01:08:41.000; XR CHEST PA AND LATERAL 2 VIEWS FINDINGS: Devices/Tubes/Lines: Right thoracostomy tube unchanged. Lungs: Postsurgical changes and atelectasis right lung Pleura: Similar moderate loculated right hydropneumothorax. Heart/Mediastinum: Unchanged in appearance. Bones/Soft Tissues: Redemonstrated right chest wall and neck subcutaneous gas. Small amount of left lower chest wall subcutaneous gas. Right thoracotomy. Procedure Note Safia Fung MD - 02/09/2025 XR CHEST PA AND LATERAL 2 VIEWS Referring clinician's provided indication for this examination in [facility]:Post-Op COMPARISON: XR CHEST PORTABLE 01:08:41.000; XR CHEST PA ANDLATERAL 2 VIEWS FINDINGS: Devices/Tubes/Lines: Right thoracostomy tube unchanged. Lungs: Postsurgical changes and atelectasis right lung Pleura: Similar moderate loculated right hydropneumothorax. Heart/Mediastinum: Unchanged in appearance. Bones/Soft Tissues: Redemonstrated right chest wall and neck subcutaneousgas. Small amount of left lower chest wall subcutaneous gas. Rightthoracotomy. IMPRESSION: No interval change in radiographic appearance of the chest. Mariangel Ash PA-C IMG XR CHEST Final Result * XR Chest Portable (02/09/2025 1:17 AM EDT) Anatomical Region Laterality Modality Chest Computed Radiogr aphy 02/09/2025 1:51 AM EDT Impressions 02/09/2025 3:24 PM EDT No interval change in radiographic appearance of the chest. ATTESTATION: Salome Johnson, as teaching physician have reviewed the images, if any, for this patient's exam, and if necessary, have edited the report originally created by Bill Seaman. Narrative 02/09/2025 3:24 PM EDT XR CHEST PORTABLE Referring clinician's provided indication for this examination in [facility]: Dyspnea (Shortness of Breath) COMPARISON: XR CHEST PA AND LATERAL 2 VIEWS FINDINGS: Devices/Tubes/Lines: Right thoracostomy tube in place. Lungs: Post surgical changes in the right lung. Pleura: Similar moderate loculated right hydropneumothorax. Heart/Mediastinum: Unchanged in appearance. Bones/Soft Tissues: Similar subcutaneous emphysema in the right chest wall. Status post right thoracotomy. Procedure Note Salome Sierra MD - 02/09/2025 XR CHEST PORTABLE Referring clinician's provided indication for this examination in [facility]:Dyspnea (Shortness of Breath) COMPARISON: XR CHEST PA AND LATERAL 2 VIEWS FINDINGS: Devices/Tubes/Lines: Right thoracostomy tube in place. Lungs: Post surgical changes in the right lung. Pleura: Similar moderate loculated right hydropneumothorax. Heart/Mediastinum: Unchanged in appearance. Bones/Soft Tissues: Similar subcutaneous emphysema in the right chestwall. Status post right thoracotomy. IMPRESSION: No interval change in radiographic appearance of the chest. ATTESTATION: Salome Johnson, as teaching physician have reviewed theimages, if any, for this patient's exam, and if necessary, have edited thereport originally created by Bill Seaman. us Negin STILES-C IMG XR CHEST Final Resul t * XR CHEST PA AND LATERAL 2 VIEWS (02/08/2025 11:33 AM EDT) Anatomical Region Laterality Modality Chest Computed Radiogr aphy 02/08/2025 12:4 8 PM EDT Impressions 02/08/2025 12:49 PM EDT No interval change in radiographic appearance of the chest. Narrative 02/08/2025 12:49 PM EDT XR CHEST PA AND LATERAL 2 VIEWS Referring clinician's provided indication for this examination in [facility]: Post-Op COMPARISON: XR CHEST PA AND LATERAL 2 VIEWS FINDINGS: Devices/Tubes/Lines: Right thoracostomy tube remains in place Lungs: Post surgical changes in the right lung Pleura: Moderate loculated right hydropneumothorax, not substantially changed Heart/Mediastinum: Normal heart size Bones/Soft Tissues: Similar gas in the right chest wall. Status post right thoracotomy Procedure Note Luis Randall MD - 02/08/2025 XR CHEST PA AND LATERAL 2 VIEWS Referring clinician's provided indication for this examination in [facility]:Post-Op COMPARISON: XR CHEST PA AND LATERAL 2 VIEWS FINDINGS: Devices/Tubes/Lines: Right thoracostomy tube remains in place Lungs: Post surgical changes in the right lung Pleura: Moderate loculated right hydropneumothorax, not substantiallychanged Heart/Mediastinum: Normal heart size Bones/Soft Tissues: Similar gas in the right chest wall. Status post rightthoracotomy IMPRESSION: No interval change in radiographic appearance of the chest. Mariangel Ash PA-C IMG XR CHEST Final Result * (ABNORMAL) 25-OH vitamin D (02/08/2025 6:23 AM EDT) 25 [place] VIT D (TOTAL) 17(L) 20 - 50 ng/mL [facility] Blood 02/08/2025 6:23 AM EDT 02/08/2025 6:43 AM EDT Miguel Harris MD, MPH LAB BLOOD ORDERABLES Final Result [facility] [address] [place] [id number] * XR CHEST PA AND LATERAL 2 VIEWS (02/07/2025 11:40 AM EDT) Anatomical Region Laterality Modality Chest Computed Radiogr aphy 02/07/2025 12:5 9 PM EDT Impressions 02/07/2025 1:00 PM EDT No interval change in radiographic appearance of the chest. Narrative 02/07/2025 1:00 PM EDT XR CHEST PA AND LATERAL 2 VIEWS Referring clinician's provided indication for this examination in Epic: Pneumothorax; Subcutaneous Emphysema COMPARISON: XR CHEST PA AND LATERAL 2 VIEWS FINDINGS: Devices/Tubes/Lines: Right thoracostomy tube remains in place Lungs: Post surgical changes in the right lung Pleura: Moderate loculated right hydropneumothorax is unchanged Heart/Mediastinum: Normal heart size Bones/Soft Tissues: Similar gas in the right chest wall Procedure Note Luis Randall MD - 02/07/2025 XR CHEST PA AND LATERAL 2 VIEWS Referring clinician's provided indication for this examination in [facility]:Pneumothorax; Subcutaneous Emphysema COMPARISON: XR CHEST PA AND LATERAL 2 VIEWS FINDINGS: Devices/Tubes/Lines: Right thoracostomy tube remains in place Lungs: Post surgical changes in the right lung Pleura: Moderate loculated right hydropneumothorax is unchanged Heart/Mediastinum: Normal heart size Bones/Soft Tissues: Similar gas in the right chest wall IMPRESSION: No interval change in radiographic appearance of the chest. us Ann Tavera PA-C IMG XR CHEST Final Result * Fluid Culture/Gram Stain (Not CSF) (02/06/2025 10:05 AM EDT) Special Requests None 02/06/2025 9:22 AM EDT [facility] GRAM STAIN 2+ POLYS 02/06/2025 10:35 AM EDT [facility] GRAM STAIN NO EPITHELIAL CELLS 02/06/2025 10:35 AM EDT [facility] GRAM STAIN NO ORGANISMS SEEN 02/06/2025 10:35 AM EDT [facility] Fluid Culture/Smear NO GROWTH 5 DAYS 02/11/2025 8:10 AM EDT [facility] Other (Chest Tube) 02/06/2025 10:05 AM EDT 02/06/2025 10:14 AM EDT Comment:R PLEURAL FLUID us Ann Tavera PA-C MICROBIOLOGY - GENERAL ORDER BECKI Final Result [facility] [address] [place] [id number] * XR CHEST PA AND LATERAL 2 VIEWS (02/06/2025 9:36 AM EDT) Anatomical Region Laterality Modality Chest Computed Radiogr aphy 02/06/2025 10:1 0 AM EDT Impressions 02/06/2025 11:49 AM EDT Slightly decreased right hydropneumothorax and right chest wall gas. ATTESTATION: Kenia Johnson, as teaching physician have reviewed the images, if any, for this patient's exam, and if necessary, have edited the report originally created by Rodrick Zhong. Narrative 02/06/2025 11:49 AM EDT XR CHEST PA AND LATERAL 2 VIEWS Referring clinician's provided indication for this examination in [facility]: Post-Op COMPARISON: XR CHEST PORTABLE 2024- FINDINGS: Devices/Tubes/Lines: Redemonstrated right apically-directed chest tube. Lungs: Post-operative changes status post right middle lobe and right lower lobe bilobectomy. Surgical clips project over the right hemithorax. Slightly decreased opacities in the right mid to lower lung. No focal consolidation of the left lung. Pleura: Slightly decreased right moderate hydropneumothorax. No left pleural effusion or pneumothorax. Heart/Mediastinum: Unchanged in appearance. Bones/Soft Tissues: Decreased right chest wall subcutaneous emphysema extending into the supraclavicular fossa. Procedure Note Kenia Tavares MD, MPH - 02/06/2025 XR CHEST PA AND LATERAL 2 VIEWS Referring clinician's provided indication for this examination in [facility]:Post-Op COMPARISON: XR CHEST PORTABLE 2024- FINDINGS: Devices/Tubes/Lines: Redemonstrated right apically-directed chest tube. Lungs: Post-operative changes status post right middle lobe and rightlower lobe bilobectomy. Surgical clips project over the right hemithorax.Slightly decreased opacities in the right mid to lower lung. No focalconsolidation of the left lung. Pleura: Slightly decreased right moderate hydropneumothorax. No leftpleural effusion or pneumothorax. Heart/Mediastinum: Unchanged in appearance. Bones/Soft Tissues: Decreased right chest wall subcutaneous emphysemaextending into the supraclavicular fossa. IMPRESSION: Slightly decreased right hydropneumothorax and right chest wall gas. ATTESTATION: Kenia Johnson, as teaching physician have reviewed theimages, if any, for this patient's exam, and if necessary, have edited thereport originally created by Rodrick Zhong. us Negin Cottrell PA-C IMG XR CHEST Final Resul t * XR Chest Portable (02/05/2025 10:41 AM EDT) Anatomical Region Laterality Modality Chest Computed Radiogr aphy 02/05/2025 11:1 3 AM EDT Impressions 02/05/2025 11:15 AM EDT As below Narrative 02/05/2025 11:15 AM EDT XR CHEST PORTABLE Referring clinician's provided indication for this examination in [facility]: Post-Op COMPARISON: 02/04/25 FINDINGS: Support Devices / Implants / Lines and Tubes: Stable right chest tubes Lungs: Worsening right basilar opacity which could represent atelectasis or aspiration. Normally aerated and expanded left lung Pleura: Unchanged moderate to large right pneumothorax, though with new small basal fluid component. Cardiomediastinal Silhouette: Unchanged Bones/Soft Tissues: Unchanged moderate right greater than left chest wall subcutaneous emphysema Procedure Note Tam Gonzalez MD - 02/05/2025 XR CHEST PORTABLE Referring clinician's provided indication for this examination in [facility]:Post-Op COMPARISON: 02/04/25 FINDINGS: Support Devices / Implants / Lines and Tubes: Stable right chest tubes Lungs: Worsening right basilar opacity which could represent atelectasisor aspiration. Normally aerated and expanded left lung Pleura: Unchanged moderate to large right pneumothorax, though with newsmall basal fluid component. Cardiomediastinal Silhouette: Unchanged Bones/Soft Tissues: Unchanged moderate right greater than left chest wallsubcutaneous emphysema IMPRESSION: As below Miguel Harris MD, MPH IMG XR CHEST Final Resu lt * CT CHEST WITH CONTRAST (02/04/2025 10:27 PM EDT) MGB IMG ACQUISITIONS ANALYST COMMENT No bronchopleural fistula [facility] Anatomical Region Laterality Modality Chest Computed Tomogra phy 02/04/2025 10:3 9 PM EDT Impressions 02/05/2025 12:28 PM EDT 1. Moderate to large right hydropneumothorax which consists mostly of gas. 2. Lateral and posterior inferior right upper lobe groundglass and consolidative opacities, which could represent postoperative contusion/hemorrhage, aspiration or pneumonia. 3. Extensive chest wall subcutaneous emphysema. A clinically significant result was initiated on 02/04/2025 11:24 PM, Message ID [id number]. ATTESTATION: Tam Johnson, as teaching physician have reviewed the images, if any, for this patient's exam, and if necessary, have edited the report originally created by Jose Salmon. Narrative 02/05/2025 12:[address] CHEST WITH CONTRAST Referring clinician's provided indication for this examination in Epic: *Other Anomalies Or Syndromes; Assessing chest wall for any separation. TECHNIQUE: Multidetector CT of the chest was performed with intravenous contrast using tailored dose modulation techniques. COMPARISON: CT CHEST WITH CONTRAST FINDINGS: Devices/Tubes/Lines: Right sided pleural chest tube with tip terminating in the right posterior apex. Lungs: Status post right middle and right lower lobectomies with intercostal muscle flap with mild atelectasis/scarring adjacent to the staple line. Lateral and posterior inferior right upper lobe groundglass and consolidative opacities. Minimal Subpleural groundglass opacity in the left upper and left lower lobes. The airways are clear. Pleura: Moderate to large right hydropneumothorax which consists mostly of gas. Mediastinum: Heart size is normal. No pericardial effusion. Trace pneumomediastinum. Mild coronary artery calcifications Lymph Nodes: No enlarged supraclavicular, axillary, mediastinal, or hilar lymph nodes. Upper Abdomen: No abnormality detected in the visualized upper abdomen. Chest Wall: Extensive subcutaneous emphysema extending to the neck, right greater than left chest abdominal padilla. Bones: No suspicious lytic or blastic lesions. Status post right thoracotomy. Procedure Note Tam Gonzalez MD - 02/05/2025 CT CHEST WITH CONTRAST Referring clinician's provided indication for this examination in Epic:*Other Anomalies Or Syndromes; Assessing chest wall for any separation. TECHNIQUE: Multidetector CT of the chest was performed with intravenouscontrast using tailored dose modulation techniques. COMPARISON: CT CHEST WITH CONTRAST FINDINGS: Devices/Tubes/Lines: Right sided pleural chest tube with tip terminatingin the right posterior apex. Lungs: Status post right middle and right lower lobectomies withintercostal muscle flap with mild atelectasis/scarring adjacent to thestaple line. Lateral and posterior inferior right upper lobe groundglassand consolidative opacities. Minimal Subpleural groundglass opacity in theleft upper and left lower lobes. The airways are clear. Pleura: Moderate to large right hydropneumothorax which consists mostly ofgas. Mediastinum: Heart size is normal. No pericardial effusion. Tracepneumomediastinum. Mild coronary artery calcifications Lymph Nodes: No enlarged supraclavicular, axillary, mediastinal, or hilarlymph nodes. Upper Abdomen: No abnormality detected in the visualized upper abdomen. Chest Wall: Extensive subcutaneous emphysema extending to the neck, rightgreater than left chest abdominal padilla. Bones: No suspicious lytic or blastic lesions. Status post rightthoracotomy. IMPRESSION: 1. Moderate to large right hydropneumothorax which consists mostly ofgas. 2. Lateral and posterior inferior right upper lobe groundglass andconsolidative opacities, which could represent postoperativecontusion/hemorrhage, aspiration or pneumonia. 3. Extensive chest wall subcutaneous emphysema. A clinically significant result was initiated on 02/04/2025 11:24 PM,Message ID [id number]. ATTESTATION: Tam Johnson, as teaching physician have reviewed theimages, if any, for this patient's exam, and if necessary, have edited thereport originally created by Jose Salmon. us Miguel Harris MD, MPH IMG CT CHEST Final Resu lt * XR CHEST PA AND LATERAL 2 VIEWS (02/04/2025 11:00 AM EDT) Anatomical Region Laterality Modality Chest Computed Radiogr aphy 02/04/2025 11:0 5 AM EDT Impressions 02/04/2025 11:06 AM EDT As below Narrative 02/04/2025 11:06 AM EDT XR CHEST PA AND LATERAL 2 VIEWS Referring clinician's provided indication for this examination in [facility]: S/P Chest Surgery COMPARISON: 02/03/25 FINDINGS: Support Devices / Implants / Lines and Tubes: Stable right chest tubes Lungs: Similar right perihilar postoperative atelectasis. Normally aerated and expanded left lung Pleura: Unchanged moderate to large right pneumothorax. Cardiomediastinal Silhouette: Unchanged Bones/Soft Tissues: Slight worsening of moderate right greater than left chest wall subcutaneous emphysema Procedure Note Tam Gonzalez MD - 02/04/2025 XR CHEST PA AND LATERAL 2 VIEWS Referring clinician's provided indication for this examination in [facility]:S/P Chest Surgery COMPARISON: 02/03/25 FINDINGS: Support Devices / Implants / Lines and Tubes: Stable right chest tubes Lungs: Similar right perihilar postoperative atelectasis. Normally aeratedand expanded left lung Pleura: Unchanged moderate to large right pneumothorax. Cardiomediastinal Silhouette: Unchanged Bones/Soft Tissues: Slight worsening of moderate right greater than leftchest wall subcutaneous emphysema IMPRESSION: As below Ramonita Green PA-C IMG XR CHEST Final Result * XR CHEST PA AND LATERAL 2 VIEWS (02/03/2025 9:48 AM EDT) Anatomical Region Laterality Modality Chest Computed Radiogr aphy 02/03/2025 10:3 2 AM EDT Impressions 02/03/2025 10:32 AM EDT No interval change in radiographic appearance of the chest. Narrative 02/03/2025 10:32 AM EDT XR CHEST PA AND LATERAL 2 VIEWS Referring clinician's provided indication for this examination in [facility]: Post-Op COMPARISON: XR CHEST PA AND LATERAL 2 VIEWS FINDINGS: Devices/Tubes/Lines: Right thoracostomy tube remains in place Lungs: Postsurgical changes in the right lung Pleura: Moderate right pneumothorax Heart/Mediastinum: Normal heart size Bones/Soft Tissues: Similar gas in the right chest wall Procedure Note Luis Randall MD - 02/03/2025 XR CHEST PA AND LATERAL 2 VIEWS Referring clinician's provided indication for this examination in [facility]:Post-Op COMPARISON: XR CHEST PA AND LATERAL 2 VIEWS FINDINGS: Devices/Tubes/Lines: Right thoracostomy tube remains in place Lungs: Postsurgical changes in the right lung Pleura: Moderate right pneumothorax Heart/Mediastinum: Normal heart size Bones/Soft Tissues: Similar gas in the right chest wall IMPRESSION: No interval change in radiographic appearance of the chest. us Crissy De La Cruz PA-C IMG XR CHEST Final Resu lt * XR CHEST PA AND LATERAL 2 VIEWS (02/02/2025 12:56 PM EDT) Anatomical Region Laterality Modality Chest Computed Radiogr aphy 02/02/2025 3:43 PM EDT Impressions 02/02/2025 3:50 PM EDT Unchanged moderate right hydropneumothorax. Narrative 02/02/2025 3:50 PM EDT XR CHEST PA AND LATERAL 2 VIEWS Referring clinician's provided indication for this examination in [facility]: Chest Tube Removal; s/p ct removal COMPARISON: XR CHEST PA AND LATERAL 2 VIEWS 10:26:56.000 FINDINGS: Devices/Tubes/Lines: Right thoracostomy catheter, unchanged in position. Lungs: Postsurgical changes in the right lower lung. Similar right lower lung opacification, which may represent postoperative atelectasis. Pleura: Unchanged moderate right hydropneumothorax. Heart/Mediastinum: Cardiac silhouette is within normal limits in size. Bones/Soft Tissues: No acute skeletal abnormality. Similar small to moderate subcutaneous emphysema in the right chest wall. Procedure Note Cristiana Michaels MD - 02/02/2025 XR CHEST PA AND LATERAL 2 VIEWS Referring clinician's provided indication for this examination in [facility]:Chest Tube Removal; s/p ct removal COMPARISON: XR CHEST PA AND LATERAL 2 VIEWS 10:26:56.000 FINDINGS: Devices/Tubes/Lines: Right thoracostomy catheter, unchanged in position. Lungs: Postsurgical changes in the right lower lung. Similar right lowerlung opacification, which may represent postoperative atelectasis. Pleura: Unchanged moderate right hydropneumothorax. Heart/Mediastinum: Cardiac silhouette is within normal limits in size. Bones/Soft Tissues: No acute skeletal abnormality. Similar small tomoderate subcutaneous emphysema in the right chest wall. IMPRESSION: Unchanged moderate right hydropneumothorax. us Crissy MANSFIELDC IMG XR CHEST Final Resu lt * XR CHEST PA AND LATERAL 2 VIEWS (02/02/2025 10:17 AM EDT) Anatomical Region Laterality Modality Chest Computed Radiogr aphy 02/02/2025 2:33 PM EDT Impressions 02/02/2025 2:35 PM EDT Unchanged moderate right hydropneumothorax. Narrative 02/02/2025 2:35 PM EDT XR CHEST PA AND LATERAL 2 VIEWS Referring clinician's provided indication for this examination in [facility]: Post-Op COMPARISON: XR CHEST PA AND LATERAL 2 VIEWS FINDINGS: Devices/Tubes/Lines: Right thoracostomy catheters, unchanged in position. Lungs: Postsurgical changes in the right lower lung. Similar right lower lung opacification, which may represent postoperative atelectasis. Pleura: Unchanged moderate right hydropneumothorax. Heart/Mediastinum: Cardiac silhouette is within normal limits in size. Bones/Soft Tissues: No acute skeletal abnormality. Similar small subcutaneous emphysema in the right chest wall. Procedure Note Cristiana Michaels MD - 02/02/2025 XR CHEST PA AND LATERAL 2 VIEWS Referring clinician's provided indication for this examination in [facility]:Post-Op COMPARISON: XR CHEST PA AND LATERAL 2 VIEWS FINDINGS: Devices/Tubes/Lines: Right thoracostomy catheters, unchanged inposition. Lungs: Postsurgical changes in the right lower lung. Similar right lowerlung opacification, which may represent postoperative atelectasis. Pleura: Unchanged moderate right hydropneumothorax. Heart/Mediastinum: Cardiac silhouette is within normal limits in size. Bones/Soft Tissues: No acute skeletal abnormality. Similar smallsubcutaneous emphysema in the right chest wall. IMPRESSION: Unchanged moderate right hydropneumothorax. Mariangel Gordonky PA-C IMG XR CHEST Final Result * XR CHEST PA AND LATERAL 2 VIEWS (02/01/2025 7:03 PM EDT) Anatomical Region Laterality Modality Chest Computed Radiogr aphy 02/01/2025 7:09 PM EDT Impressions 02/02/2025 11:00 AM EDT Similar moderate right hydropneumothorax with predominant air component. ATTESTATION: Tessa Johnson, as teaching physician have reviewed the images, if any, for this patient's exam, and if necessary, have edited the report originally created by Bill Seaman. Narrative 02/02/2025 11:00 AM EDT XR CHEST PA AND LATERAL 2 VIEWS Referring clinician's provided indication for this examination in [facility]: Post-Op COMPARISON: XR CHEST PA AND LATERAL 2 VIEWS ASSESSMENT: FINDINGS: Devices/Tubes/Lines: Unchanged position of the 2 right pleural catheters. Lungs: Postsurgical changes from a right middle and right lower lobectomy. Right basilar hazy opacity. Pleura: Similar moderate right hydropneumothorax with predominant air component. Heart/Mediastinum: Unchanged in appearance. Bones/Soft Tissues: Similar subcutaneous emphysema along the right lateral chest wall and right neck. Procedure Note Tessa Ramirez MD - 02/02/2025 XR CHEST PA AND LATERAL 2 VIEWS Referring clinician's provided indication for this examination in [facility]:Post-Op COMPARISON: XR CHEST PA AND LATERAL 2 VIEWS ASSESSMENT: FINDINGS: Devices/Tubes/Lines: Unchanged position of the 2 right pleuralcatheters. Lungs: Postsurgical changes from a right middle and right lower lobectomy.Right basilar hazy opacity. Pleura: Similar moderate right hydropneumothorax with predominant aircomponent. Heart/Mediastinum: Unchanged in appearance. Bones/Soft Tissues: Similar subcutaneous emphysema along the right lateralchest wall and right neck. IMPRESSION: Similar moderate right hydropneumothorax with predominant air component. ATTESTATION: Tessa Johnson, as teaching physician have reviewed theimages, if any, for this patient's exam, and if necessary, have edited thereport originally created by Bill Seaman. Mariangelhieu Ash PA-C IMG XR CHEST Final Result * XR CHEST PA AND LATERAL 2 VIEWS (02/01/2025 10:47 AM EDT) Anatomical Region Laterality Modality Chest Computed Radiogr aphy 02/01/2025 10:4 9 AM EDT Impressions 02/01/2025 10:51 AM EDT See findings. Narrative 02/01/2025 10:51 AM EDT XR CHEST PA AND LATERAL 2 VIEWS Referring clinician's provided indication for this examination in [facility]: Post-Op COMPARISON: XR CHEST PA AND LATERAL 2 VIEWS FINDINGS: Devices/Tubes/Lines: Right chest tubes are unchanged. Lungs: Postsurgical change in the right lung with similar hazy opacity in the right lower lung. Pleura: Similar moderate right hydropneumothorax. Heart/Mediastinum: Unchanged in appearance. Bones/Soft Tissues: Subcutaneous emphysema right neck/chest and in the left lower chest. Procedure Note Catrina Rosales MD - 02/01/2025 XR CHEST PA AND LATERAL 2 VIEWS Referring clinician's provided indication for this examination in [facility]:Post-Op COMPARISON: XR CHEST PA AND LATERAL 2 VIEWS FINDINGS: Devices/Tubes/Lines: Right chest tubes are unchanged. Lungs: Postsurgical change in the right lung with similar hazy opacity inthe right lower lung. Pleura: Similar moderate right hydropneumothorax. Heart/Mediastinum: Unchanged in appearance. Bones/Soft Tissues: Subcutaneous emphysema right neck/chest and in theleft lower chest. IMPRESSION: See findings. Mariangel Ash PA-C IMG XR CHEST Final Result * XR CHEST PA AND LATERAL 2 VIEWS (01/31/2025 11:42 AM EDT) Anatomical Region Laterality Modality Chest Computed Radiogr aphy 01/31/2025 3:22 PM EDT Impressions 01/31/2025 3:26 PM EDT Similar moderate right hydropneumothorax with more conspicuous fluid components likely related to patient position. ATTESTATION: Tessa Johnson, as teaching physician have reviewed the images, if any, for this patient's exam, and if necessary, have edited the report originally created by Abi Buckner. Narrative 01/31/2025 3:26 PM EDT XR CHEST PA AND LATERAL 2 VIEWS Referring clinician's provided indication for this examination in [facility]: Post-Op COMPARISON: XR CHEST PORTABLE FINDINGS: Devices/Tubes/Lines: Right chest tubes are unchanged. Lungs: Postsurgical changes and atelectasis in the right lung. Pleura: Similar moderate right hydropneumothorax with more conspicuous fluid components likely related to patient position. Heart/Mediastinum: The heart size is normal. Bones/Soft Tissues: Slightly decreased subcutaneous emphysema in the right lower neck and chest wall. Procedure Note Tessa Ramirez MD - 01/31/2025 XR CHEST PA AND LATERAL 2 VIEWS Referring clinician's provided indication for this examination in [facility]:Post-Op COMPARISON: XR CHEST PORTABLE FINDINGS: Devices/Tubes/Lines: Right chest tubes are unchanged. Lungs: Postsurgical changes and atelectasis in the right lung. Pleura: Similar moderate right hydropneumothorax with more conspicuousfluid components likely related to patient position. Heart/Mediastinum: The heart size is normal. Bones/Soft Tissues: Slightly decreased subcutaneous emphysema in the rightlower neck and chest wall. IMPRESSION: Similar moderate right hydropneumothorax with more conspicuous fluidcomponents likely related to patient position. ATTESTATION: eTssa Johnson, as teaching physician have reviewed theimages, if any, for this patient's exam, and if necessary, have edited thereport originally created by Abi Buckner. Mariangel Ash PA-C IMG XR CHEST Final Result * Sodium, random urine (01/31/2025 4:24 AM EDT) URINE SODIUM 27 mmol/L [facility] Comment: No reference values apply. Interpret with other clinical data. Urine (Urine) 01/31/2025 4:2 4 AM EDT 01/31/2025 4:53 AM EDT Amy Herrera PA-C URINE ORDERABLES Final Re sult Performing Organization Address [facility] de Phone Number [address] [id number] * Osmolality, Random Urine (01/31/2025 4:24 AM EDT) URINE OSMOLALITY 207 150 - 1,150 mOsm/kg water [facility] Urine (Urine) 01/31/2025 4:2 4 AM EDT 01/31/2025 4:53 AM EDT Amy STILES-C URINE ORDERABLES Final Re sult Performing Organization Address [facility] de Phone Number [address] [address] * (ABNORMAL) Osmolality, serum (01/31/2025 3:36 AM EDT) OSMOLALITY 267(L) 280 - 296 mOsm/kg water [facility] Blood 01/31/2025 3:36 AM EDT 01/31/2025 4:04 AM EDT [facility] LAB BLOOD ORDERABLES Latonia l Result Performing Organization Address [facility] de Phone Number [address] [address] * XR Chest Portable (01/30/2025 7:37 PM EDT) Anatomical Region Laterality Modality Chest Computed Radiogr aphy 01/31/2025 7:40 AM EDT Impressions 01/31/2025 7:41 AM EDT Slight increase in right-sided subcutaneous emphysema with unchanged moderate right hydropneumothorax Narrative 01/31/2025 7:41 AM EDT XR CHEST PORTABLE Referring clinician's provided indication for this examination in [facility]: Pneumothorax COMPARISON: XR CHEST PA AND LATERAL 2 VIEWS 15:10:50.000 FINDINGS: Devices/Tubes/Lines: Right thoracostomy tubes unchanged. Lungs: Postsurgical changes and atelectasis right lung. Pleura: Similar moderate right hydropneumothorax. Heart/Mediastinum: Unchanged in appearance with prominent mediastinal contour on the right. Bones/Soft Tissues: Redemonstrated right subcutaneous gas increased from prior. Procedure Note Tessa Ramirez MD - 01/31/2025 XR CHEST PORTABLE Referring clinician's provided indication for this examination in [facility]:Pneumothorax COMPARISON: XR CHEST PA AND LATERAL 2 VIEWS 15:10:50.000 FINDINGS: Devices/Tubes/Lines: Right thoracostomy tubes unchanged. Lungs: Postsurgical changes and atelectasis right lung. Pleura: Similar moderate right hydropneumothorax. Heart/Mediastinum: Unchanged in appearance with prominent mediastinalcontour on the right. Bones/Soft Tissues: Redemonstrated right subcutaneous gas increased fromprior. IMPRESSION: Slight increase in right-sided subcutaneous emphysema with unchangedmoderate right hydropneumothorax Amy Herrera PA-C IMG XR CHEST Final Res ult * XR CHEST PA AND LATERAL 2 VIEWS (01/30/2025 3:01 PM EDT) Anatomical Region Laterality Modality Chest Computed Radiogr aphy 01/30/2025 3:05 PM EDT Impressions 01/30/2025 3:06 PM EDT Increased still small right apical and now lateral pneumothorax. Narrative 01/30/2025 3:06 PM EDT XR CHEST PA AND LATERAL 2 VIEWS Referring clinician's provided indication for this examination in [facility]: Post-Op COMPARISON: 01/30/25 FINDINGS: Support Devices / Implants / Lines and Tubes: Stable right chest tubes Lungs: Similar right perihilar postoperative atelectasis. Normally aerated and expanded left lung Pleura: Increased still small right apical and now lateral pneumothorax. Cardiomediastinal Silhouette: Unchanged Bones/Soft Tissues: Unchanged moderate right chest wall subcutaneous emphysema Procedure Note Tam Gonzalez MD - 01/30/2025 XR CHEST PA AND LATERAL 2 VIEWS Referring clinician's provided indication for this examination in [facility]:Post-Op COMPARISON: 01/30/25 FINDINGS: Support Devices / Implants / Lines and Tubes: Stable right chest tubes Lungs: Similar right perihilar postoperative atelectasis. Normally aeratedand expanded left lung Pleura: Increased still small right apical and now lateral pneumothorax. Cardiomediastinal Silhouette: Unchanged Bones/Soft Tissues: Unchanged moderate right chest wall subcutaneousemphysema IMPRESSION: Increased still small right apical and now lateral pneumothorax. us Mariangel Padilla Nilsa PA-C IMG XR CHEST Final Result * XR CHEST PA AND LATERAL 2 VIEWS (01/30/2025 9:58 AM EDT) Anatomical Region Laterality Modality Chest Computed Radiogr aphy 01/30/2025 10:2 1 AM EDT Impressions 01/30/2025 10:30 AM EDT No interval change in radiographic appearance of the chest. Narrative 01/30/2025 10:30 AM EDT XR CHEST PA AND LATERAL 2 VIEWS Referring clinician's provided indication for this examination in [facility]: Post-Op COMPARISON: XR CHEST PA AND LATERAL 2 VIEWS FINDINGS: Devices/Tubes/Lines: Right thoracostomy tubes unchanged. Lungs: Postsurgical changes and atelectasis right lung. Pleura: Similar moderate right hydropneumothorax. Heart/Mediastinum: Unchanged in appearance with prominent mediastinal contour on the right. Bones/Soft Tissues: Redemonstrated right subcutaneous gas. Procedure Note Safia Fung MD - 01/30/2025 XR CHEST PA AND LATERAL 2 VIEWS Referring clinician's provided indication for this examination in [facility]:Post-Op COMPARISON: XR CHEST PA AND LATERAL 2 VIEWS FINDINGS: Devices/Tubes/Lines: Right thoracostomy tubes unchanged. Lungs: Postsurgical changes and atelectasis right lung. Pleura: Similar moderate right hydropneumothorax. Heart/Mediastinum: Unchanged in appearance with prominent mediastinalcontour on the right. Bones/Soft Tissues: Redemonstrated right subcutaneous gas. IMPRESSION: No interval change in radiographic appearance of the chest. us Ary Bowling PA-C IMG XR CHEST Final Result * (ABNORMAL) Phosphorus (01/30/2025 6:23 AM EDT) Only the most recent of4 resultswithin the time period is included. PHOSPHORUS 5.0(H) 2.4 - 4.3 mg/dL [facility] Blood 01/30/2025 6:23 AM EDT 01/30/2025 7:02 AM EDT us Miguel Harris MD, MPH LAB BLOOD ORDERABLES Final Result Performing Organization Address City/State/[facility] Co de Phone Number [facility] [address] [place] [phone] * XR CHEST PA AND LATERAL 2 VIEWS (01/29/2025 2:49 PM EDT) Anatomical Region Laterality Modality Chest Computed Radiogr aphy 01/29/2025 2:5 0 PM EDT Impressions 01/29/2025 2:51 PM EDT See findings Narrative 01/29/2025 2:51 PM EDT XR CHEST PA AND LATERAL 2 VIEWS Referring clinician's provided indication for this examination in [facility]: Post-Op COMPARISON: January 29, 2025 FINDINGS: Devices/Tubes/Lines: 2 right chest tubes remain in place. There is continued large right apical and basilar hydropneumothorax, unchanged. Lungs: Extensive postsurgical changes status post right middle and lower lobectomies in the right hemithorax. The left lung appears clear without pulmonary edema. Pleura: Continued large right apical and basilar hydropneumothorax, unchanged. Heart/Mediastinum: The heart and mediastinum are shifted toward the right. The heart is normal in size. Bones/Soft Tissues: Continued subcutaneous emphysema in the left chest wall. Procedure Note Hayley Wilkerson MD, PhD - 01/29/2025 XR CHEST PA AND LATERAL 2 VIEWS Referring clinician's provided indication for this examination in [facility]:Post-Op COMPARISON: January 29, 2025 FINDINGS: Devices/Tubes/Lines: 2 right chest tubes remain in place. There iscontinued large right apical and basilar hydropneumothorax, unchanged. Lungs: Extensive postsurgical changes status post right middle and lowerlobectomies in the right hemithorax. The left lung appears clear withoutpulmonary edema. Pleura: Continued large right apical and basilar hydropneumothorax,unchanged. Heart/Mediastinum: The heart and mediastinum are shifted toward the right.The heart is normal in size. Bones/Soft Tissues: Continued subcutaneous emphysema in the left chestwall. IMPRESSION: See findings us Ary Bowling PA-C IMG XR CHEST Final Result * XR CHEST PA AND LATERAL 2 VIEWS (01/29/2025 10:18 AM EDT) Anatomical Region Laterality Modality Chest Computed Radiogr aphy 01/29/2025 10:2 0 AM EDT Impressions 01/29/2025 10:21 AM EDT See findings Narrative 01/29/2025 10:21 AM EDT XR CHEST PA AND LATERAL 2 VIEWS Referring clinician's provided indication for this examination in [facility]: Post-Op COMPARISON: January 28, 2025 FINDINGS: Devices/Tubes/Lines: 2 right chest tubes remain in place. There is continued large right apical and basilar hydropneumothorax, unchanged. Lungs: Extensive postsurgical changes status post right middle and lower lobectomies in the right hemithorax. The left lung appears clear without pulmonary edema. Pleura: Continued large right apical and basilar hydropneumothorax, unchanged. Heart/Mediastinum: The heart and mediastinum are shifted toward the right. The heart is normal in size. Bones/Soft Tissues: Continued subcutaneous emphysema in the left chest wall. Procedure Note Hayley Wilkerson MD, PhD - 01/29/2025 XR CHEST PA AND LATERAL 2 VIEWS Referring clinician's provided indication for this examination in [facility]:Post-Op COMPARISON: January 28, 2025 FINDINGS: Devices/Tubes/Lines: 2 right chest tubes remain in place. There iscontinued large right apical and basilar hydropneumothorax, unchanged. Lungs: Extensive postsurgical changes status post right middle and lowerlobectomies in the right hemithorax. The left lung appears clear withoutpulmonary edema. Pleura: Continued large right apical and basilar hydropneumothorax,unchanged. Heart/Mediastinum: The heart and mediastinum are shifted toward the right.The heart is normal in size. Bones/Soft Tissues: Continued subcutaneous emphysema in the left chestwall. IMPRESSION: See findings us Ary Mckinney Dash PA-C IMG XR CHEST Final Result * XR CHEST PA AND LATERAL 2 VIEWS (01/28/2025 10:07 AM EDT) Anatomical Region Laterality Modality Chest Computed Radiogr aphy 01/28/2025 10:4 5 AM EDT Impressions 01/28/2025 10:46 AM EDT See findings Narrative 01/28/2025 10:46 AM EDT XR CHEST PA AND LATERAL 2 VIEWS Referring clinician's provided indication for this examination in [facility]: Post-Op COMPARISON: January 27, 2025 FINDINGS: Devices/Tubes/Lines: 2 right chest tubes remain in place. There is continued large right apical and basilar pneumothorax, unchanged. Lungs: Extensive postsurgical changes status post right middle and lower lobectomies in the right hemithorax. The left lung appears clear without pulmonary edema. Pleura: Continued large right apical and basilar pneumothorax, unchanged. Heart/Mediastinum: The heart and mediastinum are shifted toward the right. The heart is normal in size. Bones/Soft Tissues: Continued subcutaneous emphysema in the left chest wall. Procedure Note Hayley Wilkerson MD, PhD - 01/28/2025 XR CHEST PA AND LATERAL 2 VIEWS Referring clinician's provided indication for this examination in [facility]:Post-Op COMPARISON: January 27, 2025 FINDINGS: Devices/Tubes/Lines: 2 right chest tubes remain in place. There iscontinued large right apical and basilar pneumothorax, unchanged. Lungs: Extensive postsurgical changes status post right middle and lowerlobectomies in the right hemithorax. The left lung appears clear withoutpulmonary edema. Pleura: Continued large right apical and basilar pneumothorax,unchanged. Heart/Mediastinum: The heart and mediastinum are shifted toward the right.The heart is normal in size. Bones/Soft Tissues: Continued subcutaneous emphysema in the left chestwall. IMPRESSION: See findings us Ary Bowling PA-C IMG XR CHEST Final Result * XR Chest Portable (01/27/2025 6:52 AM EDT) Anatomical Region Laterality Modality Chest Computed Radiogr aphy 01/27/2025 10:1 7 AM EDT Impressions 01/27/2025 11:35 AM EDT No interval change in radiographic appearance of the chest. ATTESTATION: Tam Johnson, as teaching physician have reviewed the images, if any, for this patient's exam, and if necessary, have edited the report originally created by Dragan Fitzgerald. Narrative 01/27/2025 11:35 AM EDT XR CHEST PORTABLE Referring clinician's provided indication for this examination in [facility]: Post-Op COMPARISON: XR CHEST PORTABLE FINDINGS: Devices/Tubes/Lines: 2 unchanged apically directed right chest tubes. Lungs: Stable right basilar atelectasis and postsurgical changes after right middle and right lower lobectomies. Pleura: Unchanged mild pneumothorax. Heart/Mediastinum: Unchanged in appearance. Bones/Soft Tissues: Stable right chest wall emphysema that tracks up to the soft tissues of the right neck. Procedure Note Tam Gonzalez MD - 01/27/2025 XR CHEST PORTABLE Referring clinician's provided indication for this examination in [facility]:Post-Op COMPARISON: XR CHEST PORTABLE FINDINGS: Devices/Tubes/Lines: 2 unchanged apically directed right chest tubes. Lungs: Stable right basilar atelectasis and postsurgical changes afterright middle and right lower lobectomies. Pleura: Unchanged mild pneumothorax. Heart/Mediastinum: Unchanged in appearance. Bones/Soft Tissues: Stable right chest wall emphysema that tracks up tothe soft tissues of the right neck. IMPRESSION: No interval change in radiographic appearance of the chest. ATTESTATION: Tam Johnson, as teaching physician have reviewed theimages, if any, for this patient's exam, and if necessary, have edited thereport originally created by Dragan Fitzgerald. us Miguel Harris MD, MPH IMG XR CHEST Final Resu lt * XR Chest Portable (01/26/2025 6:39 AM EDT) Anatomical Region Laterality Modality Chest Computed Radiogr aphy 01/26/2025 7:49 AM EDT Impressions 01/26/2025 9:38 AM EDT See findings Narrative 01/26/2025 9:38 AM EDT XR CHEST PORTABLE Referring clinician's provided indication for this examination in [facility]: Post-Op COMPARISON: XR CHEST PORTABLE FINDINGS: Devices/Tubes/Lines: Unchanged right thoracostomy tubes. Lungs: Postsurgical changes right lung. Pleura: Small right pneumothorax, decreased. Heart/Mediastinum: Unchanged in appearance. Bones/Soft Tissues: Small amount of right chest wall and neck subcutaneous gas, increased. Procedure Note Safia Fung MD - 01/26/2025 XR CHEST PORTABLE Referring clinician's provided indication for this examination in [facility]:Post-Op COMPARISON: XR CHEST PORTABLE FINDINGS: Devices/Tubes/Lines: Unchanged right thoracostomy tubes. Lungs: Postsurgical changes right lung. Pleura: Small right pneumothorax, decreased. Heart/Mediastinum: Unchanged in appearance. Bones/Soft Tissues: Small amount of right chest wall and neck subcutaneousgas, increased. IMPRESSION: See findings us Miguel Harris MD, MPH IMG XR CHEST Final Resu lt * (ABNORMAL) Hemoglobin A1c (01/25/2025 7:11 PM EDT) Only the most recent of2 resultswithin the time period is included. HEMOGLOBIN A1C 8.1(H) 4.2 - 5.6 % [facility] Comment: HbA1c levels 5.7-6.4% represent pre-diabetes, indicating impaired glucose control and an increased risk of developing diabetes. The diagnostic HbA1c level for diabetes is 6.5% or greater. HbA1c is performed by the Shannan Laurita-quant immunoassay method which does not detect (incidental) hemoglobin variants. Hemoglobin electrophoresis should be ordered in patients with suspected hemoglobinopathies. CALC MEAN BLD GLUC 186 mg/dL [facility] Comment:The Calculated Mean Blood Glucose (CMBG) represents the estimated average glucose calculated from the measured hemoglobin A1c (HbA1c). There is no established normal range for the CMBG, however a 5.6% HbA1c (upper limit of normal) represents a CMBG of 114 mg/dL. Blood 01/25/2025 7:11 PM EDT 01/25/2025 7:25 PM EDT Miguel Harris MD, MPH LAB BLOOD ORDERABLES Final Result Performing Organization Address City/State/[facility] Co pa Phone Number [facility] [address] [place] [phone] * XR Chest Portable (01/25/2025 7:05 PM EDT) Anatomical Region Laterality Modality Chest Computed Radiogr aphy 01/26/2025 7:15 AM EDT Impressions 01/26/2025 7:57 AM EDT Postsurgical changes right lung. Narrative 01/26/2025 7:57 AM EDT XR CHEST PORTABLE Referring clinician's provided indication for this examination in [facility]: Post-Op COMPARISON: XR CHEST OUTSIDE WITH INTERPRETATION OR CONSULT FINDINGS: Devices/Tubes/Lines: 2 right apically directed thoracostomy tubes. Lungs: Postsurgical changes right lung. Pleura: Small to moderate right pneumothorax. Heart/Mediastinum: Normal heart size. Bones/Soft Tissues: No significant skeletal abnormality. Procedure Note Safia Fung MD - 01/26/2025 XR CHEST PORTABLE Referring clinician's provided indication for this examination in [facility]:Post-Op COMPARISON: XR CHEST OUTSIDE WITH INTERPRETATION OR CONSULT FINDINGS: Devices/Tubes/Lines: 2 right apically directed thoracostomy tubes. Lungs: Postsurgical changes right lung. Pleura: Small to moderate right pneumothorax. Heart/Mediastinum: Normal heart size. Bones/Soft Tissues: No significant skeletal abnormality. IMPRESSION: Postsurgical changes right lung. Miguel Harris MD, MPH IMG XR CHEST Final Resu lt * RI INJ INFUS CERV THORAC W/CATH [id number] WITHOUT IMG PERF, ANES EPIDURAL LDA (01/25/2025 11:42 AM EDT) Narrative Teodoro Neal MD - 01/25/2025 11:42 AM EDT Teodoro Neal MD 01/25/2025 5:10 PM Epidural Catheter Placement Procedure Note: Reason for block: epidural performed exclusively for post-op analgesia and per surgeon request Performed by: fellow/resident/PROSTHETIC AIDES TEACHER Anesthesiologist: Andres Be DO Fellow/Resident/PROSTHETIC AIDES TEACHER: Teodoro Neal MD [place] Protocol performed: consent obtained, patient identified with 2 identifiers, correct procedure verified, correct site and laterality confirmed, verified equipment, coagulation status reviewed and implant history reviewed. Procedure details: Patient position: left lateral decubitus Prep: betadine Approach: left paramedian Location: thoracic (1-12) Level: T7-8 Needle and Epidural Catheter: Needle type: Sergio Needle gauge: 17 G Number of attempts: 1 Catheter type: end hole Loss of resistance depth: 5.2 CHARMAINE Technique: CHARMAINE air Needle length: standard Catheter at skin depth: 11 Test dose: lidocaine 1.5% with epinephrine Test dose reaction: negative Outcomes: Sensory level: T6 and T8 CSF was not aspirated. Blood was not aspirated Paresthesia: no Complications? no Andres Be DO RI ANESTHESIA Edited Res ult - Final * HCG, urine (01/25/2025 9:26 AM EDT) URINE TEST Negative Negative [facility] Urine (Urine) 01/25/2025 9:2 6 AM EDT 01/25/2025 9:33 AM EDT Miguel Harris MD, MPH URINE ORDERABLES Final Res ult Performing Organization Address City/State/[facility] Co de Phone Number [facility] [address] [place] [phone] * CT CHEST WITH CONTRAST (01/23/2025 3:53 PM EDT) Anatomical Region Laterality Modality Chest Computed Tomogra phy 01/24/2025 8:55 AM EDT Impressions 01/24/2025 10:20 AM EDT 1. Slightly increased size of the right hilar mass, representing the primary lung malignancy. 2. Unchanged mildly enlarged right hilar lymph nodes. 3. No new sites of metastatic disease in the chest. ATTESTATION: I, Luis Hammer, as teaching physician have reviewed the images, if any, for this patient's exam, and if necessary, have edited the report originally created by Isma Elizondo. Narrative 01/24/2025 10:[address] CHEST WITH CONTRAST Referring clinician's provided indication for this examination in [facility]: *Other Anomalies Or Syndromes; primary lung cancer, right TECHNIQUE: Multidetector CT of the chest was performed with intravenous contrast using tailored dose modulation techniques. COMPARISON: CT CHEST WITH CONTRAST FINDINGS: Devices/Tubes/Lines: None. Lungs: Slightly increased size of the right hilar mass measuring 32 x 26 mm (2:59) previously 32 x 23 mm. The right middle lobe lateral segmental bronchus is again occluded by the right hilar mass. The mass involves both the right middle and lower lobes, abutting the anterior and medial basal segmental bronchi in the right lower lobe as well as the right lower lobe pulmonary artery. Similar peribronchial groundglass opacities in the right middle lobe with mild linear subsegmental atelectasis, which may represent postobstructive infection/inflammation. Unchanged 4 mm subpleural nodule in the left lower lobe (7:290), and a few subcentimeter right perifissural nodularities (for example, 7:198, 208). No new or enlarging pulmonary nodules. Similar mild upper lobe predominant centrilobular emphysema. The trachea is patent. Pleura: No pleural effusion or pneumothorax. Mediastinum: Heart is normal in size. No pericardial effusion. Mild amount of coronary calcifications. No thyroid nodules. Lymph Nodes: Unchanged mildly enlarged right hilar lymph node measuring 11 mm short axis (2:46). Right lower lobar lymph node on image 53 measuring 10 mm . Upper Abdomen: No abnormality detected in the visualized upper abdomen. Chest Wall: No chest wall mass. Bones: No suspicious lytic or blastic lesions. Procedure Note Luis Randall MD - 01/24/2025 CT CHEST WITH CONTRAST Referring clinician's provided indication for this examination in [facility]:*Other Anomalies Or Syndromes; primary lung cancer, right TECHNIQUE: Multidetector CT of the chest was performed with intravenouscontrast using tailored dose modulation techniques. COMPARISON: CT CHEST WITH CONTRAST FINDINGS: Devices/Tubes/Lines: None. Lungs: Slightly increased size of the right hilar mass measuring 32 x 26mm (2:59) previously 32 x 23 mm. The right middle lobe lateral segmentalbronchus is again occluded by the right hilar mass. The mass involves boththe right middle and lower lobes, abutting the anterior and medial basalsegmental bronchi in the right lower lobe as well as the right lower lobepulmonary artery. Similar peribronchial groundglass opacities in the rightmiddle lobe with mild linear subsegmental atelectasis, which may representpostobstructive infection/inflammation. Unchanged 4 mm subpleural nodulein the left lower lobe (7:290), and a few subcentimeter right perifissuralnodularities (for example, 7:198, 208). No new or enlarging pulmonarynodules. Similar mild upper lobe predominant centrilobular emphysema. Thetrachea is patent. Pleura: No pleural effusion or pneumothorax. Mediastinum: Heart is normal in size. No pericardial effusion. Mild amountof coronary calcifications. No thyroid nodules. Lymph Nodes: Unchanged mildly enlarged right hilar lymph node measuring 11mm short axis (2:46). Right lower lobar lymph node on image 53 [id number] mm . Upper Abdomen: No abnormality detected in the visualized upper abdomen. Chest Wall: No chest wall mass. Bones: No suspicious lytic or blastic lesions. IMPRESSION: 1. Slightly increased size of the right hilar mass, representing theprimary lung malignancy. 2. Unchanged mildly enlarged right hilar lymph nodes. 3. No new sites of metastatic disease in the chest. ATTESTATION: I, Luis Randall, as teaching physician have reviewed theimages, if any, for this patient's exam, and if necessary, have edited thereport originally created by Isma Elizondo. us Miguel Harris MD, MPH IMG CT CHEST Final Resu lt * Urine Culture (01/23/2025 3:18 PM EDT) Special Requests None 01/23/2025 3:12 PM EDT [facility] Urine Culture NO GROWTH 01/24/2025 1:09 PM EDT [facility] Urine (Urine) 01/23/2025 3:1 8 PM EDT 01/23/2025 3:54 PM EDT us Miguel Harris MD, MPH MICROBIOLOGY - GENERAL ORD ERABLES Final Result Performing Organization Address [facility] Co de Phone Number [facility] [address] [place] [phone] * (ABNORMAL) Urinalysis (01/23/2025 3:18 PM EDT) COLOR LT YELLOW(A) Yellow [facility] CLARITY Clear Clear [facility] GLUCOSE 4+(A) Negative [facility] BILI Negative Negative [facility] KETONES Negative Negative [facility] SPECIFIC GRAVITY 1.011 1.003 - 1.035 [facility] BLOOD Negative Negative [facility] PH 6.0 4.5 - 8.0 [facility] Protein-UA Negative Negative [facility] UROBILINOGEN Negative Negative [facility] NITRITE Negative Negative [facility] Leukocyte esterase, ur Negative Negative [facility] Urine (Urine) 01/23/2025 3:1 8 PM EDT 01/23/2025 3:43 PM EDT us Miguel Harris MD, MPH URINE ORDERABLES Final Res ult Performing Organization Address [facility] Co de Phone Number [facility] [address] [place] [phone] * PTT (01/23/2025 3:18 PM EDT) Pathologist [facility] APTT 30.2 24.0 - 37.5 sec [facility] Comment:Emicizumab (Hemlibra ) treatment can result in falsely lowered aPTT test results. Blood 01/23/2025 3:18 PM EDT 01/23/2025 3:41 PM EDT us Miguel Harris MD, MPH LAB BLOOD ORDERABLES Final Result Performing Organization Address [facility] Co de Phone Number [facility] [address] [place] [phone] * PT-INR (01/23/2025 3:18 PM EDT) [facility] PT 10.3 10.0 - 13.0 sec [facility] INR 0.9 0.9 - 1.1 [facility] Blood 01/23/2025 3:18 PM EDT 01/23/2025 3:41 PM EDT us Miguel Harris MD, MPH LAB BLOOD ORDERABLES Final Result [facility] [address] [place] [address] * Microalbumin/creatinine ratio, random urine (12/14/2023 8:25 AM EDT) [facility] URINE MICROALBUMIN <1.2 0 - 2.3 mg/dL [facility] URINE CREATININE 46 mg/dL [facility] MICROALB/CRE RATIO NOT CALCULATED 0 - 20 mg/g Cre [facility] Comment:due to Microalbumin <1.2 Urine (Urine) 12/14/2023 8:2 5 AM EDT 12/14/2023 8:27 AM EDT us Amira STILES URINE ORDERABLES Final Result Performing Organization Address City/State/[facility] Co de Phone Number [address] [address] * Lipid panel (12/11/2023 8:14 AM EDT) [facility] HDL 54 mg/dL [facility] Comment: Interpretation <40 mg/dL: Low HDL cholesterol (major risk factor for CHD) Greater than or equal to 60 mg/dL: High HDL cholesterol ( negative risk factor for CHD) HDL - cholesterol is affected by a number of factors, e.g. smoking, excerise, hormones, sex and age. CHOLESTEROL 180 0 - 240 mg/dL [facility] TRIGLYCERIDES 86 30 - 160 mg/dL [facility] LDL 109 50 - 129 mg/dL [facility] Comment: LDL levels in terms of risk for coronary heart disease: <100 mg/dL: Optimal 100-129 mg/dL: Near or above optimal 130-159 mg/dL: Borderline high 160-189 mg/dL: High >190 mg/dL: Very High CARDIAC RISK RATIO 3.3 3.3 - 4.4 C [facility] Blood 12/11/2023 8:14 AM EDT 12/11/2023 8:15 AM EDT us Amira STILES LAB BLOOD ORDERABLES Final Resu lt [address] [address] * BI MAMMOGRAM SCREENING WITH TOMOSYNTHESIS WITH CAD (BILATERAL) (12/16/2022 9:35 AM EDT) Anatomical Region Laterality Modality Breast Left, Breast Right, Breast Bilateral Bila teral Mammography 12/18/2022 12:0 7 PM EDT Impressions 12/18/2022 12:09 PM EDT No findings suspicious for malignancy are identified. In the absence of a worrisome palpable abnormality, annual screening mammography is recommended. BI-RADS CATEGORY: 1 - Negative. DENSITY: There are scattered fibroglandular densities. Narrative 12/18/2022 12:09 PM EDT AVAILABLE COMPARISON: 11/14/2021 through 01/21/2001 Bilateral 3-D tomosynthesis with 2-D reconstructions in the CC and MLO projection. Computer-aided detection system was utilized. No new mass, asymmetry, architectural distortion or suspicious calcifications have become apparent in either breast. Procedure Note Teodoro Gannon MD - 12/18/2022 AVAILABLE COMPARISON: 11/14/2021 through 01/21/2001 Bilateral 3-D tomosynthesis with 2-D reconstructions in the CC and MLOprojection. Computer-aided detection system was utilized. No new mass, asymmetry, architectural distortion or suspiciouscalcifications have become apparent in either breast. IMPRESSION: No findings suspicious for malignancy are identified. In the absence of aworrisome palpable abnormality, annual screening mammography isrecommended. BI-RADS CATEGORY: 1 - Negative. DENSITY: There are scattered fibroglandular densities. Amira STILES IMG MG EXAMS Final Result * Pap Smear (08/27/2020 12:00 AM EST) 08/27/2020 08/28/2020 8:3 5 AM EST Narrative SEE NARRATIVE - 08/31/2020 4:17 PM EST [address] [address] [employer] Operator: Kaity Lanza MD LITIGATION SERVICES MANAGER Cytology Report FINAL DIAGNOSIS A. PAP SMEAR (SUREPATH) CE: SPECIMEN ADEQUACY: Satisfactory for evaluation; transformation zone present. INTERPRETATION: NEGATIVE FOR INTRAEPITHELIAL LESION OR MALIGNANCY. Electronically Signed Out By: SAMANTHA Molina(ASCP) The Pap test is a screening test primarily for squamous cancers and precursors and has associated false-negative and false-positive results. New technologies such as liquid-based preparations may decrease but will not eliminate all false-negative results. Regular sampling and follow-up of unexplained clinical signs and symptoms are recommended to minimize false negative results. PROCEDURES/ADDENDA HPV Testing (Requested) Ordered Date: 08/28/2020 A. PAP SMEAR (SUREPATH) CE: Human Papilloma Virus Test Negative for high-risk human papillomavirus types 16, 18, 45 and the Other high risk probe set (Includes 31, 33, 35, 39, 51, 52, 56, 58, 59, 66, 68) by [employer] Onclarity HR-HPV analysis. Clinical correlation is advised. This HPV test was performed at [facility], [address] [place] [address]. This test has been FDA approved for SurePath cervical cytology specimens. The accuracy and precision of this test for all other specimen sources has been verified in the Cytopathology Laboratory of the [facility] and has not been cleared or approved by the U.S. Food and Drug Administration. Clinical correlation is advised. CLINICAL HISTORY Date of Last Menstrual Period: Not Provided Menstrual History: Post Menopausal Other Clinical Conditions: Screening Pap SPECIMEN SOURCE A: PAP SMEAR (SUREPATH) CE Patient Name: JAILENE MARTINEZ : 1970 (Age: 50) Sex: F Institution: [facility] Location: [facility] Date of Collection: 08/27/2020 Date of Reported: 08/29/2020 14:41 Results to: Abbie Goodman MD us Abbie Goodman MD CYTOLOGY ORDERABLES Edited Re sult - Final SEE NARRATIVE * ENDOSCOPY, COLON (09/23/2019 11:25 AM EDT) Narrative Transcriptions Gonzales Pimentel MD - 09/23/2019 11:25 AM EDT Patient Name: Jailene Martinez Attending MD:: GONZALES PIMENTEL MD Procedure Date: 09/23/2019 11:25 AM Date of : 1970 Age: 49 Admit Type: Outpatient Gender: Female Room: [place] [address] Referring MD: Amira Faust MD Exam Type: Colonoscopy Indications: Screening for colon cancer: Family history of colorectal cancer in distant relative(s) Medications: Monitored Anesthesia Care Procedure: Informed consent was obtained from the patient after discussion of the indications, limitations, alternatives, benefits, and risks of the procedure. Risks specifically discussed include but are not limited to medication reactions, missed lesions, bleeding, perforation, or the need for emergentsurgery. Throughout the procedure, the patient's bloodpressure, pulse, end-tidal CO2, and oxygen saturations were monitored continuously. The Olympus adult variable colonoscope [id number] #7was introduced through the anus and advanced to the terminal ileum, with identification of theappendiceal orifice and IC valve. The colonoscopy was performed without difficulty. The patient tolerated theprocedure well. The quality of the bowel preparation wasgood. Complications: No immediate complications. Estimated Blood Loss: Estimated blood loss: none. Findings: The perianal and digital rectal examinations were normal. The terminal ileum appeared normal. Examination of the right colon was repeated in retroflexion and again in NBI. Retroflexion was also performed in the rectum. A single small angiodysplastic lesion was found inthe cecum. The entire examined colon appeared normal. Impression: - The examined portion of the ileum was normal. - A single colonic angiodysplastic lesion. - The entire examined colon is normal. - No specimens collected. Recommendation: - Patient has a contact number available for emergencies. The signs and symptoms of potential delayed complications were discussed with thepatient. Return to normal activities tomorrow. Writtendischarge instructions were provided to the patient. - Repeat colonoscopy in 5 years for screeningpurposes, based on family history. Recommend to obtain more pertinent family history information if possible. Gonzales Pimentel GONZALES PIMENTEL MD 09/23/2019 12:06:13 PM This report has been signed electronically. Number of Addenda: 0 Note Initiated On: 09/23/2019 11:25 AM Procedure Code(s): --- Professional --- 09746, Colonoscopy, flexible; diagnostic, including collection of specimen(s) by brushing or washing, when performed (separateprocedure) --- Technical --- 76661, Colonoscopy, flexible; diagnostic, including collection of specimen(s) by brushing or washing, when performed (separateprocedure) CPT copyright 2018 [employer]. All rights reserved. The codes documented in this report are preliminary and upon salesperson corsets reviewmay be revised to meet current compliance requirements. Procedure Date: 09/23/2019 11:25:02 AM [address] [place] [address] Amira STILES GI PROCEDURE ORDERABLES Final R esult * Hepatitis C viral load (PCR) (09/13/2018 12:26 PM EDT) HCV RNA DETECT/QNT Undetected Undetected IU/mL [facility] Comment: (NOTE) Result in log IU/mL is Undetected. ADDITIONAL INFORMATION The quantification range of this assay is 15 to 100,000,000 IU/mL (1.18 log to 8.00 log IU/mL). Testing was performed using the jaylene HCV test ([employer] with the jaylene Future Domain0 System. Blood (Blood) 09/13/2018 12: 26 PM EDT 09/13/2018 2:34 PM EDT Amira STILES NON CULTURE MICROBIOLOGY Final Result [facility] [address] [place] [address] from Last 3 Months or Most Recently Relevant to Health Maintenance Additional Health Concerns Infection Onset Date Last Indicated Resolved Time CoV-Risk 04/19/2025 04/19/2025 [employer] [facility] TOTAL CHOICE INDEMNITY [place] TOTAL CHOICE INDEMNITY [email or web address] TOTAL CHOICE INDEMNITY [place] TOTAL CHOICE INDEMNITY [place] TOTAL CHOICE INDEMNITY [email or web address] TOTAL CHOICE INDEMNITY [place] TOTAL CHOICE INDEMNITY [employer] TOTAL CHOICE INDEMNITY [employer] TOTAL CHOICE INDEMNITY Advance Directives For more information, please contact: [phone] (9AM - 5PM [place], Thursday-Thursday) Documents on File Type Date Recorded 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 Healthcare Proxy 01/25/2025October GiuseppesimmonsEric Nelson white * Full Code (Latest Code Status on File) Date Activated Date Inactivated Comments 02/13/2025 5:47 PM Question Answer Comments Code Status Confirmed With: Patient * Full Code Date Activated Date Inactivated Comments 01/25/2025 6:59 PM 02/13/2025 5:47 PM Question Answer Comments Code Status Confirmed With: Patient Code Status Communicated To: Inpatient Attending * Full Code Date Activated Date Inactivated Comments 11/27/2022 12:39 AM 01/25/2025 6:59 PM Question Answer Comments Code Status Confirmed With: Patient Healthcare Agents on File Name Relationship Healthcare Agent Relationship Communication October Vanesa Relative .Primary Healt h Care Agent (Proxy form on file) Tam Martinez [facility] Health care Agent (Proxy form on file) Care Teams Certified Pediatric Nurse Practitioner Relationship Specialty Start Date End Date Vanessa Banuelos PA [address] [place] [address] PCP - General Physician Civil Engineering Technician 10/14/24 Amira Faust PA [address] [place] [address] Historical LMR Provider 04/26/17 Smiley Mckee MD 22 [facility], [address] [place] [address] Historical LMR Provider 04/26/17 Vanessa Banuelos PA [address] [place] [address] Referring Physician Physician Civil Engineering Technician 10/14/24 Sharmila Miranda, [facility] [address] [place] [address] [email or web address] Flight/Transport Nurse Oncology 11/10/24 Vanessa Banuelos PA [address] [place] [address] Referring Physician Physician Civil Engineering Technician 03/16/25 Rebecca Villalta, [facility] [address] [place] [address] [email or web address] Flight/[email or web address] Nurse Oncology 04/05/25 Additional Source Comments The information contained in this document represents components of the legal health record. It is not the complete legal health record.[facility]
--- OUTSIDE RECORDS SUMMARY | 2025-04-19 18:41 | XMS_ITS | Encounter Summary ---
Author Organization [facility] Address [address] [place] [address] [place] [address] Phone Care Team Providers Care Laser Operator Name Role Phone Amira Faust Unavailable [phone] Abi Loya CNM Unavailable [phone] Natalie Hart SOIL CHEMIST Unavailable Tayler Holbrook SOIL CHEMIST Unavailable Unavailable Archie Graham MD Unavailable Yulia Luong SOIL CHEMIST Unavailable Smiley Mckee MD Unavailable [phone] Maxime Sierra MD Unavailable Marsha De León MD Unavailable [phone] Dona Barrios MD Unavailable Amira Faust Primary Care Provider Vanessa Banuelos Primary Care Provider [phone] Vanessa Banuelos Unavailable [phone] Sharmila Miranda TOURING PRODUCTION MANAGER Unavailable [phone] Vanessa Banuelos Unavailable [phone] Rbeecca Villalta TOURING PRODUCTION MANAGER Unavailable [phone] Encounter Details Date Type Department Care Team (Latest Contact Info) Description 08/20/2017 Transcribe [facility] [address], [address] [place] [address] Amira Faust PA [address] [place] [address] [email or web address] Chest pain, unspecified type (Primary Dx) Social History Tobacco Use Types [...] PM EDT Telemedicine - audio only [facility], [facility] Cancer [address] [place] [address] Addei Michaud PA-C [address] [place] [phone] [email or web address] Beth Beckford MD [address] [place] [address] [email or web address] 05/01/2025 8:30 AM EDT Office Visit [facility] Hematology [address] [place] [address] Edwardo Jose MD [address] [place] [address] and [facility] - [place] [address] [email or web address] 05/05/2025 9:40 AM EDT Office Visit [facility] [address] [place] [address] Smiley Mckee MD [address] [place] [address], [address] [place] [address] 07/11/2025 1:15 PM EST Office Visit [facility] [address] [place] [address] Miguel Maguire MD, MPH [address] [place] [address] 08/16/2025 3:00 PM EST Nutrition [address] [address] Tayler Bingham LDN [address] [place] [address], [address] [place] [address] documented as of this encounter Visit Diagnoses Diagnosis Chest pain, unspecified type- Primary documented in this encounter Additional Health Concerns Infection Onset Date Last Indicated Resolved Time CDiff-Risk 02/09/2025 02/09/2025 02/09/2025 8:05 PM EDT CDiff-Risk 02/10/2025 02/11/2025 02/11/2025 10:0 6 AM EDT TB-Risk Comment:Resolved from TB-Risk Infection Status Resolution Note 02/15/2025 02/15/2025 025 10:41 AM EDT CoV-Risk 04/19/2025 04/19/2025 documented as of this encounter Care Teams Laser Operator Relationship Specialty Start Date End Date Amira Faust PA [address] [place] [address] PCP - General Unknown Provider Specialty 05/27/17 10/13/24 Vanessa Banuelos PA [address] [place] [address] PCP - General Physician Sodder 10/14/24 Amira Faust PA [address] [place] [address] [email or web address] Historical LMR Provider 04/26/17 Abi Loya CNM [address] [place] [address] Historical LMR Provider 04/26/17 07/13/21 Natalie Hart, BATSHEVA [address] [place] [address] Historical LMR Provider 04/26/17 Tayler Short SOIL CHEMIST [address] [place] [address] Historical LMR Provider 04/26/1707/13 Archie Graham MD [address] [place] [address] Historical LMR Provider 04/26/17 07/13/21 Yulia Luong NP [address] [place] [address] Historical LMR Provider 04/26/17 Smiley Mckee MD 22 [facility], 1st [place] [address] Historical LMR Provider 04/26/17 Maxime Sierra MD 22 [facility], [address] [place] [address] Historical LMR Provider 04/26/17 07/13/21 Marsha De León MD [address] [place] [phone] Historical LMR Provider 04/26/17 2 Dona Barrios MD [address] [place] [address] Orthopedics & Sports Medicine, [facility] [place] [address] [email or web address] Historical LMR Provider 04/26/17 Vanessa Banuelos PA [address] [place] [address] Referring Physician Physician Sodder 10/14/24 Sharmila Miranda, [facility] [address] [place] [address] [email or web address] Filling [facility] 11/10/24 Vanessa Banuelos PA [address] [place] [address] Referring Physician Physician Sodder 03/16/25 Rebecca Villalta, [facility] [address] [place] [address] [email or web address] Filling [facility] 04/05/25 documented as of this encounter Additional Source Comments The information contained in this document represents components of the legal health record. It is not the complete legal health record.[facility]
--- OUTSIDE RECORDS SUMMARY | 2025-04-19 18:41 | XMS_ITS | Continuity of Care Document ---
Author Organization [facility] Address [address] [place], [place] [address] [place], [place] Phone [phone] Care Team Providers Care Boat Ride Operator Name Role Phone Gabby Conde MD Care Team Information Receiv er Unavailable YAKOV LATIF M.D. Care Team Information Rec eiver Unavailable Gabby Conde MD Primary Care Physician Unava ilable Social History Type Date Description Comments Sex Female Sex Unknown
--- OUTSIDE RECORDS SUMMARY | 2025-04-19 18:42 | XMS_ITS | Encounter Summary ---
Author Organization [facility] Address [address] [place] [address] [place] [address] Phone Care Team Providers Care Title Camera Operator Name Role Phone Amira Faust Unavailable [phone] Abi Loya CNM Unavailable [phone] Natalie Hart MANAGER MOBILITY Unavailable Tayler Holbrook MANAGER MOBILITY Unavailable Unavailable Archie Graham MD Unavailable Yulia Luong MANAGER MOBILITY Unavailable Smiley Mckee MD Unavailable [phone] Maxime Sierra MD Unavailable Marsha De León MD Unavailable [phone] Dona Barrios MD Unavailable Amira Faust Primary Care Provider Vanessa Banuelos Primary Care Provider [phone] Vanessa Banuelos Unavailable [phone] Sharmila Miranda SHIRT CLEANER Unavailable [phone] Vanessa Banuelos Unavailable [phone] Rebecca Villalta SHIRT CLEANER Unavailable [phone] Encounter Details Date Type Department Care Team (Latest Contact Info) Description 08/24/[address] [facility] [address] [place] [address] Amira Faust PA [address] [place] [address] [email or web address] Type 1 diabetes mellitus with complication (Primary Dx); Paresthesia Social History Tobacco Use Types Packs/Day Years [...] 3:00 PM EDT Telemedicine - audio only [facility], [address], [address]th [place] [address] Addie Michaud PA-C [address] [place] [address] [email or web address] [email or web address] Beth Beckford MD [address] [place] [address] [email or web address] 05/01/2025 8:30 AM EDT Office Visit [facility] Hematology [address] [place] [address] Edwardo Jose MD 75 [facility] - [place] [address] [email or web address] 05/05/2025 9:40 AM EDT Office Visit [facility] [address] [place] [address] Smiley Mckee MD [address] [place] [address], [address] [place] [address] 07/11/2025 1:15 PM EST Office Visit [facility] [place] [address] [place] [address] Miguel Maguire MD, MPH [address] [place] [address] 08/16/2025 3:00 PM EST Nutrition [facility] Diabetes [address] [address] Tayler Bingham LDN [address] [place] [address], [address] [place] [address] documented as of this encounter Results * (ABNORMAL) Urinalysis with sediment (08/24/2017 9:33 AM EST) WBC 0-4(A) NONE SEEN /hpf [facility] RBC NONE SEEN NONE SEEN /hpf [facility] URINE EPITHELIAL 5-10(A) NONE SEEN [facility] MUCUS NONE SEEN NONE SEEN /hpf [facility] BACTERIA NONE SEEN NONE SEEN [facility] COLOR Yellow Yellow [facility] CLARITY Clear [facility] GLUCOSE Negative Negative [facility] BILI Negative Negative [facility] KETONES Negative Negative [facility] SPECIFIC GRAVITY 1.015 1.005 - 1.030 [facility] BLOOD Negative Negative [facility] PH 6.5 5.0 - 8.0 [facility] Protein-UA Negative Negative [facility] NITRITE Negative Negative [facility] Leukocyte esterase, ur Negative Negative [facility] Urine (Urine) 08/24/2017 9:3 3 AM EST 08/24/2017 9:48 AM EST us Amira STILES URINE ORDERABLES Final Result Performing Organization Address [facility]/ZIP Co de Phone Number [address] [address] * Microalbumin/creatinine ratio, random urine (08/24/2017 9:33 AM EST) URINE MICROALBUMIN 0.3 0 - 2.3 mg/dL [facility] URINE CREATININE 187 mg/dL [facility] MICROALB/CRE RATIO NOT CALCULATED 0 - 20 mg/g Cre [facility] Comment:due to Microalbumin <1.2 Urine (Urine) 08/24/2017 9:3 3 AM EST 08/24/2017 9:48 AM EST Amira STILES URINE ORDERABLES Final Result Performing Organization Address [facility] Co de Phone Number [address] [address] * Vitamin B12 (08/24/2017 9:30 AM EST) VITAMIN B12 405 243 - 894 pg/mL [facility] Blood 08/24/2017 9:30 AM EST 08/24/2017 9:39 AM EST Amira STILES LAB BLOOD ORDERABLES Final Resu lt Performing Organization Address City/[facility]/ZIP Co de Phone Number [address] [address] * Folate (08/24/2017 9:30 AM EST) FOLIC ACID 15.5 4.2 - 19.9 ng/mL [facility] Blood 08/24/2017 9:30 AM EST 08/24/2017 9:39 AM EST Amira STILES LAB BLOOD ORDERABLES Final Resu lt Performing Organization Address City/[facility]/ZIP Co de Phone Number [address] [address] * (ABNORMAL) CBC (08/24/2017 9:30 AM EST) Pathologist [facility] WBC 6.07 3.40 - 11.20 K/uL [facility] RBC 4.63 3.80 - 4.80 M/uL [facility] HGB 15.3(H) 12.0 - 15.0 g/dL [facility] HCT 44.7 36.0 - 46.0 % [facility] PLT 336 130 - 400 K/uL [facility] MCV 96.5 79.0 - 98.0 fL [facility] MCH 33.0 27.0 - 34.8 pg [facility] MCHC 34.2 31.5 - 36.0 g/dL [facility] RDW 13.1 10.8 - 14.6 % [facility] MPV 9.2(L) 9.4 - 12.4 fl [facility] NRBC 0.00 /100 WBCs [facility] ABSOLUTE NRBC 0.00 K/uL [facility] Blood 08/24/2017 9:30 AM EST 08/24/2017 9:39 AM EST Amira STILES LAB BLOOD ORDERABLES Final Resu lt Performing Organization Address City/[facility]/ZIP Co de Phone Number [address] [address] * TSH with reflex (08/24/2017 9:30 AM EST) Pathologist [facility] TSH 2.35 0.27 - 4.20 uIU/mL [facility] Blood 08/24/2017 9:30 AM EST 08/24/2017 9:39 AM EST us Amira STILES LAB BLOOD ORDERABLES Final Resu lt Performing Organization Address [facility]/ZIP Co de Phone Number [address] [address] * (ABNORMAL) Lipid panel (08/24/2017 9:30 AM EST) HDL 63 mg/dL [facility] Comment: Interpretation: Risk Level Females Decreased >55mg/dL Average 50-55 mg/dL Increased <50 mg/dL CHOLESTEROL 182 0 - 240 mg/dL [facility] TRIGLYCERIDES 101 30 - 160 mg/dL [facility] LDL 99 50 - 129 mg/dL [facility] Comment: LDL levels in terms of risk for coronary heart disease: <100 mg/dL: Optimal 100-129 mg/dL: Near or above optimal 130-159 mg/dL: Borderline high 160-189 mg/dL: High >190 mg/dL: Very High CARDIAC RISK RATIO 2.9(L) 3.3 - 4.4 C [facility] Blood 08/24/2017 9:30 AM EST 08/24/2017 9:39 AM EST Amira STILES LAB BLOOD ORDERABLES Final Resu lt Performing Organization Address [facility]/ZIP Co de Phone Number [address] [address] * Comprehensive metabolic panel (08/24/2017 9:30 AM EST) SODIUM 143 133 - 146 mmol/L [facility] POTASSIUM 4.9 3.3 - 5.1 mmol/L [facility] CHLORIDE 104 96 - 108 mmol/L [facility] CO2 29 21 - 35 mmol/L [facility] BUN 8 6 - 19 mg/dL [facility] CREATININE 0.80 0.5 - 1.5 mg/dL [facility] GLUCOSE 75 70 - 99 mg/dL [facility] ALBUMIN 4.4 3.9 - 4.8 g/dL [facility] TOTAL PROTEIN 7.1 6.5 - 8.0 g/dL [facility] CALCIUM 9.4 8.4 - 10.3 mg/dL [facility] ALKALINE PHOSPHATASE 90 39 - 117 U/L [facility] TOTAL BILIRUBIN 0.5 0 - 1.2 mg/dL [facility] AST 26 0 - 37 U/L [facility] ALT 23 0 - 40 U/L [facility] GLOBULIN 2.7 1 - 4.8 g/dL [facility] EGFR >60 >60 mL/min/1.7 3m2 [facility] Comment:Abnormal if <60. If patient is -Maldivian, multiply the result by 1.21. ANION GAP 15 10 - 20 mmol/L [facility] Blood 08/24/2017 9:30 AM EST 08/24/2017 9:39 AM EST us Amira STILES LAB BLOOD ORDERABLES Final Resu lt Performing Organization Address City/State/[facility] Co de Phone Number [address] [address] documented in this encounter Visit Diagnoses Diagnosis Type 1 diabetes mellitus with complication- Primary Paresthesia Disturbance of skin sensation documented in this encounter Additional Health Concerns Infection Onset Date Last Indicated Resolved Time CDiff-Risk 02/09/2025 02/09/2025 02/09/2025 8:05 PM EDT CDiff-Risk 02/10/2025 02/11/2025 02/11/2025 10:0 6 AM EDT TB-Risk Comment:Resolved from TB-Risk Infection Status Resolution Note 02/15/2025 02/15/2025 025 10:41 AM EDT CoV-Risk 04/19/2025 04/19/2025 documented as of this encounter Care Teams Title Camera Operator Relationship Specialty Start Date End Date Amira Faust PA [address] [place] [address] [email or web address] PCP - General Unknown Provider Specialty 05/27/17 10/13/24 Vanessa Banuelos PA [address] [place] [address] PCP - General Physician Stonemason Helper 10/14/24 Amira Faust PA [address] [place] [address] [email or web address] Historical LMR Provider 04/26/17 Abi Loya CNM [address] [place] [address] Historical LMR Provider 04/26/17 07/13/21 Natalie Hart NP [address] [place] [address] Historical LMR Provider 04/26/17 Tayler Short MANAGER MOBILITY [address] [place] [address] Historical LMR Provider 04/26/1707/13 Archie Graham MD [address] [place] [address] Historical LMR Provider 04/26/17 07/13/21 Yulia Luong NP [address] [place] [address] Historical LMR Provider 04/26/17 Smiley Mckee MD [address] [place] [address], 1st [place] [address] Historical LMR Provider 04/26/17 Maxime Sierra MD [address] [place] [address] [email or web address] Historical LMR Provider 04/26/17 07/13/21 Marsha De León MD [address] [place] [phone] Historical LMR Provider 04/26/17 2 Dona Barrios MD [address] [place] [address] Orthopedics & Sports Medicine, [facility] [place] [address] [email or web address] Historical LMR Provider 04/26/17 Vanessa Banuelos PA [address] [place] [address] Referring Physician Physician Stonemason Helper 10/14/24 Sharmila Miranda, [facility] [address] [place] [address] [email or web address] Production Honing Machine Operator Oncology 11/10/24 Vanessa Banuelos PA [address] [place] [address] Referring Physician Physician Stonemason Helper 03/16/25 Rebecca Villalta, [facility] [address] [place] [address] [email or web address] Honing Machine Operator Oncology 04/05/25 documented as of this encounter Additional Source Comments The information contained in this document represents components of the legal health record. It is not the complete legal health record.[facility]
--- OUTSIDE RECORDS SUMMARY | 2025-04-19 18:42 | XMS_ITS | Encounter Summary ---
Author Organization [facility] Address [address] [place] [address] [place] [address] Phone Care Team Providers Care Master In Chancery Name Role Phone Amira Faust Unavailable [phone] Abi Loya CNM Unavailable [phone] Natalie Hart CLINICAL PHARMACIST Unavailable Tayler Holbrook CLINICAL PHARMACIST Unavailable Unavailable Archie Graham MD Unavailable Yulia Luong CLINICAL PHARMACIST Unavailable Smiley Mckee MD Unavailable [phone] Maxime Sierra MD Unavailable Marsha De León MD Unavailable [phone] Dona Barrios MD Unavailable Amira Faust Primary Care Provider Vanessa Banuelos Primary Care Provider [phone] Vanessa Banuelos Unavailable [phone] Sharmila Miranda COMMUNITY MIDWIFE Unavailable [phone] Vanessa Banuelos Unavailable [phone] Rebecca Villalta COMMUNITY MIDWIFE Unavailable [phone] Encounter Details Date Type Department Care Team (Late st Contact Info) Description 12/18/2017 Ancillary Orders [facility], X-Ray - [address] [address] Amira Faust PA [address] [place] [address] [email or web address] Social History Tobacco Use Types Packs/Day Years [...] 3:00 PM EDT Telemedicine - audio only [facility], [facility] Cancer [address], [address]th [place] [address] Addie Michaud PA-C [address] [place] [address] [email or web address] Beth Beckford MD [address] [place] [address] [email or web address] 05/01/2025 8:30 AM EDT Office Visit [facility] Hematology [address] [place] [address] Edwardo Jose MD 75 [facility] - [place] [address] [email or web address] 05/05/2025 9:40 AM EDT Office Visit [facility] Diabetes Center [address] [place] [address] Smiley Mckee MD [address] [place] [address], [address] [place] [address] 07/11/2025 1:15 PM EST Office Visit [facility] Lung [facility]-Thoracic Surgical Specialties [address] [place] [address] Miguel Maguire MD, MPH [address] [place] [address] 08/16/2025 3:00 PM EST Nutrition [facility] Diabetes [address] [address] Tayler Bingham LDN [address] [place] [address] documented as of this encounter Results * XR ELBOW 3 OR MORE VIEWS (LEFT) (12/18/2017 8:26 AM EDT) Anatomical Region Laterality Modality Elbow Left Radiographic Marcia ging 12/18/2017 12:3 6 PM EDT Impressions 12/18/2017 3:00 PM EDT Age-indeterminate fracture at the tip of the coronoid process of the ulna. No other bony abnormality seen. POS - [id number] Edited by: Anastacia Lucas on 12/18/2017 1:10 PM Narrative 12/18/2017 3:00 PM EDT EXAM: XR ELBOW 3 OR MORE VIEWS (LEFT) COMPARISON: None FINDINGS: Irregularity of the tip of the coronoid process seen in only one view. Remaining included osseous structures are unremarkable. Elbow joint alignment is anatomic. No elbow joint effusion seen. Minimal soft tissue swelling in the posterior aspect of the elbow. Procedure Note Jarrell Flores MD - 12/18/2017 EXAM: XR ELBOW 3 OR MORE VIEWS (LEFT) COMPARISON: None FINDINGS: Irregularity of the tip of the coronoid process seen in only one view.Remaining included osseous structures are unremarkable. Elbow jointalignment is anatomic. No elbow joint effusion seen. Minimal soft tissueswelling in the posterior aspect of the elbow. IMPRESSION: Age-indeterminate fracture at the tip of the coronoid process of the ulna.No other bony abnormality seen. POS - [id number] Edited by: Anastacia Lucas on 12/18/2017 1:10 PM Amira STILES IMG XR UPPER EXTREMITY Final Re sult documented in this encounter Visit Diagnoses Diagnosis Pain Generalized pain Pain Generalized pain documented in this encounter Additional Health Concerns Infection Onset Date Last Indicated Resolved Time CDiff-Risk 02/09/2025 02/09/2025 02/09/2025 8:05 PM EDT CDiff-Risk 02/10/2025 02/11/2025 02/11/2025 10:0 6 AM EDT TB-Risk Comment:Resolved from TB-Risk Infection Status Resolution Note 02/15/2025 02/15/2025 025 10:41 AM EDT CoV-Risk 04/19/2025 04/19/2025 documented as of this encounter Care Teams Master In Chancery Relationship Specialty Start Date End Date Amira Faust PA [address] [place] [address] [email or web address] PCP - General Unknown Provider Specialty 05/27/17 10/13/24 Vanessa Banuelos PA [address] [place] [address] PCP - General Physician Freight Brakeman 10/14/24 Amira Faust PA [address] [place] [address] [email or web address] Historical LMR Provider 04/26/17 Abi Loya CNM [address] [place] [address] Historical LMR Provider 04/26/17 07/13/21 Natalie Hart NP [address] [place] [address] Historical LMR Provider 04/26/17 2 Tayler Holbrook CLINICAL PHARMACIST [address] [place] [address] Historical LMR Provider 04/26/1707/13 Archie Graham MD [address] [place] [address] Historical LMR Provider 04/26/17 07/13/21 Yulia Luong NP [address] [place] [address] Historical LMR Provider 04/26/17 Smiley Mckee MD [address] [place] [address], 1st [place] [address] Historical LMR Provider 04/26/17 Maxime Sierra MD [address] [place] [address] [place] [address] Historical LMR Provider 04/26/17 07/13/21 Marsha De León MD [address] [place] [phone] Historical LMR Provider 04/26/17 2 Dona Barrios MD [address] [place] [address] Orthopedics & Sports Medicine, [place] [address] Historical LMR Provider 04/26/17 Vanessa Banuelos PA [address] [place] [address] Referring Physician Physician Freight Brakeman 10/14/24 Sharmila Miranda, [facility] [address] [place] [address] [email or web address] Stenocaptioner Oncology 11/10/24 Vanessa Banuelos PA [address] [place] [address] Referring Physician Physician Freight Brakeman 03/16/25 Rebecca Villalta, [facility] [address] [place] [address] [email or web address] Oncology 04/05/25 documented as of this encounter Additional Source Comments The information contained in this document represents components of the legal health record. It is not the complete legal health record.[facility]
== END 2025-04-19 16:32 | disposition home or self-care (01) ==
LOC: HO.HMCFM 15:00
PROVIDERS: PCP Physician Assistant; Visit Provider Physician Assistant
DX: R06.09 Other forms of dyspnea (principal); C34.01 Malignant neoplasm of right main bronchus; F41.8 Other specified anxiety disorders

== ENCOUNTER → 2025-04-19 14:59 | Outpatient (BNVA) | payer OTHER, SELFPAY | PROVIDERS: PCP Physician Assistant; Visit Provider Physician Assistant | DX: C34.01 Malignant neoplasm of right main bronchus (principal); J44.9 Chronic obstructive pulmonary disease, unspecified; R06.09 Other forms of dyspnea; F41.8 Other specified anxiety disorders | CPT/HCPCS: 93005 ==

== ENCOUNTER → 2025-04-27 13:40 | Outpatient (BNV) | payer OTHER, SELFPAY | PROVIDERS: Referring Provider Surgery; Visit Provider Internal Medicine Medical Oncology | DX: C34.2 Malignant neoplasm of middle lobe, bronchus or lung (principal); Z90.2 Acquired absence of lung [part of]; Z87.891 Personal history of nicotine dependence | CPT/HCPCS: 99204 ==

== ENCOUNTER 2025-05-15 10:03 | Outpatient (AMB) | payer OTHER, SELFPAY ==
--- NOTE | 2025-05-15 10:06 | A.OFFPC_ITS ---
Vital Signs 05/15/25 10:10 Height 5 ft 6 in Weight 131 lb BMI 21.1 BP 100/60 Blood Pressure Location Rt brachial Position Sitting Respiration 16 Pulse 88 Pulse Source Pulse Oximeter Temp 97.9 F Temp Source Temporal Artery Scan Pulse Oximetry (%) 99 Oxygen Delivery Method Room Air Intake Visit Reasons: Susie's Pt. Remove stitches / Referral for x-ray Intake Note: Jailene presents in the office today for a the removal of stitches and for a referral for an X-Ray. Allergies No Known Allergies Allergy (Verified 05/15/25 10:09) Tobacco use date assessed: 05/15/25 Dental Screening Dental Screen Date: 05/15/25 Did you have a dental visit in the last 12 months?: Yes Did you have a dental problem in the last 6 months where you did not have access to dental care?: No Was dental information given to patient?: Patient has dentist HPI HPI Comments History of Present Illness Details 55-year-old female with a past medical h istory of lung cancer, anxiety with depression and type 1 diabetes presents For ER follow up. Patient presented 05/03/2025 due to bleeding after PleurX catheter was removed. She was on anticoagulation due to postoperative pulmonary emboli. Bleeding was managed with sutures. Her x-ray showed reaccumulation of fluid and she was sent home to follow up with thoracic surgery. She then went home and took Eliquis and had blood running down her side from the catheter site. She also endorsed hemoptysis which she had not had prior. She endorsed feeling weak, tired and short of breath. CTA demonstrated a few residual subacute pulmonary emboli with decreased clot burden compared to 04/19/2025. There was overall mildly decreased size but increased fluid component of the loculated right hydropneumothorax partially tracking into the right lateral chest wall. There were more conspicuous mild erosive changes of the right lateral 6th rib and small area of remodeling and reabsorption of the anterior right 4th rib at the site of the prior drain (reactive changes per ED note rather than osteomyelitis). There was also a new small partially consolidative and ground- glass opacities in the lingula, likely infectious or inflammatory. She was g iven morphine. Bleed was controlled with topical TXA and Surgicel. Patient presents today for suture removal. States there has been no further bleeding. She kept the dressing in place. Patient also is requesting orders for chest x-ray to have done at [facility] to follow up with her thoracic surgery team. Reports that she has continued to have hemoptysis intermittently but not every day. Reports it looks like ?old blood. ? Says this is never a large amount. Denies wheezing or worsening dyspnea or chest pain. On room air pulse ox is 99% today. She says her breathing is feeling better, and she is less short of breath. Patient reports she was told by her team that as long as hemoptysis was not worsening she can monitor this. ROS: Constitutional: Denies fevers, chills, night sweats. +fatigue Eyes: No vision changes, blurry vision, double vision, eye pain, eye redness, eye discharge. ENT: No sore throat, sneezing, congestion Respiratory: See HPI Cardiovascular: No palpitations or pedal edema. Denies chest pain. Gastrointestinal: No anorexia, nausea, vomiting or diarrhea. No abdominal pain Neurologic: No headache, dizziness, syncope Hematologic/Lymphatics: No bleeding Skin: No rash Physical exam: Constitutional: Alert, in no distress. Neck: Supple, Full range of motion. No lymphadenopathy. Respiratory: Lungs clear to auscultation. No crackles, rales or wheezing. Patient is speaking clearly, no dyspnea. Cardiovascular: S1 S2 regular. No murmur Gastrointestinal: Abdomen soft, non-tender, non-distended. Normal bowel sounds. No palpable masses. Neurologic: No focal neurological deficits Skin: Well healed incision on the right anterior chest with to Prolene sutures in place. No weeping, no discharge, no swelling. Extremities: Warm and well perfused. No clubbing, cyanosis or edema. [facility] Medical History (Updated 05/15/25 @ 17:58 by LINSEY Allen) Pulmonary emboli Hemoptysis Lung cancer Sleep apnea Nicotine dependence, cigarettes, uncomplicated Insulin pump in place Uncontrolled type 1 diabetes mellitus with hyperglycemia, with long-term current use of insulin Arthritis Anxiety and depression Surgical History (Updated 04/27/25 @ 14:30 by Latanya Penny MD) History of lung surgery History of lung biopsy History of section History of appendectomy Family History Paternal Grandfather Substance abuse Maternal Grandfather Substance abuse Cancer Maternal Grandmother Substance abuse Hypertension High cholesterol Thyroid disorder Brother Hypertension Mother Thyroid disorder Paternal Grandmother Cardiovascular disease Father Cardiovascular disease Agent orange exposure Maternal Aunt Lung cancer Maternal Uncle Lung cancer Social History (Updated 05/15/25 @ 10:[address] [facility]) Household Members: None Both parents involved: No Caregiver staying overnight: No Housing: Condominium Are you a primary care support representative to a significant other at home: No Do you presently have visiting nurse or other home services: No 75 years or older and lives alone: No Alcohol intake: former Patient Tobacco Use Status: Former Tobacco user (quit 6 months) Tobacco use type: Cigarette Years Smoked: (onset 15yo, 1/2-1ppd x 39yrs, 30pyh) e-Cigarette/Vaping Use: Former Use Second Hand Smoke Exposure: No Substance Use Type: Marijuana service: No 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al status: 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: No Cognitive needs: No Hearing needs: No Vision needs: Yes (wear glasses reading and distance) Questionnaire Thrive Questionnaire Date Thrive assessed: 07/12/24 I am a: Patient What is your living situation today?: I have a steady place to live Within the past 12 months, did the food you bought not last and you didn't have the money to get more?: I choose not to answer this question Within the past 12 months, did you worry whether your food would run out before you got money to buy more?: I choose not to answer this question Do you have trouble paying for medicines?: Yes Do you have trouble getting transportation to medical appointments?: No Do you have trouble paying your heating and electricity bill?: Yes Do you have trouble taking care of your child, family member or friend?: I choose not to answer this question Do you have trouble with day-to-day activities such as bathing, preparing meals, shopping, managing finances, etc.?: I choose not to answer this question Are you currently unemployed and looking for a job?: No Are you interested in more education?: I choose not to answer this question Please select the resources that you would like help with: None Currently or been in a relationship where the following occur: I choose not to answer THRIVE Score: 1 ELVIN-7 AMB Questionnaire ELVIN-7 Date ELVIN - 7 assessed: 07/13/24 Source: Developed by Drs. Josh Mejia, Rachel Hanks, Enmanuel Crawford and colleagues, with an educational fifi from [employer]. Physical exam (Primary Care) Vital Signs: Last Vital Signs Temp 97.9 F 05/15/25 10:10 Pulse 88 05/15/25 10:10 Resp 16 05/15/25 10:10 BP 100/60 05/15/25 10:10 Pulse Ox 99 05/15/25 10:10 Oxygen Delivery Method Room Air 05/15/25 10:10 BMI result Body Mass Index 21.1 Tobacco/Smoking Status: Tobacco use Status Tobacco use date assessed 05/15/25 05/15/25 10:13 Patient Tobacco Use Status Former Tobacco user (quit 6 05/15/25 10:10 months) Tobacco use type Cigarette 05/15/25 10:10 e-Cigarette/Vaping Use Former Use 05/15/25 10:10 Thrive Assessment: Date of Thrive Assessment Date Thrive assessed 07/12/24 05/15/25 10:08 Currently or been in a relationship where the following occur: I choose not to answer Coding Level of Care Code Est Pt Level 4 (03717) Complex EM visit Add On G2211 Diagnoses SINCLAIR (dyspnea on exertion) R06.09 Hemoptysis R04.2 Pulmonary emboli I26.99 Malignant neoplasm of hilus of right lung C34.01 Laterality: right Lung location: hilum of lung Assessment & Plan Assessment & Plan (1) SINCLAIR (dyspnea on exertion): Code(s): R06.09 - Other forms of dyspnea Category: Medical (2) Hemoptysis: Code(s): R04.2 - Hemoptysis Category: Medical (3) Pulmonary emboli: Code(s): I26.99 - Other pulmonary embolism without acute cor pulmonale Category: Medical (4) Lung cancer: Code(s): C34.90 - Malignant neoplasm of unspecified part of unspecified bronchus or lung Category: Medical Qualifiers: Laterality: right Lung location: hilum of lung Qualified Code(s): C34.01 - Malignant neoplasm of right main bronchus Plan Prolene sutures removed with assistance from Dr. Luo. Advised patient to apply bacitracin for the next 5-7 days. Monitor for signs and symptoms of cellulitis such as redness, swelling or increased pain. She endorses ongoing hemoptysis which was evaluated at the emergency department with CTA which showed decreased clot burden. Pulse ox is normal today. She is afebrile. It was recommended she continue anticoagulant due to postoperative PEs. She will have a chest x-ray completed at [facility] today. I printed the order for her to take with her. I also asked her to contact her thoracic surgery team to touch base with them about these ongoing symptoms. She agreed. I advised her to go to the ED for any worsening of hemoptysis, shortness of breath, fevers, chills or other concerning symptoms. Schedule a follow up with PCP in 1 month. Orders: Orders XR chest 2V Today C34.01 - Malignant neoplasm of right main bronchus, Z09 - Encounter for follow-up examination after completed treatment for conditions other than malignant neoplasm Medications: New apixaban (Eliquis) 5 mg PO BID 180 tabs 0RF bacitracin zinc 1 appl topical TID 14.2 grams 0RF
[2025-05-15 10:10] VITALS: BP 100/60; PULSE 88; RESP 16; TEMP 36.6; O2SAT 99; BMI 21.1
--- OUTSIDE RECORDS SUMMARY | 2025-05-15 11:41 | XMS_ITS | Clinical Summary ---
Author Organization [facility] Address [address] [place] [address] Phone Care Team Providers Care Business Analytics Director Name Role Phone Unavailable Primary Care Provider Unavailabl e Social History Tobacco Use Types Packs/Day Years Used Date Smoking Tobacco: Never Assessed Comments Unknown Sex and Gender Information Value Date Recorded Sex Assigned at Not on file Legal Sex Female 11:30 AM EDT Gender Identity Not on file Sexual Orientation Not on file Plan of Treatment Health Maintenance Due Date Last Done Comments Colorectal Cancer Screening: Colonoscopy 1970 Diabetes: Annual Foot Exam 01/12/1980 Diabetes: Annual Retina Eye Exam 01/12/1980 Cervical Cancer Screening: Pap Smear 1991 Pneumococcal Vaccine: 50+ Years (1 of 1 - PCV) 01/12/2020 RSV Immunization Adult Patients (1 - Risk 50-74 years 1-dose series) 01/12/2020 Zoster Vaccines (1 of 2) 01/12/2020 Depression Screening 07/06/2024 HIV Screening 10/20/2024 Lung Cancer Screening (Low Dose CT) 10/20/2024 Social Influencers of Health Screening 10/20/2024 Diabetes: Annual GFR (Glomerular Filtration Rate) 12/10/2024 12/11/2023, 11/17/2022, 10/12/2021, Additional history exists Diabetes: Annual Urine Albumin-Creatinine Ratio (uACR) 12/13/2024 12/14/2023, 11/18/2022, 10/15/2021, Additional history exists Breast Cancer Screening 12/16/2024 12/16/2022 COVID-19 Vaccine ( season) 2025 06/26/2021, 09/06/2020, 08/09/2020 Influenza Vaccine (#1) 2025 07/31/2022, 2019 Diabetes: Blood Sugar Control Test (HGBA1C) 04/15/2025 [...] on patient's age to complete this topic Insurance #[address] [place] [address] [facility]
--- OUTSIDE RECORDS SUMMARY | 2025-05-15 11:41 | XMS_ITS | Continuity of Care Document ---
Author Organization [facility] Address [address] [place], [place] [address] [place], [place] Phone [phone] Care Team Providers Care Fusion Juncture Grinder Name Role Phone Gabby Conde MD Care Team Information Receiv er Unavailable YAKOV LATIF M.D. Care Team Information Rec eiver Unavailable Gabby Conde MD Primary Care Physician Unava ilable Social History Type Date Description Comments Sex Female Sex Unknown
== END 2025-05-15 10:49 | disposition home or self-care (01) ==
LOC: HO.HMCFM 10:03
PROVIDERS: PCP Physician Assistant; Visit Provider Physician Assistant Medical
DX: R06.09 Other forms of dyspnea (principal); R04.2 Hemoptysis; I26.99 Other pulmonary embolism without acute cor pulmonale; C34.01 Malignant neoplasm of right main bronchus

== ENCOUNTER 2025-05-31 11:41 | Outpatient (AMB) | payer OTHER, SELFPAY ==
--- NOTE | 2025-05-31 11:49 | A.OFFPC_ITS ---
Vital Signs 05/31/25 11:53 BP 100/62 Blood Pressure Location Rt brachial Position Sitting Respiration 16 Pulse 96 Pulse Source Pulse Oximeter Temp 98.1 F Temp Source Oral Pulse Oximetry (%) 94 Oxygen Delivery Method Room Air Intake Visit Reasons: Pt. needs one stitch taking out Intake Note: Stich removal under right breast Glaze Mixer Required: No Allergies No Known Allergies Allergy (Verified 05/31/25 11:51) Medication List - Last Reconciled 05/31/25 by Vanessa Banuelos PA-C apixaban (Eliquis) 5 mg PO BID bacitracin zinc 1 appl topical TID blood-glucose sensor (Dexcom G6 Sensor device) As directed cholecalciferol (vitamin D3) 25 mcg PO DAILY ferrous sulfate 325 mg PO QAM gabapentin (Neurontin) 300 mg PO DAILY insulin pump cart,auto,BT,G6/7 (Omnipod 5 G6-G7 Pods (Gen 5) subcutaneous cartridge) As directed lorazepam 0.5 mg PO BID PRN sertraline 100 mg PO DAILY valacyclovir (Valtrex) 2,000 mg (2 x 1 gram) PO Q12H PRN 1 day MDD 4 g Tobacco use date assessed: 05/31/25 Dental Screening Dental Screen Date: 05/15/25 HPI Pt. needs one stitch taking out HPI Details Patient is a 55-year-old female presents today for a follow up. She has a hx of t1dm, anxiety with depression, hx of cold sores and recent diagnosis of lung ca. Here for a stitch removal from her previous chest tube. She was seen by my colleague 05/15 for removal of stitches. It was difficult to remove all of the stitches as she had a lot of scabbing. One suture was missed and she is here today for removal of it. She states since she was seen the area has healed significantly well and she has not issues with it. She states all she can see now is 1 stitch that is still present. There is no redness. She is not having any difficulty breathing. She says that she is back to baseline and overall feeling a lot better. PULM: Recently went for a low-dose CT scan screen given her smoking history and family history of lung cancer and found to have a right lung mass. She has followed up with pulmonology and recently had PFTs which showed mild COPD. She has lung primary (adenocarcinoma) and states that the mass was larger than anticipated so she had a right bilobectomy and has been on chemo. What I last saw her she was sent to the hospital and had a PE. She is now on Eliquis. -Team: Miguel Maguire- thoracic surgeon Beth Beckford-oncology, has f/u appointment CV: Blood pressure today in the office is 100/62. Psych: She is on sertraline 100 mg daily and lorazepam as needed. Endo: She follows with Tab soriano for management for t1dm- she is on a pump. She has had dm for 30 years (dx around 20s). She has all back up supplies at home. She understands how to treat hypoglycemia [facility] Medical History (Updated 05/15/25 @ 17:58 by LINSEY Allen) Pulmonary emboli Hemoptysis Lung cancer Sleep apnea Nicotine dependence, cigarettes, uncomplicated Insulin pump in place Uncontrolled type 1 diabetes mellitus with hyperglycemia, with long-term current use of insulin Arthritis Anxiety and depression Surgical History (Updated 04/27/25 @ 14:30 by Latanya Penny MD) History of lung surgery History of lung biopsy History of section History of appendectomy Family History Paternal Grandfather Substance abuse Maternal Grandfather Substance abuse Cancer Maternal Grandmother Substance abuse Hypertension High cholesterol Thyroid disorder Brother Hypertension Mother Thyroid disorder Paternal Grandmother Cardiovascular disease Father Cardiovascular disease Agent orange exposure Maternal Aunt Lung cancer Maternal Uncle Lung cancer Social History (Updated 05/15/25 @ 10:10 by Abi Merritt CMA) Household Members: None Both parents involved: No Caregiver staying overnight: No Housing: Condominium Are you a primary health care coordinator to a significant other at home: No Do you presently have visiting nurse or other home services: No 75 years or older and lives alone: No Alcohol intake: former Patient Tobacco Use Status: Former Tobacco user (quit 6 months) Tobacco use type: Cigarette Years Smoked: (onset 15yo, 1/2-1ppd x 39yrs, 30pyh) e-Cigarette/Vaping Use: Former Use Second Hand Smoke Exposure: No Substance Use Type: Marijuana service: No 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al status: 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: No Cognitive needs: No Hearing needs: No Vision needs: Yes (wear glasses reading and distance) Questionnaire Thrive Questionnaire Date Thrive assessed: 07/12/24 I am a: Patient What is your living situation today?: I have a steady place to live Within the past 12 months, did the food you bought not last and you didn't have the money to get more?: I choose not to answer this question Within the past 12 months, did you worry whether your food would run out before you got money to buy more?: I choose not to answer this question Do you have trouble paying for medicines?: Yes Do you have trouble getting transportation to medical appointments?: No Do you have trouble paying your heating and electricity bill?: Yes Do you have trouble taking care of your child, family member or friend?: I choose not to answer this question Do you have trouble with day-to-day activities such as bathing, preparing meals, shopping, managing finances, etc.?: I choose not to answer this question Are you currently unemployed and looking for a job?: No Are you interested in more education?: I choose not to answer this question Please select the resources that you would like help with: None Currently or been in a relationship where the following occur: I choose not to answer THRIVE Score: 1 ELVIN-7 AMB Questionnaire ELVIN-7 Date ELVIN - 7 assessed: 07/13/24 Source: Developed by Drs. Josh Mjeia, Rachel Hanks, Enmanuel Crawford and colleagues, with an educational fifi from [employer]. Physical exam (Primary Care) Tobacco/Smoking Status: Tobacco use Status Tobacco use date assessed 05/15/25 05/31/25 11:50 Patient Tobacco Use Status Former Tobacco user (quit 6 05/31/25 11:50 months) Tobacco use type Cigarette 05/31/25 11:50 e-Cigarette/Vaping Use Former Use 05/31/25 11:50 Thrive Assessment: Date of Thrive Assessment Date Thrive assessed 07/12/24 05/31/25 11:50 Currently or been in a relationship where the following occur: I choose not to answer Const Orientation/consciousness: patient oriented x3 HENMT Ears: hearing grossly normal bilaterally Neck Thyroid: Thyroid normal Lymphatic: no lymphadenopathy noted Resp Auscultation: clear to auscultation bilaterally Cardio Rate: regular rate Rhythm: regular rhythm Heart sounds: S1 normal heart sound present and S2 normal heart sound present Skin Other: There is 1 suture noted on the right lateral chest wall. It is removed without difficulty. No bleeding Neuro General: patient oriented x3, gait normal and no focal motor deficits Coding Level of Care Code Est Pt Level 4 (43112) Complex visit Add On G2211 Diagnoses Anxiety with depression F41.8 Pulmonary emboli I26.99 Non-small cell carcinoma of lung C34.90 Assessment & Plan Assessment & Plan (1) Anxiety with depression: Code(s): F41.8 - Other specified anxiety disorders Category: Medical Plan: stable has supportive family and ex (2) Pulmonary emboli: Code(s): I26.99 - Other pulmonary embolism without acute cor pulmonale Category: Medical Plan: on eliquis, no issues (3) Non-small cell carcinoma of lung: Code(s): C34.90 - Malignant neoplasm of unspecified part of unspecified bronchus or lung Category: Medical Plan: completing chemo and overall tolerating with some side effects of intermittent mouth sores, nausea suture removed today w/o complications. no bleeding. Skin was cleaned with alcohol prep pad, suture removed, bacitracin applied. She will let me know if anything changes
[2025-05-31 11:53] VITALS: BP 100/62; PULSE 96; RESP 16; TEMP 36.7; O2SAT 94
== END 2025-05-31 13:45 | disposition home or self-care (01) ==
LOC: HO.HMCFM 11:42
PROVIDERS: PCP Physician Assistant; Visit Provider Physician Assistant
DX: F41.8 Other specified anxiety disorders (principal); I26.99 Other pulmonary embolism without acute cor pulmonale; C34.90 Malignant neoplasm of unspecified part of unspecified bronchus or lung

== ENCOUNTER 2025-06-15 12:46 | Outpatient (AMB) | payer OTHER, SELFPAY ==
--- NOTE | 2025-06-15 12:52 | A.OFFPC_ITS ---
Vital Signs 06/15/25 12:53 Height 5 ft 6 in Weight 132 lb 4 oz BMI 21.3 BP 124/72 Blood Pressure Location Lt brachial Position Sitting Respiration 12 Pulse 85 Pulse Source Pulse Oximeter Temp 98.1 F Temp Source Oral Pulse Oximetry (%) 98 Oxygen Delivery Method Room Air Intake Visit Reasons: follow up with Vanessa Intake Note: Follow up. Had last chemo treatment two days ago. Systems Analyst Required: No Allergies No Known Allergies Allergy (Verified 06/15/25 12:57) Medication List - Last Reconciled 06/15/25 by Vanessa Banuelos PA-C apixaban (Eliquis) 5 mg PO BID blood-glucose sensor (Dexcom G6 Sensor device) As directed cholecalciferol (vitamin D3) 25 mcg PO DAILY ferrous sulfate 325 mg PO QAM gabapentin 100 mg PO BID 90 days insulin pump cart,auto,BT,G6/7 (Omnipod 5 G6-G7 Pods (Gen 5) subcutaneous cartridge) As directed lorazepam 0.5 mg PO BID PRN sertraline 100 mg PO DAILY valacyclovir (Valtrex) 2,000 mg (2 x 1 gram) PO Q12H PRN 1 day MDD 4 g Tobacco use date assessed: 06/15/25 Dental Screening Dental Screen Date: 05/15/25 HPI follow up with Vanessa HPI Details Patient is a 55-year-old female presents today for a follow up. She has a hx of t1dm, anxiety with depression, hx of cold sores and recent diagnosis of lung ca. PULM: Recently went for a low-dose CT scan screen given her smoking history and family history of lung cancer and found to have a right lung mass. She has followed up with pulmonology and recently had PFTs which showed mild COPD. She has lung primary (adenocarcinoma) and states that the mass was larger than anticipated so she had a right bilobectomy and has been on chemo. What I last saw her she was sent to the hospital and had a PE. She is now on Eliquis. -Team: Miguel Maguire- thoracic surgeon Beth Beckford-oncology, has f/u appointment Following now with oncology locally for chemo, imaging, and as needed IV hydration. She had her last round of chemo 2 days ago and is feeling the nausea and having some vomiting now. She states right now she does not feel nauseous but this morning she did vomit in the shower. She states that she is going to call her oncologist later today to see about getting some IV hydration. She states it usually makes her feel a lot better. She is overall feeling excited about being done with chemo. She is anxious obviously regarding imaging but is hopeful. She has a good support system. CV: Blood pressure today in the office is 124/72. Psych: She is on sertraline 100 mg daily and lorazepam as needed. Endo: She follows with [facility] for management for t1dm- she is on a pump. She has had dm for 30 years (dx around 20s). She has all back up supplies at home. She understands how to treat hypoglycemia [facility] Medical History (Updated 06/13/25 @ 09:53 by Latanya Penny MD) Pulmonary emboli Hemoptysis Lung cancer Sleep apnea Nicotine dependence, cigarettes, uncomplicated Insulin pump in place Uncontrolled type 1 diabetes mellitus with hyperglycemia, with long-term current use of insulin Arthritis Anxiety and depression Surgical History History of lung surgery History of lung biopsy History of section History of appendectomy Family History Paternal Grandfather Substance abuse Maternal Grandfather Substance abuse Cancer Maternal Grandmother Substance abuse Hypertension High cholesterol Thyroid disorder Brother Hypertension Mother Thyroid disorder Paternal Grandmother Cardiovascular disease Father Cardiovascular disease Agent orange exposure Maternal Aunt Lung cancer Maternal Uncle Lung cancer Social History (Updated 06/15/25 @ 12:58 by Francesca Ballesteros CMA) Household Members: None Housing: Condominium Are you a primary health care sanitary technician to a significant other at home: No Do you presently have visiting nurse or other home services: No Alcohol intake: former Patient Tobacco Use Status: Former Tobacco user (quit 6 months) Tobacco use type: Cigarette Cigarettes Per Day: 10 (between 5 and 10) Years Smoked: (onset 15yo, 1/2-1ppd x 39yrs, 30pyh) e-Cigarette/Vaping Use: Former Use Second Hand Smoke Exposure: No Substance Use Type: Marijuana Patient : No service: No 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al status: 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: No Cognitive needs: No Hearing needs: No Vision needs: Yes (wear glasses reading and distance) Questionnaire Thrive Questionnaire Date Thrive assessed: 07/12/24 I am a: Patient What is your living situation today?: I have a steady place to live Within the past 12 months, did the food you bought not last and you didn't have the money to get more?: I choose not to answer this question Within the past 12 months, did you worry whether your food would run out before you got money to buy more?: I choose not to answer this question Do you have trouble paying for medicines?: Yes Do you have trouble getting transportation to medical appointments?: No Do you have trouble paying your heating and electricity bill?: Yes Do you have trouble taking care of your child, family member or friend?: I choose not to answer this question Do you have trouble with day-to-day activities such as bathing, preparing meals, shopping, managing finances, etc.?: I choose not to answer this question Are you currently unemployed and looking for a job?: No Are you interested in more education?: I choose not to answer this question Please select the resources that you would like help with: None Currently or been in a relationship where the following occur: I choose not to answer THRIVE Score: 1 ELVIN-7 AMB Questionnaire ELVIN-7 Date ELVIN - 7 assessed: 07/13/24 Source: Developed by Drs. Josh Mejia, Rachel Hanks, Enmanuel Crawford and colleagues, with an educational fifi from [email or web address]. Physical exam (Primary Care) Vital Signs: Last Vital Signs Temp 98.1 F 06/15/25 12:53 Pulse 85 06/15/25 12:53 Resp 12 06/15/25 12:53 BP 124/72 06/15/25 12:53 Pulse Ox 98 06/15/25 12:53 Oxygen Delivery Method Room Air 06/15/25 12:53 BMI result Body Mass Index 21.3 Tobacco/Smoking Status: Tobacco use Status Tobacco use date assessed 06/15/25 06/15/25 12:58 Patient Tobacco Use Status Former Tobacco user (quit 6 06/15/25 12:58 months) Tobacco use type Cigarette 06/15/25 12:58 e-Cigarette/Vaping Use Former Use 06/15/25 12:58 Thrive Assessment: Date of Thrive Assessment Date Thrive assessed 07/12/24 06/15/25 12:53 Currently or been in a relationship where the following occur: I choose not to answer Const Orientation/consciousness: patient oriented x3 HENMT Ears: hearing grossly normal bilaterally Neck Thyroid: Thyroid normal Lymphatic: no lymphadenopathy noted Resp Auscultation: clear to auscultation bilaterally Cardio Rate: regular rate Rhythm: regular rhythm Heart sounds: S1 normal heart sound present and S2 normal heart sound present GI Inspection: Yes normal to inspection Palpation (GI): Soft to palpation and Other GI palpation findings present (nontender, no cva tenderness) Auscultation: normoactive bowel sounds Rectal Exam - Female: deferred Skin General skin exam: no rashes or lesions noted Neuro General: patient oriented x3, gait normal and no focal motor deficits Coding Level of Care Code Est Pt Level 4 (37874) Add On Problem Visit Only Diagnoses Anxiety with depression F41.8 Pulmonary emboli I26.99 Non-small cell carcinoma of lung C34.90 Assessment & Plan Assessment & Plan (1) Anxiety with depression: Code(s): F41.8 - Other specified anxiety disorders Category: Medical Plan: stable has supportive family and ex (2) Pulmonary emboli: Code(s): I26.99 - Other pulmonary embolism without acute cor pulmonale Category: Medical Plan: on eliquis, no issues (3) Non-small cell carcinoma of lung: Code(s): C34.90 - Malignant neoplasm of unspecified part of unspecified bronchus or lung Category: Medical Plan: completed chemo and overall tolerating with some side effects of intermittent mouth sores, nausea and vomiting. Going to talk to her oncologist today in regards to IV hydration which I do believe she would benefit from. Unfortunately, we do not have any normal saline here in the office to help with this. Medications: New gabapentin 100 mg PO BID 180 caps 3RF 90 days
[2025-06-15 12:53] VITALS: BP 124/72; PULSE 85; RESP 12; TEMP 36.7; O2SAT 98; BMI 21.3
== END 2025-06-15 14:47 | disposition home or self-care (01) ==
LOC: HO.HMCFM 12:47
PROVIDERS: PCP Physician Assistant; Visit Provider Physician Assistant
DX: F41.8 Other specified anxiety disorders (principal); I26.99 Other pulmonary embolism without acute cor pulmonale; C34.90 Malignant neoplasm of unspecified part of unspecified bronchus or lung